=== PATIENT | male | born 1940 | race Caucasian/White ===

== ENCOUNTER → 2016-10-25 | Outpatient (CLI) | payer MEDICARE ==
--- OUTSIDE RECORDS SUMMARY | 2016-10-25 12:53 | XMS REPORT ---
Author Author MADDY NAM [facility], [place] eClinicalWorks Address Unknown Phone Unavailable Care Team Providers Care Property Field Inspector Name Role Phone MADDY NAM CP Unavailable Allergies, Adverse Reactions, Alerts Substance Reaction Event Type N.K.D.A. Info Not Available Non Drug Allergy Problems Problem Type Condition Code Onset Dates Condition Status Problem Impotence of organic origin 607.84 Active Problem Pain in joint, lower leg 719.46 Active Problem Acute sinusitis, unspecified 461.9 Active Problem Benign essential hypertension 401.1 Active Problem Unspecified infective otitis externa 380.10 Active Problem Hypertension I10 Active Problem Allergic rhinitis, cause unspecified 477.9 Active Problem Gout, unspecified 274.9 Active Problem Personal history of allergy to other foods V15.05 Active Problem Enlargement of lymph nodes 785.6 Active Assessment Mass in neck R22.1 Active Assessment Hypertension I10 Active Problem Other symptoms involving skin and integumentary tissues 782.9 Active Medications Medication Code System Code Instructions Start Date End Date Status Dosage Hydrochlorothiazide [facility] [address]-11 25 MG Orally Once a day May 12, 2014 1 tablet by Oral route 1 time per day Aspirin [facility] [address]-43 81 mg Jun 29, 2014 1 Tablet by Oral route 1 time per day Viagra [facility] [address]-50 50 MG Orally Once a day May 31, 2015 1 tablet as needed Procedures Procedure Coding System Code Date Office Visit, Est Pt., Level 2 CPT-4 92981 Oct 26, 2015 Vital Signs Date/Time: Oct 26, 2015 Temperature 98.5 F Weight 236.0 lbs Height 69 in BMI 34.85 Index Blood Pressure Diastolic 76 mmHg Blood Pressure Systolic 146 mmHg Cardiac Monitoring Heart Rate 68 bpm Results No Known Results Summary Purpose eClinicalWorks Submission
--- NOTE | 2016-10-25 15:37 | Diagnostic Imaging Report ---
Two views of the left hip. INDICATION: Left hip pain. FINDINGS: There is markedly severe osteoarthritis with [id number] appearance on the lateral aspect of the hip joint with subchondral sclerosis and cyst formation seen. There are no fractures or dislocation. No radiopaque foreign body. IMPRESSION: Severe left hip osteoarthritis. Dictated by: Dictated on workstation # [id number]
== END ==
LOC: RAD 12:49
PROVIDERS: ATTEND Family Medicine
DX: M25.552 Pain in left hip (principal)
CPT/HCPCS: 73502

== ENCOUNTER 2018-09-06 11:35 | Emergency (ER) | payer MEDICARE ==
[~2018-09-06] VITALS: Ht 180.3 cm; Wt 108.9 kg
[2018-09-06 12:02] VITALS: BP 113/93
--- NOTE | 2018-09-06 12:18 | ED Upper Extremity ---
General Chief Complaint: Upper Extremity Stated Complaint: INJURED RT. SHOULDER/FALL Nursing Triage Note: THE PT IS AMBULATORY TO THE ROOM WITHOUT DIFFICULTY. NO DISTRESS IS SEEN ON ARRIVAL. LOC IS NORMAL FOR THE PT. Nursing Sepsis Screen: No Definite Risk History of Present Illness Date Seen by Provider: Sep 06, 2018 Time Seen by Provider: 12:14 Initial Comments The patient is a 78-year-old white male who was just released from shelter this week. He had been to the grab driver's license office at the [facility] and was walking south of the building in order to get to [facility]. He tripped and fell heavily on his right shoulder. He reports considerable pain and inability to use it. On triage the nurses found him to have a relatively rapid irregular heartbeat. There is no past history of this. There is no chest pain. He was seen recently at the shelter by a nurse practitioner from [facility]. No statement was made then about his heartbeat. He normally sees Dr. Nam at [facility]. Onset: just prior to arrival Pain/Injury Location: right shoulder Method of Injury: fell Modifying Factors: Improves With Cold Therapy Allergies and Home Medications Home Medications Hydrocodone Bit/Acetaminophen 1 Ea Tablet, 1 EA PO 4 times a day PRN for PAIN- MODERATE Prescribed by: CHRISTIANE HONEYCUTT on 09/06/18 1310 Metoprolol Tartrate 25 Mg Tablet, 25 MG PO BID Prescribed by: CHRISTIANE HONEYCUTT on 09/06/18 1310 Patient Home Medication List Home Medication List Reviewed: Yes Review of Systems Constitutional: see HPI EENTM: no symptoms reported Respiratory: dyspnea on exertion, other (stop smoking at age 41) Gastrointestinal: no symptoms reported Genitourinary: no symptoms reported Musculoskeletal: see HPI Skin: no symptoms reported Psychiatric/Neurological: No Symptoms Reported Past Rgwwghw-Vdcvrn-Nljixc Hx Patient Social History Recent Foreign Travel: No Contact w/Someone Who Travel: No Recent Infectious Disease Expo: No Recent Hopitalizations: No Physical Abuse: No Sexual Abuse: No Mistreated: No Fear: No Seasonal Allergies Seasonal Allergies: No Past Medical History Surgeries: No Cardiac: No Neurological: No Physical Exam Vital Signs Vital Signs - First Documented 09/06/18 12:02 Temp 98.0 Pulse 118 Resp 18 B/P (MAP) 113/93 (100) Capillary Refill : Less Than 3 Seconds Height, Weight, BMI Height: 5'11.00" Weight: 240lbs. oz. 108.159127py; BMI Method:Estimated General Appearance: mild distress HEENT: normal ENT inspection Neck: full range of motion Cardiovascular: irregularly irregular, other (rate between 110 and 130) Respiratory: chest non-tender, lungs clear, normal breath sounds Gastrointestinal: other (obese no tenderness or palpated masses) Back: normal inspection, no CVA tenderness, no vertebral tenderness, CVA tenderness (R), CVA tenderness (L) Shoulder: limited ROM (elbow held tightly to chest.) Wrist: Yes normal inspection Progress/Results/Core Measures Results/Orders Lab Results Laboratory Tests Test 09/06/18 12:55 Range/Units White Blood Count 16.7 H 4.3-11.0 10^3/uL Red Blood Count 4.99 4.35-5.85 10^6/uL Hemoglobin 15.3 13.3-17.7 G/DL Hematocrit 45 40-54 % Mean Corpuscular Volume 90 80-99 FL Mean Corpuscular Hemoglobin 31 25-34 PG Mean Corpuscular Hemoglobin Concent 34 32-36 G/DL Red Cell Distribution Width 13.8 10.0-14.5 % Platelet Count 208 130-400 10^3/uL Mean Platelet Volume 10.5 H 7.4-10.4 FL Neutrophils (%) (Auto) 87 H 42-75 % Lymphocytes (%) (Auto) 6 L 12-44 % Monocytes (%) (Auto) 6 0-12 % Eosinophils (%) (Auto) 1 0-10 % Basophils (%) (Auto) 0 0-10 % Neutrophils # (Auto) 14.5 H 1.8-7.8 X 10^3 Lymphocytes # (Auto) 1.0 1.0-4.0 X 10^3 Monocytes # (Auto) 1.0 0.0-1.0 X 10^3 Eosinophils # (Auto) 0.2 0.0-0.3 10^3/uL Basophils # (Auto) 0.0 0.0-0.1 10^3/uL My Orders Orders - CHRISTIANE HONEYCUTT MD Shoulder, Right, 3 Views (09/06/18 12:01) Cbc With Automated Diff (09/06/18 12:10) Comprehensive Metabolic Panel (09/06/18 12:10) Chest 1 View, Ap/Pa Only (09/06/18 12:10) Ekg Tracing (09/06/18 12:10) Shoulder Immoblizer (09/06/18 12:56) Manual Differential (09/06/18 12:55) Vital Signs/I&O 09/06/18 12:02 Temp 98.0 Pulse 118 Resp 18 B/P (MAP) 113/93 (100) Blood Pressure Mean: 100 Departure Communication (Admissions) Shoulder x-ray shows a high subcapital fracture of the right humeral head with some distraction. Cardiogram shows atrial fibrillation as anticipated. [address] Simmons of the cardiology service. He will come to the emergency room. Basically the thought is that the patient because of the acute injury is not an immediate candidate for anticoagulation. And the recommendation therefore would be to proceed with the sling and to add a beta bello to slow the rate slightly. The remainder of the treatment could be done as an outpatient. Impression Primary Impression: acute subcapital fracture right humeral head Additional Impression: untreated atrial fibrillation onset unclear Disposition: 01 HOME, SELF-CARE Condition: Stable/Unchanged Departure-Patient Inst. Decision time for Depature: 13:06 Referrals: MADDY NAM MD (PCP/Family) Primary Care Physician Patient Instructions: How to Use a Shoulder Sling Add. Discharge Instructions: All discharge instructions reviewed with patient and/or family. Voiced understanding. Use sling save when bathing. Lortab as necessary for pain Follow-up with Dr. Simmons with regard to atrial fibrillation. His phone number is [phone]. Call this for an appointment on Sunday or Sunday. Scripts Metoprolol Tartrate (Metoprolol Tartrate) 25 Mg Tablet 25 MG PO BID, #20 TAB Prov: CHRISTIANE HONEYCUTT MD 09/06/18 Hydrocodone Bit/Acetaminophen (LORTAB 7.5 MG TABLET) 1 Ea Tablet 1 EA PO 4 times a day PRN for PAIN-MODERATE, #20 TAB Prov: CHRISTIANE HONEYCUTT MD 09/06/18 CHRISTIANE HONEYCUTT MD Sep 06, 2018 12:18
--- NOTE | 2018-09-06 12:45 | Diagnostic Imaging Report ---
INDICATION: Fall and right shoulder pain. TIME OF EXAMINATION: 12:54 p.m. FINDINGS: Three views of the right shoulder demonstrate an acute fracture of the proximal right humerus near the junction of the humeral head and neck. Glenohumeral alignment is maintained without evidence of dislocation. There is glenohumeral joint degenerative change. Acromioclavicular alignment appears normal. IMPRESSION: Proximal right humerus fracture. Dictated by: Dictated on workstation # [id number]
--- NOTE | 2018-09-06 12:46 | Diagnostic Imaging Report ---
INDICATION: Fall and right shoulder fracture. TIME OF EXAM: 12:52 p.m. COMPARISON: Comparison is made with prior chest from 03/06/2007. FINDINGS: Small calcified nodules are noted bilaterally consistent with granulomas. No infiltrates are seen. No effusion or pneumothorax is identified. IMPRESSION: No acute cardiopulmonary process is detected. Dictated by: Dictated on workstation # [id number]
[2018-09-06 13:03] LABS: BASOPHILS % (AUTO) 0 % (0-10); EOSINOPHILS # (AUTO) 0.2 10^3/uL (0.0-0.3); EOSINOPHILS % (AUTO) 1 % (0-10); HEMATOCRIT 45 % (40-54); HEMOGLOBIN 15.3 G/DL (13.3-17.7); LYMPHOCYTES % (AUTO) 6 % (12-44); MEAN CORPUSCULAR HEMOGLOBIN 31 PG (25-34); MEAN CORPUSCULAR HGB CONC 34 G/DL (32-36); MEAN CORPUSCULAR VOLUME 90 FL (80-99); MEAN PLATELET VOLUME 10.5 FL (7.4-10.4); MONOCYTES % (AUTO) 6 % (0-12); NEUTROPHILS # (AUTO) 14.5 X 10^3 (1.8-7.8); NEUTROPHILS % (AUTO) 87 % (42-75); PLATELET COUNT 208 10^3/uL (130-400); RED BLOOD COUNT 4.99 10^6/uL (4.35-5.85); RED CELL DISTRIBUTION WIDTH 13.8 % (10.0-14.5); WHITE BLOOD COUNT 16.7 10^3/uL (4.3-11.0)
[2018-09-06] MEDS ORDERED: METO-333 PO (13:10)
[2018-09-06] MEDS ORDERED: HYDR-34 PO (13:10)
--- NOTE | 2018-09-06 13:13 | Consultation-Cardiology ---
HPI-Cardiology Cardiology Consultation: Date of Consultation 09/06/18 Date of Admission Attending Physician Admitting Physician Tj Delatorre MD Consulting Physician Yaron SIMMONS MD HPI: Time Seen by a Provider: 13:13 Chief Complaint: Atrial fibrillation This is a 78-year-old gentleman who presents with a mechanical fall and possible right shoulder injury. He was found to have new onset atrial fibrillation with rapid ventricular rate. He denies any chest pain, shortness of breath, palpitations. He has history of hypertension. Denies any past history of cardiac disease. He was incarcerated for 18 months and was recently released. He follows [facility]. Review of Systems-Cardiology Review of Systems Constitutional: As described under HPI; No As described under HPI, No no symptoms reported, No chills, No fever, No lightheadedness Eyes: No As described under HPI, No no symptoms reported, No blindness, No blurred vision, No contact lenses, No drainage, No decreased acuity, No foreign body sensation, No pain, No vision change Ears/Nose/Throat: No As described under HPI, No no symptoms reported, No chronic hearing loss, No ear discharge, No ear pain, No nasal drainage, No ulcerations Respiratory: No no symptoms reported; As described under HPI; No As described under HPI, No cough, No orthopnea, No shortness of breath, No SOB with excertion Cardiovascular: No no symptoms reported; As described under HPI; No As described under HPI, No chest pain, No edema, No irregular heart rate, No lightheadedness, No palpitations Gastrointestinal: No no symptoms reported, No As described under HPI, No abdomen distended, No abdominal pain, No blood streaked bowels, No constipation , No diarrhea, No nausea, No vomiting, No stool coloration changes Genitourinary: No As described under HPI, No burning, No dysuria, No discharge , No frequency, No flank pain, No hematuria, No urgency Skin: No rash, No skin related problems, No ulcerations Psychiatric/Neurological: No anxiety, No depression, No seizure, No focal weakness, No syncope Hematologic: No bleeding abnormalities KGT-Eyxnlh-[place] Hx Patient Social History Recent Foreign Travel: No Recent Infectious Disease Expo: No Hospitalization with Isolation: Denies Past Medical History PMH As described under Assessment. Allergies and Home Medications Home Medications Hydrocodone Bit/Acetaminophen 1 Ea Tablet, 1 EA PO 4 times a day PRN for PAIN- MODERATE Prescribed by: CHRISTIANE HONEYCUTT on 09/06/18 1310 Metoprolol Tartrate 25 Mg Tablet, 25 MG PO BID Prescribed by: CHRISTIANE HONEYCUTT on 09/06/18 1310 Patient Home Medication List Home Medication List Reviewed: Yes Physical Exam-Cardiology Physical Exam Vital Signs/I&O 09/06/18 12:02 Temp 98.0 Pulse 118 Resp 18 B/P (MAP) 113/93 (100) Capillary Refill : Less Than 3 Seconds Constitutional: appears stated age, AAO x 3; No apparent distress; well- developed, well-nourished HEENT: PERRL; No normal ENT inspection, No TMs normal, No pharynx normal, No scleral icterus (R), No scleral icterus (L), No pale conjunctivae (R), No pale conjunctivae (L), No photophobia, No TM abnormal (R), No TM abnormal (L), No pharyngeal erythema, No tonsillar exudate, No other, No discharge, No EOMI; hearing is well preserved; No hard of hearing; oral hygience is good; No ulceration, No xanthelasmas are seen Neck: No non-tender, No full range of motion, No supple, No normal inspection, No carotid bruit, No limited range of motion, No lymphadenopathy (R), No lymphadenopathy (L), No tender lateral, No tender midline, No thyromegaly, No other; carotid pulses are 2 + bilaterally; No with good upstrokes Respiratory: No accessory muscle use, No respiratory distress, No chest tender , No chest expansion is symmetric; chest is bilaterally symmetric; No lungs clear to percussion; lungs clear to auscultation; No crackles, No rhonchi, No rales, No stridor, No wheezing, No pleural rub, No other Cardiovascular: irregularly irregular, tachycardia, S1 and S2 Gastrointestinal: No tender, No soft, No round, No distended, No pulsatile mass , No organomegaly, No guarding, No rebound, No tenderness, No hernia, No mass, No audible bowel sounds, No abnormal bowel sounds, No abdominal bruits, No spleenomegaly, No other Rectal: deferred Extremities: No normal range of motion, No non-tender, No normal inspection, No pedal edema, No calf tenderness, No normal capillary refill, No pelvis stable , No calf tenderness, No inflammation, No pedal edema, No slow capillary refill , No swelling, No other, No abrasion, No clubbing, No cyanosis, No ecchymosis, No laceration, No no lower extremity edema bilateral, No significant edema, No tenderness, No wound Neurologic/Psychiatric: no motor/sensory deficits, alert, normal mood/affect, oriented x 3, power is 5/5 both on sides Skin: No normal color, No warm/dry, No cyanosis, No cool, No diaphoresis, No damp, No ecchymosis, No jaundice, No mottled, No pallor, No rash, No tattoos/ piercings, No ulcerations, No rash on exposed areas, No ulcerations on exposed areas, No other Data Review Labs Laboratory Tests 09/06/18 12:55: White Blood Count 16.7H, Red Blood Count 4.99, Hemoglobin 15.3, Hematocrit 45, Mean Corpuscular Volume 90, Mean Corpuscular Hemoglobin 31, Mean Corpuscular Hemoglobin Concent 34, Red Cell Distribution Width 13.8, Platelet Count 208, Mean Platelet Volume 10.5H, Neutrophils (%) (Auto) 87H, Lymphocytes (%) (Auto) 6L, Monocytes (%) (Auto) 6, Eosinophils (%) (Auto) 1, Basophils (%) (Auto) 0, Neutrophils # (Auto) 14.5H, Lymphocytes # (Auto) 1.0, Monocytes # (Auto) 1.0, Eosinophils # (Auto) 0.2, Basophils # (Auto) 0.0, Neutrophils % (Manual) 82, Lymphocytes % (Manual) 4, Monocytes % (Manual) 3, Eosinophils % (Manual) 0, Basophils % (Manual) 1, Band Neutrophils 7, Reactive Lymphocytes 3, Toxic Granulation 1+, Poikilocytosis SLIGHT, Elliptocytes SLIGHT, Sodium Level 140, Potassium Level 3.7, Chloride Level 107, Carbon Dioxide Level 22, Anion Gap 11, Blood Urea Nitrogen 24H, Creatinine 0.93, Estimat Glomerular Filtration Rate > 60, BUN/Creatinine Ratio 26, Glucose Level 125H, Calcium Level 9.8, Corrected Calcium 9.6, Total Bilirubin 1.0, Aspartate Amino Transf (AST/SGOT) 22, Alanine Aminotransferase (ALT/SGPT) 17, Alkaline Phosphatase 60, Total Protein 7.2, Albumin 4.2 ECG Impression ECG Initial ECG Impression: Atrial Fibrillation w/RVR A/P-Cardiology Assessment/Admission Diagnosis Mechanical fall, Hypertension, Persistent atrial fibrillation with rapid ventricular rate Plan Mechanical fall: Defer to Dr. Honeycutt. Hypertension: Continue metoprolol. Persistent atrial fibrillation with rapid ventricular rate: CHADSVASC 3 for age over 75, hypertension. oral anticoagulation is superior to aspirin. However, due to acute fall I'm going to hold off on oral anticoagulation. I will see him in the next few days and hopefully if there is any hematoma or bleeding it will be observed. If there is no evidence of bleeding. We will start him on oral anticoagulation. Metoprolol is recommended for rapid ventricular rate. Further monitoring will include Holter/event monitor/echocardiogram/nuclear stress testing. We'll arrange as an outpatient. Follow-up in my office in the next 3-4 days. Thank you for your consultation. Please call me if you have any questions. Chapo Simmons MD, FACP, FACC, FSCAI, FHRS, CCDS Interventional Cardiology Cardiac Electrophysiology Vascular Medicine and Endovascular Interventions Yaron SIMMONS MD Sep 06, 2018 13:13
--- OUTSIDE RECORDS SUMMARY | 2018-09-06 13:21 | XMS REPORT ---
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 Active 546653969 ALLERGIES No Known Allergies ENCOUNTERS Encounter Location Date Diagnosis [address] [id number] Aug, Folliculitis L73.[address] [id number] Jul, Ear pain, left H92.02 and Hip pain, left M25.[address] [id number] Jul, Pain in right knee M25.561 ; Other chronic pain G89.29 and Foot callus L84 [address] [id number] Jun, Acute pain of right knee M25.[address] [id number] May, Onychomycosis B35.1 and Acute non-recurrent maxillary sinusitis J01.00 [facility] [address] [facility] [id number] [address] May, Slow transit constipation K59.01 [facility] [address] [facility] [id number] [address] 164[address] Apr, Arthritis M19.90 and Upper respiratory tract infection, unspecified type J06.9 [facility] [address] [facility] [id number] [address] Apr, Sinusitis J32.[address] [id number] Mar, Bronchitis J40 [address] [id number] Mar, Edema of left lower extremity R60.[address] [id number] February, Localized edema R60.[address] [id number] February, Costochondral chest pain R07.1 [place] [address] [place] [address] 63788- 1606 Jan, Pain in left hip M25.[address] [id number] Jan, Other chronic pain G89.29 and Pain in left hip M25.552 [place] [address] [place] [id number] [place] [address] 94471- 4206 Nov, Arthritis M19.[address] [id number] Nov, Viral URI J06.9 and Nail hypertrophy L60.2 [place] [address] [place] [address] 77490- 2366 Oct, [address] [id number] Sep, Stiff neck M43.6 [facility] [address] [place] [address] 07037- 4136 Jul, [address] [id number] May, Pain in thoracic spine M54.[address] [id number] Apr, Slow transit constipation K59.01 and Pain in thoracic spine M54.[address] [id number] Mar, Injury of elbow, left, initial encounter S59.902A [facility] [address] [place] [address] 03301- 4114 Dec, Hypertension I10 and 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 [place] [address] [place] [id number] [place] [address] 96085- 0406 Aug, Hypertension I10 ; 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 ; Arthritis M19.90 and Encounter for immunization Z23 [place] [address] [address]- 6556 Jul, Acute non-recurrent sinusitis, unspecified location J01.90 [place] [address] [address]- 7743 2016 [place] [address] 9[address]18- 9521 Jun, Pain in thoracic spine M54.6 ; Other chronic pain G89.29 and Hypertension I10 [facility] [address] [address]28 Jun, Chest wall pain R07.89 [facility] [address] [address] -2107 May, Muscle pain M79.1 [facility] [address] [address] -9251 Mar, Upper respiratory tract infection, unspecified type J06.9 [place] [address] [place] [address] [id number] [place] [address] 72808- 6785 Dec, Sinusitis J32.9 [place] [address] 07056- 5518 Oct, Arthritis M19.90 [place] [address] 60624- 7487 Oct, Hypertension I10 and Mass in neck R22.1 [place] [address] 84729- 9567 Jul, [place] [address] 72783- 4256 May, [facility] [address] [facility] [id number], [place] [address] 1437 May, Benign essential hypertension 401.1 and Impotence of organic origin 607.84 [facility] [address] [facility] [id number], [place] [address] 2[address] February, [facility] [address] [facility] [id number] [place] [address] 57929- 9206 Jan, [facility] [address] [facility] [id number], [place] [address]- 4143 Jan, [facility] [address] [place] [id number] [place] [address] 82945- 5262 Nov, [facility] [address] [address] 0509 Nov, [facility] [address] [place] [id number] [address] 6977 Nov, [facility] [address] [address] 5756 Nov, [facility] [address], [place] [address] 3944 Aug, [facility] [address], [place] [address] 7495 Aug, [facility] [address] [place] [id number] [address] 3195 Aug, [facility] [address] [facility] [id number], [place] [address]- 4399 Aug, [facility] [address], [place] [address]- 5777 Aug, [facility] [place] [facility] [address] [place] [id number] [address] Aug, [facility] [address]65[address], [place] [address]- 0541 Jun, [facility] [place] [facility] [address] [id number] [place] [address]- 5104 Jun, [facility] [place] [facility] [address] [id number] [place] [address]- 5820 Apr, [facility] [place] [facility] [address] [facility] [id number] [place] [address]- 5296 Apr, [facility] [place] [facility] [address] [id number] [place] [address]- 7798 Mar, [facility] [place] [facility] [address] [id number] [place] [address]- 7654 Mar, [facility] [place] [facility] [address] [facility] [id number] [place] [address]- 3717 Oct, [facility] [place] [facility] [address] [facility] [id number], [place] [address]- 7200 Oct, [facility] [place] [facility] [address] [facility] [id number] [place] [address]- 1327 Oct, [facility] [place] [facility] [address] [facility] [id number] [place] [address]- 8711 Oct, [facility] [place] [facility] [address] [facility] [id number] [place] [address]- 8223 Oct, [facility] [place] [facility] [address] [facility] [id number], [place] [address]- 8669 Oct, [facility] [place] [facility] [address] [id number], [place] [address]- 4402 Sep, [facility] [place] [facility] [address] [id number], [place] [address]- 3344 Sep, [facility] [place] [facility] [address] [facility] [id number], [place] [address]- 0270 Jul, [facility] [place] [facility] [address] [facility] [id number] [place] [address]- 0282 Jul, [facility] [place] [facility] [address] [id number] [place] [address]- 2553 18 Mar, 2013 [facility] [place] [facility] [address] [id number] [place] [address]- 2478 07 Mar, 2013 [facility] [place] [facility] [address] [id number] [place] [address]- 1740 06 Mar, 2013 [facility] [place] [facility] [address] [id number] [place] [address]- 1027 26 Dec, 2012 [facility] [place] [facility] [address] [id number] [place] [address]- 8889 14 Dec, 2012 [facility] [place] [facility] [address] [id number] [place] [address]- 2770 13 Dec, 2012 [facility] [place] [facility] [address] [id number] [place] [address]- 9782 04 Dec, 2012 [facility] [place] [facility] [address] [id number] [place] [address]- 2163 27 Nov, 2012 [facility] [place] [facility] [address] [id number] [place] [address]- 5708 Nov, [facility] [place] [facility] [address] [id number] [place] [address]- 1228 Jun, [facility] [place] [facility] [address] [id number] [place] [address]- 0658 May, [facility] [place] [facility] [address] [id number] [place] [address]- 2613 Jan, [facility] [place] [facility] [address] [id number] [place] [address]- 0298 02 Jan, 2012 [facility] [place] [facility] [address] [id number] [place] [address]- 7684 10 Nov, 2011 [facility] [place] [facility] [address] [id number] [place] [address]- 3175 11 Jan, 2011 [facility] [place] [facility] [address] [id number] [place] [address]- 8046 Sep, [facility] [address] [facility] [id number] [place] [address]- 5717 Sep, IMMUNIZATIONS No Known Immunizations SOCIAL HISTORY Never Assessed REASON FOR VISIT [facility] PL[facility] CARE VITAL SIGNS Height 66 in 2018-08-27 Weight 238 lbs 2018-08-27 Heart Rate 64 bpm 2018-08-27 Respiratory Rate 18 2018-08-27 BMI 38.41 kg/m2 2018-08-27 Blood pressure systolic 126 mmHg 2018-08-27 Blood pressure diastolic 74 mmHg 2018-08-27 MEDICATIONS Unknown Medications RESULTS No Results PROCEDURES No Known procedures INSTRUCTIONS MEDICATIONS ADMINISTERED No Known Medications MEDICAL (GENERAL) HISTORY Type Description Date Medical History hypertension Medical History hx of left broken heel Medical History left hip replacement Surgical History appendectomy Surgical History left hip replacement 12/05/2016 Hospitalization History hip replacement 12/05/2016
[2018-09-06 13:22] LABS: ALANINE AMINOTRANSFERASE 17 U/L (0-55); ALBUMIN 4.2 GM/DL (3.2-4.5); ALKALINE PHOSPHATASE 60 U/L (40-136); BUN/CREATININE RATIO 26; CALCIUM 9.8 MG/DL (8.5-10.1); CARBON DIOXIDE 22 MMOL/L (21-32); CHLORIDE 107 MMOL/L (98-107); CREATININE SERUM 0.93 MG/DL (0.60-1.30); GFR ESTIMATED > 60; GLUCOSE 125 MG/DL (70-105); POTASSIUM 3.7 MMOL/L (3.6-5.0); SODIUM 140 MMOL/L (135-145); TOTAL PROTEIN 7.2 GM/DL (6.4-8.2)
--- OUTSIDE RECORDS SUMMARY | 2018-09-06 13:22 | XMS REPORT ---
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 Active 952126339 ALLERGIES No Known Allergies ENCOUNTERS Encounter Location Date Diagnosis [place] [address] [place] [id number] May, Onychomycosis B35.1 and Acute non-recurrent maxillary sinusitis J01.00 [place] [id number] [place] [address] 42480- 8120 May, Slow transit constipation K59.01 [place] [id number] [place] [address] 93861- 8854 Apr, Arthritis M19.90 and Upper respiratory tract infection, unspecified type J06.9 [place] [address] [place] [address] 52380- 0673 Apr, Sinusitis J32.9 [place] [address] [place] [id number] Mar, Bronchitis J40 [place] [address] [place] [id number] Mar, Edema of left lower extremity R60.0 [place] [address] [place] [id number] February, Localized edema R60.0 [place] [address] [place] [id number] February, Costochondral chest pain R07.1 [place] [address] [place] [id number] [place] [address] 86025359- 2257 Jan, Pain in left hip M25.[address] [id number] Jan, Other chronic pain G89.29 and Pain in left hip M25.552 [place] [address] [place] [id number] [place] [address] 35128- 2129 Nov, Arthritis M19.[address] [id number] Nov, Viral URI J06.9 and Nail hypertrophy L60.2 [place] [address] [address]- 7875 Oct, [address] [id number] Sep, Stiff neck M43.6 [place] [address] 40244- 2392 Jul, [address] [id number] May, Pain in thoracic spine M54.[address] [id number] Apr, Slow transit constipation K59.01 and Pain in thoracic spine M54.[address] [id number] Mar, Injury of elbow, left, initial encounter S59.902A [place] [address] [place] [id number] [place] [address] 67177- 0137 Dec, Hypertension I10 and 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 [place] [address] [place] [id number] [place] [address] 63359- 4447 Aug, Hypertension I10 ; 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 ; Arthritis M19.90 and Encounter for immunization Z23 [place] [address] [place] [id number] [place] [address] 09336- 9249 04 Jul, 2016 Acute non-recurrent sinusitis, unspecified location J01.90 [place] [address] [place] [address]- 5655 2016 [facility] [address] [place] [id number] [place] [address] 44324- 4304 13 Jun, 2016 Pain in thoracic spine M54.6 ; Other chronic pain G89.29 and Hypertension I10 [facility] [address] [place] [address] [id number] [place] [address] 05370 -2383 02 Jun, 2016 Chest wall pain R07.89 [facility] [address] 9[address]58 -4800 04 May, 2016 Muscle pain M79.1 [facility] [address] 13517 -1707 Mar, Upper respiratory tract infection, unspecified type J06.9 [place] [address] [place] [id number] [place] [address] 53080- 9702 Dec, Sinusitis J32.9 [facility] [address] 70818- 9184 Oct, Arthritis M19.90 [place] [address] 56724- 6264 Oct, Hypertension I10 and Mass in neck R22.1 [facility] [address] [place] [id number] [place] [address] 64617- 4274 Jul, [facility] [address] [place] [id number] [place] [address] 79134- 5820 May, [facility] [address] [place] [id number] [place] [address] 69942- 9810 May, Benign essential hypertension 401.1 and Impotence of organic origin 607.84 [facility] [address] [place] [id number] [place] [address] 03254- 4033 February, [facility] [address] [place] [id number] [place] [address] 49011- 3768 Jan, [facility] [address] [place] [id number] [place] [address]- 7568 13 Jan, 2014 [facility] [place] [facility] [address] [id number] [place] [address]- 2277 10 Nov, 2014 [facility] [place] [facility] [address] [id number] [place] [address]- 5916 10 Nov, 2014 [facility] [place] [facility] [address] [id number] [place] [address]- 8526 09 Nov, 2014 [facility] [place] [facility] [address] [id number] [place] [address]- 4618 09 Nov, 2014 [facility] [place] [facility] [address] [id number] [place] [address]- 9473 Aug, [facility] [place] [facility] [address] [id number] [place] [address]- 6449 Aug, [facility] [place] [facility] [address] [id number] [place] [address]- 9753 Aug, [facility] [place] [facility] [address] [id number] [place] [address]- 0798 Aug, [facility] [place] [facility] [address] [id number] [place] [address]- 8525 Aug, [facility] [place] [facility] [address] [facility] [id number] [place] [address]- 9772 Aug, [facility] [place] [facility] [address] [id number] [place] [address]- 7969 Jun, [facility] [place] [facility] [address] [id number] [place] [address]- 2547 Jun, [facility] [place] [facility] [address] [id number] [place] [address]- 5252 Apr, [facility] [place] [facility] [address] [id number] [place] [address]- 1367 Apr, [facility] [place] [facility] [address] [id number] [place] 0016 Mar, [facility] [place] [facility] [address] [id number] [place] [address]- 5589 Mar, [facility] [place] [facility] [address] [id number] [place] [address]- 9566 Oct, [facility] [place] [facility] [address] [id number] [place] [address]- 0224 Oct, [facility] [place] [facility] [address] [id number] [place] [address]- 5054 Oct, [facility] [place] [facility] [address] [id number] [place] [address]- 1860 Oct, [facility] [place] [facility] [address] [id number] [place] [address]- 1455 Oct, [facility] [place] [facility] [address] [id number] [place] [address]- 5881 Oct, [facility] [place] [facility] [address] [id number] [place] [address]- 5165 Sep, [facility] [place] [facility] [address] [id number] [place] [address]- 7138 Sep, [facility] [place] [facility] [address] [id number] [place] [address]- 6735 Jul, [facility] [place] [facility] [address] [id number] [place] [address]- 0597 Jul, [facility] [place] [facility] [address] [id number] [place] [address]- 8864 Mar, [facility] [place] [facility] [address] [id number] [place] [address]- 7061 Mar, [facility] [place] [facility] [address] [id number] [place] [address]- 4092 Mar, [facility] [place] [facility] [address] [id number] [place] [address]- 1957 Dec, [facility] [place] [facility] [address] [id number] [place] [address]- 8900 14 Dec, 2012 [facility] [address] [address]- 4676 13 Dec, 2012 [facility] [address] [address]- 3604 04 Dec, 2012 [facility] [address] [address]- 3540 27 Nov, 2012 [facility] [id number] [place] [address] 50806- 3648 Nov, [facility] [id number] [place] [address] 68342- 3961 Jun, [facility] [id number] [place] [address] 17879- 1044 May, [facility] [id number] [place] [address] 43044- 5506 Jan, [facility] [id number] [place] [address] 19673- 8381 Jan, [facility] [id number] [place] [address] 08135- 0963 Nov, [facility] [address] [address]- 7316 Jan, [facility] [address] [address]- 0431 Sep, [facility] [address] [address]- 0651 Sep, IMMUNIZATIONS No Known Immunizations SOCIAL HISTORY Never Assessed REASON FOR VISIT [facility] PLAN OF CARE Activity Details Future/Pending Procedure TRIM NAIL(S) VITAL SIGNS Height 69 in 2018-06-11 Weight 236 lbs 2018-06-11 Heart Rate 78 bpm 2018-06-11 Respiratory Rate 16 2018-06-11 BMI 34.85 kg/m2 2018-06-11 Blood pressure systolic 126 mmHg 2018-06-11 Blood pressure diastolic 88 mmHg 2018-06-11 MEDICATIONS Medication Instructions Dosage Frequency Start Date End Date Duration Status Augmentin 875-125 MG Orally every 12 hrs 1 tablet 12h May,May 10 day(s) Active RESULTS No Results PROCEDURES Procedure Date Ordered Result Body Site TRIM NAIL(S) Jun 11, 2018 INSTRUCTIONS MEDICATIONS ADMINISTERED No Known Medications MEDICAL (GENERAL) HISTORY Type Description Date Medical History hypertension Medical History hx of left broken heel Medical History left hip replacement Surgical History appendectomy Surgical History left hip replacement 12/05/2016 Hospitalization History hip replacement 12/05/2016
--- OUTSIDE RECORDS SUMMARY | 2018-09-06 13:22 | XMS REPORT ---
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 Active 337487507 ALLERGIES No Known Allergies ENCOUNTERS Encounter Location Date Diagnosis [address] [id number] Jul, Ear pain, left H92.02 and Hip pain, left M25.[address] [id number] Jul, Pain in right knee M25.561 ; Other chronic pain G89.29 and Foot callus L84 [address] [id number] Jun, Acute pain of right knee M25.[address] [id number] May, Onychomycosis B35.1 and Acute non-recurrent maxillary sinusitis J01.00 [place] [address] [id number] [address] May, Slow transit constipation K59.01 [facility] [address] [facility] [id number] [place] [address]37- 9622 Apr, Arthritis M19.90 and Upper respiratory tract infection, unspecified type J06.9 [facility] [address] [facility] [id number] [address] Apr, Sinusitis J32.[address] [id number] Mar, Bronchitis J40 [address] [id number] Mar, Edema of left lower extremity R60.[address] [id number] February, Localized edema R60.[address] [id number] February, Costochondral chest pain R07.1 [facility] [id number] [place] [address] 03434- 3736 Jan, Pain in left hip M25.[address] [id number] Jan, Other chronic pain G89.29 and Pain in left hip M25.552 [facility] [id number] [place] [address] 28921803- 1464 Nov, Arthritis M19.[address] [id number] Nov, Viral URI J06.9 and Nail hypertrophy L60.2 [facility] [id number] [place] [address] 96231- 7730 Oct, [address] [id number] Sep, Stiff neck M43.6 [facility] [id number] [place] [address] 39300- 4861 Jul, [address] [id number] May, Pain in thoracic spine M54.[address] [id number] Apr, Slow transit constipation K59.01 and Pain in thoracic spine M54.[address] [id number] Mar, Injury of elbow, left, initial encounter S59.902A [facility] [id number] [place] [address] 16028- 4723 Dec, Hypertension I10 and 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 [facility] [address] [address]- [address] 14 Aug, 2016 Hypertension I10 ; 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 ; Arthritis M19.90 and Encounter for immunization Z23 [facility] [address] [address]- 2402 Jul, Acute non-recurrent sinusitis, unspecified location J01.90 [place] [address] [address]- 2162 2016 [place] [address] 00835- 0387 13 Jun, 2016 Pain in thoracic spine M54.6 ; Other chronic pain G89.29 and Hypertension I10 [facility] [address] [address]7638 Jun, Chest wall pain R07.89 [facility] [address] 9[address]68 -2184 May, Muscle pain M79.1 [facility] [place] [address] [address]98 Mar, Upper respiratory tract infection, unspecified type J06.9 [place] [address] [address]- 8134 Dec, Sinusitis J32.9 [place] [address] 15237- 5418 Oct, Arthritis M19.90 [place] [address] 38720- 8741 Oct, Hypertension I10 and Mass in neck R22.1 [place] [address] 85903- 7427 Jul, [place] [address] 20581- 8691 May, [place] [address] [place] [address]- 5962 May, Benign essential hypertension 401.1 and Impotence of organic origin 607.84 [facility] [address] [id number] [address] [address] February, [facility] [address] [address] 7123 14 Jan, 2015 [facility] [id number] [place] [address] 20528- 9302 Jan, [facility] [address] [address]- 4988 Nov, [facility] [id number] [place] [address] 18922- 1778 Nov, [facility] [address] [id number] [address]- 3777 Nov, [facility] [address]65[address] [address]- 4943 Nov, [facility] [address] [address]- 5637 Aug, [facility] [address]65[address] [address]- 9158 Aug, [facility] [address] [address]- 0488 Aug, [facility] [place] [facility] [address]00565[address] [address]- 9063 Aug, [facility] [place] [facility] [address]65[address] [address]- 2170 Aug, [facility] [address] [address]- 9195 Aug, [facility] [place] [facility] [address] [address] 08 Jun, 2014 [facility] [address] [id number] [place] [address]- 9947 Jun, [facility] [place] [facility] [address] [id number] [place] [address]- 0466 Apr, [facility] [place] [facility] [address] [id number] [place] [address]- 5662 Apr, [facility] [place] [facility] [address] [id number] [place] [address]- 9455 Mar, [facility] [place] [facility] [address] [id number] [place] [address]- 1253 Mar, [facility] [place] [facility] [address] [id number] [place] [address]- 7638 Oct, [facility] [place] [facility] [address] [id number] [place] [address]- 5174 Oct, [facility] [place] [facility] [address] [id number] [place] [address]- 2449 Oct, [facility] [place] [facility] [address] [id number] [place] [address]- 7951 Oct, [facility] [place] [facility] [address] [id number] [place] [address]- 9288 Oct, [facility] [place] [facility] [address] [facility] [id number] [place] [address]- 8455 Oct, [facility] [place] [facility] [address] [id number] [place] [address]- 8756 Sep, [facility] [place] [facility] [address] [id number] [place] [address]- 2543 Sep, [facility] [place] [facility] [address] [id number] [place] [address]- 6527 Jul, [facility] [place] [facility] [address] [id number] [place] [address]- 9056 Jul, [facility] [place] [facility] [address] [id number] [place] [address]- 2620 Mar, [facility] [place] [facility] [address] [id number] [place] [address]- 2830 07 Mar, 2013 [facility] [address] [id number] [place] [address]- 3163 Mar, [facility] [place] [facility] [address] [id number] [place] [address]- 2367 Dec, [facility] [place] [facility] [address] [id number] [place] [address]- 2374 14 Dec, 2012 [facility] [address] [id number] [place] [address]- 9221 13 Dec, 2012 [facility] [place] [facility] [address] [id number] [place] [address]- 0412 Dec, [facility] [address] [id number] [place] [address]- 1625 Nov, [facility] [address] [id number] [place] [address]- 6484 Nov, [facility] [address] [id number] [place] [address]- 2805 Jun, [facility] [address] [id number] [place] [address]- 7538 May, [facility] [place] [facility] [address] [id number] [place] [address]- 1879 Jan, [facility] [place] [facility] [address] [id number] [address]- 2788 Jan, [facility] [place] [facility] [address] [id number] [place] [address]- 1397 Nov, [facility] [place] [facility] [address] [id number] [place] [address]- 8854 Jan, [facility] [place] [facility] [address] [id number] [place] [address]- 4711 Sep, [facility] [place] [facility] [address] [id number] [place] [address]- 2546 Sep, IMMUNIZATIONS No Known Immunizations SOCIAL HISTORY Never Assessed REASON FOR VISIT [facility] PLAN OF CARE VITAL SIGNS Height 65 in 2018-08-20 Weight 237 lbs 2018-08-20 Heart Rate 72 bpm 2018-08-20 Respiratory Rate 18 2018-08-20 BMI 39.43 kg/m2 2018-08-20 Blood pressure systolic 128 mmHg 2018-08-20 Blood pressure diastolic 78 mmHg 2018-08-20 MEDICATIONS Medication Instructions Dosage Frequency Start Date End Date Duration Status PredniSONE 20 mg Orally Once a day 2 tablets 24h Jul, Aug, 5 days Active Diclofenac Sodium 75 MG Orally Twice a day 1 tablet with food or milk 12h Jul, 30 day(s) Active RESULTS No Results PROCEDURES No Known procedures INSTRUCTIONS MEDICATIONS ADMINISTERED No Known Medications MEDICAL (GENERAL) HISTORY Type Description Date Medical History hypertension Medical History hx of left broken heel Medical History left hip replacement Surgical History appendectomy Surgical History left hip replacement 12/05/2016 Hospitalization History hip replacement 12/05/2016
--- OUTSIDE RECORDS SUMMARY | 2018-09-06 13:22 | XMS REPORT ---
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 019013825 ALLERGIES No Information ENCOUNTERS Encounter Location Date Diagnosis [address] [id number] Jun, Acute pain of right knee M25.[address] [id number] May, Onychomycosis B35.1 and Acute non-recurrent maxillary sinusitis J01.00 [place] [address] [place] [id number] [place] [address] 97389- 9227 May, Slow transit constipation K59.01 [place] [address] [id number] [address]- 5607 Apr, Arthritis M19.90 and Upper respiratory tract infection, unspecified type J06.9 [place] [address] [facility] [id number] [place] [address] 14571- 7618 Apr, Sinusitis J32.9 [place] [address] [place] [id number] Mar, Bronchitis J40 [address] [id number] Mar, Edema of left lower extremity R60.[address] [id number] February, Localized edema R60.[address] [id number] February, Costochondral chest pain R07.1 [place] [address] [place] [address] [id number] [place] [address] 81658 2546 Jan, Pain in left hip M25.[address] [id number] Jan, Other chronic pain G89.29 and Pain in left hip M25.552 [place] [address] [place] [id number] [place] [address] 94455- 4186 Nov, Arthritis M19.[address] [id number] Nov, Viral URI J06.9 and Nail hypertrophy L60.2 [place] [address] [place] [id number] [place] [address] 11583- 9776 Oct, [address] [id number] Sep, Stiff neck M43.6 [place] [address] [place] [id number] [place] [address] 46686- 3566 Jul, [address] [id number] May, Pain in thoracic spine M54.[address] [id number] Apr, Slow transit constipation K59.01 and Pain in thoracic spine M54.[address] [id number] Mar, Injury of elbow, left, initial encounter S59.902A [place] [address] [place] [id number] [place] [address] 44223- 8052 Dec, Hypertension I10 and 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 [place] [address] [place] [id number] [place] [address] 61848- 9273 Aug, Hypertension I10 ; 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 ; Arthritis M19.90 and Encounter for immunization Z23 [place] [address] [place] [id number] [place] [address] 54831- 8656 Jul, Acute non-recurrent sinusitis, unspecified location J01.90 [facility] [id number] [place] [address] 99288- 3477 2016 [place] [address] [place] [id number] [place] [address] 70576- 4173 Jun, Pain in thoracic spine M54.6 ; Other chronic pain G89.29 and Hypertension I10 [facility] [id number] [place] [address] 19207 -7544 Jun, Chest wall pain R07.89 [facility] [id number] [place] [address] 69156 -3715 May, Muscle pain M79.1 [facility] [address] [place] [id number] [place] [address] 16417 -3997 Mar, Upper respiratory tract infection, unspecified type J06.9 [place] [address] 22467- 5954 Dec, Sinusitis J32.9 [place] [address] [place] [id number] [place] [address] 01006- 5058 Oct, Arthritis M19.90 [place] [address] [place] [id number] [place] [address] 78093- 9972 Oct, Hypertension I10 and Mass in neck R22.1 [place] [address] [place] [id number] [place] [address] 57656- 0513 Jul, [place] [address] [place] [id number] [place] [address] 49843- 7141 May, [place] [address] [place] [id number] [place] [address] 95715- 6163 May, Benign essential hypertension 401.1 and Impotence of organic origin 607.84 [place] [address] [place] [id number] [place] [address] 68106- 5935 February, [place] [address] [place] [address]- 5501 14 Jan, 2014 [facility] [place] [facility] [address] [id number] [place] [address]- 5022 13 Jan, 2014 [facility] [place] [facility] [address] [id number] [place] [address]- 6696 10 Nov, 2014 [facility] [place] [facility] [address] [id number] [place] [address]- 7967 10 Nov, 2014 [facility] [place] [facility] [address] [id number] [place] [address]- 0447 09 Nov, 2014 [facility] [place] [facility] [address] [id number] [place] [address]- 8731 Nov, 2014 [facility] [place] [facility] [address] [id number] [place] [address]- 9897 Aug, [facility] [place] [facility] [address] [id number] [place] [address]- 1440 Aug, [facility] [place] [facility] [address] [id number] [place] [address]- 6461 Aug, [facility] [place] [facility] [address] [id number] [place] [address]- 1331 Aug, [facility] [place] [facility] [address] [id number] [place] [address]- 9461 Aug, [facility] [place] [facility] [address] [id number] [place] [address]- 3548 Aug, [facility] [place] [facility] [address] [id number] [place] [address]- 2579 Jun, [facility] [place] [facility] [address] [id number] [place] [address]- 9482 Jun, [facility] [place] [facility] [address] [id number] [place] [address]- 2165 Apr, [facility] [place] [facility] [address] [id number] [place] [address]- 0045 Apr, [facility] [place] [facility] [address] [id number] [place] [address]- 0715 Mar, [facility] [place] [facility] [address] [id number] [place] [address]- 9367 Mar, [facility] [place] [facility] [address] [id number] [place] [address]- 3385 Oct, [facility] [place] [facility] [address] [id number] [place] [address]- 2910 Oct, [facility] [place] [facility] [address] [id number] [place] [address]- 3567 Oct, [facility] [place] [facility] [address] [id number] [place] [address]- 1463 Oct, [facility] [place] [facility] [address] [id number] [place] [address]- 3711 Oct, [facility] [place] [facility] [address] [id number] [place] [address]- 5477 Oct, [facility] [place] [facility] [address] [id number] [place] [address]- 3112 Sep, [facility] [place] [facility] [address] [id number] [place] [address]- 6816 Sep, [facility] [place] [facility] [address] [id number] [place] [address]- 3587 Jul, [facility] [place] [facility] [address] [id number] [address]- 4364 Jul, [facility] [place] [facility] [address] [id number] [place] [address]- 3428 Mar, [facility] [place] [facility] [address] [id number] [place] [address]- 6267 Mar, [facility] [place] [facility] [address] [id number] [address]- 3134 Mar, [facility] [place] [facility] [address] [id number] [address]- 0869 26 Dec, 2012 [facility] [address] [address]- 6335 14 Dec, 2012 [facility] [address]- 2481 13 Dec, 2012 [facility] [address] [address]- 8079 04 Dec, 2012 [facility] [address] [address]- 1475 27 Nov, 2012 [facility] [address]- 9756 Nov, [facility] [address] [address]- 6726 Jun, [facility] [address] [address]- 6764 May, [facility] [address] [address]- 4153 Jan, [facility] [address] [address]- 6236 Jan, [facility] [address] [address]- 9710 Nov, [facility] [address] [address]- 7163 Jan, [facility] [address] [address]- 5129 Sep, [facility] [address] [id number] 6576 Sep, IMMUNIZATIONS No Known Immunizations SOCIAL HISTORY Never Assessed REASON FOR VISIT [facility] PLAN OF CARE VITAL SIGNS Height 66 in 2018-07-16 Weight 235 lbs 2018-07-16 Heart Rate 88 bpm 2018-07-16 Respiratory Rate 16 2018-07-16 BMI 37.93 kg/m2 2018-07-16 Blood pressure systolic 110 mmHg 2018-07-16 Blood pressure diastolic 64 mmHg 2018-07-16 MEDICATIONS Medication Instructions Dosage Frequency Start Date End Date Duration Status PredniSONE 20 mg Orally Once a day 2 tablet 24h Jun, Jun, 5 days Active RESULTS No Results PROCEDURES No Known procedures INSTRUCTIONS MEDICATIONS ADMINISTERED No Known Medications MEDICAL (GENERAL) HISTORY Type Description Date Medical History hypertension Medical History hx of left broken heel Medical History left hip replacement Surgical History appendectomy Surgical History left hip replacement 12/05/2016 Hospitalization History hip replacement 12/05/2016
--- OUTSIDE RECORDS SUMMARY | 2018-09-06 13:23 | XMS REPORT ---
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 669688116 ALLERGIES No Known Allergies ENCOUNTERS Encounter Location Date Diagnosis [place] [address] [place] [id number] May, Onychomycosis B35.1 and Acute non-recurrent maxillary sinusitis J01.00 [address] [place] [address] 06837- 0550 May, Slow transit constipation K59.01 [address] [address] [place] [address] 69485- 9531 Apr, Arthritis M19.90 and Upper respiratory tract infection, unspecified type J06.9 [address] [address] [address] [place] [address] 07823- 5072 Apr, Sinusitis J32.9 [address] [place] [id number] Mar, Bronchitis J40 [address] [place] [id number] Mar, Edema of left lower extremity R60.0 [address] [place] [id number] February, Localized edema R60.0 [address] [place] [id number] February, Costochondral chest pain R07.1 [place] [address] [place] [id number] [place] [address]- 9224 Jan, Pain in left hip M25.[address] [id number] Jan, Other chronic pain G89.29 and Pain in left hip M25.552 [address] [address] [place] [id number] [place] [address] 64502- 9878 Nov, Arthritis M19.[address] [id number] Nov, Viral URI J06.9 and Nail hypertrophy L60.2 [place] [address] [address] [address]- 7[address] Oct, [address] [id number] Sep, Stiff neck M43.6 [place] [address] 71943- 7181 Jul, [address] [id number] May, Pain in thoracic spine M54.[address] [id number] Apr, Slow transit constipation K59.01 and Pain in thoracic spine M54.[address] [id number] Mar, Injury of elbow, left, initial encounter S59.902A [place] [address] [place] [address] [id number] [place] [address] 09198- 8846 Dec, Hypertension I10 and 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 [place] [address] [address] [place] [id number] [place] [address] 16087- 3052 Aug, Hypertension I10 ; 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 ; Arthritis M19.90 and Encounter for immunization Z23 [place] [address] [place] [id number] [place] [address] 81038- 4099 04 Jul, 2016 Acute non-recurrent sinusitis, unspecified location J01.90 [place] [address] [place] [address]- 4[address] 2016 [facility] [id number] [place] [address] 23122- 4472 13 Jun, 2016 Pain in thoracic spine M54.6 ; Other chronic pain G89.29 and Hypertension I10 [facility] [id number] [place] [address] 50652 -6349 02 Jun, 2016 Chest wall pain R07.89 [facility] [address] [address] -[address]138 04 May, 2016 Muscle pain M79.1 [facility] [address] [address] Mar, Upper respiratory tract infection, unspecified type J06.9 [place] [address] [address] [place] [id number] [place] [address] 36540- 1983 Dec, Sinusitis J32.9 [facility] [address] 84245- 5009 Oct, Arthritis M19.90 [place] [address] 17370- 9141 Oct, Hypertension I10 and Mass in neck R22.1 [facility] [address] [id number] [place] [address] 02417- 8384 Jul, [facility] [id number] [place] [address] 70413- 1297 May, [facility] [id number] [place] [address] 04624- 4559 May, Benign essential hypertension 401.1 and Impotence of organic origin 607.84 [facility] [id number] [place] [address] 03441- 6304 February, [facility] [id number] [place] [address] 77793- 2369 Jan, [facility] [address] [address] [place] [address] 2646 13 Jan, 2014 [facility] [place] [facility] [address] [id number] [place] [address]- 7854 10 Nov, 2014 [facility] [place] [facility] [address] [id number] [place] [address]- 5856 10 Nov, 2014 [facility] [place] [facility] [address] [id number] [place] [address]- 8436 09 Nov, 2014 [facility] [place] [facility] [address] [id number] [place] [address]- 6922 09 Nov, 2014 [facility] [place] [facility] [address] [id number] [place] [address]- 4675 Aug, [facility] [place] [facility] [address] [id number] [place] [address]- 5371 Aug, [facility] [place] [facility] [address] [id number] [place] [address]- 7177 Aug, [facility] [place] [facility] [address] [id number] [place] [address]- 3677 Aug, [facility] [place] [facility] [address] [id number] [place] [address]- 2469 Aug, [facility] [place] [facility] [address] [facility] [id number] [place] [address]- 7174 Aug, [facility] [place] [facility] [address] [id number] [place] [address]- 7836 Jun, [facility] [place] [facility] [address] [id number] [place] [address]- 2542 Jun, [facility] [place] [facility] [address] [id number] [place] [address]- 2027 Apr, [facility] [place] [facility] [address] [id number] [place] [address]- 2759 Apr, [facility] [place] [facility] [address] [id number] [place] 5[address] Mar, [facility] [place] [facility] [address] [id number] [place] [address]- 6699 Mar, [facility] [place] [facility] [address] [id number] [place] [address]- 4391 Oct, [facility] [place] [facility] [address] [id number] [place] [address]- 3489 Oct, [facility] [place] [facility] [address] [id number] [place] [address]- 7167 Oct, [facility] [place] [facility] [address] [id number] [place] [address]- 4740 Oct, [facility] [place] [facility] [address] [id number] [place] [address]- 4450 Oct, [facility] [place] [facility] [address] [id number] [place] [address]- 3363 Oct, [facility] [place] [facility] [address] [id number] [place] [address]- 2535 Sep, [facility] [place] [facility] [address] [id number] [place] [address]- 7217 Sep, [facility] [place] [facility] [address] [id number][place] [address]- 5503 Jul, [facility] [place] [facility] [address] [id number] [place] [address]- 9228 Jul, [facility] [place] [facility] [address] [id number], [place] [address]- 7148 Mar, [facility] [place] [facility] [address] [id number] [place] [address]- 1653 Mar, [facility] [place] [facility] [address] [id number] [place] [address]- 9805 Mar, [facility] [place] [facility] [address] [id number] [place] [address]- 0144 Dec, [facility] [place] [facility] [id number] [address]- 4559 14 Dec, 2012 [facility] [address] [address]- 7228 Dec, [facility] [address] [address]- 1320 Dec, [facility] [address] [address]- 4329 Nov, [facility] [id number] [address] 1654 Nov, [facility] [address] [place] [address] 02925- 4395 Jun, [facility] [id number] [place] [address] 35682- 2346 May, [facility] [id number] [place] [address] 45619- 6085 Jan, [facility] [address], [place] [address]- 6511 Jan, [facility] [address] [place] [address] 862098- 3668 Nov, [facility] [address] [address]- 1332 Jan, [facility] [address] 5726 Sep, [facility] [address], [place] [address]- 2530 Sep, IMMUNIZATIONS No Known Immunizations SOCIAL HISTORY Never Assessed REASON FOR VISIT group home rx PLAN OF CARE VITAL SIGNS MEDICATIONS Medication Instructions Dosage Frequency Start Date End Date Duration Status Colace 100 MG Orally Once a day 1 capsule as needed 24h May, Jun, 30 day(s) Active RESULTS No Results PROCEDURES No Known procedures INSTRUCTIONS MEDICATIONS ADMINISTERED No Known Medications MEDICAL (GENERAL) HISTORY Type Description Date Medical History hypertension Medical History hx of left broken heel Medical History left hip replacement Surgical History appendectomy Surgical History left hip replacement 12/05/2016 Hospitalization History hip replacement 12/05/2016
--- OUTSIDE RECORDS SUMMARY | 2018-09-06 13:23 | XMS REPORT ---
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 889374647 ALLERGIES No Known Allergies ENCOUNTERS Encounter Location Date Diagnosis [address] [place] [place] [id number] May, Onychomycosis B35.1 and Acute non-recurrent maxillary sinusitis J01.00 [address] [place] [address] 74331- 4278 May, Slow transit constipation K59.01 [address] [place] [address] 66999- 2301 Apr, Arthritis M19.90 and Upper respiratory tract infection, unspecified type J06.9 [address] [place] [address] 35293- 7546 Apr, Sinusitis J32.9 [place] [address] [place] [id number] Mar, Bronchitis J40 [address] [place] [id number] Mar, Edema of left lower extremity R60.0 [place] [address] [place] [id number] February, Localized edema R60.0 [address] [place] [id number] February, Costochondral chest pain R07.1 [place] [address] [id number] [place] [address] 18892958- 4658 Jan, Pain in left hip M25.[address] [id number] Jan, Other chronic pain G89.29 and Pain in left hip M25.552 [place] [id number] [place] [address] 50510- 9651 Nov, Arthritis M19.[address] [id number] Nov, Viral URI J06.9 and Nail hypertrophy L60.2 [place] [address] 02983- 7014 Oct, [address] [id number] Sep, Stiff neck M43.6 [place] [address] 10972- 5513 Jul, [address] [id number] May, Pain in thoracic spine M54.[address] [id number] Apr, Slow transit constipation K59.01 and Pain in thoracic spine M54.[address] [id number] Mar, Injury of elbow, left, initial encounter S59.902A [place] [id number] [place] [address] 81878- 8827 Dec, Hypertension I10 and 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 [place] [address] [id number] [place] [address] 37434- 2805 Aug, Hypertension I10 ; 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 ; Arthritis M19.90 and Encounter for immunization Z23 [place] [address] [place] [id number] [place] [address] 51234- 0243 04 Jul, 2016 Acute non-recurrent sinusitis, unspecified location J01.90 [place] [address] [place] [address]- 3304 2016 [facility] [id number] [place] [address] 25343- 2776 13 Jun, 2016 Pain in thoracic spine M54.6 ; Other chronic pain G89.29 and Hypertension I10 [facility] [id number] [place] [address] 39595 -0194 02 Jun, 2016 Chest wall pain R07.89 [facility] [address] [address]67 -7507 04 May, 2016 Muscle pain M79.1 [facility] [address] [address] -1454 Mar, Upper respiratory tract infection, unspecified type J06.9 [place] [address] [id number] [place] [address] 69675- 9796 Dec, Sinusitis J32.9 [facility] [address] 51080- 3564 Oct, Arthritis M19.90 [place] [address] 15089- 4011 Oct, Hypertension I10 and Mass in neck R22.1 [facility] [address] [id number] [place] [address] 73891- 5291 Jul, [facility] [id number] [place] [address] 12268- 2830 May, [facility] [id number] [place] [address] 60331- 3207 May, Benign essential hypertension 401.1 and Impotence of organic origin 607.84 [facility] [address] [id number] [place] [address] 08895- 0827 February, [facility] [id number] [place] [address] 21160- 8715 Jan, [facility] [address] [place] [address] [facility] [place] [address]- 3463 13 Jan, 2014 [facility] [place] [facility] [address] [id number] [place] [address]- 6189 10 Nov, 2014 [facility] [place] [facility] [address] [id number] [place] [address]- 0776 10 Nov, 2014 [facility] [place] [facility] [address] [id number] [place] [address]- 4706 09 Nov, 2014 [facility] [place] [facility] [address] [id number] [place] [address]- 6691 09 Nov, 2014 [facility] [place] [facility] [address] [id number] [place] [address]- 0987 Aug, [facility] [place] [facility] [address] [id number] [place] [address]- 9563 Aug, [facility] [place] [facility] [address] [id number] [place] [address]- 8453 Aug, [facility] [place] [facility] [address] [id number] [place] [address]- 2174 Aug, [facility] [place] [facility] [address] [id number] [place] [address]- 1843 Aug, [facility] [place] [facility] [address] [facility] [id number] [place] [address]- 7459 Aug, [facility] [place] [facility] [address] [id number] [place] [address]- 3628 Jun, [facility] [place] [facility] [address] [id number] [place] [address]- 2540 Jun, [facility] [place] [facility] [address] [id number] [place] [address]- 1294 Apr, [facility] [place] [facility] [address] [id number] [place] [address]- 0137 Apr, [facility] [place] [facility] [address] [id number] [place] 6526 Mar, [facility] [place] [facility] [address] [id number] [place] [address]- 1622 Mar, [facility] [place] [facility] [address] [id number] [place] [address]- 9090 Oct, [facility] [place] [facility] [address] [id number] [place] [address]- 6245 Oct, [facility] [place] [facility] [address] [id number] [place] [address]- 8553 Oct, [facility] [place] [facility] [address] [id number] [place] [address]- 7628 Oct, [facility] [place] [facility] [address] [id number] [place] [address]- 8192 Oct, [facility] [place] [facility] [address] [id number] [place] [address]- 4345 Oct, [facility] [place] [facility] [address] [id number] [place] [address]- 7796 Sep, [facility] [place] [facility] [address] [id number] [place] [address]- 5183 Sep, [facility] [place] [facility] [address] [id number], [place] [address]- 6382 Jul, [facility] [place] [facility] [address] [id number] [place] [address]- 1719 Jul, [facility] [place] [facility] [address] [id number], [place] [address]- 6627 Mar, [facility] [place] [facility] [address] [id number] [place] [address]- 4480 Mar, [facility] [place] [facility] [address] [id number] [place] [address]- 8187 Mar, [facility] [place] [facility] [address] [id number] [place] [address]- 9482 Dec, [facility] [place] [facility] [address] [id number], [place] [address]- 4082 14 Dec, 2012 [facility] [address] [address]- 3521 13 Dec, 2012 [facility] [address], [place] [address]- 0596 04 Dec, 2012 [facility] [address], [place] [address]- 4147 27 Nov, 2012 [facility] [address], [place] [address]- 9912 Nov, [facility] [address] [place] [address] 36764- 2455 Jun, [facility] [id number] [place] [address] 74821- 6409 May, [facility] [id number] [place] [address] 68697- 2813 Jan, [facility] [address] [place] [address] 36016- 2988 Jan, [facility] [address] [place] [address] 83909- 9034 Nov, [facility] [address], [place] [address]- 9770 Jan, [facility] [address], [place] [address]- 7889 Sep, [facility] [address], [place] [address]- 9427 Sep, IMMUNIZATIONS No Known Immunizations SOCIAL HISTORY Never Assessed REASON FOR VISIT CARE HOME PLAN OF CARE VITAL SIGNS Height 69 in 2018-04-16 Weight 236 lbs 2018-04-16 Heart Rate 60 bpm 2018-04-16 Respiratory Rate 18 2018-04-16 BMI 34.85 kg/m2 2018-04-16 Blood pressure systolic 112 mmHg 2018-04-16 Blood pressure diastolic 64 mmHg 2018-04-16 MEDICATIONS Medication Instructions Dosage Frequency Start Date End Date Duration Status Doxycycline Hyclate 100 MG Orally twice a day 1 capsule 12h Mar, Apr, 10 day(s) Active RESULTS No Results PROCEDURES No Known procedures INSTRUCTIONS MEDICATIONS ADMINISTERED No Known Medications MEDICAL (GENERAL) HISTORY Type Description Date Medical History hypertension Medical History hx of left broken heel Medical History left hip replacement Surgical History appendectomy Surgical History left hip replacement 12/05/2016 Hospitalization History hip replacement 12/05/2016
--- OUTSIDE RECORDS SUMMARY | 2018-09-06 13:23 | XMS REPORT ---
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 Active [id number] ALLERGIES No Information ENCOUNTERS Encounter Location Date Diagnosis [address] [place] [id number] May, Onychomycosis B35.1 and Acute non-recurrent maxillary sinusitis J01.00 [address] [id number] [place] [address] 36397- 2427 May, Slow transit constipation K59.01 [place] [address] [address] [place] [address] 33291- 6253 Apr, Arthritis M19.90 and Upper respiratory tract infection, unspecified type J06.9 [place] [address] [place] [address] 35652- 7306 Apr, Sinusitis J32.9 [address] [place] [id number] Mar, Bronchitis J40 [address] [place] [id number] Mar, Edema of left lower extremity R60.0 [address] [place] [id number] February, Localized edema R60.0 [address] [place] [id number] February, Costochondral chest pain R07.1 [place] [address] [address] [id number] [place] [address] [id number]- 0163 Jan, Pain in left hip M25.[address] [id number] Jan, Other chronic pain G89.29 and Pain in left hip M25.552 [place] [address] [place] [id number] [place] [address] 87917- 0103 Nov, Arthritis M19.[address] [id number] Nov, Viral URI J06.9 and Nail hypertrophy L60.2 [place] [address] [address] [address]- [address]196 Oct, [address] [id number] Sep, Stiff neck M43.6 [place] [address] [address]80- 0315 Jul, [address] [id number] May, Pain in thoracic spine M54.[address] [id number] Apr, Slow transit constipation K59.01 and Pain in thoracic spine M54.[address] [id number] Mar, Injury of elbow, left, initial encounter S59.902A [place] [address] [place] [id number] [place] [address] 37109- 7709 Dec, Hypertension I10 and 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 [place] [address] [place] [id number] [place] [address] 14552- 6730 Aug, Hypertension I10 ; 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 ; Arthritis M19.90 and Encounter for immunization Z23 [place] [address] [place] [id number] [place] [address] 66469- 2934 04 Jul, 2016 Acute non-recurrent sinusitis, unspecified location J01.90 [place] [address] 27100- 1691 2016 [facility] [id number] [place] [address] 37788- 5364 13 Jun, 2016 Pain in thoracic spine M54.6 ; Other chronic pain G89.29 and Hypertension I10 [facility] [id number] [place] [address] 57475 -8178 02 Jun, 2016 Chest wall pain R07.89 [facility] [address] 57[address] -1311 04 May, 2016 Muscle pain M79.[address] [facility] [address] 21660 [address]9183 Mar, Upper respiratory tract infection, unspecified type J06.9 [place] [address] [place] [id number] [place] [address] 30236- 1744 Dec, Sinusitis J32.9 [facility] [address] 19811- 7737 Oct, Arthritis M19.90 [place] [place] [id number] [place] [address] 89090- 5734 Oct, Hypertension I10 and Mass in neck R22.1 [place] [address] [place] [id number] [place] [address] 52310- 2399 Jul, [facility] [id number] [place] [address] 67855- 1916 May, [facility] [id number] [place] [address] 74299- 3315 May, Benign essential hypertension 401.1 and Impotence of organic origin 607.84 [place] [address] [id number] [place] [address] 52567- 3353 February, [facility] [id number] [place] [address] 55745- 4854 Jan, [facility] [address] [place] [address]- 7502 13 Jan, 2014 [facility] [address] [id number] [place] [address]- 9484 10 Nov, 2014 [facility] [place] [facility] [address] [id number] [place] [address]- 2926 10 Nov, 2014 [facility] [place] [facility] [address] [id number] [place] [address]- 5538 09 Nov, 2014 [facility] [place] [facility] [address] [id number] [place] [address]- 7043 09 Nov, 2014 [facility] [place] [facility] [address] [id number] [place] [address]- 4533 Aug, [facility] [place] [facility] [address] [id number] [place] [address]- 7997 Aug, [facility] [place] [facility] [address] [id number] [place] [address]- 5834 Aug, [facility] [place] [facility] [address] [id number] [place] [address]- 6684 Aug, [facility] [place] [facility] [address] [facility] [id number] [place] [address] 0364 Aug, [facility] [place] [facility] [address] [facility] [id number] [place] [address]- 7341 Aug, [facility] [place] [facility] [address] [id number] [place] [address]- 2119 Jun, [facility] [place] [facility] [address] [id number] [place] [address]- 4298 Jun, [facility] [place] [facility] [address] [id number] [place] 9263 Apr, [facility] [place] [facility] [address] [id number] [place] 3637 Apr, [facility] [place] [facility] [address] [id number] [place] [address]- 8458 Mar, [facility] [place] [facility] [address] [id number] [place] [address]- 7229 Mar, [facility] [place] [facility] [address] [id number] [place] [address]- 6309 Oct, [facility] [place] [facility] [address] [id number] [place] [address]- 1359 Oct, [facility] [place] [facility] [address] [id number] [place] [address]- 7581 Oct, [facility] [place] [facility] [address] [id number] [place] [address]- 5465 Oct, [facility] [place] [facility] [address] [id number] [place] [address]- 4348 Oct, [facility] [place] [facility] [address] [id number] [place] [address]- 0369 Oct, [facility] [place] [facility] [address] [id number], [place] [address]- 4377 Sep, [facility] [place] [facility] [address] [id number] [place] [address]- 6647 Sep, [facility] [place] [facility] [address] [id number], [place] [address]- 8094 Jul, [facility] [place] [facility] [address] [id number], [place] [address]- 8542 Jul, [facility] [place] [facility] [address] [id number], [place] [address]- 8293 Mar, [facility] [place] [facility] [address] [id number], [place] [address]- 3639 Mar, [facility] [place] [facility] [address] [id number], [place] [address]- 6487 Mar, [facility] [place] [facility] [address] [id number], [place] [address]- 1697 Dec, [facility] [place] [facility] [address] [id number][place] [address]- 0406 14 Dec, 2012 [facility] [address] [address] 4026 13 Dec, 2012 [facility] [address] [address]- 4446 04 Dec, 2012 [facility] [address] [address]- 7996 Nov, [facility] [address] [address] 4666 Nov, [facility] [address] [address]- 1036 Jun, [facility] [address] [address]- 2386 May, [facility] [address] [address]- 2586 Jan, [facility] [address] [address]- 7656 Jan, [facility] [address], [place] [address]- 6976 Nov, [facility] [address], [place] [address]- 0286 Jan, [facility] [address], [place] [address]- 3886 Sep, [facility] [id number] [address]- 2546 Sep, IMMUNIZATIONS No Known Immunizations SOCIAL HISTORY Never Assessed REASON FOR VISIT group home rx PLAN OF CARE VITAL SIGNS MEDICATIONS Medication Instructions Dosage Frequency Start Date End Date Duration Status Zithromax 250 MG Orally Once a day 2 tablets on the first day, then 1 tablet daily for 4 days 24h Apr, Apr, 5 day(s) Active PredniSONE 20 mg Orally Once a day 2 tablets 24h Apr, Apr, 05 days Active RESULTS No Results PROCEDURES No Known procedures INSTRUCTIONS MEDICATIONS ADMINISTERED No Known Medications MEDICAL (GENERAL) HISTORY Type Description Date Medical History hypertension Medical History hx of left broken heel Medical History left hip replacement Surgical History appendectomy Surgical History left hip replacement 12/05/2016 Hospitalization History hip replacement 12/05/2016
--- OUTSIDE RECORDS SUMMARY | 2018-09-06 13:23 | XMS REPORT ---
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 Active 538560733 ALLERGIES No Known Allergies ENCOUNTERS Encounter Location Date Diagnosis [address] [place] [id number] May, Onychomycosis B35.1 and Acute non-recurrent maxillary sinusitis J01.00 [place] [address] [place] [address] 98339- 1826 May, Slow transit constipation K59.01 [place] [address] [address] [place] [address] 71943- 3896 Apr, Arthritis M19.90 and Upper respiratory tract infection, unspecified type J06.9 [place] [address] [place] [address] 72790- 3805 Apr, Sinusitis J32.9 [address] [place] [id number] Mar, Bronchitis J40 [address] [place] [id number] Mar, Edema of left lower extremity R60.0 [address] [place] [id number] February, Localized edema R60.0 [address] [place] [id number] February, Costochondral chest pain R07.1 [place] [address] [id number] [place] [address]47[address]- 5345 Jan, Pain in left hip M25.[address] [id number] Jan, Other chronic pain G89.29 and Pain in left hip M25.552 [place] [address] [id number] [place] [address] 05238- 5108 Nov, Arthritis M19.[address] [id number] Nov, Viral URI J06.9 and Nail hypertrophy L60.2 [place] [address] 70867- 0018 Oct, [address] [id number] Sep, Stiff neck M43.6 [place] [address] 56705- 4901 Jul, [address] [id number] May, Pain in thoracic spine M54.[address] [id number] Apr, Slow transit constipation K59.01 and Pain in thoracic spine M54.[address] [id number] Mar, Injury of elbow, left, initial encounter S59.902A [place] [address] [id number] [place] [address] 29623- 2486 Dec, Hypertension I10 and 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 [place] [address] [id number] [place] [address] 03902- 5875 Aug, Hypertension I10 ; 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 ; Arthritis M19.90 and Encounter for immunization Z23 [place] [address] [id number] [place] [address] 88414- 2873 04 Jul, 2016 Acute non-recurrent sinusitis, unspecified location J01.90 [place] [address] [place] [address]- 3846 2016 [facility] [id number] [place] [address] 21271- 3540 13 Jun, 2016 Pain in thoracic spine M54.6 ; Other chronic pain G89.29 and Hypertension I10 [facility] [id number] [place] [address] 94544 -9633 02 Jun, 2016 Chest wall pain R07.89 [facility] [address] 08986 -8427 04 May, 2016 Muscle pain M79.1 [facility] [address] 60937 -9161 Mar, Upper respiratory tract infection, unspecified type J06.9 [place] [address] [id number] [place] [address] 21988- 4373 Dec, Sinusitis J32.9 [facility] [address] 36236- 8296 Oct, Arthritis M19.90 [place] [address] 96263- 2283 Oct, Hypertension I10 and Mass in neck R22.1 [facility] [id number] [place] [address] 26829- 4070 Jul, [facility] [id number] [place] [address] 91805- 7862 May, [facility] [id number] [place] [address] 19272- 2289 May, Benign essential hypertension 401.1 and Impotence of organic origin 607.84 [facility] [id number] [place] [address] 15506- 5958 February, [facility] [id number] [place] [address] 53051- 7409 Jan, [facility] [address] [address] [place] [address]- 0622 13 Jan, 2014 [facility] [place] [facility] [address] [id number] [place] [address]- 8364 10 Nov, 2014 [facility] [place] [facility] [address] [id number] [place] [address]- 4316 10 Nov, 2014 [facility] [place] [facility] [address] [id number] [place] [address]- 9846 09 Nov, 2014 [facility] [place] [facility] [address] [id number] [place] [address]- 3277 09 Nov, 2014 [facility] [place] [facility] [address] [id number] [place] [address]- 6897 Aug, [facility] [place] [facility] [address] [id number] [place] [address]- 1511 Aug, [facility] [place] [facility] [address] [id number] [place] [address]- 7312 Aug, [facility] [place] [facility] [address] [id number] [place] [address]- 0181 Aug, [facility] [place] [facility] [address] [id number] [place] [address]- 7057 Aug, [facility] [place] [facility] [address] [facility] [id number] [place] [address]- 3610 Aug, [facility] [place] [facility] [address] [id number] [place] [address]- 3019 Jun, [facility] [place] [facility] [address] [id number] [place] [address]- 254 Jun, [facility] [place] [facility] [address] [id number] [place] [address]- 1219 Apr, [facility] [place] [facility] [address] [id number] [place] [address]- 1101 Apr, [facility] [place] [facility] [address] [id number] [place] 4727 Mar, [facility] [place] [facility] [address] [id number] [place] [address]- 0839 Mar, [facility] [place] [facility] [address] [id number] [place] [address]- 1602 Oct, [facility] [place] [facility] [address] [id number] [place] [address]- 2811 Oct, [facility] [place] [facility] [address] [id number] [place] [address]- 8430 Oct, [facility] [place] [facility] [address] [id number] [place] [address]- 4267 Oct, [facility] [place] [facility] [address] [id number] [place] [address]- 0609 Oct, [facility] [place] [facility] [address] [id number] [place] [address]- 1384 Oct, [facility] [place] [facility] [address] [id number] [place] [address]- 1399 Sep, [facility] [place] [facility] [address] [id number] [place] [address]- 1901 Sep, [facility] [place] [facility] [address] [id number] [address]- 7766 Jul, [facility] [place] [facility] [address] [id number] [place] [address]- 9682 Jul, [facility] [place] [facility] [address] [id number] [address]- 8492 Mar, [facility] [place] [facility] [address] [id number] [place] [address]- 6642 Mar, [facility] [place] [facility] [address] [id number] [place] [address]- 8891 Mar, [facility] [place] [facility] [address] [id number] [place] [address]- 9636 Dec, [facility] [place] [facility] [id number] [address]- 9368 14 Dec, 2012 [facility] [address] [address]- [address] 13 Dec, 2012 [facility] [address]- 5188 04 Dec, 2012 [facility] [address] [address]- 1099 Nov, [facility] [address] [address]- 3698 Nov, [facility] [address] [place] [address] 73072- 8912 Jun, [facility] [id number] [place] [address] 85805- 6720 May, [facility] [id number] [place] [address] 23007- 2651 Jan, [facility] [address] 1638 Jan, [facility] [address] [place] [address] 44536- 0661 Nov, [facility] [address] [address]- 4175 Jan, [facility] [address], [place] [address]- 6712 Sep, [facility] [address], [place] [address]- 9644 Sep, IMMUNIZATIONS No Known Immunizations SOCIAL HISTORY Never Assessed REASON FOR VISIT [facility] PLAN OF CARE VITAL SIGNS MEDICATIONS Medication Instructions Dosage Frequency Start Date End Date Duration Status Zyrtec Allergy 10 MG Orally Once a day 1 tablet 24h Apr, 30 day (s) Active RESULTS No Results PROCEDURES No Known procedures INSTRUCTIONS MEDICATIONS ADMINISTERED No Known Medications MEDICAL (GENERAL) HISTORY Type Description Date Medical History hypertension Medical History hx of left broken heel Medical History left hip replacement Surgical History appendectomy Surgical History left hip replacement 12/05/2016 Hospitalization History hip replacement 12/05/2016
--- OUTSIDE RECORDS SUMMARY | 2018-09-06 13:24 | XMS REPORT ---
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 032795102 ALLERGIES No Known Allergies ENCOUNTERS Encounter Location Date Diagnosis [place] [id number] [place] [address] 19721- 5771 May, Slow transit constipation K59.01 [facility] [id number] [place] [address] 10153- 9319 Apr, Arthritis M19.90 and Upper respiratory tract infection, unspecified type J06.9 [place] [address] [address] Apr, Sinusitis J32.9 [place] [address] [place] [id number] Mar, Bronchitis J40 [place] [address] [place] [id number] Mar, Edema of left lower extremity R60.0 [place] [address] [place] [id number] February, Localized edema R60.0 [place] [address] [place] [id number] February, Costochondral chest pain R07.1 [place] [address], [place] [address] 7[address] Jan, Pain in left hip M25.552 [place] [address] [place] [id number] Jan, Other chronic pain G89.29 and Pain in left hip M25.552 [place] [id number] [place] [address] 98847- 5970 Nov, Arthritis M19.[address] [id number] Nov, Viral URI J06.9 and Nail hypertrophy L60.2 [place] [id number] [place] [address] 57804- 3583 Oct, [address] [id number] Sep, Stiff neck M43.6 [place] [id number] [place] [address] 22994- 3453 Jul, [address] [id number] May, Pain in thoracic spine M54.[address] [id number] Apr, Slow transit constipation K59.01 and Pain in thoracic spine M54.[address] [id number] Mar, Injury of elbow, left, initial encounter S59.902A [place] [id number] [place] [address] 06444- 5818 Dec, Hypertension I10 and 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 [place] [id number] [place] [address] 52920- 5034 Aug, Hypertension I10 ; 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 ; Arthritis M19.90 and Encounter for immunization Z23 [place] [id number] [place] [address] 15950- 2230 04 Jul, 2016 Acute non-recurrent sinusitis, unspecified location J01.90 [place] [id number] [place] [address] 19329- 2782 2016 [place] [id number] [place] [address] 19559- 8380 Jun, Pain in thoracic spine M54.6 ; Other chronic pain G89.29 and Hypertension I10 [facility] [address] [address] 02 Jun, 2016 Chest wall pain R07.89 [facility] [address] 9[address] May, Muscle pain M79.1 [facility] [address] 26[address] Mar, Upper respiratory tract infection, unspecified type J06.9 [place] [address] 86044- 6911 Dec, Sinusitis J32.9 [place] [address] 88376- 1118 Oct, Arthritis M19.90 [facility] [address] [address]- 3862 Oct, Hypertension I10 and Mass in neck R22.1 [place] [address] 42974- 2598 Jul, [facility] [address] [address]- 1922 May, [place] [address] 22377- 7701 May, Benign essential hypertension 401.1 and Impotence of organic origin 607.84 [facility] [address] 91423- 7899 February, [facility] [address] 57811- 1128 14 Jan, 2015 [facility] [address] 45027- 0998 Jan, [facility] [address] 92288- 6458 Nov, 2014 [facility] [place] [facility] [address] [id number] [place] [address] 6643 Nov, 2014 [facility] [place] [facility] [address] [id number] [place] [address]- 6333 Nov, [facility] [place] [facility] [address] [facility] [id number] [place] [address]- 9719 Nov, [facility] [place] [facility] [address] [id number] [place] [address]- 0865 Aug, [facility] [place] [facility] [address] [id number] [place] [address]- 7774 Aug, [facility] [place] [facility] [address] [id number] [place] [address]- 9034 Aug, [facility] [place] [facility] [address] [facility] [id number] [place] [address]- 8144 Aug, [facility] [place] [facility] [address] [id number] [place] [address]- 5079 Aug, [facility] [place] [facility] [address] [facility] [id number] [place] [address]- 1226 Aug, [facility] [place] [facility] [address] [facility] [id number] [place] [address]- 5043 Jun, [facility] [place] [facility] [address] [facility] [id number] [place] [address]- 8487 Jun, [facility] [place] [facility] [address] [id number] [address] 9116 Apr, [facility] [place] [facility] [address] [id number] [place] [address]- 1010 Apr, [facility] [place] [facility] [address] [facility] [id number] [place] [address]- 2447 Mar, [facility] [place] [facility] [address] [facility] [id number] [place] [address]- 4203 Mar, [facility] [place] [facility] [address] [id number] [place] [address]- 3032 Oct, [facility] [place] [facility] [address] [id number] [place] [address]- 2008 Oct, [facility] [place] [facility] [address] [id number] [place] [address]- 3096 Oct, [facility] [place] [facility] [address] [id number] [place] [address]- 5125 Oct, [facility] [place] [facility] [address] [id number] [place] [address]- 9499 Oct, [facility] [place] [facility] [address] [id number] [place] [address]- 3776 Oct, [facility] [place] [facility] [address] [id number] [place] [address]- 6160 Sep, [facility] [place] [facility] [address] [id number] [place] [address]- 0246 Sep, [facility] [place] [facility] [address] [id number] [place] [address]- 4470 Jul, [facility] [place] [facility] [address] [id number] [place] [address]- 7142 Jul, [facility] [place] [facility] [address] [id number] [place] [address]- 6401 Mar, [facility] [place] [facility] [address] [id number] [place] [address]- 7309 07 Mar, 2013 [facility] [place] [facility] [address] [id number] [place] [address]- 4169 06 Mar, 2013 [facility] [place] [facility] [address] [id number] [place] [address]- 8576 26 Dec, 2012 [facility] [place] [facility] [address] [id number] [place] [address]- 2546 14 Dec, 2012 [facility] [place] [facility] [address] [id number] [place] [address]- 7737 Dec, [facility] [id number] [address]- 1266 Dec, [facility] [address], [place] [address]- 4724 Nov, [facility] [address], [place] [address]- 4666 Nov, [facility] [address], [place] [address]- 7668 Jun, [facility] [address], [place] [address]- 2861 May, [facility] [id number] [place] [address] 11456- 2152 Jan, [facility] [address], [place] [address]- 4350 Jan, [facility] [address], [place] [address] 1917 Nov, [facility] [address], [place] [address]- 0861 Jan, [facility] [address] [address] Sep, [facility] [id number], [place] [address]- 1121 Sep, IMMUNIZATIONS No Known Immunizations SOCIAL HISTORY Never Assessed REASON FOR VISIT [facility] PLAN OF CARE VITAL SIGNS Height 69 in 2018-03-19 Weight 234 lbs 2018-03-19 Heart Rate 80 bpm 2018-03-19 Respiratory Rate 16 2018-03-19 BMI 34.55 kg/m2 2018-03-19 Blood pressure systolic 138 mmHg 2018-03-19 Blood pressure diastolic 66 mmHg 2018-03-19 MEDICATIONS Medication Instructions Dosage Frequency Start Date End Date Duration Status Diclofenac Sodium 75 MG Orally 2 times a day 1 tablet with food or milk 12February, Mar, 14 days Active RESULTS No Results PROCEDURES No Known procedures INSTRUCTIONS MEDICATIONS ADMINISTERED No Known Medications MEDICAL (GENERAL) HISTORY Type Description Date Medical History hypertension Medical History hx of left broken heel Medical History left hip replacement Surgical History appendectomy Surgical History left hip replacement 12/05/2016 Hospitalization History hip replacement 12/05/2016
--- OUTSIDE RECORDS SUMMARY | 2018-09-06 13:24 | XMS REPORT ---
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 Active 408210795 ALLERGIES No Known Allergies ENCOUNTERS Encounter Location Date Diagnosis [place] [id number] [place] [address] 98886- 8488 Apr, Arthritis M19.90 and Upper respiratory tract infection, unspecified type J06.9 [place] [address], [place] [address]- 7444 Apr, Sinusitis J32.9 [place] [address] [place] [id number] Mar, Bronchitis J40 [place] [address] [place] [id number] Mar, Edema of left lower extremity R60.0 [place] [address] [place] [id number] February, Localized edema R60.0 [place] [address] [place] [id number] February, Costochondral chest pain R07.1 [place] [id number] [place] [address] 53881- 5529 Jan, Pain in left hip M25.552 [place] [address] [place] [id number] Jan, Other chronic pain G89.29 and Pain in left hip M25.552 [place] [address], [place] [address]- 9059 Nov, Arthritis M19.90 [facility] [address] [place] [id number] Nov, Viral URI J06.9 and Nail hypertrophy L60.2 [facility] [address], [place] [address]- 9861 Oct, [facility] [address] [place] [id number] Sep, Stiff neck M43.6 [facility] [id number] [place] [address] 81165- 9305 Jul, [place] [address] [place] [address] May, Pain in thoracic spine M54.[address] [id number] Apr, Slow transit constipation K59.01 and Pain in thoracic spine M54.[address] [id number] Mar, Injury of elbow, left, initial encounter S59.902A [facility] [id number] [place] [address] 44381- 3804 Dec, Hypertension I10 and 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 [facility] [id number] [place] [address] 38632- 6717 Aug, Hypertension I10 ; 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 ; Arthritis M19.90 and Encounter for immunization Z23 [facility] [address], [place] [address]- 6355 04 Jul, 2016 Acute non-recurrent sinusitis, unspecified location J01.90 [facility] [id number] [place] [address] 77238- 9675 2016 [facility] [id number] [place] [address] 73228- 5621 13 Jun, 2016 Pain in thoracic spine M54.6 ; Other chronic pain G89.29 and Hypertension I10 [facility] [id number] [place] [address] 93799 -5889 Jun, Chest wall pain R07.89 [facility] [address] [address] -[address]00 May, Muscle pain M79.1 [facility] [address] 97699 -7696 Mar, Upper respiratory tract infection, unspecified type J06.9 [facility] [address] 98945- 4767 Dec, Sinusitis J32.9 [place] [address] 96702- 5221 Oct, Arthritis M19.90 [place] [address] 29318- 0315 Oct, Hypertension I10 and Mass in neck R22.1 [facility] [address] 33964- 7872 Jul, [facility] [address] 28586- 4140 May, [facility] [address] 57239- 2115 May, Benign essential hypertension 401.1 and Impotence of organic origin 607.84 [facility] [id number] [place] [address] 80951- 8749 February, [facility] [id number] [place] [address] 64241- 4621 Jan, [facility] [address] 10517- 4655 Jan, [facility] [address] 95323- 2135 Nov, [facility] [address] 19457- 4397 Nov, [facility] [place] [facility] [address] [id number] [place] [address]- 5852 Nov, [facility] [place] [facility] [address] [id number] [place] [address]- 4655 Nov, [facility] [place] [facility] [address] [id number] [place] 3071 Aug, [facility] [place] [facility] [address] [id number] [place] [address]- 3146 Aug, [facility] [place] [facility] [address] [id number] [place] [address]- 7946 Aug, [facility] [place] [facility] [address] [id number] [place] [address]- 7325 Aug, [facility] [place] [facility] [address] [id number] [place] [address]- 4990 Aug, [facility] [place] [facility] [address] [id number] [place] [address]- 7119 Aug, [facility] [place] [facility] [address] [id number] [place] [address]- 1903 Jun, [facility] [place] [facility] [address] [id number] [place] [address]- 4940 Jun, [facility] [place] [facility] [address] [id number] [place] [address]- 8950 Apr, [facility] [place] [facility] [address] [id number], [place] [address]- 6720 Apr, [facility] [place] [facility] [address] [id number] [place] [address]- 1101 Mar, [facility] [place] [facility] [address] [id number] [place] [address]- 2353 Mar, [facility] [place] [facility] [address] [id number] [place] [address]- 4723 Oct, [facility] [place] [facility] [address] [id number] [place] [address]- 0665 29 Oct, 2013 [facility] [address] [id number] [place] [address]- 0728 Oct, [facility] [place] [facility] [address] [id number] [place] [address]- 5719 Oct, [facility] [address] [id number] [place] [address]- 2466 Oct, [facility] [place] [facility] [address] [id number] [place] [address]- 2420 Oct, [facility] [place] [facility] [address] [id number] [place] [address]- 2035 Sep, [facility] [place] [facility] [address] [id number] [place] [address]- 2464 Sep, [facility] [place] [facility] [address] [id number] [place] [address]- 1626 Jul, [facility] [place] [facility] [address] [id number] [place] [address]- 5178 Jul, [facility] [place] [facility] [address] [id number] [place] [address]- 6396 Mar, [facility] [place] [facility] [address] [facility] [id number] [place] [address]- 8387 07 Mar, 2013 [facility] [place] [facility] [address] [id number] [place] [address]- 6322 06 Mar, 2013 [facility] [place] [facility] [address] [id number] [place] [address]- 3448 26 Dec, 2012 [facility] [place] [facility] [address] [id number] [place] [address]- 5276 14 Dec, 2012 [facility] [place] [facility] [address] [id number] [place] [address]- 2869 13 Dec, 2012 [facility] [place] [facility] [address] [id number] [place] [address]- 1647 Dec, [facility] [id number], [place] [address]- 8338 Nov, [facility] [address], [place] [address]- 7586 Nov, [facility] [id number], [place] [address]- 3002 Jun, [facility] [address], [place] [address]- 3763 May, [facility] [address], [place] [address]- 8631 Jan, [facility] [address], [place] [address]- 1305 Jan, [facility] [address], [place] [address]- 2103 Nov, [facility] [address], [place] [address]- 6573 Jan, [facility] [address], [place] [address]- 2496 Sep, [facility] [id number], [place] [address]- 7256 Sep, IMMUNIZATIONS No Known Immunizations SOCIAL HISTORY Never Assessed REASON FOR VISIT [facility] PLAN OF CARE VITAL SIGNS Height 69 in 2018-02-05 Weight 226 lbs 2018-02-05 Heart Rate 72 bpm 2018-02-05 Respiratory Rate 16 2018-02-05 BMI 33.37 kg/m2 2018-02-05 Blood pressure systolic 124 mmHg 2018-02-05 Blood pressure diastolic 74 mmHg 2018-02-05 MEDICATIONS Medication Instructions Dosage Frequency Start Date End Date Duration Status Diclofenac Sodium 75 MG Orally Twice a day 1 tablet with food or milk 12h 17 Jan, 2018 February, 30 day(s) Active RESULTS No Results PROCEDURES No Known procedures INSTRUCTIONS MEDICATIONS ADMINISTERED No Known Medications MEDICAL (GENERAL) HISTORY Type Description Date Medical History hypertension Medical History hx of left broken heel Medical History left hip replacement Surgical History appendectomy Surgical History left hip replacement 12/05/2016 Hospitalization History hip replacement 12/05/2016
--- OUTSIDE RECORDS SUMMARY | 2018-09-06 13:24 | XMS REPORT ---
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 Active 502312416 ALLERGIES No Known Allergies ENCOUNTERS Encounter Location Date Diagnosis [place] [address] [place] [address]25- 6576 Apr, Arthritis M19.90 and Upper respiratory tract infection, unspecified type J06.9 [place] [address] [address] Apr, Sinusitis J32.9 [place] [address] [place] [id number] Mar, Bronchitis J40 [place] [address] [place] [id number] Mar, Edema of left lower extremity R60.0 [place] [address] [place] [id number] February, Localized edema R60.0 [place] [address] [place] [id number] February, Costochondral chest pain R07.1 [place] [address] [place] [address] 64654- 5637 Jan, Pain in left hip M25.552 [place] [address] [place] [id number] Jan, Other chronic pain G89.29 and Pain in left hip M25.552 [place] [address] [address] Nov, Arthritis M19.90 [facility] [address] [place] [id number] Nov, Viral URI J06.9 and Nail hypertrophy L60.2 [facility] [address] [address] Oct, [facility] [address] [place] [id number] Sep, Stiff neck M43.6 [facility] [address] [id number] [place] [address] 06281- 0688 Jul, [place] [address] [place] [id number] May, Pain in thoracic spine M54.[address] [id number] Apr, Slow transit constipation K59.01 and Pain in thoracic spine M54.[address] [id number] Mar, Injury of elbow, left, initial encounter S59.902A [facility] [id number] [place] [address] 25948- 6650 Dec, Hypertension I10 and 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 [facility] [address] [place] [address] 48045- 9985 Aug, Hypertension I10 ; 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 ; Arthritis M19.90 and Encounter for immunization Z23 [facility] [address] [address] 04 Jul, 2016 Acute non-recurrent sinusitis, unspecified location J01.90 [facility] [id number] [place] [address] 78588- 8702 2016 [facility] [address] [address] [id number] [place] [address]39- 7503 13 Jun, 2016 Pain in thoracic spine M54.6 ; Other chronic pain G89.29 and Hypertension I10 [facility] [id number] [place] [address] 29709 -6814 Jun, Chest wall pain R07.89 [facility] [address] [address] May, Muscle pain M79.1 [facility] [address] [address] Mar, Upper respiratory tract infection, unspecified type J06.9 [facility] [address] 7[address]82- 8185 Dec, Sinusitis J32.9 [place] [address] 8[address]30- 9732 Oct, Arthritis M19.90 [place] [address] 91544- 7057 Oct, Hypertension I10 and Mass in neck R22.1 [facility] [address] [address]- [address]90 Jul, [facility] [address] [address]44- 7324 May, [facility] [address] 17999- 2275 May, Benign essential hypertension 401.1 and Impotence of organic origin 607.84 [facility] [address] [id number] [place] [address] 90255- 1538 February, [facility] [address] [address] [id number] [place] [address] 12281- 4201 Jan, [facility] [address] 9[address]81- 2053 Jan, [facility] [address] 69965- 8375 Nov, [facility] [address] 53461- 2270 Nov, [facility] [place] [facility] [address] [id number] [place] [address]- 9132 Nov, [facility] [place] [facility] [address] [id number] [place] [address]- 3287 Nov, [facility] [place] [facility] [address] [id number] [place] [address] Aug, [facility] [place] [facility] [address] [id number] [place] [address]- 3726 Aug, [facility] [place] [facility] [address] [id number] [place] [address]- 7859 Aug, [facility] [place] [facility] [address] [id number] [place] [address]- 1529 Aug, [facility] [place] [facility] [address] [id number] [place] [address]- 9319 Aug, [facility] [place] [facility] [address] [id number] [place] [address]- 9691 Aug, [facility] [place] [facility] [address] [id number] [place] [address]- 8632 Jun, [facility] [place] [facility] [address] [id number] [place] [address]- 6059 Jun, [facility] [place] [facility] [address] [id number] [place] [address]- 7369 Apr, [facility] [place] [facility] [address] [id number] [address]- 4585 Apr, [facility] [place] [facility] [address] [id number] [place] [address]- 4959 Mar, [facility] [place] [facility] [address] [id number] [place] [address]- 9621 Mar, [facility] [place] [facility] [address] [id number] [place] [address]- 6883 Oct, [facility] [place] [facility] [address] [id number] [place] [address]- 3260 29 Oct, 2013 [facility] [address] [id number] [place] [address]- 5295 Oct, [facility] [place] [facility] [address] [id number] [place] [address]- 6241 Oct, [facility] [address] [id number] [place] [address]- 1269 Oct, [facility] [place] [facility] [address] [id number] [place] [address]- 4968 Oct, [facility] [place] [facility] [address] [id number] [place] [address]- 6394 Sep, [facility] [place] [facility] [address] [id number] [place] [address]- 3821 Sep, [facility] [place] [facility] [address] [id number] [place] [address]- 6929 Jul, [facility] [place] [facility] [address] [id number] [place] [address]- 3492 Jul, [facility] [place] [facility] [address] [id number] [place] [address]- 4258 Mar, [facility] [place] [facility] [address] [facility] [id number] [place] [address]- 4152 07 Mar, 2013 [facility] [place] [facility] [address] [id number] [place] [address]- 9779 06 Mar, 2013 [facility] [place] [facility] [address] [id number] [place] [address]- 0582 26 Dec, 2012 [facility] [place] [facility] [address] [id number] [place] [address]- 4585 14 Dec, 2012 [facility] [place] [facility] [address] [id number] [place] [address]- 8520 13 Dec, 2012 [facility] [place] [facility] [address] [id number] [place] [address]- 1501 Dec, [facility] [address] [id number] [address]- 7442 Nov, [facility] [address] [place] [id number] 7810 Nov, [facility] [address] [place] [id number] [address]- 8428 Jun, [facility] [address] May, [facility] [address] [address] 3710 Jan, [facility] [address] [address] Jan, [facility] [address] [address]- 8780 Nov, [facility] [address] Jan, [facility] [address] [address]- 6341 Sep, [facility] [address] [place] [id number] 16[address] Sep, IMMUNIZATIONS No Known Immunizations SOCIAL HISTORY Never Assessed REASON FOR VISIT PENITENTIARY PLAN OF CARE VITAL SIGNS Height 69 in 2018-02-26 Weight 228 lbs 2018-02-26 Heart Rate 78 bpm 2018-02-26 Respiratory Rate 16 2018-02-26 BMI 33.67 kg/m2 2018-02-26 Blood pressure systolic 128 mmHg 2018-02-26 Blood pressure diastolic 72 mmHg 2018-02-26 MEDICATIONS Medication Instructions Dosage Frequency Start Date End Date Duration Status Naproxen 500 mg Orally Twice a day 1 tablet as needed 12h 08 Feb, 2018 Mar, 30 day(s) Active RESULTS No Results PROCEDURES No Known procedures INSTRUCTIONS MEDICATIONS ADMINISTERED No Known Medications MEDICAL (GENERAL) HISTORY Type Description Date Medical History hypertension Medical History hx of left broken heel Medical History left hip replacement Surgical History appendectomy Surgical History left hip replacement 12/05/2016 Hospitalization History hip replacement 12/05/2016
--- OUTSIDE RECORDS SUMMARY | 2018-09-06 13:24 | XMS REPORT ---
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 Active 460164840 ALLERGIES No Known Allergies ENCOUNTERS Encounter Location Date Diagnosis [place] [address] [place] [id number] May, Onychomycosis B35.1 and Acute non-recurrent maxillary sinusitis J01.00 [place] [address] [place] [address] 88255- 1791 May, Slow transit constipation K59.01 [place] [address] [place] [address] 87859- 6991 Apr, Arthritis M19.90 and Upper respiratory tract infection, unspecified type J06.9 [place] [address] [place] [address] 14879- 0652 Apr, Sinusitis J32.9 [place] [address] [place] [id number] Mar, Bronchitis J40 [place] [address] [place] [id number] Mar, Edema of left lower extremity R60.0 [place] [address] [place] [id number] February, Localized edema R60.0 [place] [address] [place] [id number] February, Costochondral chest pain R07.1 [place] [address] [place] [id number] [place] [address] 48641248- 3119 Jan, Pain in left hip M25.[address] [id number] Jan, Other chronic pain G89.29 and Pain in left hip M25.552 [place] [address] [place] [id number] [place] [address] 75016- 0419 Nov, Arthritis M19.[address] [id number] Nov, Viral URI J06.9 and Nail hypertrophy L60.2 [place] [address] [address]- [address] Oct, [address] [id number] Sep, Stiff neck M43.6 [place] [address] 35234- 8782 Jul, [address] [id number] May, Pain in thoracic spine M54.[address] [id number] Apr, Slow transit constipation K59.01 and Pain in thoracic spine M54.[address] [id number] Mar, Injury of elbow, left, initial encounter S59.902A [place] [address] [place] [id number] [place] [address] 87113- 5569 Dec, Hypertension I10 and 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 [place] [address] [place] [id number] [place] [address] 66452- 6708 Aug, Hypertension I10 ; 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 ; Arthritis M19.90 and Encounter for immunization Z23 [place] [address] [place] [id number] [place] [address] 06420- 9655 04 Jul, 2016 Acute non-recurrent sinusitis, unspecified location J01.90 [place] [address] [place] [address]- 4421 2016 [facility] [address] [place] [id number] [place] [address] 26777- 0726 13 Jun, 2016 Pain in thoracic spine M54.6 ; Other chronic pain G89.29 and Hypertension I10 [facility] [address] [id number] [place] [address] 58188 -1913 02 Jun, 2016 Chest wall pain R07.89 [facility] [address] 72494 -7175 04 May, 2016 Muscle pain M79.1 [facility] [address] 78256 -3651 Mar, Upper respiratory tract infection, unspecified type J06.9 [place] [address] [place] [id number] [place] [address] 50931- 2396 Dec, Sinusitis J32.9 [facility] [address] [address]2- 3332 Oct, Arthritis M19.90 [place] [address] 09899- 2153 Oct, Hypertension I10 and Mass in neck R22.1 [facility] [address] [place] [id number] [place] [address] 01832- 8520 Jul, [facility] [address] [place] [id number] [place] [address] 03417- 0382 May, [facility] [address] [place] [address] [id number] [place] [address] 55524- 5093 May, Benign essential hypertension 401.1 and Impotence of organic origin 607.84 [facility] [address] [place] [id number] [place] [address] 06713- 3268 February, [facility] [address] [place] [address] [id number] [place] [address] 54786- 7589 Jan, [facility] [address] [place] [id number] [place] [address]- 4283 13 Jan, 2014 [facility] [place] [facility] [address] [id number] [place] [address]- 2231 10 Nov, 2014 [facility] [place] [facility] [address] [id number] [place] [address]- 9126 10 Nov, 2014 [facility] [place] [facility] [address] [id number] [place] [address]- 6236 09 Nov, 2014 [facility] [place] [facility] [address] [id number] [place] [address]- 6914 09 Nov, 2014 [facility] [place] [facility] [address] [id number] [place] [address]- 9092 Aug, [facility] [place] [facility] [address] [id number] [place] [address]- 9441 Aug, [facility] [place] [facility] [address] [id number] [place] [address]- 6336 Aug, [facility] [place] [facility] [address] [id number] [place] [address]- 8551 Aug, [facility] [place] [facility] [address] [id number] [place] [address]- 8540 Aug, [facility] [place] [facility] [address] [facility] [id number] [place] [address]- 6133 Aug, [facility] [place] [facility] [address] [id number] [place] [address]- 1264 Jun, [facility] [place] [facility] [address] [id number] [place] [address]- 2543 Jun, [facility] [place] [facility] [address] [id number] [place] [address]- 7727 Apr, [facility] [place] [facility] [address] [id number] [place] [address]- 0420 Apr, [facility] [place] [facility] [address] [id number] [place] [address] Mar, [facility] [place] [facility] [address] [id number] [place] [address]- 3635 Mar, [facility] [place] [facility] [address] [id number] [place] [address]- 7364 Oct, [facility] [place] [facility] [address] [id number] [place] [address]- 7963 Oct, [facility] [place] [facility] [address] [id number] [place] [address]- 1774 Oct, [facility] [place] [facility] [address] [id number] [place] [address]- 9162 Oct, [facility] [place] [facility] [address] [id number] [place] [address]- 4305 Oct, [facility] [place] [facility] [address] [id number] [place] [address]- 9012 Oct, [facility] [place] [facility] [address] [id number] [place] [address]- 9661 Sep, [facility] [place] [facility] [address] [id number] [place] [address]- 1334 Sep, [facility] [place] [facility] [address] [id number] [address]- 9050 Jul, [facility] [place] [facility] [address] [id number] [place] [address]- 3287 Jul, [facility] [place] [facility] [address] [id number], [place] [address]- 2435 Mar, [facility] [place] [facility] [address] [id number] [place] [address]- 4314 Mar, [facility] [place] [facility] [address] [id number] [place] [address]- 6268 Mar, [facility] [place] [facility] [address] [id number] [place] [address]- 7811 Dec, [facility] [place] [facility] [address] [id number], [place] [address]- 2621 14 Dec, 2012 [facility] [address], [place] [address]- 3919 13 Dec, 2012 [facility] [address], [place] [address]- 9105 04 Dec, 2012 [facility] [address], [place] [address]- 8446 27 Nov, 2012 [facility] [address], [place] [address]- 6618 Nov, [facility] [address] [place] [address] 69284- 6645 Jun, [facility] [address] [place] [address] 95071- 5727 May, [facility] [address] [place] [address] 14756- 2322 Jan, [facility] [address], [place] [address]- 2680 Jan, [facility] [address], [place] [address]- 3934 Nov, [facility] [address], [place] [address]- 5974 Jan, [facility] [address], [place] [address]- 2195 Sep, [facility] [address], [place] [address]- 9684 Sep, IMMUNIZATIONS No Known Immunizations SOCIAL HISTORY Never Assessed REASON FOR VISIT care home PLAN OF CARE VITAL SIGNS Height 69 in 2018-04-09 Weight 235 lbs 2018-04-09 Heart Rate 60 bpm 2018-04-09 Respiratory Rate 18 2018-04-09 BMI 34.70 kg/m2 2018-04-09 Blood pressure systolic 134 mmHg 2018-04-09 Blood pressure diastolic 74 mmHg 2018-04-09 MEDICATIONS Medication Instructions Dosage Frequency Start Date End Date Duration Status Triamterene-HCTZ 37.5-25 MG Orally Once a day 1 tablet in the morning 24h Mar, 30 day(s) Active RESULTS No Results PROCEDURES No Known procedures INSTRUCTIONS MEDICATIONS ADMINISTERED No Known Medications MEDICAL (GENERAL) HISTORY Type Description Date Medical History hypertension Medical History hx of left broken heel Medical History left hip replacement Surgical History appendectomy Surgical History left hip replacement 12/05/2016 Hospitalization History hip replacement 12/05/2016
--- OUTSIDE RECORDS SUMMARY | 2018-09-06 13:25 | XMS REPORT ---
Author Author MADDY NAM [facility] Address 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 482234145 Problem Arthritis M19.90 Active 6048341 Problem Hypertension I10 Active 32697937 ALLERGIES No Known Allergies SOCIAL HISTORY Never Assessed PLAN OF CARE Activity Details Follow Up 6 Months Reason: VITAL SIGNS Height 69 in 2017-01-05 Weight 213.1 lbs 2017-01-05 Temperature 97.9 degrees Fahrenheit 2017-01-05 Heart Rate 90 bpm 2017-01-05 Respiratory Rate 18 2017-01-05 BMI 31.47 kg/m2 2017-01-05 Blood pressure systolic 132 mmHg 2017-01-05 Blood pressure diastolic 78 mmHg 2017-01-05 MEDICATIONS Medication Instructions Dosage Frequency Start Date End Date Duration Status Klor-Con 10 10 MEQ Orally Once a day 1 tablet with food 24h Jun, Active Viagra 50 mg Orally Once a day 1 tablet as needed 24h May, Active Naprosyn 500 MG Orally bid pc 1 tablet as needed Jun, Active Aspirin 81 mg 1 Tablet by Oral route 1 time per day Jun, Active Hydrochlorothiazide 25 MG Orally Once a day 1 tablet by Oral route 1 time per day 24h Apr, Active RESULTS Name Result Date Reference Range [facility] 2017-01-05 Glucose, Serum 127 65-99 BUN 11 8-27 Creatinine, Serum 1.03 0.76-1.27 eGFR If NonAfricn Am 70 >59 eGFR If Africn Am 81 >59 BUN/Creatinine Ratio 11 10-22 Sodium, Serum 144 134-144 Potassium, Serum 3.8 3.5-5.2 Chloride, Serum 105 96-106 Carbon Dioxide, Total 24 18-29 Calcium, Serum 9.4 8.6-10.2 PROCEDURES Procedure Date Ordered Result Body Site [facility] VISIT ESTABLISHED PATIENT January 05, 2017 VENIPUNCT, ROUTINE* January 05, 2017 LAB NOT BILLED BY [facility] January 05, 2017 IMMUNIZATIONS No Known Immunizations MEDICAL (GENERAL) HISTORY Type Description Date Medical History hypertension Medical History hx of left broken heel Medical History left hip replacement Surgical History appendectomy Surgical History left hip replacement 12/05/2016 Hospitalization History hip replacement 12/05/2016
--- OUTSIDE RECORDS SUMMARY | 2018-09-06 13:25 | XMS REPORT ---
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 [id number] ALLERGIES No Information ENCOUNTERS Encounter Location Date Diagnosis [place] [address] [place] [address] Apr, Arthritis M19.90 and Upper respiratory tract infection, unspecified type J06.9 [facility] [address] [address] Apr, Sinusitis J32.9 [place] [address] [place] [id number] Mar, Bronchitis J40 [place] [address] [place] [id number] Mar, Edema of left lower extremity R60.0 [place] [address] [place] [id number] February, Localized edema R60.0 [place] [address] [place] [id number] February, Costochondral chest pain R07.1 [place] [address] [place] [address]- 7208 Jan, Pain in left hip M25.552 [place] [address] [place] [address] Jan, Other chronic pain G89.29 and Pain in left hip M25.552 [place] [address] [place] [id number] [address] Nov, Arthritis M19.90 [facility] [address] [place] [id number] Nov, Viral URI J06.9 and Nail hypertrophy L60.2 [facility] [address] [address] Oct, [facility] [address] [place] [id number] Sep, Stiff neck M43.6 [facility] [address] [place] [address] [id number] [place] [address]32- 7677 Jul, [place] [address] [place] [id number] May, Pain in thoracic spine M54.[address] [id number] Apr, Slow transit constipation K59.01 and Pain in thoracic spine M54.[address] [id number] Mar, Injury of elbow, left, initial encounter S59.902A [facility] [address] [place] [id number] [place] [address] 48390- 2603 Dec, Hypertension I10 and 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 [facility] [address] [place] [address] 24[address]- 4491 Aug, Hypertension I10 ; 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 ; Arthritis M19.90 and Encounter for immunization Z23 [facility] [address] [address] 04 Jul, 2016 Acute non-recurrent sinusitis, unspecified location J01.90 [facility] [address] [id number] [place] [address]56- 7475 2016 [facility] [address] [place] [id number] [place] [address] 59288- 1049 13 Jun, 2016 Pain in thoracic spine M54.6 ; Other chronic pain G89.29 and Hypertension I10 [facility] [id number] [place] [address]59 [address]0624 Jun, Chest wall pain R07.89 [facility] [address] [address] May, Muscle pain M79.1 [facility] [address] [address] Mar, Upper respiratory tract infection, unspecified type J06.9 [facility] [address] [address] 6784 Dec, Sinusitis J32.9 [facility] [address] [address]- 85[address] Oct, Arthritis M19.90 [facility] [address] [address] 7[address] Oct, Hypertension I10 and Mass in neck R22.1 [facility] [address] 9[address]53- 4112 Jul, [facility] [address] [address]- 3[address] May, [facility] [address] [address] 5611 May, Benign essential hypertension 401.1 and Impotence of organic origin 607.84 [facility] [address] [place] [id number] [place] [address] 92832- 9467 February, [facility] [id number] [place] [address] 48757- 6523 Jan, [facility] [address] [address]- 6714 Jan, [facility] [address] [place] [id number] [place] [address] 80494- 6508 10 Nov, 2014 [facility] [address] 82746- 6308 Nov, [facility] [place] [facility] [address] [id number] [place] [address] Nov, [facility] [place] [facility] [address] [id number] [place] [address] 3771 Nov, [facility] [place] [facility] [address] [id number] [place] [address] 8311 Aug, [facility] [place] [facility] [address] [id number] [place] [address] 5263 Aug, [facility] [place] [facility] [address] [id number] [place] [address]- 3309 Aug, [facility] [place] [facility] [address] [id number] [place] [address]- 4724 Aug, [facility] [place] [facility] [address] [id number] [place] [address]- 7417 Aug, [facility] [place] [facility] [address] [id number] [place] [address]- 6282 Aug, [facility] [place] [facility] [address] [id number] [place] [address]- 5763 Jun, [facility] [place] [facility] [address] [id number] [place] [address]- 6028 Jun, [facility] [place] [facility] [address] [id number] [place] [address]- 7875 Apr, [facility] [place] [facility] [address] [id number] [address] 7[address] Apr, [facility] [place] [facility] [address] [id number] [place] [address] 1856 Mar, [facility] [place] [facility] [address] [id number] [place] [address]- 3859 Mar, [facility] [place] [facility] [address] [id number] [place] [address]- 8366 Oct, [facility] [place] [facility] [address] [id number] [place] [address]- 1829 Oct, [facility] [address] [id number] [place] [address]- 5731 Oct, [facility] [place] [facility] [address] [id number] [place] [address]- 2876 Oct, [facility] [address] [id number] [place] [address]- 9393 Oct, [facility] [place] [facility] [address] [id number] [place] [address]- 6475 Oct, [facility] [place] [facility] [address] [id number] [place] [address] Sep, [facility] [place] [facility] [address] [id number] [place] [address]- 6978 Sep, [facility] [place] [facility] [address] [facility] [id number] [place] [address]- 9808 Jul, [facility] [place] [facility] [address] [id number] [place] [address]- 7165 Jul, [facility] [place] [facility] [address] [id number] [place] [address]- 7910 Mar, [facility] [place] [facility] [address] [facility] [id number] [place] [address]- 2679 Mar, [facility] [place] [facility] [address] [id number] [place] [address]- 9768 06 Mar, 2013 [facility] [place] [facility] [address] [id number] [place] [address]- 3532 26 Dec, 2012 [facility] [place] [facility] [address] [id number] [place] [address]- 5801 14 Dec, 2012 [facility] [place] [facility] [address] [facility] [id number] [place] [address]- 1062 13 Dec, 2012 [facility] [place] [facility] [address] [id number] [place] [address]- 8520 Dec, [facility] [address] [id number] [address] Nov, [facility] [address] [place] [id number] [address] 1191 Nov, [facility] [address] [place] [id number] [address] 0277 Jun, [facility] [address] May, [facility] [address] [place] [id number] [address]- 7986 Jan, [facility] [address] Jan, [facility] [address], [place] [address]- 3241 Nov, [facility] [address] [place] [id number] [address] 2840 Jan, [facility] [address] [place] [id number] [address]- 5786 Sep, [facility] [address] [id number] [address] 8432 Sep, IMMUNIZATIONS No Known Immunizations SOCIAL HISTORY Never Assessed REASON FOR VISIT Xray (walk-in)--[facility]ly [facility] PLAN OF CARE VITAL SIGNS MEDICATIONS Unknown Medications RESULTS Name Result Date Reference Range Xray : Hip, Left 2 views (IN HOUSE) 2018-02-06 PROCEDURES Procedure Date Ordered Result Body Site X-RAY EXAM HIP UNI 2-3 VIEWS February 06, 2018 INSTRUCTIONS MEDICATIONS ADMINISTERED No Known Medications MEDICAL (GENERAL) HISTORY Type Description Date Medical History hypertension Medical History hx of left broken heel Medical History left hip replacement Surgical History appendectomy Surgical History left hip replacement 12/05/2016 Hospitalization History hip replacement 12/05/2016
--- OUTSIDE RECORDS SUMMARY | 2018-09-06 13:25 | XMS REPORT ---
Author Author MADDY NAM [facility] eClinical[employer] Address Unknown Phone Unavailable Care Team Providers Care Barrel Assembler Helper Name Role Phone MADDY NAM CP Unavailable Allergies No Known Allergies Problems Problem Type Condition Code Onset Dates Condition Status Problem Other symptoms involving skin and integumentary tissues 782.9 Active Problem Acute sinusitis, unspecified 461.9 Active Problem Impotence of organic origin 607.84 Active Problem Unspecified infective otitis externa 380.10 Active Problem Personal history of allergy to other foods V15.05 Active Problem Benign essential hypertension 401.1 Active Problem Gout, unspecified 274.9 Active Problem Pain in joint, lower leg 719.46 Active Problem Enlargement of lymph nodes 785.6 Active Problem Allergic rhinitis, cause unspecified 477.9 Active Medications Medication Code System Code Instructions Start Date End Date Status Dosage Hydrochlorothiazide [facility] [address]-82 25 MG Orally Once a day May 12, 2014 1 tablet by Oral route 1 time per day Results No Known Results Summary Purpose eClinicalWorks Submission
--- OUTSIDE RECORDS SUMMARY | 2018-09-06 13:25 | XMS REPORT ---
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 016688125 Problem Arthritis M19.90 Active 4037213 Problem Hypertension I10 Active 91085027 ALLERGIES No Known Allergies ENCOUNTERS Encounter Location Date Diagnosis [place] [address], [place] [address] Nov, Arthritis M19.90 [place] [address] [place] [address] Nov, Viral URI J06.9 and Nail hypertrophy L60.2 [facility] [address] [place] [address] 24408- 4830 Oct, [place] [address] [place] [id number] Sep, Stiff neck M43.6 [facility] [address], [place] [address]- 5669 Jul, [place] [address] [place] [address] May, Pain in thoracic spine M54.[address] [id number] Apr, Slow transit constipation K59.01 and Pain in thoracic spine M54.[address] [id number] Mar, Injury of elbow, left, initial encounter S59.902A [facility] [address] [address] Dec, Hypertension I10 and 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 [place] [address] [address]- 6395 14 Aug, 2016 Hypertension I10 ; 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 ; Arthritis M19.90 and Encounter for immunization Z23 [facility] [address] [address]- 9767 Jul, Acute non-recurrent sinusitis, unspecified location J01.90 [place] [address] [address]- 1244 2016 [place] [address] [address]- 7852 13 Jun, 2016 Pain in thoracic spine M54.6 ; Other chronic pain G89.29 and Hypertension I10 [facility] [address] [address]85 Jun, Chest wall pain R07.89 [facility] [address] 6[address]7547 May, Muscle pain M79.1 [facility] [address] [address] Mar, Upper respiratory tract infection, unspecified type J06.9 [place] [address] [address]656- 2223 Dec, Sinusitis J32.9 [place] [address] 09580- 5775 Oct, Arthritis M19.90 [place] [address] 17516- 4538 Oct, Hypertension I10 and Mass in neck R22.1 [place] [address] 07691- 5257 Jul, [place] [address] 60[address]- 9716 May, [place] [address], [place] [address]- 3565 10 May, 2015 Benign essential hypertension 401.1 and Impotence of organic origin 607.84 [facility] [address] February, [facility] [address] [place] [address]- 5399 14 Jan, 2015 [facility] [address] [place] [address] 11836- 8552 Jan, [facility] [address] [place] [address], [place] [address]- 2116 Nov, [facility] [address] [id number] [place] [address] 33859- 4551 Nov, [facility] [address] [place] [address] 41181- 9256 Nov, [facility] [address], [place] [address]- 9167 Nov, [facility] [address], [place] [address]- 2742 Aug, [facility] [address], [place] [address]- 3427 Aug, [facility] [address], [place] [address]- 2912 Aug, [facility] [address], [place] [address]- 1211 Aug, [facility] [address], [place] [address]- 5600 Aug, [facility] [address], [place] [address]- 5283 Aug, [facility] [address], [place] [address]- 4403 08 Jun, 2014 [facility] [place] [facility] [address] [id number] [place] [address]- 8615 Jun, [facility] [place] [facility] [address] [id number] [place] [address]- 6948 Apr, [facility] [place] [facility] [address] [id number] [place] [address]- 0506 Apr, [facility] [place] [facility] [address] [id number] [place] [address]- 8782 Mar, [facility] [place] [facility] [address] [id number] [place] [address]- 8054 Mar, [facility] [place] [facility] [address] [id number] [place] [address]- 1061 Oct, [facility] [place] [facility] [address] [id number] [place] [address]- 9366 Oct, [facility] [place] [facility] [address] [id number] [place] [address]- 5618 Oct, [facility] [place] [facility] [address] [id number] [place] [address]- 9788 Oct, [facility] [place] [facility] [address] [id number] [place] [address]- 0314 Oct, [facility] [place] [facility] [address] [id number] [place] [address]- 6721 Oct, [facility] [place] [facility] [address] [id number] [place] [address]- 1666 Sep, [facility] [place] [facility] [address] [id number] [place] [address]- 2546 Sep, [facility] [place] [facility] [address] [id number] [place] [address]- 4056 Jul, [facility] [place] [facility] [address] [id number] [place] [address]- 2546 Jul, [facility] [place] [facility] [address] [id number] [place] [address]- 9338 18 Mar, 2013 [facility] [place] [facility] [address] [id number] [place] [address]- 7270 07 Mar, 2013 [facility] [place] [facility] [address] [id number] [place] [address]- 6444 06 Mar, 2013 [facility] [place] [facility] [address] [id number] [place] [address] 26 Dec, 2012 [facility] [place] [facility] [address] [id number] [place] [address]- 6776 14 Dec, 2012 [facility] [place] [facility] [address] [id number] [place] [address]- 1154 13 Dec, 2012 [facility] [place] [facility] [address] [id number] [place] [address]- 4806 04 Dec, 2012 [facility] [place] [facility] [address] [id number] [place] [address]- 1548 Nov, [facility] [place] [facility] [address] [id number] [place] [address]- 4486 Nov, [facility] [place] [facility] [address] [id number] [place] [address]- 2392 Jun, [facility] [place] [facility] [address] [id number] [place] [address]- 8415 May, [facility] [place] [facility] [address] [id number] [place] [address]- 1160 Jan, [facility] [place] [facility] [address] [id number] [place] [address]- 4782 Jan, [facility] [place] [facility] [address] [id number] [place] [address]- 5990 Nov, [facility] [place] [facility] [address] [id number] [place] [address]- 4987 Jan, [facility] [place] [facility] [address] [id number] [place] [address]- 3968 15 Sep, 2010 [facility] [place] [facility] [address] [facility] [id number] [place] [address]- 5866 Sep, IMMUNIZATIONS No Known Immunizations SOCIAL HISTORY Never Assessed REASON FOR VISIT [facility] PLAN OF CARE VITAL SIGNS Height 69 in 2017-04-17 Weight 207 lbs 2017-04-17 Heart Rate 68 bpm 2017-04-17 Respiratory Rate 16 2017-04-17 BMI 30.57 kg/m2 2017-04-17 Blood pressure systolic 128 mmHg 2017-04-17 Blood pressure diastolic 70 mmHg 2017-04-17 MEDICATIONS Medication Instructions Dosage Frequency Start Date End Date Duration Status Naproxen 500 MG Orally every 12 hrs 1 tablet as needed 12h Mar, Active Bactrim DS 800-160 MG Orally Twice a day 1 tablet 12h Mar, Apr, 10 day(s) Active RESULTS No Results PROCEDURES Procedure Date Ordered Result Body Site [facility] VISIT NEW PATIENT April 17, 2017 INSTRUCTIONS MEDICATIONS ADMINISTERED No Known Medications MEDICAL (GENERAL) HISTORY Type Description Date Medical History hypertension Medical History hx of left broken heel Medical History left hip replacement Surgical History appendectomy Surgical History left hip replacement 12/05/2016 Hospitalization History hip replacement 12/05/2016
--- OUTSIDE RECORDS SUMMARY | 2018-09-06 13:25 | XMS REPORT ---
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 449829964 Problem Arthritis M19.90 Active 7550487 ALLERGIES No Known Allergies ENCOUNTERS Encounter Location Date Diagnosis [address] [id number] Mar, Bronchitis J40 [address] [id number] Mar, Edema of left lower extremity R60.[address] [id number] February, Localized edema R60.[address] [id number] February, Costochondral chest pain R07.1 [facility] [address] [address] Jan, Pain in left hip M25.[address] [id number] Jan, Other chronic pain G89.29 and Pain in left hip M25.552 [facility] [address] [place] [address] 22815- 9795 Nov, Arthritis M19.[address] [id number] Nov, Viral URI J06.9 and Nail hypertrophy L60.2 [facility] [address] [address] Oct, [address] [place] [id number] Sep, Stiff neck M43.6 [place] [id number] [place] [address] 94759- 9870 Jul, [facility] [address] [place] [id number] May, Pain in thoracic spine M54.[address] [id number] Apr, Slow transit constipation K59.01 and Pain in thoracic spine M54.[address] [id number] Mar, Injury of elbow, left, initial encounter S59.902A [place] [address] [address] Dec, Hypertension I10 and 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 [place] [address] 81324- 2593 Aug, Hypertension I10 ; 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 ; Arthritis M19.90 and Encounter for immunization Z23 [facility] [id number] [place] [address] 71415- 2768 Jul, Acute non-recurrent sinusitis, unspecified location J01.90 [facility] [id number] [place] [address] 58964- 5379 2016 [place] [address] [address]- [address] 13 Jun, 2016 Pain in thoracic spine M54.6 ; Other chronic pain G89.29 and Hypertension I10 [facility] [id number] [place] [address] 37634 -3813 02 Jun, 2016 Chest wall pain R07.89 [facility] [address] 8[address] May, Muscle pain M79.1 [facility] [address] [address] Mar, Upper respiratory tract infection, unspecified type J06.9 [facility] [id number] [place] [address] 85021- 2510 Dec, Sinusitis J32.9 [facility] [id number] [place] [address] 62531- 6224 Oct, Arthritis M19.90 [facility] [id number] [place] [address] 12316- 0193 Oct, Hypertension I10 and Mass in neck R22.1 [facility] [id number] [place] [address] 79892- 3998 Jul, [facility] [id number] [place] [address] 72079- 1169 May, [facility] [id number] [place] [address] 76621- 9875 May, Benign essential hypertension 401.1 and Impotence of organic origin 607.84 [facility] [id number] [place] [address] 52115- 5249 February, [facility] [id number] [place] [address] 15960- 4417 Jan, [facility] [address] [place] [address] 89834- 1483 Jan, [facility] [address] [place] [address] 64776- 6296 Nov, [facility] [address] [address] 2544 Nov, [facility] [id number] [place] [address] 949187- 5906 Nov, [facility] [id number] [address]- 2546 Nov, [facility] [id number] [place] [address] 25328- 4342 Aug, [facility] [place] [facility] [address] [id number] [place] [address]- 6108 Aug, [facility] [place] [facility] [address] [id number] [place] [address]- 3215 Aug, [facility] [place] [facility] [address] [id number] [place] [address]- 0520 Aug, [facility] [place] [facility] [address] [id number] [place] [address]- 3979 Aug, [facility] [place] [facility] [address] [id number] [place] [address]- 4359 Aug, [facility] [place] [facility] [address] [id number] [place] [address]- 9392 Jun, [facility] [place] [facility] [address] [id number] [place] [address]- 4022 Jun, [facility] [place] [facility] [address] [id number] [place] [address]- 1977 Apr, [facility] [place] [facility] [address] [id number] [place] [address]- 3908 Apr, [facility] [place] [facility] [address] [id number] [place] [address]- 4650 Mar, [facility] [place] [facility] [address] [id number] [place] [address]- 0389 Mar, [facility] [place] [facility] [address] [id number] [address] 9444 Oct, [facility] [place] [facility] [address] [id number] [place] [address]- 8529 Oct, [facility] [place] [facility] [address] [id number] [place] [address]- 9760 Oct, [facility] [place] [facility] [address] [id number] [place] [address]- 4093 Oct, [facility] [place] [facility] [address] [id number] [place] [address]- 5649 10 Oct, 2013 [facility] [address] [id number] [place] [address]- 7967 10 Oct, 2013 [facility] [place] [facility] [address] [id number] [place] [address]- 2189 Sep, [facility] [place] [facility] [address] [facility] [id number] [place] [address]- 9020 Sep, [facility] [place] [facility] [address] [id number] [place] [address]- 8286 Jul, [facility] [place] [facility] [address] [id number] [place] [address]- 0094 Jul, [facility] [place] [facility] [address] [id number] [place] [address]- 0475 Mar, [facility] [place] [facility] [address] [facility] [id number] [place] [address]- 6970 Mar, [facility] [place] [facility] [address] [facility] [id number] [place] [address]- 9432 Mar, [facility] [place] [facility] [address] [facility] [id number] [place] [address]- 9519 Dec, [facility] [place] [facility] [address] [facility] [id number] [place] [address]- 1410 14 Dec, 2012 [facility] [place] [facility] [address] [facility] [id number] [place] [address]- 5751 13 Dec, 2012 [facility] [place] [facility] [address] [facility] [id number] [address]- 3368 Dec, [facility] [place] [facility] [address] [id number] [place] [address]- 5343 Nov, [facility] [place] [facility] [address] [facility] [id number] [place] [address]- 4856 Nov, [facility] [place] [facility] [address] [facility] [id number] [address]- 3972 Jun, [facility] [address] [facility] [id number] [address]- 0248 May, [facility] [id number] [address]- 7472 Jan, [facility] [address], [place] [address]- 2496 Jan, [facility] [address] [address]- 1438 Nov, [facility] [address], [place] [address]- 8238 Jan, [facility] [address] [address]- 3108 Sep, [facility] [address] [address]- 2265 Sep, IMMUNIZATIONS No Known Immunizations SOCIAL HISTORY Never Assessed REASON FOR VISIT skilled nursing rx PLAN OF CARE VITAL SIGNS Height 69 in 2017-12-11 Weight 221.5 lbs 2017-12-11 Heart Rate 84 bpm 2017-12-11 BMI 32.71 kg/m2 2017-12-11 Blood pressure systolic 154 mmHg 2017-12-11 Blood pressure diastolic 64 mmHg 2017-12-11 MEDICATIONS Medication Instructions Dosage Frequency Start Date End Date Duration Status PredniSONE 20 mg Orally Once a day 2 tablets 24h Nov, Nov, 05 days Active RESULTS No Results PROCEDURES No Known procedures INSTRUCTIONS MEDICATIONS ADMINISTERED No Known Medications MEDICAL (GENERAL) HISTORY Type Description Date Medical History hypertension Medical History hx of left broken heel Medical History left hip replacement Surgical History appendectomy Surgical History left hip replacement 12/05/2016 Hospitalization History hip replacement 12/05/2016
--- OUTSIDE RECORDS SUMMARY | 2018-09-06 13:25 | XMS REPORT ---
Author Author MADDY NAM [facility] Address [address] [place] [address] Care Team Providers Care Wet Process Technician Name Role Phone MADDY NAM Unavailable PROBLEMS Type Condition ICD9-CM Code NVM52-EU Code Onset Dates Condition Status SNOMED Code Problem Hypertension I10 Active 21501896 Assessment Pain in thoracic spine M54.6 Jun, Active 192087942263273 Assessment Other chronic pain G89.29 Jun, Active 81128200 ALLERGIES Substance Reaction Event Type Date Status N.K.D.A. Unknown Non Drug Allergy Jun, Unknown SOCIAL HISTORY No smoking Hx information available PLAN OF CARE VITAL SIGNS Height 69 in 2016-07-04 Weight 225.7 lbs 2016-07-04 Heart Rate 60 bpm 2016-07-04 Respiratory Rate 18 2016-07-04 BMI 33.33 kg/m2 2016-07-04 Blood pressure systolic 132 mmHg 2016-07-04 Blood pressure diastolic 67 mmHg 2016-07-04 MEDICATIONS Medication Instructions Dosage Frequency Start Date End Date Duration Status Naprosyn 500 MG Orally bid pc 1 tablet as needed Jun, Active Viagra 50 MG Orally Once a day 1 tablet as needed 24h May, Active Aspirin 81 mg 1 Tablet by Oral route 1 time per day Jun, Active Hydrochlorothiazide 25 MG Orally Once a day 1 tablet by Oral route 1 time per day 24h Apr, Active RESULTS Name Result Date Reference Range CMP 2016-07-04 Glucose, Serum 92 65-99 BUN 12 8-27 Creatinine, Serum 0.58 0.76-1.27 eGFR If NonAfricn Am 98 >59 eGFR If Africn Am 114 >59 BUN/Creatinine Ratio 21 10-22 Sodium, Serum 142 134-144 Potassium, Serum 3.3 3.5-5.2 Chloride, Serum 100 97-108 Carbon Dioxide, Total 25 18-29 Calcium, Serum 8.7 8.6-10.2 Protein, Total, Serum 6.1 6.0-8.5 Albumin, Serum 3.9 3.5-4.8 Globulin, Total 2.2 1.5-4.5 A/G Ratio 1.8 1.1-2.5 Bilirubin, Total 0.3 0.0-1.2 Alkaline Phosphatase, S 52 39-117 AST (SGOT) 20 0-40 ALT (SGPT) 10 0-44 PROCEDURES Procedure Date Ordered Related Diagnosis Body Site [facility] Jul 04, 2016 [facility] VISIT ESTABLISHED PATIENT Jul 04, 2016 DWIGHT, ROUTINE* Jul 04, 2016 Office Visit, Est Pt., Level 3 Jul 04, 2016 IMMUNIZATIONS No Known Immunizations
--- OUTSIDE RECORDS SUMMARY | 2018-09-06 13:25 | XMS REPORT ---
Author Author MADDY NAM [facility] eClinicalWorks Address Unknown Phone Unavailable Care Team Providers Care Word Processor Technician Name Role Phone MADDY NAM CP Unavailable Allergies, Adverse Reactions, Alerts Substance Reaction Event Type N.K.D.A. Info Not Available Non Drug Allergy Problems Problem Type Condition Code Onset Dates Condition Status Problem Gout, unspecified 274.9 Active Problem Impotence of organic origin 607.84 Active Problem Hypertension I10 Active Assessment Acute non-recurrent sinusitis, unspecified location J01.90 Active Medications Medication Code System Code Instructions Start Date End Date Status Dosage Aspirin [facility] [address]-82 81 mg Jun 29, 2014 1 Tablet by Oral route 1 time per day Klor-Con 10 [facility] [address]-81 10 MEQ Orally Once a day Jul 07, 2016 1 tablet with food Viagra [facility] [address]-32 50 MG Orally Once a day May 31, 2015 1 tablet as needed Hydrochlorothiazide [facility] [address]-83 25 MG Orally Once a day May 12, 2014 1 tablet by Oral route 1 time per day Doxycycline Hyclate [facility] [address]-24 100 MG Orally Twice a day Jul 25, 2016 Jul 30, 2016 1 capsule Naprosyn [facility] [address]-62 500 MG Orally bid pc Jul 04, 2016 1 tablet as needed Procedures Procedure Coding System Code Date Office Visit, Est Pt., Level 2 CPT-4 78691 Jul 25, 2016 [facility] VISIT ESTABLISHED PATIENT CPT-4 G0467 Jul 25, 2016 Vital Signs Date/Time: Jul 25, 2016 Cardiac Monitoring Heart Rate 68 bpm Weight 217.1 lbs Height 69 in BMI 32.06 Index Blood Pressure Diastolic 74 mmHg Blood Pressure Systolic 136 mmHg Results No Known Results Summary Purpose eClinicalWorks Submission
--- OUTSIDE RECORDS SUMMARY | 2018-09-06 13:26 | XMS REPORT ---
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 687016590 Problem Arthritis M19.90 Active 5393997 ALLERGIES No Information ENCOUNTERS Encounter Location Date Diagnosis [address] [id number] Mar, Bronchitis J40 [address] [id number] Mar, Edema of left lower extremity R60.[address] [id number] February, Localized edema R60.[address] [id number] February, Costochondral chest pain R07.1 [facility] [address] [place] [address] 07774- 3923 Jan, Pain in left hip M25.[address] [id number] Jan, Other chronic pain G89.29 and Pain in left hip M25.552 [facility] [id number] [place] [address] 17647- 0675 Nov, Arthritis M19.[address] [id number] Nov, Viral URI J06.9 and Nail hypertrophy L60.2 [facility] [id number] [address]- 2090 Oct, [address] [place] [id number] Sep, Stiff neck M43.6 [place] [id number] [place] [address] 90176- 7371 Jul, [place] [place] [address] May, Pain in thoracic spine M54.[address] [id number] Apr, Slow transit constipation K59.01 and Pain in thoracic spine M54.[address] [id number] Mar, Injury of elbow, left, initial encounter S59.902A [place] [address] [address]40- 2512 Dec, Hypertension I10 and 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 [place] [address] 06790- 3003 Aug, Hypertension I10 ; 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 ; Arthritis M19.90 and Encounter for immunization Z23 [place] [id number] [place] [address] 29367- 7069 Jul, Acute non-recurrent sinusitis, unspecified location J01.90 [place] [id number] [place] [address] 51831- 5518 2016 [place] [address] 05565- 5482 13 Jun, 2016 Pain in thoracic spine M54.6 ; Other chronic pain G89.29 and Hypertension I10 [facility] [id number] [place] [address] 92604 -4795 Jun, Chest wall pain R07.89 [facility] [address] [address] -0154 May, Muscle pain M79.1 [facility] [address] 17188 -9236 Mar, Upper respiratory tract infection, unspecified type J06.9 [facility] [id number] [place] [address] 98766- 6170 Dec, Sinusitis J32.9 [facility] [id number] [place] [address] 69263- 0034 Oct, Arthritis M19.90 [facility] [id number] [place] [address] 95677- 9520 Oct, Hypertension I10 and Mass in neck R22.1 [facility] [id number] [place] [address] 42992- 4472 Jul, [facility] [id number] [place] [address] 63303- 2269 May, [facility] [id number] [place] [address] 79089- 3130 May, Benign essential hypertension 401.1 and Impotence of organic origin 607.84 [facility] [id number] [place] [address] 18324- 0307 February, [facility] [id number] [place] [address] 73276- 0247 Jan, [facility] [address] [place] [address] 35110- 8087 Jan, [facility] [id number] [place] [address] 84183- 7026 Nov, [facility] [address] [place] [address] 49082- 6531 Nov, [facility] [id number] [place] [address] 858333- 6446 Nov, [facility] [id number] [place] [address] 50604- 2546 Nov, [facility] [id number] [place] [address] 394691- 2119 Aug, [facility] [place] [facility] [address] [id number] [place] [address]- 8146 Aug, [facility] [place] [facility] [address] [id number] [place] [address]- 6924 Aug, [facility] [place] [facility] [address] [id number] [place] [address]- 9795 Aug, [facility] [place] [facility] [address] [id number] [place] [address]- 5202 Aug, [facility] [place] [facility] [address] [id number] [place] [address]- 6114 Aug, [facility] [place] [facility] [address] [id number] [place] [address]- 8546 Jun, [facility] [place] [facility] [address] [id number] [place] [address]- 2048 Jun, [facility] [place] [facility] [address] [id number] [place] [address]- 3217 Apr, [facility] [place] [facility] [address] [id number] [place] [address]- 3683 Apr, [facility] [place] [facility] [address] [id number] [place] [address]- 9838 Mar, [facility] [place] [facility] [address] [id number] [place] [address]- 9717 Mar, [facility] [place] [facility] [address] [id number] [place] [address]- 4922 Oct, [facility] [place] [facility] [address] [id number] [place] [address]- 8666 Oct, [facility] [place] [facility] [address] [id number] [place] [address]- 7364 Oct, [facility] [place] [facility] [address] [id number] [place] 3660 Oct, [facility] [place] [facility] [address] [id number] [place] [address]- 3568 10 Oct, 2013 [facility] [address] [id number] [place] [address]- 1976 Oct, [facility] [address] [id number] [place] [address]- 0245 Sep, [facility] [address] [id number] [place] [address]- 9460 Sep, [facility] [place] [facility] [address] [id number] [place] [address]- 6732 Jul, [facility] [address] [id number] [place] [address]- 5858 Jul, [facility] [place] [facility] [address] [id number] [place] [address]- 9916 Mar, [facility] [address] [address]- 1142 Mar, [facility] [place] [facility] [address] [id number] [place] [address]- 5351 Mar, [facility] [address] [id number] [place] [address]- 9768 Dec, [facility] [place] [facility] [address] [facility] [id number] [place] [address]- 4608 Dec, [facility] [address] [id number] [place] [address]- 0633 Dec, [facility] [place] [facility] [address] [id number], [place] [address]- 3429 Dec, [facility] [place] [facility] [address] [id number], [place] [address]- 2889 Nov, [facility] [place] [facility] [address] [id number], [place] [address]- 7589 Nov, [facility] [place] [facility] [address] [id number], [place] [address]- 0491 Jun, [facility] [id number] [address]- 7203 May, [facility] [address] [address] Jan, [facility] [address], [place] [address]- 8906 Jan, [facility] [address], [place] [address]- 6740 Nov, [facility] [address] [address]- 1816 Jan, [facility] [address], [place] [address]- 7114 Sep, [facility] [id number], [place] [address] Sep, IMMUNIZATIONS No Known Immunizations SOCIAL HISTORY Never Assessed REASON FOR VISIT penitentiary rx PLAN OF CARE VITAL SIGNS MEDICATIONS Medication Instructions Dosage Frequency Start Date End Date Duration Status Terbinafine HCl 1 % Externally Twice a day 1 application to affected area 12h 30 Oct, 2017 Active RESULTS No Results PROCEDURES No Known procedures INSTRUCTIONS MEDICATIONS ADMINISTERED No Known Medications MEDICAL (GENERAL) HISTORY Type Description Date Medical History hypertension Medical History hx of left broken heel Medical History left hip replacement Surgical History appendectomy Surgical History left hip replacement 12/05/2016 Hospitalization History hip replacement 12/05/2016
--- OUTSIDE RECORDS SUMMARY | 2018-09-06 13:26 | XMS REPORT ---
Author Author MADDY NAM [facility] Address [address] [place] [address] Care Team Providers Care Ropeman Name Role Phone MADDY NAM Unavailable PROBLEMS Type Condition ICD9-CM Code [id number] Code Onset Dates Condition Status SNOMED Code Problem Hypertension I10 Active [id number] ALLERGIES No Known Allergies SOCIAL HISTORY No smoking Hx information available PLAN OF CARE VITAL SIGNS MEDICATIONS Medication Instructions Dosage Frequency Start Date End Date Duration Status Klor-Con 10 10 MEQ Orally Once a day 1 tablet with food 24h Jun, Active RESULTS No Results PROCEDURES No Known procedures IMMUNIZATIONS No Known Immunizations
--- OUTSIDE RECORDS SUMMARY | 2018-09-06 13:26 | XMS REPORT ---
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 883158099 Problem Arthritis M19.90 Active 5028753 ALLERGIES No Known Allergies ENCOUNTERS Encounter Location Date Diagnosis [address] [id number] February, Localized edema R60.[address] [id number] February, Costochondral chest pain R07.1 [place] [address] [place] [address] [id number]- 4859 Jan, Pain in left hip M25.[address] [id number] Jan, Other chronic pain G89.29 and Pain in left hip M25.552 [place] [address] [place] [address] [id number]- 0658 Nov, Arthritis M19.[address] [id number] Nov, Viral URI J06.9 and Nail hypertrophy L60.2 [place] [address] [place] [id number] [place] [address] [id number]- 0761 Oct, [address] [id number] Sep, Stiff neck M43.6 [place] [address] [place] [id number] [place] [address] 19099- 7417 Jul, [facility] [address] [place] [id number] May, Pain in thoracic spine M54.6 [facility] [address] [facility] [place] [id number] Apr, Slow transit constipation K59.01 and Pain in thoracic spine M54.6 [place] [address] [place] [id number] Mar, Injury of elbow, left, initial encounter S59.902A [place] [address] [address]- [address]473 Dec, Hypertension I10 and 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 [place] [address] [address]- [address]3 Aug, Hypertension I10 ; 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 ; Arthritis M19.90 and Encounter for immunization Z23 [place] [address] [address]- 7083 Jul, Acute non-recurrent sinusitis, unspecified location J01.90 [place] [address] 6[address]- 7529 2016 [place] [address] [address]- 7414 13 Jun, 2016 Pain in thoracic spine M54.6 ; Other chronic pain G89.29 and Hypertension I10 [facility] [address] [place] [id number] [place] [address]4126 Jun, Chest wall pain R07.89 [facility] [address] [address] May, Muscle pain M79.1 [facility] [address] [address] Mar, Upper respiratory tract infection, unspecified type J06.9 [facility] [address] [address]- 7904 Dec, Sinusitis J32.9 [place] [address] [address] Oct, Arthritis M19.90 [facility] [address] [address] [id number] [place] [address] 23350- 6599 Oct, Hypertension I10 and Mass in neck R22.1 [facility] [address] [place] [id number] [place] [address] 79777- 6790 Jul, [facility] [address] [address] [id number] [place] [address] 39771- 8813 May, [facility] [address] [place] [address] [id number] [place] [address] 75361- 0620 May, Benign essential hypertension 401.1 and Impotence of organic origin 607.84 [facility] [address] [address] [id number] [place] [address] 88928- 4890 February, [facility] [address] [id number] [place] [address] 84448- 8370 Jan, [facility] [address] [place] [address] 19427- 8263 Jan, [facility] [address] [place] [address] [id number] [place] [address] 54515- 2209 Nov, [facility] [address] [address] 4767 Nov, [facility] [address] [place] [address] 13962- 4855 Nov, [facility] [address] [address] 1419 Nov, [facility] [address] [place] [id number] [place] [address] 68646- 9116 Aug, [facility] [address] [address] Aug, [facility] [address] [place] [id number] [place] [address] 50405- 0708 Aug, [facility] [place] [facility] [address] [id number] [place] [address]- 6679 Aug, [facility] [place] [facility] [address] [id number] [place] [address]- 3159 Aug, [facility] [place] [facility] [address] [id number] [place] [address]- 5472 Aug, [facility] [place] [facility] [address] [id number] [place] [address]- 7299 Jun, [facility] [place] [facility] [address] [id number] [place] [address]- 0506 Jun, [facility] [place] [facility] [address] [id number] [place] [address]- 2685 Apr, [facility] [place] [facility] [address] [id number] [place] [address]- 5424 Apr, [facility] [place] [facility] [address] [id number] [place] [address]- 8460 Mar, [facility] [place] [facility] [address] [id number] [place] [address]- 5142 Mar, [facility] [place] [facility] [address] [id number] [place] [address]- 9031 Oct, [facility] [place] [facility] [address] [id number] [place] [address]- 1111 Oct, [facility] [place] [facility] [address] [id number], [place] [address] 7071 Oct, [facility] [place] [facility] [address] [id number] [place] [address]- 4055 Oct, [facility] [place] [facility] [address] [id number] [place] [address]- 5248 Oct, [facility] [place] [facility] [address] [id number] [place] [address]- 2744 Oct, [facility] [place] [facility] [address] [id number] [place] [address]- 9266 Sep, [facility] [place] [facility] [address] [id number] [place] [address]- 4997 Sep, [facility] [place] [facility] [address] [id number] [place] [address]- 8552 Jul, [facility] [place] [facility] [address] [id number] [place] [address]- 6788 Jul, [facility] [place] [facility] [address] [id number] [place] [address]- 1371 Mar, [facility] [place] [facility] [address] [id number] [place] [address]- 7415 Mar, [facility] [place] [facility] [address] [id number] [place] [address]- 4314 Mar, [facility] [place] [facility] [address] [id number] [place] [address]- 9673 Dec, [facility] [place] [facility] [address] [id number] [place] [address]- 8756 14 Dec, 2012 [facility] [place] [facility] [address] [id number] [place] [address]- 5824 Dec, [facility] [place] [facility] [address] [id number] [place] [address]- 4517 Dec, [facility] [place] [facility] [address] [id number] [place] [address]- 1972 Nov, [facility] [place] [facility] [address] [id number] [place] [address]- 2145 Nov, [facility] [place] [facility] [address] [id number] [place] [address]- 5951 Jun, [facility] [place] [facility] [address] [id number] [place] [address]- 8810 May, [facility] [place] [facility] [address] [id number] [place] [address]- 1519 Jan, [facility] [address] [facility] [id number] [place] [address]- 2546 Jan, [facility] [address] [facility] [id number] [address]- 2546 Nov, [facility] [address] [facility] [id number], [place] [address]- 2546 Jan, [facility] [address] [facility] [id number] [address]- 2206 Sep, [facility] [address] [facility] [id number] [address]- 6286 Sep, IMMUNIZATIONS No Known Immunizations SOCIAL HISTORY Never Assessed REASON FOR VISIT [facility] PLAN OF CARE VITAL SIGNS Height 69 in 2017-09-25 Weight 210 lbs 2017-09-25 Heart Rate 74 bpm 2017-09-25 Respiratory Rate 16 2017-09-25 BMI 31.01 kg/m2 2017-09-25 Blood pressure systolic 120 mmHg 2017-09-25 Blood pressure diastolic 70 mmHg 2017-09-25 MEDICATIONS Unknown Medications RESULTS No Results PROCEDURES No Known procedures INSTRUCTIONS MEDICATIONS ADMINISTERED No Known Medications MEDICAL (GENERAL) HISTORY Type Description Date Medical History hypertension Medical History hx of left broken heel Medical History left hip replacement Surgical History appendectomy Surgical History left hip replacement 12/05/2016 Hospitalization History hip replacement 12/05/2016
--- OUTSIDE RECORDS SUMMARY | 2018-09-06 13:26 | XMS REPORT ---
Author Author MADDY NAM [facility] eClinicalWorks Address Unknown Phone Unavailable Care Team Providers Care Director Career Name Role Phone MADDY NAM CP Unavailable Allergies, Adverse Reactions, Alerts Substance Reaction Event Type N.K.D.A. Info Not Available Non Drug Allergy Problems Problem Type Condition Code Onset Dates Condition Status Problem Impotence of organic origin 607.84 Active Problem Pain in joint, lower leg 719.46 Active Problem Acute sinusitis, unspecified 461.9 Active Assessment Arthritis M19.90 Active Problem Other symptoms involving skin and integumentary tissues 782.9 Active Problem Benign essential hypertension 401.1 Active Problem Unspecified infective otitis externa 380.10 Active Problem Hypertension I10 Active Problem Allergic rhinitis, cause unspecified 477.9 Active Problem Gout, unspecified 274.9 Active Problem Personal history of allergy to other foods V15.05 Active Problem Enlargement of lymph nodes 785.6 Active Medications Medication Code System Code Instructions Start Date End Date Status Dosage Viagra [facility] [address]-86 50 MG Orally Once a day May 31, 2015 1 tablet as needed Aspirin [facility] [address]-22 81 mg Jun 29, 2014 1 Tablet by Oral route 1 time per day Hydrochlorothiazide [facility] [address]-38 25 MG Orally Once a day May 12, 2014 1 tablet by Oral route 1 time per day PredniSONE [facility] [address]-82 50 MG Orally Once a day, pc Nov 18, 2015 1 Procedures Procedure Coding System Code Date Office Visit, Est Pt., Level 2 CPT-4 29913 Nov 18, 2015 Vital Signs Date/Time: Nov 18, 2015 Temperature 98.5 F Weight 243.0 lbs Height 69 in BMI 35.88 Index Blood Pressure Diastolic 78 mmHg Blood Pressure Systolic 160 mmHg Cardiac Monitoring Heart Rate 76 bpm Results No Known Results Summary Purpose eClinicalWorks Submission
--- OUTSIDE RECORDS SUMMARY | 2018-09-06 13:26 | XMS REPORT ---
Author Author MADDY NAM [facility] eClinicalWorks Address Unknown Phone Unavailable Care Team Providers Care Bin Tripper Operator Name Role Phone MADDY NAM CP Unavailable [...] Status Dosage Hydrochlorothiazide [facility] [address]-24 25 MG Orally Once a day May 12, 2014 1 tablet by Oral route 1 time per day Aspirin [facility] [address]-91 81 mg Jun 29, 2014 1 Tablet by Oral route 1 time per day Viagra [facility] [address]-31 50 MG Orally Once a day May 31, 2015 1 tablet as needed Procedures Procedure Coding System Code Date Office Visit, Est Pt., Level 2 CPT-4 30055 Oct 26, 2015 Vital Signs Date/Time: Oct 26, 2015 Temperature 98.5 F Weight 236.0 lbs Height 69 in BMI 34.85 Index Blood Pressure Diastolic 76 mmHg Blood Pressure Systolic 146 mmHg Cardiac Monitoring Heart Rate 68 bpm Results No Known Results Summary Purpose eClinicalWorks Submission
--- OUTSIDE RECORDS SUMMARY | 2018-09-06 13:26 | XMS REPORT ---
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 788873994 Problem Arthritis M19.90 Active 8460242 Problem Hypertension I10 Active 42983915 ALLERGIES No Known Allergies ENCOUNTERS Encounter Location Date Diagnosis [place] [id number] [address] Nov, Arthritis M19.90 [place] [address] [place] [id number] Nov, Viral URI J06.9 and Nail hypertrophy L60.2 [facility] [address] [place] [address] 36007- 1896 Oct, [place] [address] [place] [address] Sep, Stiff neck M43.6 [facility] [address], [place] [address]- 2042 Jul, [place] [address] [place] [id number] May, Pain in thoracic spine M54.[address] [id number] Apr, Slow transit constipation K59.01 and Pain in thoracic spine M54.[address] [id number] Mar, Injury of elbow, left, initial encounter S59.902A [facility] [address] [address] Dec, Hypertension I10 and 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 [place] [address] [address]- 9928 14 Aug, 2016 Hypertension I10 ; 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 ; Arthritis M19.90 and Encounter for immunization Z23 [facility] [address] [address]- 3202 Jul, Acute non-recurrent sinusitis, unspecified location J01.90 [place] [address] [address]10- 2255 2016 [place] [address] 14034- 6895 13 Jun, 2016 Pain in thoracic spine M54.6 ; Other chronic pain G89.29 and Hypertension I10 [facility] [address] [address] Jun, Chest wall pain R07.89 [facility] [address] [address]879 May, Muscle pain M79.1 [facility] [address] [address] Mar, Upper respiratory tract infection, unspecified type J06.9 [place] [address] 78348- 7901 Dec, Sinusitis J32.9 [place] [address] 57853- 2944 Oct, Arthritis M19.90 [place] [address] 89409- 3340 Oct, Hypertension I10 and Mass in neck R22.1 [place] [address] 22233- 2069 Jul, [place] [address] 39115- 2145 May, [place] [address] [address]- 8285 10 May, 2015 Benign essential hypertension 401.1 and Impotence of organic origin 607.84 [facility] [address] [address] February, [facility] [address] [place] [address]- 0770 14 Jan, 2015 [facility] [address] [place] [address] 23857- 7848 Jan, [facility] [address] [place] [address], [place] [address]- [address]75 Nov, [facility] [address] [place] [id number] [place] [address] 92041- 5364 Nov, [facility] [address] [place] [address] 42350- 9604 Nov, [facility] [address], [place] [address]- 6986 Nov, [facility] [address], [place] [address]- 58[address] Aug, [facility] [address], [place] [address]- [address]82 Aug, [facility] [address], [place] [address]- 3884 Aug, [facility] [address], [place] [address]- 9579 Aug, [facility] [address], [place] [address]- 8103 Aug, [facility] [address], [place] [address]- 5273 Aug, [facility] [address], [place] [address]- 2824 08 Jun, 2014 [facility] [place] [facility] [address] [id number] [place] [address]- 8938 Jun, [facility] [place] [facility] [address] [id number] [place] [address]- 3981 Apr, [facility] [place] [facility] [address] [id number] [place] [address]- 4916 Apr, [facility] [place] [facility] [address] [id number] [place] [address]- 3678 Mar, [facility] [place] [facility] [address] [id number] [place] [address]- 8523 Mar, [facility] [place] [facility] [address] [id number] [place] [address]- 2527 Oct, [facility] [place] [facility] [address] [id number] [place] [address]- 2217 Oct, [facility] [place] [facility] [address] [id number] [place] [address]- 6672 Oct, [facility] [place] [facility] [address] [id number] [place] [address]- 9249 Oct, [facility] [place] [facility] [address] [id number] [place] [address]- 2307 Oct, [facility] [place] [facility] [address] [id number] [place] [address]- 2328 Oct, [facility] [place] [facility] [address] [id number] [place] [address]- 0626 Sep, [facility] [place] [facility] [address] [id number] [place] [address]- 2546 Sep, [facility] [place] [facility] [address] [id number] [place] [address]- 5146 Jul, [facility] [place] [facility] [address] [id number] [place] [address]- 2546 Jul, [facility] [place] [facility] [address] [id number] [place] [address]- 7536 18 Mar, 2013 [facility] [place] [facility] [address] [id number] [place] [address]- 6118 07 Mar, 2013 [facility] [place] [facility] [address] [id number] [place] [address]- 2414 06 Mar, 2013 [facility] [place] [facility] [address] [id number] [place] [address] 26 Dec, 2012 [facility] [place] [facility] [address] [id number] [place] [address]- 0825 14 Dec, 2012 [facility] [place] [facility] [address] [id number] [place] [address]- 5058 13 Dec, 2012 [facility] [place] [facility] [address] [id number] [place] [address]- 4454 04 Dec, 2012 [facility] [place] [facility] [address] [id number] [place] [address]- 0490 Nov, [facility] [place] [facility] [address] [id number] [place] [address]- 9666 Nov, [facility] [place] [facility] [address] [id number] [place] [address]- 5900 Jun, [facility] [place] [facility] [address] [id number] [place] [address]- 6298 May, [facility] [place] [facility] [address] [id number] [place] [address]- 2557 Jan, [facility] [place] [facility] [address] [id number] [place] [address]- 0994 Jan, [facility] [place] [facility] [address] [id number] [place] [address]- 3813 Nov, [facility] [place] [facility] [address] [id number] [place] [address]- 6384 Jan, [facility] [place] [facility] [address] [id number] [place] [address]- 8444 15 Sep, 2010 [facility] [place] [facility] [address] [facility] [id number] [place] [address]- 5340 Sep, IMMUNIZATIONS No Known Immunizations SOCIAL HISTORY Never Assessed REASON FOR VISIT [facility] PLAN OF CARE VITAL SIGNS Height 69 in 2017-05-15 Weight 207 lbs 2017-05-15 Heart Rate 64 bpm 2017-05-15 Respiratory Rate 16 2017-05-15 BMI 30.57 kg/m2 2017-05-15 Blood pressure systolic 108 mmHg 2017-05-15 Blood pressure diastolic 76 mmHg 2017-05-15 MEDICATIONS Medication Instructions Dosage Frequency Start Date End Date Duration Status Milk of Magnesia - Orally at bedtime 30 ml Apr, Active PredniSONE 20 mg Orally Once a [...]
[2018-09-06 13:27] LABS: BAND NEUTROPHILS 7 %; BASOPHILS % (MANUAL) 1 %; ELLIPT/OVALOCYTES SLIGHT; EOSINOPHILS % (MANUAL) 0 %; LYMPHOCYTES % (MANUAL) 4 %; MONOCYTES % (MANUAL) 3 %; NEUTROPHILS % (MANUAL) 82 %; POIKILOCYTOSIS SLIGHT; REACTIVE LYMPHOCYTES 3 %; TOXIC GRANULATION/VACUOLAZATIO 1+
--- OUTSIDE RECORDS SUMMARY | 2018-09-06 13:27 | XMS REPORT | Continuity of Care Document ---
Author Author Formerly [facility], Later [facility] Address Unknown Phone Unavailable Allergies There is no data. Medications There is no data. Problems Date Dx Coded Attending Type Code Diagnosis Diagnosed By 11/02/2008 MADDY NAM MD 461.9 Sinusitis Acute 11/02/2008 461.9 Sinusitis Acute 11/02/2008 461.9 Sinusitis Acute 11/02/2008 461.9 Sinusitis Acute 11/02/2008 461.9 Sinusitis Acute 11/02/2008 461.9 Sinusitis Acute 11/02/2008 MADDY NAM MD 461.9 Sinusitis Acute 11/02/2008 MADDY NAM MD 461.9 Sinusitis Acute 11/02/2008 ISHA SWARTZ DO 461.9 Sinusitis Acute 11/02/2008 ISHA SWARTZ DO 461.9 Sinusitis Acute 11/02/2008 MADDY NAM MD 461.9 Sinusitis Acute 11/02/2008 MADDY NAM MD 461.9 Sinusitis Acute 11/02/2008 MADDY NAM MD 461.9 Sinusitis Acute 11/02/2008 MADDY NAM MD 461.9 Sinusitis Acute 11/05/2008 MADDY NAM MD 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 11/05/2008 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 11/05/2008 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 11/05/2008 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 11/05/2008 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 11/05/2008 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 11/05/2008 MADDY NAM MD 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 11/05/2008 MADDY NAM MD 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 11/05/2008 ISHA SWARTZ DO 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 11/05/2008 ISHA SWARTZ DO 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 11/05/2008 MADDY NAM MD 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 11/05/2008 MADDY NAM MD 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 11/05/2008 MADDY NAM MD 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 11/05/2008 MADDY NAM MD 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 11/24/2008 MADDY NAM MD 780.93 MEMORY LOSS 11/24/2008 780.93 MEMORY LOSS 11/24/2008 780.93 MEMORY LOSS 11/24/2008 780.93 MEMORY LOSS 11/24/2008 780.93 MEMORY LOSS 11/24/2008 780.93 MEMORY LOSS 11/24/2008 MADDY NAM MD 780.93 MEMORY LOSS 11/24/2008 MADDY NAM MD 780.93 MEMORY LOSS 11/24/2008 ISHA SWARTZ DO 780.93 MEMORY LOSS 11/24/2008 ISHA SWARTZ DO 780.93 MEMORY LOSS 11/24/2008 MADDY NAM MD 780.93 MEMORY LOSS 11/24/2008 MADDY NAM MD 780.93 MEMORY LOSS 11/24/2008 MADDY NAM MD 780.93 MEMORY LOSS 11/24/2008 MADDY NAM MD 780.93 MEMORY LOSS 05/24/2009 MADDY NAM MD 216.6 Benign Neoplasm Of Skin Of Upper Limb Including Shoulder 05/24/2009 MADDY NAM MD 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.0 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 05/24/2009 216.6 Benign Neoplasm Of Skin Of Upper Limb Including Shoulder 05/24/2009 477.0 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 05/24/2009 216.6 Benign Neoplasm Of Skin Of Upper Limb Including Shoulder 05/24/2009 477.0 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 05/24/2009 216.6 Benign Neoplasm Of Skin Of Upper Limb Including Shoulder 05/24/2009 477.0 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 05/24/2009 216.6 Benign Neoplasm Of Skin Of Upper Limb Including Shoulder 05/24/2009 477.0 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 05/24/2009 216.6 Benign Neoplasm Of Skin Of Upper Limb Including Shoulder 05/24/2009 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.0 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 05/24/2009 MADDY NAM MD 216.6 Benign Neoplasm Of Skin Of Upper Limb Including Shoulder 05/24/2009 MADDY NAM MD 477.0 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 05/24/2009 MADDY NAM MD 216.6 Benign Neoplasm Of Skin Of Upper Limb Including Shoulder 05/24/2009 MADDY NAM MD 477.0 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 05/24/2009 SWARTZ DO ISHA K 216.6 Benign Neoplasm Of Skin Of Upper Limb Including Shoulder 05/24/2009 SWARTZ DO ISHA K 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.0 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 05/24/2009 SWARTZ DO ISHA K 216.6 Benign Neoplasm Of Skin Of Upper Limb Including Shoulder 05/24/2009 SWARTZ DO ISHA K 477.0 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 05/24/2009 MADDY NAM MD 216.6 Benign Neoplasm Of Skin Of Upper Limb Including Shoulder 05/24/2009 MADDY NAM MD 477.0 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 05/24/2009 MADDY NAM MD 216.6 Benign Neoplasm Of Skin Of Upper Limb Including Shoulder 05/24/2009 MADDY NAM MD 477.0 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 05/24/2009 MADDY NAM MD 216.6 Benign Neoplasm Of Skin Of Upper Limb Including Shoulder 05/24/2009 MADDY NAM MD 477.0 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 05/24/2009 MADDY NAM MD 216.6 Benign Neoplasm Of Skin Of Upper Limb Including Shoulder 05/24/2009 MADDY NAM MD 477.0 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 01/17/2010 MADDY NAM MD 465.9 Acute Upper Respiratory Infections Of Unspecified Site 01/17/2010 465.9 Acute Upper Respiratory Infections Of Unspecified Site 01/17/2010 465.9 Acute Upper Respiratory Infections Of Unspecified Site 01/17/2010 465.9 Acute Upper Respiratory Infections Of Unspecified Site 01/17/2010 465.9 Acute Upper Respiratory Infections Of Unspecified Site 01/17/2010 465.9 Acute Upper Respiratory Infections Of Unspecified Site 01/17/2010 MADDY NAM MD 465.9 Acute Upper Respiratory Infections Of Unspecified Site 01/17/2010 MADDY NAM MD 465.9 Acute Upper Respiratory Infections Of Unspecified Site 01/17/2010 SWARTZ DO, ISHA K 465.9 Acute Upper Respiratory Infections Of Unspecified Site 01/17/2010 SWARTZ DO, ISHA K 465.9 Acute Upper Respiratory Infections Of Unspecified Site 01/17/2010 MADDY NAM MD 465.9 Acute Upper Respiratory Infections Of Unspecified Site 01/17/2010 MADDY NAM MD 465.9 Acute Upper Respiratory Infections Of Unspecified Site 01/17/2010 MADDY NAM MD 465.9 Acute Upper Respiratory Infections Of Unspecified Site 01/17/2010 MADDY NAM MD 465.9 Acute Upper Respiratory Infections Of Unspecified Site 11/14/2010 MADDY NAM MD 272.4 HYPERLIPIDEMIA 11/14/2010 MADDY NAM MD 401.9 ESSENTIAL HYPERTENSION 11/14/2010 272.4 HYPERLIPIDEMIA 11/14/2010 401.9 ESSENTIAL HYPERTENSION 11/14/2010 272.4 HYPERLIPIDEMIA 11/14/2010 401.9 ESSENTIAL HYPERTENSION 11/14/2010 272.4 HYPERLIPIDEMIA 11/14/2010 401.9 ESSENTIAL HYPERTENSION 11/14/2010 272.4 HYPERLIPIDEMIA 11/14/2010 401.9 ESSENTIAL HYPERTENSION 11/14/2010 272.4 HYPERLIPIDEMIA 11/14/2010 401.9 ESSENTIAL HYPERTENSION 11/14/2010 MADDY NAM MD 272.4 HYPERLIPIDEMIA 11/14/2010 MADDY NAM MD 401.9 ESSENTIAL HYPERTENSION 11/14/2010 MADDY NAM MD 272.4 HYPERLIPIDEMIA 11/14/2010 MADDY NAM MD 401.9 ESSENTIAL HYPERTENSION 11/14/2010 SWARTZ DO, ISHA K 272.4 HYPERLIPIDEMIA 11/14/2010 SWARTZ DO, ISHA K 401.9 ESSENTIAL HYPERTENSION 11/14/2010 SWARTZ DO, ISHA K 272.4 HYPERLIPIDEMIA 11/14/2010 SWARTZ DO, ISHA K 401.9 ESSENTIAL HYPERTENSION 11/14/2010 MADDY NAM MD 272.4 HYPERLIPIDEMIA 11/14/2010 MADDY NAM MD 401.9 ESSENTIAL HYPERTENSION 11/14/2010 MADDY NAM MD 272.4 HYPERLIPIDEMIA 11/14/2010 MADDY NAM MD 401.9 ESSENTIAL HYPERTENSION 11/14/2010 MADDY NAM MD 272.4 HYPERLIPIDEMIA 11/14/2010 MADDY NAM MD 401.9 ESSENTIAL HYPERTENSION 11/14/2010 MADDY NAM MD 272.4 HYPERLIPIDEMIA 11/14/2010 CYRIL PEREZ, MADDY 401.9 ESSENTIAL HYPERTENSION 01/23/2011 CYRIL PEREZ, MADDY 466.0 Bronchitis, Acute 01/23/2011 466.0 Bronchitis, Acute 01/23/2011 466.0 Bronchitis, Acute 01/23/2011 466.0 Bronchitis, Acute 01/23/2011 466.0 Bronchitis, Acute 01/23/2011 466.0 Bronchitis, Acute 01/23/2011 CYRIL PEREZ, MADDY 466.0 Bronchitis, Acute 01/23/2011 CYRIL PEREZ, MADDY 466.0 Bronchitis, Acute 01/23/2011 SWARTZ DO, ISHA Bryant 466.0 Bronchitis, Acute 01/23/2011 SWARTZ DO, ISHA K 466.0 Bronchitis, Acute 01/23/2011 CYRIL PEREZ, MADDY 466.0 Bronchitis, Acute 01/23/2011 CYRIL PEREZ, MADDY 466.0 Bronchitis, Acute 01/23/2011 CYRIL PEREZ, MADDY 466.0 Bronchitis, Acute 01/23/2011 CYRIL PEREZ, MADDY 466.0 Bronchitis, Acute 01/30/2011 MADDY NAM MD 491.21 Bronchitis Aecb 01/30/2011 491.21 Bronchitis Aecb 01/30/2011 491.21 Bronchitis Aecb 01/30/2011 491.21 Bronchitis Aecb 01/30/2011 491.21 Bronchitis Aecb 01/30/2011 491.21 Bronchitis Aecb 01/30/2011 MADDY NAM MD 491.21 Bronchitis Aecb 01/30/2011 MADDY NAM MD 491.21 Bronchitis Aecb 01/30/2011 SWARTZ DOISHA 491.21 Bronchitis Aecb 01/30/2011 SWARTZ DOISHA 491.21 Bronchitis Aecb 01/30/2011 MADDY NAM MD 491.21 Bronchitis Aecb 01/30/2011 MADDY NAM MD 491.21 Bronchitis Aecb 01/30/2011 MADDY NAM MD 491.21 Bronchitis Aecb 01/30/2011 CYRIL PEREZ, MADDY 491.21 Bronchitis Aecb 03/31/2011 MADDY NAM MD V03.82 Pcv7 Pcv13 Pcv23, Streptococcus Pneumoniae [pneumococcus] 03/31/2011 V03.82 Pcv7 Pcv13 Pcv23, Streptococcus Pneumoniae [pneumococcus] 03/31/2011 V03.82 Pcv7 Pcv13 Pcv23, Streptococcus Pneumoniae [pneumococcus] 03/31/2011 V03.82 Pcv7 Pcv13 Pcv23, Streptococcus Pneumoniae [pneumococcus] 03/31/2011 V03.82 Pcv7 Pcv13 Pcv23, Streptococcus Pneumoniae [pneumococcus] 03/31/2011 V03.82 Pcv7 Pcv13 Pcv23, Streptococcus Pneumoniae [pneumococcus] 03/31/2011 MADDY NAM MD V03.82 Pcv7 Pcv13 Pcv23, Streptococcus Pneumoniae [pneumococcus] 03/31/2011 MADDY NAM MD V03.82 Pcv7 Pcv13 Pcv23, Streptococcus Pneumoniae [pneumococcus] 03/31/2011 ISHA SWARTZ DO V03.82 Pcv7 Pcv13 Pcv23, Streptococcus Pneumoniae [pneumococcus] 03/31/2011 ISHA SWARTZ DO V03.82 Pcv7 Pcv13 Pcv23, Streptococcus Pneumoniae [pneumococcus] 03/31/2011 MADDY NAM MD V03.82 Pcv7 Pcv13 Pcv23, Streptococcus Pneumoniae [pneumococcus] 03/31/2011 MADDY NAM MD V03.82 Pcv7 Pcv13 Pcv23, Streptococcus Pneumoniae [pneumococcus] 03/31/2011 MADDY NAM MD V03.82 Pcv7 Pcv13 Pcv23, Streptococcus Pneumoniae [pneumococcus] 03/31/2011 MADDY NAM MD V03.82 Pcv7 Pcv13 Pcv23, Streptococcus Pneumoniae [pneumococcus] 01/22/2012 MADDY NAM MD 380.10 INFECTIVE OTITIS EXTERNA UNSPECIFIED 01/22/2012 380.10 INFECTIVE OTITIS EXTERNA UNSPECIFIED 01/22/2012 380.10 INFECTIVE OTITIS EXTERNA UNSPECIFIED 01/22/2012 380.10 INFECTIVE OTITIS EXTERNA UNSPECIFIED 01/22/2012 380.10 INFECTIVE OTITIS EXTERNA UNSPECIFIED 01/22/2012 380.10 INFECTIVE OTITIS EXTERNA UNSPECIFIED 01/22/2012 MADDY NAM MD 380.10 INFECTIVE OTITIS EXTERNA UNSPECIFIED 01/22/2012 MADDY NAM MD 380.10 INFECTIVE OTITIS EXTERNA UNSPECIFIED 01/22/2012 ISHA SWARTZ DO 380.10 INFECTIVE OTITIS EXTERNA UNSPECIFIED 01/22/2012 ISHA SWARTZ DO 380.10 INFECTIVE OTITIS EXTERNA UNSPECIFIED 01/22/2012 MADDY NAM MD 380.10 INFECTIVE OTITIS EXTERNA UNSPECIFIED 01/22/2012 MADDY NAM MD 380.10 INFECTIVE OTITIS EXTERNA UNSPECIFIED 01/22/2012 MADDY NAM MD 380.10 INFECTIVE OTITIS EXTERNA UNSPECIFIED 01/22/2012 MADDY NAM MD 380.10 INFECTIVE OTITIS EXTERNA UNSPECIFIED 12/17/2012 MADDY NAM MD 607.84 IMPOTENCE OF ORGANIC ORIGIN 12/17/2012 607.84 IMPOTENCE OF ORGANIC ORIGIN 12/17/2012 607.84 IMPOTENCE OF ORGANIC ORIGIN 12/17/2012 607.84 IMPOTENCE OF ORGANIC ORIGIN 12/17/2012 607.84 IMPOTENCE OF ORGANIC ORIGIN 12/17/2012 607.84 IMPOTENCE OF ORGANIC ORIGIN 12/17/2012 MADDY NAM MD 607.84 IMPOTENCE OF ORGANIC ORIGIN 12/17/2012 MADDY NAM MD 607.84 IMPOTENCE OF ORGANIC ORIGIN 12/17/2012 SWARTZ DO, ISHA K 607.84 IMPOTENCE OF ORGANIC ORIGIN 12/17/2012 SWARTZ DO, ISHA K 607.84 IMPOTENCE OF ORGANIC ORIGIN 12/17/2012 MADDY NAM MD 607.84 IMPOTENCE OF ORGANIC ORIGIN 12/17/2012 MADDY NAM MD 607.84 IMPOTENCE OF ORGANIC ORIGIN 12/17/2012 MADDY NAM MD 607.84 IMPOTENCE OF ORGANIC ORIGIN 12/17/2012 MADDY NAM MD 607.84 IMPOTENCE OF ORGANIC ORIGIN 01/01/2013 274.9 GOUT 01/01/2013 719.46 PAIN- KNEE 01/01/2013 274.9 GOUT 01/01/2013 719.46 PAIN- KNEE 01/01/2013 274.9 GOUT 01/01/2013 719.46 PAIN- KNEE 01/01/2013 274.9 GOUT 01/01/2013 719.46 PAIN- KNEE 01/01/2013 274.9 GOUT 01/01/2013 719.46 PAIN- KNEE 01/01/2013 MADDY NAM MD 274.9 GOUT 01/01/2013 MADDY NAM MD 719.46 PAIN- KNEE 01/01/2013 MADDY NAM MD 274.9 GOUT 01/01/2013 MADDY NAM MD 719.46 PAIN- KNEE 01/01/2013 SWARTZ DO, ISHA K 274.9 GOUT 01/01/2013 SWARTZ DO, ISHA K 719.46 PAIN- KNEE 01/01/2013 SWARTZ DO, ISHA K 274.9 GOUT 01/01/2013 SWARTZ DO, ISHA K 719.46 PAIN- KNEE 01/01/2013 CYRIL PEREZ, MADDY 274.9 GOUT 01/01/2013 MADDY NAM MD 719.46 PAIN- KNEE 01/01/2013 CYRIL PEREZ, MADDY 274.9 GOUT 01/01/2013 MDADY NAM MD 719.46 PAIN- KNEE 01/01/2013 CYRIL PEREZ, MADDY 274.9 GOUT 01/01/2013 CYRIL PEREZ, MADDY 719.46 PAIN- KNEE 01/01/2013 CYRIL PEREZ, MADDY 274.9 GOUT 01/01/2013 MADDY NAM MD 719.46 PAIN- KNEE 03/28/2013 V15.05 PERSONAL HISTORY OF ALLERGY TO OTHER FOODS 03/28/2013 V15.05 PERSONAL HISTORY OF ALLERGY TO OTHER FOODS 03/28/2013 MADDY NAM MD V15.05 PERSONAL HISTORY OF ALLERGY TO OTHER FOODS 03/28/2013 MADDY NAM MD V15.05 PERSONAL HISTORY OF ALLERGY TO OTHER FOODS 03/28/2013 SWARTZ ISHA HESS K V15.05 PERSONAL HISTORY OF ALLERGY TO OTHER FOODS 03/28/2013 SWARTZ , ISHA K V15.05 PERSONAL HISTORY OF ALLERGY TO OTHER FOODS 03/28/2013 MADDY NAM MD V15.05 PERSONAL HISTORY OF ALLERGY TO OTHER FOODS 03/28/2013 MADDY NAM MD V15.05 PERSONAL HISTORY OF ALLERGY TO OTHER FOODS 03/28/2013 MADDY NAM MD V15.05 PERSONAL HISTORY OF ALLERGY TO OTHER FOODS 03/28/2013 MADDY NAM MD V15.05 PERSONAL HISTORY OF ALLERGY TO OTHER FOODS 10/31/2013 ISHA SWARTZ DO K 477.9 RHINITIS 10/31/2013 SHERIDAN HESS, ISHA K 477.9 RHINITIS 10/31/2013 MADDY NAM MD 477.9 RHINITIS 10/31/2013 MADDY NAM MD 477.9 RHINITIS 10/31/2013 MADDY NAM MD 477.9 RHINITIS 10/31/2013 MADDY NAM MD 477.9 RHINITIS 11/06/2013 ISHA SWARTZ DO 461.9 SINUSITIS ACUTE 11/06/2013 MADDY NAM MD 461.9 SINUSITIS ACUTE 11/06/2013 MADDY NAM MD 461.9 SINUSITIS ACUTE 11/06/2013 MADDY NAM MD 461.9 SINUSITIS ACUTE 11/06/2013 MADDY NAM MD 461.9 SINUSITIS ACUTE 11/19/2013 MADDY NAM MD 782.9 OTHER SYMPTOMS INVOLVING SKIN AND INTEGUMENTARY TISSUES 11/19/2013 MADDY NAM MD 782.9 OTHER SYMPTOMS INVOLVING SKIN AND INTEGUMENTARY TISSUES 11/19/2013 MADDY NAM MD 782.9 OTHER SYMPTOMS INVOLVING SKIN AND INTEGUMENTARY TISSUES 11/19/2013 MADDY NAM MD 782.9 OTHER SYMPTOMS INVOLVING SKIN AND INTEGUMENTARY TISSUES 12/01/2014 MADDY NAM MD 785.6 ENLARGEMENT OF LYMPH NODES 10/25/2016 Ot 388.60 OTORRHEA NOS 10/26/2016 MARYSOL CAPELLAN DO Ot M25.552 PAIN IN LEFT HIP 11/17/2016 MARYSOL CAPELLAN DO Ot M25.552 PAIN IN LEFT HIP Procedures Code [place] [address] ROUTINE VENIPUNCTURE 12/17/2012 46756 CMP 12/18/2012 7273170 GFR CALC (RESULT ONLY) 12/18/2012 66676 ROUTINE VENIPUNCTURE 01/01/2013 24569 URIC ACID 01/01/2013 06405 XRAY KNEE LEFT, 1 OR 2 VIEWS 01/03/2013 71872 ROUTINE VENIPUNCTURE 09/08/2014 [id number] GFR CALC (RESULT ONLY) 09/08/2014 30134 CMP 09/08/2014 60250 LIPID PANEL 09/08/2014 Results Test Result Range Comp. Metabolic Panel (14) - 07/05/17 10:00 Glucose, Serum 98 mg/dL 65-99 BUN 7 mg/dL 6-24 Creatinine, Serum 0.98 mg/dL 0.57-1.00 eGFR If NonAfricn Am 71 mL/min/1.73 >59 eGFR If Africn Am 82 mL/min/1.73 >59 BUN/Creatinine Ratio 7 9-23 Sodium, Serum 141 mmol/L 134-144 Potassium, Serum 4.4 mmol/L 3.5-5.2 Chloride, Serum 101 mmol/L 96-106 Carbon Dioxide, Total 23 mmol/L 18-29 Calcium, Serum 9.6 mg/dL 8.7-10.2 Protein, Total, Serum 7.7 g/dL 6.0-8.5 Albumin, Serum 4.7 g/dL 3.5-5.5 Globulin, Total 3.0 g/dL 1.5-4.5 A/G Ratio 1.6 1.2-2.2 Bilirubin, Total 0.4 mg/dL 0.0-1.2 Alkaline Phosphatase, S 63 IU/L 39-117 AST (SGOT) 14 IU/L 0-40 ALT (SGPT) 7 IU/L 0-32 Lipid Panel - 07/05/17 10:00 Cholesterol, Total 210 mg/dL 100-199 Triglycerides 143 mg/dL 0-149 HDL Cholesterol 35 mg/dL >39 VLDL Cholesterol Larry 29 mg/dL 5-40 LDL Cholesterol Calc 146 mg/dL 0-99 Basic Metabolic Panel (8) - 01/05/17 17:20 Glucose, Serum 127 mg/dL 65-99 BUN 11 mg/dL 8-27 Creatinine, Serum 1.03 mg/dL 0.76-1.27 eGFR If NonAfricn Am 70 mL/min/1.73 >59 eGFR If Africn Am 81 mL/min/1.73 >59 BUN/Creatinine Ratio 11 10-22 Sodium, Serum 144 mmol/L 134-144 Potassium, Serum 3.8 mmol/L 3.5-5.2 Chloride, Serum 105 mmol/L 96-106 Carbon Dioxide, Total 24 mmol/L 18-29 Calcium, Serum 9.4 mg/dL 8.6-10.2 Encounters ACCT No. Visit Date/Time Discharge Status Pt. Type Provider Facility Loc./Unit Complaint [id number] 12/01/2014 11:43:00 12/01/2014 23:59:59 NATALI Outpatient MADDY NAM MD [id number] 09/08/2014 08:09:00 09/08/2014 23:59:59 NATALI Outpatient MADDY NAM MD [id number] 06/29/2014 09:20:00 06/29/2014 23:59:59 CLS Outpatient MADDY NAM MD [id number] 11/19/2013 14:15:00 11/19/2013 23:59:59 CLS Outpatient MADDY NAM MD [id number] 11/06/2013 10:49:00 11/06/2013 23:59:59 CLS Outpatient ISHA SWARTZ DO Manny [id number] 10/31/2013 11:25:00 10/31/2013 23:59:59 CLS Outpatient ISHA SWARTZ DO Manny [id number] 09/29/2013 09:25:00 09/29/2013 23:59:59 CLS Outpatient MADDY NAM MD [id number] 08/08/2013 08:19:00 08/08/2013 23:59:59 CLS Outpatient MADDY NAM MD [id number] 01/02/2013 15:32:00 01/02/2013 23:59:59 CLS Outpatient [id number] 12/17/2012 16:31:00 12/17/2012 23:59:59 CLS Outpatient [id number] 12/17/2012 16:31:00 12/17/2012 23:59:59 CLS Outpatient MADDY NAM MD [id number] 04/08/2013 10:17:00 Document Registration [id number] 03/28/2013 08:13:00 Document Registration [id number] 01/01/2013 15:48:00 Document Registration [id number] 07/06/2017 07:06:00 Document Registration [id number] 07/05/2016 07:06:00 Document Registration [id number] 01/06/2017 07:06:00 Document Registration [id number] 04/16/2018 08:20:00 04/16/2018 23:59:59 CLS Outpatient MADDY NAM MD [facility] [id number] 10/25/2016 12:49:00 10/25/2016 23:59:59 CLS Outpatient MARYSOL CAPELLAN DO [facility] RAD PAIN IN LT HIP [id number] 09/06/2018 11:37:00 ACT Emergency CHRISTIANE HONEYCUTT MD [facility] ER INJURED RT. SHOULDER/FALL [id number] 02/09/2012 17:20:00 Document Registration
--- OUTSIDE RECORDS SUMMARY | 2018-09-06 13:27 | XMS REPORT ---
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 Medications Medication Code System Code Instructions Start Date End Date Status Dosage Viagra [facility] [address]-66 50 mg Orally Once a day May 31, 2015 1 tablet as needed Aspirin [facility] [address]-19 81 mg Jun 29, 2014 1 Tablet by Oral route 1 time per day Klor-Con [address] [facility] [address]-21 10 MEQ Orally Once a day Jul 07, 2016 1 tablet with food Hydrochlorothiazide [facility] [address]-78 25 MG Orally Once a day May 12, 2014 1 tablet by Oral route 1 time per day Naprosyn [facility] [address]-01 500 MG Orally bid pc Jul 04, 2016 1 tablet as needed Procedures Procedure Coding System Code Date Office Visit, Est Pt., Level 2 CPT-4 53414 Sep 04, 2016 PCV 13 CPT-4 64792 Sep 04, 2016 [facility] VISIT ESTABLISHED PATIENT CPT-4 G0467 Sep 04, 2016 SINGLE IMMUNIZATION ADMIN CPT-4 50615 Sep 04, 2016 Vital Signs Date/Time: Sep 04, 2016 Cardiac Monitoring Heart Rate 72 bpm Weight 218 lbs Height 69 in BMI 32.19 Index Blood Pressure Diastolic 68 mmHg Blood Pressure Systolic 132 mmHg Results No Known Results Immunizations Vaccine Administration Date PCV Sep 04, 2016 Summary Purpose eClinicalWorks Submission
--- OUTSIDE RECORDS SUMMARY | 2018-09-06 13:27 | XMS REPORT ---
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
--- OUTSIDE RECORDS SUMMARY | 2018-09-06 13:27 | XMS REPORT ---
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 Assessment Benign essential hypertension 401.1 Active Problem Unspecified [...] Start Date End Date Status Dosage Aspirin [facility] [address]-90 81 mg Jun 29, 2014 1 Tablet by Oral route 1 time per day Viagra [facility] [address]-61 50 MG Orally Once a day May 31, 2015 1 tablet as needed Hydrochlorothiazide [facility] [address]-93 25 MG 1 TAB orally once a day May 12, 2014 1 tablet by Oral route 1 time per day Procedures Procedure Coding System Code Date Office Visit, Est Pt., Level 2 CPT-4 36696 May 31, 2015 Vital Signs Date/Time: May 31, 2015 Temperature 97.5 F Weight 232.4 lbs Height 69 in BMI 34.32 Index Blood Pressure Diastolic 78 mmHg Blood Pressure Systolic 130 mmHg Cardiac Monitoring Heart Rate 72 bpm Results No Known Results Summary Purpose eClinicalWorks Submission
== END 2018-09-06 13:32 | disposition home or self-care (01) ==
LOC: EDUNIT# 11:35 → ER 11:37
DX: S42.291A Other displaced fracture of upper end of right humerus, initial encounter for closed fracture (principal); I48.91 Unspecified atrial fibrillation; Z87.891 Personal history of nicotine dependence; W01.0XXA Fall on same level from slipping, tripping and stumbling without subsequent striking against object, initial encounter; Y92.513 Shop (commercial) as the place of occurrence of the external cause
CPT/HCPCS: 36415; 71045; 73030; 80053; 85007; 85027; 93005; 99281

== ENCOUNTER 2018-09-17 11:45 | Observation (INO) | payer MEDICARE ==
[~2018-09-17] VITALS: Ht 167.6 cm; Wt 108.0 kg
[~2018-09-17 11:45] MED LIST: HYDR-34 PO; METO-333 PO
--- OUTSIDE RECORDS SUMMARY | 2018-09-17 11:56 | XMS REPORT | Continuity of Care Document ---
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 [...] DO Ot M25.552 PAIN IN LEFT HIP 09/09/2018 ARELY MONTANEZ APRN Ot I48.91 UNSPECIFIED ATRIAL FIBRILLATION 09/09/2018 ARELY MONTANEZ APRN Ot M25.511 PAIN IN RIGHT SHOULDER 09/09/2018 ARELY MONTANEZ APRN Ot S42.291A OTH DISP FX OF UPPER END OF RIGHT HUMERU 09/09/2018 ARELY MONTANEZ APRN Ot W01.0XXA FALL SAME LEV FROM SLIP/TRIP W/O STRIKE 09/09/2018 ARELY MONTANEZ APRN Ot Y92.513 SHOP (COMMERCIAL) PLACE 09/09/2018 ARELY MONTANEZ APRN Ot Z87.891 PERSONAL HISTORY OF NICOTINE DEPENDENCE 09/12/2018 ARELY MONTANEZ APRN Ot I48.91 UNSPECIFIED ATRIAL FIBRILLATION 09/12/2018 ARELY MONTANEZ APRN Ot M25.511 PAIN IN RIGHT SHOULDER 09/12/2018 ARELY MONTANEZ APRN Ot S42.291A OTH DISP FX OF UPPER END OF RIGHT HUMERU 09/12/2018 ARELY MONTANEZ APRN Ot W01.0XXA FALL SAME LEV FROM SLIP/TRIP W/O STRIKE 09/12/2018 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 Ot Y92.513 SHOP (COMMERCIAL) PLACE 09/12/2018 ARELY MONTANEZ APRN Ot Z87.891 PERSONAL HISTORY OF NICOTINE DEPENDENCE Procedures Code [place] [address] ROUTINE VENIPUNCTURE 12/17/2012 87337 CMP 12/18/20123569036 GFR CALC (RESULT ONLY) 12/18/2012 67607 ROUTINE VENIPUNCTURE 01/01/2013 76879 URIC ACID 01/01/2013 67357 XRAY KNEE LEFT, 1 OR 2 VIEWS 01/03/2013 86726 ROUTINE VENIPUNCTURE 09/08/20148648717 GFR CALC (RESULT ONLY) 09/08/2014 16216 CMP 09/08/2014 10120 LIPID PANEL 09/08/2014 Results Test Result Range [...] mmol/L 18-29 Calcium, Serum 9.4 mg/dL 8.6-10.2 Complete blood count (CBC) with automated white blood cell (WBC) differential - 09/06/18 12:55 Blood leukocytes automated count (number/volume) 16.7 10*3/uL 4.3-11.0 Blood erythrocytes automated count (number/volume) 4.99 10*6/uL 4.35-5.85 Venous blood hemoglobin measurement (mass/volume) 15.3 g/dL 13.3-17.7 Blood hematocrit (volume fraction) 45 % 40-54 Automated erythrocyte mean corpuscular volume 90 [foz_us] 80-99 Automated erythrocyte mean corpuscular hemoglobin (mass per erythrocyte) 31 pg 25-34 Automated erythrocyte mean corpuscular hemoglobin concentration measurement ( mass/volume) 34 g/dL 32-36 Automated erythrocyte distribution width ratio 13.8 % 10.0-14.5 Automated blood platelet count (count/volume) 208 10*3/uL 130-400 Automated blood platelet mean volume measurement 10.5 [foz_us] 7.4-10.4 Automated blood neutrophils/100 leukocytes 87 % 42-75 Automated blood lymphocytes/100 leukocytes 6 % 12-44 Blood monocytes/100 leukocytes 6 % 0-12 Automated blood eosinophils/100 leukocytes 1 % 0-10 Automated blood basophils/100 leukocytes 0 % 0-10 Blood neutrophils automated count (number/volume) 14.5 10*3 1.8-7.8 Blood lymphocytes automated count (number/volume) 1.0 10*3 1.0-4.0 Blood monocytes automated count (number/volume) 1.0 10*3 0.0-1.0 Automated eosinophil count 0.2 10*3/uL 0.0-0.3 Automated blood basophil count (count/volume) 0.0 10*3/uL 0.0-0.1 Comprehensive metabolic panel - 09/06/18 12:55 Serum or plasma sodium measurement (moles/volume) 140 mmol/L 135-145 Serum or plasma potassium measurement (moles/volume) 3.7 mmol/L 3.6-5.0 Serum or plasma chloride measurement (moles/volume) 107 mmol/L 98-107 Carbon dioxide 22 mmol/L 21-32 Serum or plasma anion gap determination (moles/volume) 11 mmol/L 5-14 Serum or plasma urea nitrogen measurement (mass/volume) 24 mg/dL 7-18 Serum or plasma creatinine measurement (mass/volume) 0.93 mg/dL 0.60-1.30 Serum or plasma urea nitrogen/creatinine mass ratio 26 NRG Serum or plasma creatinine measurement with calculation of estimated glomerular filtration rate > NRG Serum or plasma glucose measurement (mass/volume) 125 mg/dL 70-105 Serum or plasma calcium measurement (mass/volume) 9.8 mg/dL 8.5-10.1 Serum or plasma total bilirubin measurement (mass/volume) 1.0 mg/dL 0.1-1.0 Serum or plasma alkaline phosphatase measurement (enzymatic activity/volume) 60 U/L 40-136 Serum or plasma aspartate aminotransferase measurement (enzymatic activity/ volume) 22 U/L 5-34 Serum or plasma alanine aminotransferase measurement (enzymatic activity/volume ) 17 U/L 0-55 Serum or plasma protein measurement (mass/volume) 7.2 g/dL 6.4-8.2 Serum or plasma albumin measurement (mass/volume) 4.2 g/dL 3.2-4.5 CALCIUM CORRECTED 9.6 mg/dL 8.5-10.1 Blood manual differential performed detection - 09/06/18 12:55 Blood monocytes/100 leukocytes 3 % NRG Manual blood segmented neutrophils/100 leukocytes 82 % NRG Blood band neutrophils/100 leukocytes 7 % NRG Manual blood lymphocytes/100 leukocytes 4 % NRG Manual eosinophils/100 leukocytes in nose 0 % NRG Manual blood basophils/100 leukocytes 1 % NRG Blood lymphocytes variant/100 leukocytes 3 % NRG Blood ovalocytes detection by light microscopy SLIGHT NRG Blood toxic granules detection by light microscopy 1+ NRG Blood poikilocytosis detection by light microscopy SLIGHT NRG Encounters ACCT No. Visit Date/Time Discharge Status Pt. Type Provider Facility Loc./Unit Complaint [id number] 12/01/2014 11:43:00 12/01/2014 23:59:59 NATALI Outpatient MADDY NAM MD [id number] 09/08/2014 08:09:00 09/08/2014 23:59:59 CLS Outpatient MADDY NAM MD [id number] 06/29/2014 09:20:00 06/29/2014 23:59:59 NATALI Outpatient MADDY NAM MD [id number] 11/19/2013 14:15:00 11/19/2013 23:59:59 CLS Outpatient MADDY NAM MD [id number] 11/06/2013 10:49:00 11/06/2013 23:59:59 CLS Outpatient ISHA SWARTZ DO [id number] 10/31/2013 11:25:00 10/31/2013 23:59:59 CLS Outpatient ISHA SWARTZ DO [id number] 09/29/2013 09:25:00 09/29/2013 23:59:59 CLS Outpatient MADDY NAM MD [id number] 08/08/2013 08:19:00 08/08/2013 23:59:59 CLS Outpatient MADDY NAM MD [id number] 01/02/2013 15:32:00 01/02/2013 23:59:59 CLS Outpatient [id number] 12/17/2012 16:31:00 12/17/2012 23:59:59 CLS Outpatient [id number] 12/17/2012 16:31:00 12/17/2012 23:59:59 CLS Outpatient MADDY NAM MD [id number] 04/08/2013 10:17:00 Document Registration [id number] 03/28/2013 08:13:00 Document Registration [id number] 01/01/2013 15:48:00 Document Registration [id number] 07/06/2017 07:06:00 Document Registration [id number] 07/05/2016 07:06:00 Document Registration [id number] 01/06/2017 07:06:00 Document Registration [id number] 04/16/2018 08:20:00 04/16/2018 23:59:59 CLS Outpatient MADDY NAM MD [facility] [id number] 09/11/2018 16:07:00 09/11/2018 23:59:59 CLS Preadmit Yaron MENARD MD [facility] CARD HTN [id number] 09/11/2018 16:06:00 09/11/2018 23:59:59 CLS Preadmit Yaron MENARD MD [facility] CARD HTN [id number] 09/11/2018 16:05:00 09/11/2018 23:59:59 CLS Preadmit Yaron MENARD MD [facility] CARD HTN [id number] 09/06/2018 11:37:00 09/06/2018 13:32:00 DIS Outpatient ARELY MONTANEZ APRN [facility] ER INJURED RT. SHOULDER/FALL [id number] 10/25/2016 12:49:00 10/25/2016 23:59:59 CLS Outpatient MARYSOL CAPELLAN DO [facility] RAD PAIN IN LT HIP [id number] 02/09/2012 17:20:00 Document Registration
[2018-09-17] MEDS ORDERED: HYDR12.56 PO (12:02)
[2018-09-17] MEDS ORDERED: ASPI-983 PO (12:03)
[2018-09-17] MEDS ORDERED: BLOOD THINNER (12:05)
[2018-09-17] MEDS ORDERED: FUROSEMIDE 40 MG/4 ML INJ (LASIX) IV STA (13:26)
--- NOTE | 2018-09-17 13:37 | ED General ---
General Chief Complaint: General Problems/Pain Stated Complaint: EXTREMITY PAIN Nursing Triage Note: TO ED PER EMS FROM HOME FOR LAST SEVERAL DAY HIS LEGS HAVE BEEN SWOLLEN. REPORTS HAS NO WAY TO PUT LEGS UP. R HAND SWOLLEN FROM INJURY IN 09/03 Nursing Sepsis Screen: No Definite Risk Source of Information: Patient Exam Limitations: No Limitations History of Present Illness Date Seen by Provider: Sep 17, 2018 Time Seen by Provider: 13:10 Initial Comments Here with report of leg swelling for the last several days and markedly worse. He was put on Lasix yesterday and that has not helped. States that he can't even stand now because his legs are so swollen and his feet are so swollen. Note swelling going up his legs and also has swelling to the right arm. Does have recent fracture of the right upper arm. Complains of pain to the back near the right shoulder blade and is wondering if he maybe broke a rib when he fell and broke his arm. Denies nausea or vomiting. Urinating okay but is a little constipated. Use a sling to the right arm. Does note bruising to the right anterior chest wall but nothing posterior. Timing/Duration: 1 Week Severity: Moderate, Severe Associated Systoms: No Chest Pain, No Cough, No Fever/Chills, No Nausea/ Vomiting, No Shortness of Air; Weakness Allergies and Home Medications Allergies Coded Allergies: No Known Drug Allergies (Unverified , 09/17/18) Home Medications Apixaban 5 Mg Tablet, 5 MG PO BID, (Reported) Metoprolol Tartrate 25 Mg Tablet, 25 MG PO BID Prescribed by: CHRISTIANE HONEYCUTT on 09/06/18 1310 Patient Home Medication List Home Medication List Reviewed: Yes Review of Systems Review of Systems Constitutional: see HPI; No chills, No fever EENTM: no symptoms reported Respiratory: No cough; dyspnea on exertion, short of breath Cardiovascular: No chest pain; edema; No palpitations Gastrointestinal: No abdominal pain, No nausea, No vomiting Genitourinary: no symptoms reported Musculoskeletal: back pain; No muscle pain Skin: change in color; No lesions Psychiatric/Neurological: No Symptoms Reported All Other Systems Reviewed Negative Unless Noted: Yes Past Cwanzew-Airdla-Rdnshg Hx Past Med/Social Hx: Reviewed Nursing Past Med/Soc Hx Patient Social History Alcohol Use: Denies Use Recreational Drug Use: No Smoking Status: Never a Smoker Recent Foreign Travel: No Contact w/Someone Who Travel: No Recent Infectious Disease Expo: No Recent Hopitalizations: No Seasonal Allergies Seasonal Allergies: No Past Medical History Surgeries: Yes Appendectomy, Orthopedic Respiratory: No Cardiac: No Atrial Fibrillation, Hypertension Neurological: No Integumentary: No Family Medical History Reviewed Nursing Family Hx No Pertinent Family Hx Physical Exam Vital Signs Vital Signs - First Documented 09/17/18 09/17/18 11:47 14:18 Temp 98.0 Pulse 90 Resp 18 B/P (MAP) 131/66 (87) Pulse Ox 95 O2 Delivery Room Air Capillary Refill : Less Than 3 Seconds Height, Weight, BMI Height: 5'9.00" Weight: 246lbs. oz. 111.743977bt; BMI Method:Stated General Appearance: No Apparent Distress, WD/WN, Obese HEENT: PERRL/EOMI, Pharynx Normal Neck: Non Tender, Supple Respiratory: Lungs Clear, Normal Breath Sounds, No Accessory Muscle Use, No Respiratory Distress Cardiovascular: Regular Rate, Rhythm, No Murmur Gastrointestinal: Non Tender, Soft Back: No CVA Tenderness, No Vertebral Tenderness, Other (tender between the scapula and spine on the right in the region of the mid scapula) Extremity: Pedal Edema (3-4+ edema bilateral lower extremity up to knees and lesser extent above the knees. Bruising, tenderness and swelling to the right upper arm. Bruising also noted on right anterior chest wall), Other Neurologic/Psychiatric: Alert, Oriented x3 Progress/Results/Core Measures Suspected Sepsis Recent Fever Within 48 Hours: No Infection Criteria Present: None New/Unexplained Altered Menta: No Sepsis Screen: No Definite Risk SIRS Temperature:98.0 Pulse: 90 Respiratory Rate: 18 Laboratory Tests 09/17/18 13:32: White Blood Count 15.2H Blood Pressure 131 /66 Mean: 87 Laboratory Tests 09/17/18 13:32: Creatinine 0.78, Platelet Count 428H, Total Bilirubin 0.9 Results/Orders Lab Results Laboratory Tests Test 09/17/18 13:32 Range/Units White Blood Count 15.2 H 4.3-11.0 10^3/uL Red Blood Count 3.94 L 4.35-5.85 10^6/uL Hemoglobin 11.8 L 13.3-17.7 G/DL Hematocrit 35 L 40-54 % Mean Corpuscular Volume 89 80-99 FL Mean Corpuscular Hemoglobin 30 25-34 PG Mean Corpuscular Hemoglobin Concent 34 32-36 G/DL Red Cell Distribution Width 13.4 10.0-14.5 % Platelet Count 428 H 130-400 10^3/uL Mean Platelet Volume 9.7 7.4-10.4 FL Neutrophils (%) (Auto) 83 H 42-75 % Lymphocytes (%) (Auto) 6 L 12-44 % Monocytes (%) (Auto) 11 0-12 % Eosinophils (%) (Auto) 0 0-10 % Basophils (%) (Auto) 0 0-10 % Neutrophils # (Auto) 12.6 H 1.8-7.8 X 10^3 Lymphocytes # (Auto) 1.0 1.0-4.0 X 10^3 Monocytes # (Auto) 1.6 H 0.0-1.0 X 10^3 Eosinophils # (Auto) 0.0 0.0-0.3 10^3/uL Basophils # (Auto) 0.0 0.0-0.1 10^3/uL Neutrophils % (Manual) 83 % Lymphocytes % (Manual) 7 % Monocytes % (Manual) 4 % Eosinophils % (Manual) 0 % Basophils % (Manual) 0 % Band Neutrophils 6 % Blood Morphology Comment NORMAL Sodium Level 136 135-145 MMOL/L Potassium Level 3.1 L 3.6-5.0 MMOL/L Chloride Level 98 98-107 MMOL/L Carbon Dioxide Level 26 21-32 MMOL/L Anion Gap 12 5-14 MMOL/L Blood Urea Nitrogen 11 7-18 MG/DL Creatinine 0.78 0.60-1.30 MG/DL Estimat Glomerular Filtration Rate > 60 BUN/Creatinine Ratio 14 Glucose Level 116 H 70-105 MG/DL Calcium Level 8.8 8.5-10.1 MG/DL Corrected Calcium 9.8 8.5-10.1 MG/DL Total Bilirubin 0.9 0.1-1.0 MG/DL Aspartate Amino Transf (AST/SGOT) 70 H 5-34 U/L Alanine Aminotransferase (ALT/SGPT) 66 H 0-55 U/L Alkaline Phosphatase 53 40-136 U/L Troponin I < 0.30 <0.30 NG/ML B-Type Natriuretic Peptide 178.1 H <100.0 PG/ML Total Protein 6.5 6.4-8.2 GM/DL Albumin 2.8 L 3.2-4.5 GM/DL My Orders Orders - REYNALDO YADAV MD Chest 1 View, Ap/Pa Only (09/17/18 13:26) BNP (09/17/18 13:26) Cbc With Automated Diff (09/17/18:26) Comprehensive Metabolic Panel (09/17/18 13:) Troponin I (09/17/18 13:) Saline Lock/Iv-Start (09/17/18 13:) Ekg Tracing (09/17/18 13:26) Monitor-Rhythm Ecg Trace Only (09/17/18 13:26) Furosemide Injection (Lasix Injection) (09/17/18 13:26) Manual Differential (09/17/18 13:32) Potassium Chloride (Tablet) (Klor Con Ta (09/17/18 15:15) Vital Signs/I&O 09/17/18 09/17/18 11:47 14:18 Temp 98.0 Pulse 90 78 Resp 18 18 B/P (MAP) 131/66 (87) 127/113 (118) Pulse Ox 95 O2 Delivery Room Air Room Air Capillary Refill : Less Than 3 Seconds Blood Pressure Mean: 87 Progress Note : Progress Note Seen and evaluated. IV, labs, EKG and chest x-ray ordered. Lasix 40 mg IV ordered. Monitor patient. 1458: Lasix is improving his symptoms. I discussed the case with Dr. Dinero in an attempt to get outpatient information and services. We are going to attempt outpatient therapy and change him to oral Lasix as he has an appointment with Dr. Nam on 09/20 but nursing is reporting that the patient is unable to bend his legs or walk due to the profound swelling. We talked about different options including hospitalization and as she is taking over tomorrow for the inpatient setting. We will consider inpatient admission. I talked with the patient and he verifies the difficulty with walking and I have also reevaluated the legs. He definitely has swelling up to the mid thigh with tightness in the posterior region behind the knee causing difficulty with bending the legs. Lasix is working but will require further evaluation including labs as patient's potassium is low. We will replace that with 40 mEq of potassium now and continue 20 twice a day. 1518: I discussed the case with Dr. Dunlap and she accepts patient for admission and observation status. We will continue IV Lasix and his home meds. She requests consult with Dr. Simmons. This was placed at 1530 after I discussed with him. Admit, observation status. Patient agrees with plan. ECG Initial ECG Impression Date: Sep 17, 2018 Initial ECG Impression Time: 13:35 Initial ECG Rate: 73 Initial ECG Rhythm: Normal Sinus Comment Sinus rhythm with normal axis. No evidence of ST elevation DC. Occasional PVC noted. Change from previous which was atrial fibrillation with rapid ventricular response. Interpreted by me. Diagnostic Imaging Diagonstic Imaging: Xray Plain Films/CT/US/NM/MRI: chest Comments VIA [facility]. [place], [place] NAME: DINESH HIGGINS MED REC#: [id number] PT STATUS: REG ER : 1940 PHYSICIAN: REYNALDO YADAV MD ADMIT DATE: 09/17/18/ER Draft Date of Exam:09/17/18 CHEST 1 VIEW, AP/PA ONLY INDICATION: Leg swelling. TIME OF EXAMINATION: 02:05 p.m. COMPARISON: Correlation is made with prior study from 09/06/2018. FINDINGS: Calcified nodules left lung are stable consistent with granulomas. No infiltrates are seen. No failure is detected. There is no effusion or pneumothorax. IMPRESSION: No acute cardiopulmonary process is detected. Dictated on workstation # [id number] Dict: 09/17/18 1422 Trans: 09/17/18 1427 [facility] [id number] Interpreted by: JEANNIE MAC MD Electronically signed by: Departure Communication (Admissions) Time/Spoke to Admitting Phy: 15:22 Time/Spoke to Consulting Phy: 15:30 Impression Primary Impression: Bilateral lower extremity edema Additional Impression: Hypokalemia Disposition: ADMITTED INPATIENT Condition: Stable Admissions Decision to Admit Reason: Admit from ER (General) Decision to Admit/Date: Sep 17, 2018 Time/Decision to Admit Time: 15:22 Departure-Patient Inst. Referrals: MADDY NAM MD (PCP/Family) Primary Care Physician REYNALDO YADAV MD Sep 17, 2018 13:37
[2018-09-17 13:41] LABS: BASOPHILS % (AUTO) 0 % (0-10); EOSINOPHILS % (AUTO) 0 % (0-10); HEMATOCRIT 35 % (40-54); HEMOGLOBIN 11.8 G/DL (13.3-17.7); LYMPHOCYTES % (AUTO) 6 % (12-44); MEAN CORPUSCULAR HEMOGLOBIN 30 PG (25-34); MEAN CORPUSCULAR HGB CONC 34 G/DL (32-36); MEAN CORPUSCULAR VOLUME 89 FL (80-99); MEAN PLATELET VOLUME 9.7 FL (7.4-10.4); MONOCYTES # (AUTO) 1.6 X 10^3 (0.0-1.0); MONOCYTES % (AUTO) 11 % (0-12); NEUTROPHILS # (AUTO) 12.6 X 10^3 (1.8-7.8); NEUTROPHILS % (AUTO) 83 % (42-75); PLATELET COUNT 428 10^3/uL (130-400); RED BLOOD COUNT 3.94 10^6/uL (4.35-5.85); RED CELL DISTRIBUTION WIDTH 13.4 % (10.0-14.5); WHITE BLOOD COUNT 15.2 10^3/uL (4.3-11.0)
[2018-09-17 14:01] LABS: ALANINE AMINOTRANSFERASE 66 U/L (0-55); ALBUMIN 2.8 GM/DL (3.2-4.5); ALKALINE PHOSPHATASE 53 U/L (40-136); BILIRUBIN,TOTAL 0.9 MG/DL (0.1-1.0); BUN/CREATININE RATIO 14; CALCIUM 8.8 MG/DL (8.5-10.1); CARBON DIOXIDE 26 MMOL/L (21-32); CHLORIDE 98 MMOL/L (98-107); CREATININE SERUM 0.78 MG/DL (0.60-1.30); GFR ESTIMATED > 60; GLUCOSE 116 MG/DL (70-105); POTASSIUM 3.1 MMOL/L (3.6-5.0); SODIUM 136 MMOL/L (135-145); TOTAL PROTEIN 6.5 GM/DL (6.4-8.2)
[2018-09-17 14:14] LABS: BAND NEUTROPHILS 6 %; BASOPHILS % (MANUAL) 0 %; EOSINOPHILS % (MANUAL) 0 %; LYMPHOCYTES % (MANUAL) 7 %; MONOCYTES % (MANUAL) 4 %; NEUTROPHILS % (MANUAL) 83 %; RBC MORPH NORMAL
[2018-09-17 14:18] VITALS: BP 127/113
--- NOTE | 2018-09-17 14:28 | Diagnostic Imaging Report ---
INDICATION: Leg swelling. TIME OF EXAMINATION: 02:05 p.m. COMPARISON: Correlation is made with prior study from 09/06/2018. FINDINGS: Calcified nodules left lung are stable consistent with granulomas. No infiltrates are seen. No failure is detected. There is no effusion or pneumothorax. IMPRESSION: No acute cardiopulmonary process is detected. Dictated by: Dictated on workstation # [id number]
[2018-09-17] MEDS ORDERED: APIX5TAB PO (15:07)
[2018-09-17] MEDS ORDERED: KCL 10 MEQ TAB (MICRO K) PO ONE (15:15)
--- OUTSIDE RECORDS SUMMARY | 2018-09-17 16:00 | XMS REPORT | Continuity of Care Document ---
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 Type Provider Facility Loc./Unit Complaint [id number] 12/01/2014 11:43:00 12/01/2014 23:59:59 NATALI Outpatient MADDY NAM MD [id number] 09/08/2014 08:09:00 09/08/2014 23:59:59 CLS Outpatient MADDY NAM MD [id number] 06/29/2014 09:20:00 06/29/2014 23:59:59 NATALI Outpatient MADDY NAM MD [id number] 11/19/2013 14:15:00 11/19/2013 23:59:59 CLS Outpatient MADDY NAM MD [id number] 11/06/2013 10:49:00 11/06/2013 23:59:59 CLS Outpatient ISHA SWARTZ DO [id number] 10/31/2013 11:25:00 10/31/2013 23:59:59 CLS Outpatient ISHA SWARTZ DO [id number] 09/29/2013 09:25:00 09/29/2013 23:59:59 CLS Outpatient MADDY NAM MD [id number] 08/08/2013 08:19:00 08/08/2013 23:59:59 CLS Outpatient MADDY NAM MD [id number] 01/02/2013 15:32:00 01/02/2013 23:59:59 CLS Outpatient [id number] 12/17/2012 16:31:00 12/17/2012 23:59:59 CLS Outpatient [id number] 12/17/2012 16:31:00 12/17/2012 23:59:59 CLS Outpatient MADDY NAM MD [id number] 04/08/2013 10:17:00 Document Registration [id number] 03/28/2013 08:13:00 Document Registration [id number] 01/01/2013 15:48:00 Document Registration [id number] 07/06/2017 07:06:00 Document Registration [id number] 07/05/2016 07:06:00 Document Registration [id number] 01/06/2017 07:06:00 Document Registration [id number] 04/16/2018 08:20:00 04/16/2018 23:59:59 CLS Outpatient MADDY NAM MD [facility] [id number] 09/11/2018 16:07:00 09/11/2018 23:59:59 CLS Preadmit Yaron MENARD MD [facility] CARD HTN [id number] 09/11/2018 16:06:00 09/11/2018 23:59:59 CLS Preadmit Yaron MENARD MD [facility] CARD HTN [id number] 09/11/2018 16:05:00 09/11/2018 23:59:59 CLS Preadmit Yaron MENARD MD [facility] CARD HTN [id number] 09/06/2018 11:37:00 09/06/2018 13:32:00 DIS Outpatient ARELY MONTANEZ APRN [facility] ER INJURED RT. SHOULDER/FALL [id number] 10/25/2016 12:49:00 10/25/2016 23:59:59 CLS Outpatient MARYSOL CAPELLAN DO [facility] RAD PAIN IN LT HIP [id number] 02/09/2012 17:20:00 Document Registration
[2018-09-17 16:25] VITALS: BP 122/60
[2018-09-17] MEDS ORDERED: FLU QUADRIvalent (5+ YOA) 2018-2019 (AFLURIA) 0.5 ML IM ONE (17:30)
[2018-09-17] MEDS ORDERED: ONDANSETRON 4 MG/2 ML (SDV) Z0FRAN IV PRN (18:15)
[2018-09-17] MEDS ORDERED: CATHETER FLUSH 10 ML SYR IV PRN (18:15)
--- NOTE | 2018-09-17 18:53 | Consultation-Cardiology ---
HPI-Cardiology Cardiology Consultation: Date of Consultation 09/17/18 Date of Admission Attending Physician Ml Dinero DO Admitting Physician Tj Delatorre MD Consulting Physician Yaron SIMMONS MD HPI: Time Seen by a Provider: 18:50 Chief Complaint: Lower extremity swelling This is a 78-year-old gentleman who I first saw as an inpatient consultation on 09/06/2018. He presented to the ER with a mechanical fall and possible right shoulder injury. He was found to be new onset atrial fibrillation with rapid ventricular rate. He denied any chest pain, shortness of breath, palpitation. He does have history of hypertension. He denies any past medical history or cardiac history. He was incarcerated for 18 months and was recently released. He follows the [facility]. He was continued on metoprolol for atrial fibrillation. The patient has elevated CHADSVASC score of 3 but we could not start oral anticoagulation due to his acute fall and concern about hematoma/bleeding. He presents in the office today with no significant complaints. He presents again to the ER with c/o lower extremity swelling. He denies any shortness of breath, chest pain, palpitations, syncope or near-syncope. Review of Systems-Cardiology Review of Systems Constitutional: As described under HPI; No As described under HPI, No no symptoms reported, No chills, No fever, No lightheadedness Eyes: No As described under HPI, No no symptoms reported, No blindness, No blurred vision, No contact lenses, No drainage, No decreased acuity, No foreign body sensation, No pain, No vision change Ears/Nose/Throat: No As described under HPI, No no symptoms reported, No chronic hearing loss, No ear discharge, No ear pain, No nasal drainage, No ulcerations Respiratory: No no symptoms reported; As described under HPI; No As described under HPI, No cough, No orthopnea, No shortness of breath, No SOB with excertion Cardiovascular: No no symptoms reported; As described under HPI; No As described under HPI, No chest pain; edema; No irregular heart rate, No lightheadedness, No palpitations Gastrointestinal: No no symptoms reported, No As described under HPI, No abdomen distended, No abdominal pain, No blood streaked bowels, No constipation , No diarrhea, No nausea, No vomiting, No stool coloration changes Genitourinary: No As described under HPI, No burning, No dysuria, No discharge , No frequency, No flank pain, No hematuria, No urgency Musculoskeletal: No no symptoms reported, No As describe under HPI, No back pain, No gout, No joint pain, No joint swelling, No muscle pain, No muscle stiffness, No neck pain, No other Skin: No no symptoms reported, No As described under HPI, No change in color, No change in hair/nails, No dryness, No lesions, No lumps, No rash, No other, No skin related problems, No ulcerations, No rash on exposed areas, No ulcerations on exposed areas Psychiatric/Neurological: No anxiety, No depression, No seizure, No focal weakness, No syncope Hematologic: No bleeding abnormalities All Other Systems Reviewed Negative Unless Noted: Yes [id number] Hx Patient Social History Alcohol Use: Denies Use Recreational Drug Use: No Smoking Status: Former Smoker Recent Foreign Travel: No Recent Infectious Disease Expo: No Hospitalization with Isolation: Denies Physical Abuse Screen: No Sexual Abuse: No Past Medical History PMH As described under Assessment. Allergies and Home Medications Allergies Coded Allergies: No Known Drug Allergies (Unverified , 09/17/18) Home Medications Apixaban 5 Mg Tablet, 5 MG PO BID, (Reported) Metoprolol Tartrate 25 Mg Tablet, 25 MG PO BID Prescribed by: CHRISTIANE HONEYCUTT on 09/06/18 1310 Patient Home Medication List Home Medication List Reviewed: Yes Physical Exam-Cardiology Physical Exam Vital Signs/I&O 09/17/18 09/17/18 09/17/18 09/17/18 11:47 14:18 16:01 16:25 Temp 98.0 99.7 Pulse 90 78 75 71 Resp 18 18 18 18 B/P (MAP) 131/66 (87) 127/113 (118) 144/91 (108) 122/60 (80) Pulse Ox 95 96 95 O2 Delivery Room Air Room Air Room Air 09/17/18 09/17/18 09/17/18 16:30 20:01 20:12 Temp 100.3 100.3 Pulse 74 Resp 16 B/P (MAP) 149/65 (93) Pulse Ox 95 96 O2 Delivery Room Air Room Air Capillary Refill : Less Than 3 SecondsLess Than 3 Seconds Constitutional: appears stated age, AAO x 3; No apparent distress; well- developed, well-nourished HEENT: PERRL; No normal ENT inspection, No TMs normal, No pharynx normal, No scleral icterus (R), No scleral icterus (L), No pale conjunctivae (R), No pale conjunctivae (L), No photophobia, No TM abnormal (R), No TM abnormal (L), No pharyngeal erythema, No tonsillar exudate, No other, No discharge, No EOMI; hearing is well preserved; No hard of hearing; oral hygience is good; No ulceration, No xanthelasmas are seen Neck: No non-tender, No full range of motion, No supple, No normal inspection, No carotid bruit, No limited range of motion, No lymphadenopathy (R), No lymphadenopathy (L), No tender lateral, No tender midline, No thyromegaly, No other; carotid pulses are 2 + bilaterally; No with good upstrokes Respiratory: No accessory muscle use, No respiratory distress, No chest tender , No chest expansion is symmetric; chest is bilaterally symmetric; No lungs clear to percussion; lungs clear to auscultation; No crackles, No rhonchi, No rales, No stridor, No wheezing, No pleural rub, No other Cardiovascular: regular rate-rhythm; No irregularly irregular, No extra beats, No parasternal heave is noted, No JVD, No edema, No bradycardia, No tachycardia , No point of maximal impulse, No cardiac thrills are palpable; S1 and S2; No gallop/S3, No gallop/S4, No diastolic murmur, No systolic murmur, No friction rub, No click, No other Gastrointestinal: No tender; soft, round; No distended, No pulsatile mass, No organomegaly, No guarding, No rebound, No tenderness, No hernia, No mass; audible bowel sounds; No abnormal bowel sounds, No abdominal bruits, No spleenomegaly, No other Rectal: deferred Extremities: No normal range of motion, No non-tender, No normal inspection, No pedal edema, No calf tenderness, No normal capillary refill, No pelvis stable , No calf tenderness, No inflammation, No pedal edema, No slow capillary refill , No swelling, No other, No abrasion, No clubbing, No cyanosis, No ecchymosis, No laceration, No no lower extremity edema bilateral; significant edema; No tenderness, No wound Neurologic/Psychiatric: no motor/sensory deficits, alert, normal mood/affect, oriented x 3, power is 5/5 both on sides Skin: No normal color, No warm/dry, No cyanosis, No cool, No diaphoresis, No damp, No ecchymosis, No jaundice, No mottled, No pallor, No rash, No tattoos/ piercings, No ulcerations, No rash on exposed areas, No ulcerations on exposed areas, No other Data Review Labs Laboratory Tests 09/17/18 13:32: White Blood Count 15.2H, Red Blood Count 3.94L, Hemoglobin 11.8L, Hematocrit 35L , Mean Corpuscular Volume 89, Mean Corpuscular Hemoglobin 30, Mean Corpuscular Hemoglobin Concent 34, Red Cell Distribution Width 13.4, Platelet Count 428H, Mean Platelet Volume 9.7, Neutrophils (%) (Auto) 83H, Lymphocytes (%) (Auto) 6L , Monocytes (%) (Auto) 11, Eosinophils (%) (Auto) 0, Basophils (%) (Auto) 0, Neutrophils # (Auto) 12.6H, Lymphocytes # (Auto) 1.0, Monocytes # (Auto) 1.6H, Eosinophils # (Auto) 0.0, Basophils # (Auto) 0.0, Neutrophils % (Manual) 83, Lymphocytes % (Manual) 7, Monocytes % (Manual) 4, Eosinophils % (Manual) 0, Basophils % (Manual) 0, Band Neutrophils 6, Blood Morphology Comment NORMAL, Sodium Level 136, Potassium Level 3.1L, Chloride Level 98, Carbon Dioxide Level 26, Anion Gap 12, Blood Urea Nitrogen 11, Creatinine 0.78, Estimat Glomerular Filtration Rate > 60, BUN/Creatinine Ratio 14, Glucose Level 116H, Calcium Level 8.8, Corrected Calcium 9.8, Total Bilirubin 0.9, Aspartate Amino Transf ( AST/SGOT) 70H, Alanine Aminotransferase (ALT/SGPT) 66H, Alkaline Phosphatase 53 , Troponin I < 0.30, B-Type Natriuretic Peptide 178.1H, Total Protein 6.5, Albumin 2.8L 09/17/18 19:30: D-Dimer 2.70H ECG Impression ECG Initial ECG Rhythm: Normal Sinus A/P-Cardiology Assessment/Admission Diagnosis Bilateral lower extremity swelling, Mild CHF, PAF, Plan - r/o dvt with venous dopplers. check Ddimer. already on AFib dose of Eliquis. - Controlled AF. continue Eliquis and BB. - Acute mild CHF - lasix iv. Echocardiogram. Thank you for your consultation. Please call me if you have any questions. Chapo Simmons MD, FACP, FACC, FSCAI, FHRS, CCDS Interventional Cardiology Cardiac Electrophysiology Vascular Medicine and Endovascular Interventions Clinical Quality Measures DVT/VTE Risk/Contraindication: Risk Factor Score Per Nursin RFS Level Per Nursing on Admit: 4+=Very High Yaron SIMMONS MD Sep 17, 2018 6:53 pm
[2018-09-17] MEDS: FUROSEMIDE 40 MG/4 ML INJ (LASIX) IV SCH (19:08)
[2018-09-17] MEDS: KCL 20 MEQ TAB (K-DUR) PO SCH (19:24)
[2018-09-17 20:01] VITALS: BP 149/65
[2018-09-17] MEDS: meTOprolol TARTRATE 25 MG (LOPRESSOR) TABLET PO SCH (20:11)
[2018-09-17] MEDS: APIXABAN 5 MG (ELIQUIS) TABLET PO SCH (20:11)
[2018-09-17] MEDS: ACETAMINOPHEN 500 MG TAB (TYLENOL) PO PRN (20:12)
[2018-09-17] MEDS: CATHETER FLUSH 10 ML SYR IV SCH (20:13)
[2018-09-17] MEDS ORDERED: ALPRAZolam 0.25 MG (XANAX) TAB PO PRN (21:00)
[2018-09-17] MEDS ORDERED: CALCIUM CARBONATE 500 MG (TUMS) TAB.CHEW PO PRN (21:00)
[2018-09-17] MEDS ORDERED: DOCUSATE SODIUM 100 MG (COLACE) CAP PO PRN (21:00)
[2018-09-17] MEDS ORDERED: HYDROcodone/APAP 5 MG/325 MG (LORTAB) TAB PO PRN (21:00)
[2018-09-18 00:09] VITALS: BP 136/70
[2018-09-18 04:00] VITALS: BP 113/67
[2018-09-18] MEDS: CATHETER FLUSH 10 ML SYR IV SCH ×3 (06:12→20:24)
[2018-09-18] MEDS: FUROSEMIDE 40 MG/4 ML INJ (LASIX) IV SCH (06:12)
[2018-09-18] MEDS: KCL 20 MEQ TAB (K-DUR) PO SCH ×2 (06:12→16:25)
[2018-09-18 06:17] LABS: BASOPHILS % (AUTO) 0 % (0-10); EOSINOPHILS # (AUTO) 0.1 10^3/uL (0.0-0.3); EOSINOPHILS % (AUTO) 1 % (0-10); HEMATOCRIT 32 % (40-54); HEMOGLOBIN 10.8 G/DL (13.3-17.7); LYMPHOCYTES # (AUTO) 1.6 X 10^3 (1.0-4.0); LYMPHOCYTES % (AUTO) 14 % (12-44); MEAN CORPUSCULAR HEMOGLOBIN 30 PG (25-34); MEAN CORPUSCULAR HGB CONC 34 G/DL (32-36); MEAN CORPUSCULAR VOLUME 89 FL (80-99); MEAN PLATELET VOLUME 9.6 FL (7.4-10.4); MONOCYTES % (AUTO) 9 % (0-12); NEUTROPHILS # (AUTO) 8.5 X 10^3 (1.8-7.8); NEUTROPHILS % (AUTO) 76 % (42-75); PLATELET COUNT 374 10^3/uL (130-400); RED BLOOD COUNT 3.57 10^6/uL (4.35-5.85); RED CELL DISTRIBUTION WIDTH 13.5 % (10.0-14.5); WHITE BLOOD COUNT 11.2 10^3/uL (4.3-11.0)
[2018-09-18 06:37] LABS: ALANINE AMINOTRANSFERASE 63 U/L (0-55); ALBUMIN 2.5 GM/DL (3.2-4.5); ALKALINE PHOSPHATASE 51 U/L (40-136); BILIRUBIN,TOTAL 0.8 MG/DL (0.1-1.0); BUN/CREATININE RATIO 19; CALCIUM 8.8 MG/DL (8.5-10.1); CARBON DIOXIDE 28 MMOL/L (21-32); CHLORIDE 101 MMOL/L (98-107); CREATININE SERUM 0.73 MG/DL (0.60-1.30); GFR ESTIMATED > 60; GLUCOSE 98 MG/DL (70-105); POTASSIUM 3.2 MMOL/L (3.6-5.0); SODIUM 137 MMOL/L (135-145); TOTAL PROTEIN 6.1 GM/DL (6.4-8.2)
[2018-09-18 08:00] VITALS: BP 117/59
[2018-09-18] MEDS: APIXABAN 5 MG (ELIQUIS) TABLET PO SCH ×2 (08:09→20:24)
[2018-09-18] MEDS: meTOprolol TARTRATE 25 MG (LOPRESSOR) TABLET PO SCH ×2 (08:09→20:24)
[2018-09-18] MEDS ORDERED: METO-333 PO (10:06)
[2018-09-18] MEDS ORDERED: AZITHROMYCIN 250 MG TAB (ZITHROMAX) PO NR (10:14)
[2018-09-18] MEDS ORDERED: KCL 20 MEQ TAB (K-DUR) PO ONE (10:15)
--- NOTE | 2018-09-18 10:50 | Diagnostic Imaging Report ---
PROCEDURE: US Venous Lower Ext David. TECHNIQUE: Multiple real-time grayscale images were obtained over the lower extremities in various projections, bilaterally. Additional duplex Doppler and color Doppler images were also obtained. INDICATION: Lower extremity swelling. The veins of lower extremities have good compressibility and color flow. There is normal spontaneous and augmented flow. IMPRESSION: Negative venous Doppler of the lower extremities. Dictated by: Dictated on workstation # [id number]
--- NOTE | 2018-09-18 10:54 | Occupational Therapy Eval ---
OT Evaluation-General/PLF Medical Diagnosis Admission Date Sep 17, 2018 at 15:50 Medical Diagnosis: bilat LE edema, hypokalemia Onset Date: Sep 17, 2018 Therapy Diagnosis Therapy Diagnosis: decr self care, decr funct use R UE Height/Weight Height (Feet): 5 Height (Inches): 6.00 Weight (Pounds): 238 Weight (Ounces): 3.0 Precautions Precautions/Isolations: Fall Prevention, Standard Precautions Referral Physician: Germán Referral Reason: Evaluation/Treatment Medical History Pertinent Medical History: Atrial Fib, HTN Additional Medical History Pt fell on 09-03-18 and sustained subcapital fx R humeral head and was told to wear a sling for 15 days except when bathing. Talked with Dr. Dinero this morning and she will have him follow up with ortho at [facility]. Current History Admitted from home via EMS. Legs swollen for several days and no way to elevate them. Reviewed History: Yes Social History Pt has been staying with his [id number] since his fall ADL-Prior Level of Function Functional [place] Measure 0=Not Assessed/NA 4=Minimal Assistance 1=Total Assistance 5=Supervision or Setup 2=Maximal Assistance 6=Modified [place] 3=Moderate Assistance 7=Complete [place] IRFPAI Quality Coding Scale 6 Independent with activity with or without an assistive device 5 Patient requires set up or clean up by helper. Patient completes activity by themselves 4 Supervision or touching assist (CGA). [place] provide cues , steadying assist 3 The helper provides less than half the effort to complete the activity 2 The helper provides more than half the effort to complete the activity 1 Dependent. The helper does all the effort to complete an activity 7 Patient refused to complete or attempt activity 9 The patient did not perform the activity before the current illness or injury 88 Not attempted due to Medical conditions or safety concerns Functional Abilities and Goals 3. Independent: Patient completed the activities by him/herself, with or without an assistive device, with no assistance from a helper. 2. Needed Some Help: Patient needed partial assistance from another person to complete activities. 1. Dependent: A helper completed the activities for the patient. 8. Unknown: 9. Not Applicable: ADL PLOF Comments Pt reported that he was previously able to manage all of his basic ADLs, care for his home. He is able to drive but his license has . 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 Self Care: Independent Functional Cognition: Independent OT Current Status Subjective Pt seen in room, up in bed, agreeable to OT. Pain rated 0/10 and pt demonstrated improved movement in knees. Appearance Alert, cooperative Current Glasses/Contacts: Yes Hearing Aids: No Dentures/Partials: Yes Hand Dominance: Right Upper Extremity ROM L UE grossly WFL. R shoulder not tested but pt demonstrated functional use elbow and distal Upper Extremity Strength L UE 5/5 grossly. R UE not tested ADL-Treatment ADL-Current Pt indicated that he hasn't had a shower or changed his shirt since he fell. Plans are to get him up out of bed and enjoy a shower with nursing. He reported that he has been able to feed himself with L arm, with setup. Pt would benefit from education on modified techniques for ADLs with R UE. Functional [place] Measure 0=Not Assessed/NA 4=Minimal Assistance 1=Total Assistance 5=Supervision or Setup 2=Maximal Assistance 6=Modified [place] 3=Moderate Assistance 7=Complete [place] IRFPAI Quality Coding Scale 6 Independent with activity with or without an assistive device 5 Patient requires set up or clean up by helper. Patient completes activity by themselves 4 Supervision or touching assist (CGA). [place] provide cues , steadying assist 3 The helper provides less than half the effort to complete the activity 2 The helper provides more than half the effort to complete the activity 1 Dependent. The helper does all the effort to complete an activity 7 Patient refused to complete or attempt activity 9 The patient did not perform the activity before the current illness or injury 88 Not attempted due to Medical conditions or safety concerns Education OT Patient Education: Purpose of tx/functional activities, Rehab process Teaching Recipient: Patient Teaching Methods: Discussion Response to Teaching: Verbalize Understanding OT Care Home Goals Drill Bit Sharpener Goals Time Frame: Sep 21, 2018 Bathing(FIM): 4 Upper Body Dressing(FIM): 5 Lower Body Dressing(FIM): 5 Additional Goals: 1-Demonstrate ADL Tasks, 2-Verbalize Understanding, 3- ImproveStrength/Alexa 1=Demonstrate adherence to instructed precautions during ADL tasks. 2=Patient will verbalize/demonstrate understanding of assistive devices/ modifications for ADL. 3=Patient will improve strength/tolerance for activity to enable patient to perform ADL's. OT Education/Plan Problem List/Assessment Assessment: Impaired Self-Care Skills, Restricted Funct UE ROM Pt would benefit from skilled OT to increase his independence in basic self care Discharge Recommendations Plan/Recommendations: Continue POC Treatment Plan/Plan of Care Treatment,Training & Education: Yes Patient would benefit from OT for education, treatment and training to promote independence in ADL's, mobility, safety and/or upper extremity function for ADL' s. Plan of Care: ADL Retraining, Functional Mobility Treatment Duration: Sep 21, 2018 Frequency: 4 times per week Estimated Hrs Per Day: .5 hour per day Agreement: Yes Rehab Potential: Fair Time/GCodes Start Time: 09:55 Stop Time: 10:16 Total Time Billed (hr/min): 21 Billed Treatment Time visit, 21 minutes evaluation low intensity BETTY MEADOWS OT Sep 18, 2018 10:54
--- NOTE | 2018-09-18 11:23 | Cardiology Progress Note ---
Cardiology SOAP Progress Note Subjective: Slight improvement in lower extremity swelling. Objective: I&O/Vital Signs 09/18/18 09/18/18 09/18/18 09/18/18 04:00 07:00 08:00 08:00 Temp 97.8 97.7 Pulse 60 59 61 Resp 18 18 B/P (MAP) 113/67 (82) 117/59 (78) Pulse Ox 94 96 O2 Delivery Room Air Room Air Room Air 09/18/18 00:00 Intake Total 860 ml Output Total 750 ml Balance 110 ml Weight (Pounds): 238 Weight (Ounces): 3.0 Weight (Calculated Kilograms): 108.552370 Constitutional: appears stated age, AAO x 3; No apparent distress; well- developed, well-nourished Respiratory: No accessory muscle use, No respiratory distress, No chest tender , No chest expansion is symmetric; chest is bilaterally symmetric; No lungs clear to percussion; lungs clear to auscultation; No crackles, No rhonchi, No rales, No stridor, No wheezing, No pleural rub, No other Cardiovascular: regular rate-rhythm; No irregularly irregular, No extra beats, No parasternal heave is noted, No JVD, No edema, No bradycardia, No tachycardia , No point of maximal impulse, No cardiac thrills are palpable; S1 and S2; No gallop/S3, No gallop/S4, No diastolic murmur, No systolic murmur, No friction rub, No click, No other Gastrointestional: No tender; soft, round; No distended, No pulsatile mass, No organomegaly, No guarding, No rebound, No tenderness, No hernia, No mass; audible bowel sounds; No abnormal bowel sounds, No abdominal bruits, No spleenomegaly, No other Extremities: No normal range of motion, No non-tender, No normal inspection, No pedal edema, No calf tenderness, No normal capillary refill, No pelvis stable , No calf tenderness, No inflammation, No pedal edema, No slow capillary refill , No swelling, No other, No abrasion, No clubbing, No cyanosis, No ecchymosis, No laceration, No no lower extremity edema bilateral; significant edema; No tenderness, No wound Neurologic/Psychiatric: no motor/sensory deficits, alert, normal mood/affect, oriented x 3, power is 5/5 both on sides Skin: No normal color, No warm/dry, No cyanosis, No cool, No diaphoresis, No damp, No ecchymosis, No jaundice, No mottled, No pallor, No rash, No tattoos/ piercings, No ulcerations, No rash on exposed areas, No ulcerations on exposed areas, No other Results/Procedures: Labs Laboratory Tests 09/17/18 19:30: D-Dimer 2.70H 09/18/18 05:59: White Blood Count 11.2H, Red Blood Count 3.57L, Hemoglobin 10.8L, Hematocrit 32L , Mean Corpuscular Volume 89, Mean Corpuscular Hemoglobin 30, Mean Corpuscular Hemoglobin Concent 34, Red Cell Distribution Width 13.5, Platelet Count 374, Mean Platelet Volume 9.6, Neutrophils (%) (Auto) 76H, Lymphocytes (%) (Auto) 14 , Monocytes (%) (Auto) 9, Eosinophils (%) (Auto) 1, Basophils (%) (Auto) 0, Neutrophils # (Auto) 8.5H, Lymphocytes # (Auto) 1.6, Monocytes # (Auto) 1.0, Eosinophils # (Auto) 0.1, Basophils # (Auto) 0.0, Sodium Level 137, Potassium Level 3.2L, Chloride Level 101, Carbon Dioxide Level 28, Anion Gap 8, Blood Urea Nitrogen 14, Creatinine 0.73, Estimat Glomerular Filtration Rate > 60, BUN/ Creatinine Ratio 19, Glucose Level 98, Calcium Level 8.8, Corrected Calcium 10.0 , Total Bilirubin 0.8, Aspartate Amino Transf (AST/SGOT) 63H, Alanine Aminotransferase (ALT/SGPT) 63H, Alkaline Phosphatase 51, Total Protein 6.1L, Albumin 2.5L A/P: Assessment/Dx: Bilateral lower extremity swelling, Mild CHF, PAF, Plan: -DVT ruled out with negative venous Dopplers. - Controlled AF. continue Eliquis and BB. - Acute mild CHF - lasix iv. Will recommend PT/OT. - Echocardiogram. Thank you for your consultation. Please call me if you have any questions. Chapo Simmons MD, FACP, FACC, FSCAI, FHRS, CCDS Interventional Cardiology Cardiac Electrophysiology Vascular Medicine and Endovascular Interventions Yaron SIMMONS MD Sep 18, 2018 11:23 am
--- NOTE | 2018-09-18 12:03 | Physical Therapy Evaluation ---
PT Evaluation-General Medical Diagnosis Admission Date Sep 17, 2018 at 15:50 Medical Diagnosis: bilat LE edema, hypokalemia Onset Date: Sep 17, 2018 Therapy Diagnosis Therapy Diagnosis: weakness; abn gait Height/Weight Height (Feet): 5 Height (Inches): 6.00 Weight (Pounds): 238 Weight (Ounces): 3.0 Precautions Precautions/Isolations: Fall Prevention, Standard Precautions Weight Bear Status Right Lower Extremity: Right Full Weight Bearing Left Lower Extremity: Left Full Weight Bearing Referral Physician: Germán Reason for Referral: Evaluation/Treatment Referral Comments Possible DC this date if safe Medical History Pertinent Medical History: Atrial Fib, HTN Additional Medical History A fib, CHF Current History Admitted with persistent B LE edema. Reviewed History: Yes Social History Home: Single Level Current Living Status: Alone Entry Into Home: Stairs With Railing Prior/Core FIM Prior Level of Function Functional [place] Measure 0=Not Assessed/NA 4=Minimal Assistance 1=Total Assistance 5=Supervision or Setup 2=Maximal Assistance 6=Modified [place] 3=Moderate Assistance 7=Complete [place] IRFPAI Quality Coding Scale 6 Independent with activity with or without an assistive device 5 Patient requires set up or clean up by helper. Patient completes activity by themselves 4 Supervision or touching assist (CGA). [place] provide cues , steadying assist 3 The helper provides less than half the effort to complete the activity 2 The helper provides more than half the effort to complete the activity 1 Dependent. The helper does all the effort to complete an activity 7 Patient refused to complete or attempt activity 9 The patient did not perform the activity before the current illness or injury 88 Not attempted due to Medical conditions or safety concerns Functional Abilities and Goals 3. Independent: Patient completed the activities by him/herself, with or without an assistive device, with no assistance from a helper. 2. Needed Some Help: Patient needed partial assistance from another person to complete activities. 1. Dependent: A helper completed the activities for the patient. 8. Unknown: 9. Not Applicable: Bed Mobility: 7 Transfers (B,C,W/C) (FIM): 7 Gait: 7 PT Evaluation-Current Subjective Agreeable to PT. Reports he is weak and feels unsteady when he walks. Pt reports his right arm is broken; it is in a sling. Objective Patient Orientation: Person, Place, Time, Situation Problem Solving: Good ROM/Strength ROM Lower Extremities wFL Strength Lower Extremities grossly 4/5 Integumentary/Posture Integumentary intact; bruising right upper arm Bowel Incontinence: No Bladder Incontinence: No Neuromuscular (Tone, Coordination, Reflexes) WFL Sensory Vision: Functional Hearing: Functional Hand Dominance: Right Sensation Right Lower Extremit: Intact Sensation Left Lower Extremity: Intact Transfers Functional [place] Measure 0=Not Assessed/NA 4=Minimal Assistance 1=Total Assistance 5=Supervision or Setup 2=Maximal Assistance 6=Modified [place] 3=Moderate Assistance 7=Complete [place] Transfers (B, C, W/C) (FIM): 5 Supine to/from Sit: 5 (HOB elevated and uses bedrail) Sit to/from Stand: 5 (SBA for safety) Gait Mode of Locomotion: Walk Anticipated Mode of Locomotion: Walk Gait (FIM): 2 Distance: 60 ft Gait Assistive Device: Cane Single Point Comments/Gait Description wide JOSESITO, unsteady, requires close CGA to min assist for safety. Unsteady Balance Sitting Static: Good Sitting Dynamic: Good Standing Static: Fair Standing Dynamic: Fair Assessment/Needs Pt presents with gross LE weakness and decreased safety with gait. He is unsteady with ambulation and requires CG-min assist for safety. Uses a cane due to right UE fracture and in a sling. Feel pt is a fall risk with gait at this time and recommend assist for safety. Rehab Potential: Good PT Bilingual Interpreter Goals Bilingual Interpreter Goals PT Senior Care Goals Time Frame: Sep 23, 2018 Transfers (B,C,W/C) (FIM): 7 Gait (FIM): 6 Gait distance (FIM): 3=150 ft Gait Assistive Device: Cane Single Point PT Plan Problem List Problem List: Activity Tolerance, Functional Strength, Safety, Balance, Gait, Transfer Treatment/Plan Treatment Plan: Continue Plan of Care Treatment Plan: Bed Mobility, Education, Functional Activity Alexa, Functional Strength, Gait, Safety, Therapeutic Exercise, Transfers Treatment Duration: Sep 23, 2018 Frequency: 6 times per week Estimated Hrs Per Day: .25 hour per day Patient and/or Family Agrees t: Yes Safety Risks/Education Patient Education: Transfer Techniques, Safety Issues Teaching Recipient: Patient Teaching Methods: Discussion Response to Teaching: Reinforcement Needed Time/GCodes Time In: 1135 Time Out: 1200 Total Billed Treatment Time: 25 Total Billed Treatment visit EVL 25 G Codes Necessary: Yes PT/OT Therapy GCodes Therapy Functional Limitation: Physical Therapy Test(s)/Tool used to determine: Level of Assistance Scale Functional Limitation-Current Charge Code: MOBCUR Modifier: CK Functional Limitation-Goal Charge Code: MOBBRANDO Modifier: TRISTIAN RUSSO PT Sep 18, 2018 12:03
[2018-09-18 16:15] VITALS: BP 134/74
--- NOTE | 2018-09-18 16:21 | History & Physicial (CHS) ---
HPI History of Present Illness: This is a 78 yo male patient of Dr. Delatorre who presented to the ER with significant LE edema. Pt was seen in the Walk In clinic and started on HCTZ 12.5mg daily and scheduled f/u with Dr. Delatorre. He has continued to have significant swelling to the point he has not been able to ambulate. Pt was previously seen in the ER on 09/06/18 following a fall resulting in a R humeral head fracture. He is currently in a sling but has not seen ortho and does not have a follow-up scheduled. He was found to have a-fib while in the ER on 09/06 and was seen by Dr. Simmons who has been following this and who now has the patient on Eliquis. Pt denies SOA or chest pain. Date seen by provider: Sep 18, 2018 Time Seen by Provider: 10:00 Attending Physician Ml Swartz DO PCP Tj Delatorre MD Consult Date of Admission Sep 17, 2018 at 15:50 Home Medications Home Medications Reviewed patient Home Medication Reconciliation performed by pharmacy medication reconciliations counter intelligence technician and/or nursing. Patients Allergies have been reviewed. Allergies Coded Allergies: No Known Drug Allergies (Unverified , 09/17/18) [id number] Hx Patient Social History Alcohol Use: Denies Use Recreational Drug Use: No Smoking Status: Former Smoker Recent Foreign Travel: No Contact w/other who traveled: No Recent Hopitalizations: No Recent Infectious Disease Expo: No Physical Abuse Screen: No Sexual Abuse: No Past Medical History Paroxysmal A-fib on Eliquis Hypertension R humeral head fracture Family Medical History Significant Family History: No Pertinent Family Hx Review of Systems (CHC) Constitutional: see HPI Reviewed Test Results Reviewed Test Results Lab Laboratory Tests 09/17/18 13:32: White Blood Count 15.2H, Red Blood Count 3.94L, Hemoglobin 11.8L, Hematocrit 35L , Mean Corpuscular Volume 89, Mean Corpuscular Hemoglobin 30, Mean Corpuscular Hemoglobin Concent 34, Red Cell Distribution Width 13.4, Platelet Count 428H, Mean Platelet Volume 9.7, Neutrophils (%) (Auto) 83H, Lymphocytes (%) (Auto) 6L , Monocytes (%) (Auto) 11, Eosinophils (%) (Auto) 0, Basophils (%) (Auto) 0, Neutrophils # (Auto) 12.6H, Lymphocytes # (Auto) 1.0, Monocytes # (Auto) 1.6H, Eosinophils # (Auto) 0.0, Basophils # (Auto) 0.0, Neutrophils % (Manual) 83, Lymphocytes % (Manual) 7, Monocytes % (Manual) 4, Eosinophils % (Manual) 0, Basophils % (Manual) 0, Band Neutrophils 6, Blood Morphology Comment NORMAL, Sodium Level 136, Potassium Level 3.1L, Chloride Level 98, Carbon Dioxide Level 26, Anion Gap 12, Blood Urea Nitrogen 11, Creatinine 0.78, Estimat Glomerular Filtration Rate > 60, BUN/Creatinine Ratio 14, Glucose Level 116H, Calcium Level 8.8, Corrected Calcium 9.8, Total Bilirubin 0.9, Aspartate Amino Transf ( AST/SGOT) 70H, Alanine Aminotransferase (ALT/SGPT) 66H, Alkaline Phosphatase 53 , Troponin I < 0.30, B-Type Natriuretic Peptide 178.1H, Total Protein 6.5, Albumin 2.8L 09/17/18 19:30: D-Dimer 2.70H 09/18/18 05:59: White Blood Count 11.2H, Red Blood Count 3.57L, Hemoglobin 10.8L, Hematocrit 32L , Mean Corpuscular Volume 89, Mean Corpuscular Hemoglobin 30, Mean Corpuscular Hemoglobin Concent 34, Red Cell Distribution Width 13.5, Platelet Count 374, Mean Platelet Volume 9.6, Neutrophils (%) (Auto) 76H, Lymphocytes (%) (Auto) 14 , Monocytes (%) (Auto) 9, Eosinophils (%) (Auto) 1, Basophils (%) (Auto) 0, Neutrophils # (Auto) 8.5H, Lymphocytes # (Auto) 1.6, Monocytes # (Auto) 1.0, Eosinophils # (Auto) 0.1, Basophils # (Auto) 0.0, Sodium Level 137, Potassium Level 3.2L, Chloride Level 101, Carbon Dioxide Level 28, Anion Gap 8, Blood Urea Nitrogen 14, Creatinine 0.73, Estimat Glomerular Filtration Rate > 60, BUN/ Creatinine Ratio 19, Glucose Level 98, Calcium Level 8.8, Corrected Calcium 10.0 , Total Bilirubin 0.8, Aspartate Amino Transf (AST/SGOT) 63H, Alanine Aminotransferase (ALT/SGPT) 63H, Alkaline Phosphatase 51, Total Protein 6.1L, Albumin 2.5L Physical Exam-(CHC) Physical Exam Vital Signs VS - Last 72 Hours, by Label 09/17/18 09/17/18 09/17/18 09/17/18 11:47 14:18 16:01 16:25 Temp 98.0 99.7 Pulse 90 78 75 71 Resp 18 18 18 18 B/P (MAP) 131/66 (87) 127/113 (118) 144/91 (108) 122/60 (80) Pulse Ox 95 96 95 O2 Delivery Room Air Room Air Room Air 09/17/18 09/17/18 09/17/18 09/17/18 16:30 19:00 20:01 20:05 Temp 100.3 Pulse 70 74 Resp 16 B/P (MAP) 149/65 (93) Pulse Ox 95 96 96 O2 Delivery Room Air Room Air Room Air 09/17/18 09/17/18 09/18/18 09/18/18 20:12 21:30 00:09 01:00 Temp 100.3 99.1 98.2 Pulse 58 52 Resp 18 B/P (MAP) 136/70 (92) Pulse Ox 95 O2 Delivery Room Air 09/18/18 09/18/18 09/18/18 09/18/18 04:00 07:00 08:00 08:00 Temp 97.8 97.7 Pulse 60 59 61 Resp 18 18 B/P (MAP) 113/67 (82) 117/59 (78) Pulse Ox 94 96 O2 Delivery Room Air Room Air Room Air 09/18/18 12:46 Pulse 65 Capillary Refill : Less Than 3 SecondsLess Than 3 Seconds General Appearance: WD/WN, no apparent distress HEENT: PERRL/EOMI Respiratory: lungs clear, normal breath sounds, no respiratory distress, no accessory muscle use Cardiovascular: regular rate, rhythm, other (LE edema 2+, improved since admission) Gastrointestinal: soft Neurologic/Psychiatric: alert, normal mood/affect, oriented x 3 Skin: normal color, warm/dry Assessment/Plan Assessment/Plan Admission Status: Inpatient Order (span 2 midnights) Reason for Inpatient Admission: need for diuresis and physical therapy Assessment & Plan 1. Lower extremity edema - admitted for IV Lasix as patient was unable to ambulate in the ER secondary to edema. - lower exr dopplers neg - edema improving today, continues to complain of tight R knee and difficulty walking - PT consulted to evaluate gait/strength - Dr. Simmons consulted, evaluate with Echo 2. PAF - continue po Eliquis and metoprolol 3. Hypokalemia - replace 4. Proximal R humerus fracture from 09/06/18 - consult ortho for recommendations and plan for OT if ok with Ortho. Clinical Quality Measures DVT/VTE Risk/Contraindication: Risk Factor Score Per Nursin RFS Level Per Nursing on Admit: 4+=Very High ML SWARTZ DO Sep 18, 2018 16:21
[2018-09-18] MEDS: FUROSEMIDE 40 MG (LASIX) TAB PO SCH (16:25)
[2018-09-18 18:53] LABS: CARBON DIOXIDE 27 MMOL/L (21-32); CHLORIDE 97 MMOL/L (98-107); CREATININE SERUM 0.76 MG/DL (0.60-1.30); GFR ESTIMATED > 60; GLUCOSE 87 MG/DL (70-105); POTASSIUM 3.5 MMOL/L (3.6-5.0); SODIUM 137 MMOL/L (135-145)
[2018-09-18 19:35] VITALS: BP 128/89
[2018-09-18 19:39] LABS: BUN/CREATININE RATIO 24
[2018-09-19 00:25] VITALS: BP 131/71
[2018-09-19 04:02] VITALS: BP 136/77
[2018-09-19 05:54] LABS: BUN/CREATININE RATIO 22; CALCIUM 8.7 MG/DL (8.5-10.1); CARBON DIOXIDE 27 MMOL/L (21-32); CHLORIDE 100 MMOL/L (98-107); CREATININE SERUM 0.74 MG/DL (0.60-1.30); GFR ESTIMATED > 60; GLUCOSE 108 MG/DL (70-105); POTASSIUM 3.6 MMOL/L (3.6-5.0); SODIUM 137 MMOL/L (135-145)
[2018-09-19] MEDS: CATHETER FLUSH 10 ML SYR IV SCH ×3 (06:31→20:27)
[2018-09-19] MEDS: KCL 20 MEQ TAB (K-DUR) PO SCH ×2 (06:31→16:34)
[2018-09-19] MEDS: FUROSEMIDE 40 MG (LASIX) TAB PO SCH ×2 (06:31→16:34)
[2018-09-19 08:00] VITALS: BP 155/81
[2018-09-19] MEDS: AZITHROMYCIN 250 MG TAB (ZITHROMAX) PO SCH (08:37)
[2018-09-19] MEDS: meTOprolol TARTRATE 25 MG (LOPRESSOR) TABLET PO SCH ×2 (08:37→20:27)
[2018-09-19] MEDS: APIXABAN 5 MG (ELIQUIS) TABLET PO SCH ×2 (08:38→20:27)
[2018-09-19] MEDS: ACETAMINOPHEN 500 MG TAB (TYLENOL) PO PRN (08:38)
--- NOTE | 2018-09-19 10:51 | Physical Therapy Daily Note ---
PT Daily Note-Current Subjective Pt awake in bed watching tv. PT agreed to get up and exercise for PT. Pain Numeric Pain Scale: 0-No Pain Location: No Pain Reported Mental Status Patient Orientation: Normal For Age Transfers Functional [place] Measure 0=Not Assessed/NA 4=Minimal Assistance 1=Total Assistance 5=Supervision or Setup 2=Maximal Assistance 6=Modified [place] 3=Moderate Assistance 7=Complete [place] IRFPAI Quality Coding Scale 6 Independent with activity with or without an assistive device 5 Patient requires set up or clean up by helper. Patient completes activity by themselves 4 Supervision or touching assist (CGA). Winnett provide cues , steadying assist 3 The helper provides less than half the effort to complete the activity 2 The helper provides more than half the effort to complete the activity 1 Dependent. The helper does all the effort to complete an activity 7 Patient refused to complete or attempt activity 9 The patient did not perform the activity before the current illness or injury 88 Not attempted due to Medical conditions or safety concerns Transfers (B, C, W/C) (FIM): 4 Scootin Rollin Supine to/from Sit: 4 Sit to/from Stand: 5 Weight Bearing Right Lower Extremity: Right Full Weight Bearing Left Lower Extremity: Left Full Weight Bearing Gait Training Gait (FIM): 2 Distance (FIM): 6=693-50 ft Distance: 100' Gait Level of Assist: 4 Gait Persons Needed: 1 Gait Assistive Device: Cane Single Point Exercises Seated Therapy Exercises: Kicking activity Assessment Pt is able to ambulate for 100' with single point cane requiring CGA. Patient reported fatigue and says he has to be careful with how far he walks at one time. Pt returned to room and completed LE exercises at the EOB. PT Usp Goals President And Ceo Goals PT President And Ceo Goals Time Frame: Sep 23, 2018 Transfers (B,C,W/C) (FIM): 7 Gait (FIM): 6 Gait distance (FIM): 3=150 ft Gait Assistive Device: Cane Single Point PT Plan Problem List Problem List: Activity Tolerance, Functional Strength, Safety, Balance, Gait, Transfer, Bed Mobility Treatment/Plan Treatment Plan: Continue Plan of Care Treatment Plan: Bed Mobility, Education, Functional Activity Alexa, Functional Strength, Gait, Safety, Therapeutic Exercise, Transfers Treatment Duration: Sep 23, 2018 Frequency: 6 times per week Estimated Hrs Per Day: .25 hour per day Patient and/or Family Agrees t: Yes Time/GCodes Time In: 1015 Time Out: 1025 Total Billed Treatment Time: 10 Total Billed Treatment 1 Visit FA - 10' PT/OT Therapy GCodes Therapy Functional Limitation: Physical Therapy Test(s)/Tool used to determine: Level of Assistance Scale Functional Limitation-Current Charge Code: MOBCUR Modifier: CK Functional Limitation-Goal Charge Code: MOBGOAL Modifier: ADRIANO DAS PT Sep 19, 2018 10:50
--- NOTE | 2018-09-19 11:48 | Occupational Ther Daily Note ---
OT Current Status-Daily Note Subjective Pt dozing in bed, woke to name. Pt agrees to therapy. No c/o pain at this time. Mental Status/Objective Patient Orientation: Person, Place, Time, Situation Functional [place] Measure 0=Not Assessed/NA 4=Minimal Assistance 1=Total Assistance 5=Supervision or Setup 2=Maximal Assistance 6=Modified [place] 3=Moderate Assistance 7=Complete [place] Attachments: IV ADL-Treatment Grooming (FIM): 6 (Pt washed hands and face in shower. Declined completing oral care for dentures until home.) Bathing (FIM): 4 (Using grabbar, hand held shower and shower bench pt able to complete bathing all areas. Assist with drying feet.) Bathing Location: L Arm, R Arm, L Upper Leg, R Upper Leg, L Lower Leg ( including foot), R Lower Leg (including foot), Chest, Abdomen, Buttocks, Perineal Area Shower Transfer(FIM): 4 (CGA for safety using grabbar, cane and shower bench.) Assisted with hospital gown to thread R UE into sleeve. Pt declined footwear. After therapy, pt lying in bed with call light/phone in reach. All needs met in room. OT Short Term Goals Short Term Goals 1=Demonstrate adherence to instructed precautions during ADL tasks. 2=Patient will verbalize/demonstrate understanding of assistive devices/ modifications for ADL. 3=Patient will improve strength/tolerance for activity to enable patient to perform ADL's. OT Ladle Pourer Goals Ladle Pourer Goals Time Frame: Sep 21, 2018 Bathing(FIM): 4 Upper Body Dressing(FIM): 5 Lower Body Dressing(FIM): 5 Additional Goals: 1-Demonstrate ADL Tasks, 2-Verbalize Understanding, 3- ImproveStrength/Alexa 1=Demonstrate adherence to instructed precautions during ADL tasks. 2=Patient will verbalize/demonstrate understanding of assistive devices/ modifications for ADL. 3=Patient will improve strength/tolerance for activity to enable patient to perform ADL's. OT Education/Plan Problem List/Assessment Pt would benefit from skilled OT to increase his independence in basic self care Discharge Recommendations Plan/Recommendations: Continue POC Treatment Plan/Plan of Care Patient would benefit from OT for education, treatment and training to promote independence in ADL's, mobility, safety and/or upper extremity function for ADL' s. Plan of Care: ADL Retraining, Functional Mobility Treatment Duration: Sep 21, 2018 Frequency: 4 times per week Estimated Hrs Per Day: .5 hour per day Agreement: Yes Rehab Potential: Good Time/GCodes Start Time: 11:10 Stop Time: 11:42 Total Time Billed (hr/min): 32 Billed Treatment Time 1 visit-ADL 2 (32 min) PT/OT Therapy GCodes Therapy Functional Limitation: Physical Therapy Test(s)/Tool used to determine: Level of Assistance Scale Functional Limitation-Current Charge Code: MOBCUR Modifier: CK Functional Limitation-Goal Charge Code: MOBGOAL Modifier: TRISTIAN FRANCISCO Sep 19, 2018 11:48
[2018-09-19 12:00] VITALS: BP 119/62
--- NOTE | 2018-09-19 12:26 | Cardiology Progress Note ---
Cardiology SOAP Progress Note Subjective: Discomfort in right knee. Objective: I&O/Vital Signs 09/19/18 09/19/18 09/19/18 09/19/18 04:02 07:00 08:00 12:00 Temp 97.8 98.8 97.5 Pulse 62 58 65 66 Resp 18 18 20 B/P (MAP) 136/77 (96) 155/81 (105) 119/62 (81) Pulse Ox 94 94 95 O2 Delivery Room Air Room Air Room Air 09/19/18 00:00 Intake Total 1520 ml Output Total 900 ml Balance 620 ml Weight (Pounds): 238 Weight (Ounces): 3.0 Weight (Calculated Kilograms): 108.990274 Constitutional: appears stated age, AAO x 3; No apparent distress; well- developed, well-nourished Respiratory: No accessory muscle use, No respiratory distress, No chest tender , No chest expansion is symmetric; chest is bilaterally symmetric; No lungs clear to percussion; lungs clear to auscultation; No crackles, No rhonchi, No rales, No stridor, No wheezing, No pleural rub, No other Cardiovascular: regular rate-rhythm; No irregularly irregular, No extra beats, No parasternal heave is noted, No JVD, No edema, No bradycardia, No tachycardia , No point of maximal impulse, No cardiac thrills are palpable; S1 and S2; No gallop/S3, No gallop/S4, No diastolic murmur, No systolic murmur, No friction rub, No click, No other Gastrointestional: No tender; soft, round; No distended, No pulsatile mass, No organomegaly, No guarding, No rebound, No tenderness, No hernia, No mass; audible bowel sounds; No abnormal bowel sounds, No abdominal bruits, No spleenomegaly, No other Extremities: No normal range of motion, No non-tender, No normal inspection, No pedal edema, No calf tenderness, No normal capillary refill, No pelvis stable , No calf tenderness, No inflammation, No pedal edema, No slow capillary refill , No swelling; other (Discomfort in the right knee which is erythematous.); No abrasion, No clubbing, No cyanosis, No ecchymosis, No laceration, No no lower extremity edema bilateral; significant edema; No tenderness, No wound Neurologic/Psychiatric: no motor/sensory deficits, alert, normal mood/affect, oriented x 3, power is 5/5 both on sides Skin: No normal color, No warm/dry, No cyanosis, No cool, No diaphoresis, No damp, No ecchymosis, No jaundice, No mottled, No pallor, No rash, No tattoos/ piercings, No ulcerations, No rash on exposed areas, No ulcerations on exposed areas, No other Results/Procedures: Labs Laboratory Tests 09/18/18 18:04: Sodium Level 137, Potassium Level 3.5L, Chloride Level 97L, Carbon Dioxide Level 27, Anion Gap 13, Blood Urea Nitrogen 18, Creatinine 0.76, Estimat Glomerular Filtration Rate > 60, BUN/Creatinine Ratio 24, Glucose Level 87, Calcium Level 9.0 09/19/18 05:20: Sodium Level 137, Potassium Level 3.6, Chloride Level 100, Carbon Dioxide Level 27, Anion Gap 10, Blood Urea Nitrogen 16, Creatinine 0.74, Estimat Glomerular Filtration Rate > 60, BUN/Creatinine Ratio 22, Glucose Level 108H, Calcium Level 8.7 A/P: Assessment/Dx: Bilateral lower extremity swelling, Mild CHF, PAF, Plan: -DVT ruled out with negative venous Dopplers. - Controlled AF. continue Eliquis and BB. - Acute mild CHF - lasix iv. Will recommend PT/OT. - Echocardiogram. Thank you for your consultation. Please call me if you have any questions. Chapo Simmons MD, FACP, FACC, FSCAI, FHRS, CCDS Interventional Cardiology Cardiac Electrophysiology Vascular Medicine and Endovascular Interventions Yaron SIMMONS MD Sep 19, 2018 12:26 pm
--- NOTE | 2018-09-19 13:39 | Physician Query Clarification ---
PQ-CHF Specificity The medical record reflects the following clinical scenario: History/Risk Factors: Hypertension Paroxysmal Atrial Fib Clinical Findings: Bilateral leg swelling. BNP- 178.1 Treatment: IV Lasix Question: 1. Can you further specify the acuity &/or type of CHF per the clinical indicators above? Please document a response below 2. Is the patient's bilateral leg swelling due to CHF? Please clarify. Thank you. PHYSICIAN RESPONSE Acuity: Acute Type: Diastolic Other, clinical findings Mild intensity. In responding to this query, please exercise your independent professional judgment. The purpose of this communication is to more accurately reflect the complexity of your patients condition. The fact that a question is asked does not imply that any particular answer is desired or expected. Thank you for your timely response to this clarification. Requestors name: Madyson Allen [facility] Phone # ext [phone] or [phone] THIS PHYSICIAN QUERY FORM IS A PERMANENT PART OF THE MEDICAL RECORD MADYSON ALLEN Sep 19, 2018 13:39 Yaron MENARD MD Sep 19, 2018 14:05
[2018-09-19 15:47] VITALS: BP 134/67
--- NOTE | 2018-09-19 17:08 | Consultation ---
History of Present Illness History of Present Illness Patient Consulted On(ingrid/time) 09/19/18 17:05 Date Seen by Provider: Sep 19, 2018 Time Seen by Provider: 17:05 Reason for Visit: Humerus Fracture History of Present Illness 78 y/o white male admitted for lower extremity edema, with remote history of proximal humerus fracture 2 weeks ago. Feeling better, but still sore. No other complaints. Allergies and Home Medications Allergies Coded Allergies: No Known Drug Allergies (Unverified , 09/17/18) Home Medications Apixaban 5 Mg Tablet, 5 MG PO BID, (Reported) Aspirin 81 Mg Tablet.dr, 81 MG PO DAILY, (Reported) Metoprolol Tartrate 25 Mg Tablet, 25 MG PO BID, (Reported) Patient Home Medication List Home Medication List Reviewed: Yes Past Vbuggty-Xrhdjj-Ztrcop Hx Past Med/Social Hx: Reviewed Nursing Past Med/Soc Hx Patient Social History Alcohol Use: Denies Use Recreational Drug Use: No Smoking Status: Former Smoker Former Smoker, Quit: Dec 20, 1981 Recent Foreign Travel: No Contact w/Someone Who Travel: No Recent Infectious Disease Expo: No Recent Hopitalizations: No Immunizations Up To Date PED Vaccines UTD: No Seasonal Allergies Seasonal Allergies: No Past Medical History Surgeries: Yes Appendectomy, Orthopedic Respiratory: No Currently Using CPAP: No Currently Using BIPAP: No Cardiac: No Atrial Fibrillation, Hypertension Neurological: No Sexually Transmitted Disease: No HIV/AIDS: No Genitourinary: No Gastrointestinal: No Musculoskeletal: Yes (RIGHT BROKEN ARM) Endocrine: No Are Your Blood Sugars Over 250: No HEENT: Yes Loss of Vision: Left Hearing Impairment: Hard of Hearing Cancer: No Psychosocial: No Integumentary: No Blood Disorders: No Adverse Reaction/Blood Tranf: No Family Medical History Reviewed Nursing Family Hx No Pertinent Family Hx Review of Systems-General Musculoskeletal: joint pain, joint swelling, muscle pain Skin: no symptoms reported Psychiatric/Neurological: No Symptoms Reported Physical Exam-General Problems Physical Exam Vital Signs Vital Signs - First Documented 09/17/18 09/17/18 11:47 14:18 Temp 98.0 Pulse 90 Resp 18 B/P (MAP) 131/66 (87) Pulse Ox 95 O2 Delivery Room Air Capillary Refill : Less Than 3 SecondsLess Than 3 Seconds General Appearance: mild distress Cardiovascular: normal peripheral pulses Back: normal inspection, no CVA tenderness Extremities: swelling, other (painful ROM right shoulder, sling in place) Neurologic/Psychiatric: no motor/sensory deficits Skin: other (Intact) Comments Xrays from 2 week ago show impacted right proximal humerus fracture. Assessment/Plan Assessment/Plan Admission Diagnosis/Plan Right closed Proximal humerus fracture Continue with Sling, follow up with me in 2 weeks Begin PT. Clinical Quality Measures DVT/VTE Risk/Contraindication: Risk Factor Score Per Nursin RFS Level Per Nursing on Admit: 4+=Very High BRENDA GREGG MD Sep 19, 2018 5:08 pm
--- NOTE | 2018-09-19 17:50 | Progress Note (SOAP) ---
Subjective Subjective/Events-last exam Pt feeling better. Swelling significantly improved. Has some redness over the R knee cap. Review of Systems Date Seen by Provider: Sep 19, 2018 Time Seen by Provider: 07:40 Objective Exam Last Set of Vital Signs Vital Signs Date Time Temp Pulse Resp B/P (MAP) Pulse Ox O2 Delivery O2 Flow Rate FiO2 09/19/18 15:47 97.3 61 16 134/67 (89) 97 Room Air Capillary Refill : Less Than 3 SecondsLess Than 3 Seconds I&O Intake and Output 09/19/18 00:00 Intake Total 1970 ml Output Total 1575 ml Balance 395 ml Intake Oral 1970 ml Output Urine Total 1575 ml # Bowel Movements 1 General: Alert, Oriented X3, Cooperative Skin: Other (mild erythema and warmth over the R knee) Psych/Mental Status: Mood NL Results/Procedures Lab Laboratory Tests 09/18/18 18:04: Sodium Level 137, Potassium Level 3.5L, Chloride Level 97L, Carbon Dioxide Level 27, Anion Gap 13, Blood Urea Nitrogen 18, Creatinine 0.76, Estimat Glomerular Filtration Rate > 60, BUN/Creatinine Ratio 24, Glucose Level 87, Calcium Level 9.0 09/19/18 05:20: Sodium Level 137, Potassium Level 3.6, Chloride Level 100, Carbon Dioxide Level 27, Anion Gap 10, Blood Urea Nitrogen 16, Creatinine 0.74, Estimat Glomerular Filtration Rate > 60, BUN/Creatinine Ratio 22, Glucose Level 108H, Calcium Level 8.7 Assessment/Plan Assessment/Plan Assessment & Plan 1. Lower extremity edema - admitted for IV Lasix as patient was unable to ambulate in the ER secondary to edema. - lower exr dopplers neg - edema improving today, continues to complain of tight R knee and difficulty walking - PT consulted to evaluate gait/strength - Dr. Simmons consulted, evaluate with Echo 09/19 - swelling improved; Echo report still pending 2. PAF - continue po Eliquis and metoprolol 3. Hypokalemia - replace 09/19 - resolved 4. Proximal R humerus fracture from 09/06/18 - consult ortho for recommendations and plan for OT if ok with Ortho. 09/19 - per Dr. Comer: continue sling, ok to start OT/PT; f/u with him in 2 weeks. Disp: anticipate DC home tomorrow. Clinical Quality Measures DVT/VTE Risk/Contraindication: Risk Factor Score Per Nursin RFS Level Per Nursing on Admit: 4+=Very High ISHA SWARTZ DO Sep 19, 2018 17:50
[2018-09-19 19:53] VITALS: BP 143/67
[2018-09-20 00:06] VITALS: BP 113/60
[2018-09-20 03:48] VITALS: BP 126/61
[2018-09-20] MEDS: KCL 20 MEQ TAB (K-DUR) PO SCH (06:30)
[2018-09-20] MEDS: FUROSEMIDE 40 MG (LASIX) TAB PO SCH (06:30)
[2018-09-20] MEDS: CATHETER FLUSH 10 ML SYR IV SCH (06:31)
[2018-09-20 08:00] VITALS: BP 142/79
[2018-09-20] MEDS: APIXABAN 5 MG (ELIQUIS) TABLET PO SCH (08:22)
[2018-09-20] MEDS: meTOprolol TARTRATE 25 MG (LOPRESSOR) TABLET PO SCH (08:22)
[2018-09-20] MEDS: AZITHROMYCIN 250 MG TAB (ZITHROMAX) PO SCH (08:22)
[2018-09-20] MEDS ORDERED: FURO40TA4 PO (09:18)
[2018-09-20] MEDS ORDERED: POTA10TA36 PO (09:19)
--- NOTE | 2018-09-20 09:23 | Cardiology Progress Note ---
Cardiology SOAP Progress Note Subjective: Significant improvement in symptoms. Objective: I&O/Vital Signs 09/20/18 09/20/18 09/20/18 09/20/18 00:06 01:00 03:48 07:00 Temp 98.9 97.8 Pulse 68 54 60 58 Resp 18 18 B/P (MAP) 113/60 (77) 126/61 (82) Pulse Ox 94 93 O2 Delivery Room Air Room Air 09/20/18 08:00 Temp 97.4 Pulse 64 Resp 20 B/P (MAP) 142/79 (100) Pulse Ox 96 O2 Delivery Room Air 09/20/18 00:00 Intake Total 1860 ml Output Total 1300 ml Balance 560 ml Weight (Pounds): 238 Weight (Ounces): 3.0 Weight (Calculated Kilograms): 108.596594 Constitutional: appears stated age, AAO x 3; No apparent distress; well- developed, well-nourished Respiratory: No accessory muscle use, No respiratory distress, No chest tender , No chest expansion is symmetric; chest is bilaterally symmetric; No lungs clear to percussion; lungs clear to auscultation; No crackles, No rhonchi, No rales, No stridor, No wheezing, No pleural rub, No other Cardiovascular: regular rate-rhythm; No irregularly irregular, No extra beats, No parasternal heave is noted, No JVD, No edema, No bradycardia, No tachycardia , No point of maximal impulse, No cardiac thrills are palpable; S1 and S2; No gallop/S3, No gallop/S4, No diastolic murmur, No systolic murmur, No friction rub, No click, No other Gastrointestional: No tender; soft, round; No distended, No pulsatile mass, No organomegaly, No guarding, No rebound, No tenderness, No hernia, No mass; audible bowel sounds; No abnormal bowel sounds, No abdominal bruits, No spleenomegaly, No other Extremities: No normal range of motion, No non-tender, No normal inspection, No pedal edema, No calf tenderness, No normal capillary refill, No pelvis stable , No calf tenderness, No inflammation, No pedal edema, No slow capillary refill , No swelling; other (Discomfort in the right knee which is erythematous.); No abrasion, No clubbing, No cyanosis, No ecchymosis, No laceration, No no lower extremity edema bilateral; significant edema; No tenderness, No wound Neurologic/Psychiatric: no motor/sensory deficits, alert, normal mood/affect, oriented x 3, power is 5/5 both on sides Skin: No normal color, No warm/dry, No cyanosis, No cool, No diaphoresis, No damp, No ecchymosis, No jaundice, No mottled, No pallor, No rash, No tattoos/ piercings, No ulcerations, No rash on exposed areas, No ulcerations on exposed areas, No other A/P: Assessment/Dx: Bilateral lower extremity swelling, Mild CHF, PAF, Plan: -DVT ruled out with negative venous Dopplers. - Controlled AF. continue Eliquis and BB. - Acute mild CHF - lasix iv. Will recommend PT/OT. - Echocardiogram shows normal LV function. Thank you for your consultation. Please call me if you have any questions. Chapo Simmons MD, FACP, FACC, FSCAI, FHRS, CCDS Interventional Cardiology Cardiac Electrophysiology Vascular Medicine and Endovascular Interventions Yaron SIMMONS MD Sep 20, 2018 9:22 am
--- NOTE | 2018-09-20 09:25 | D/C HH Face to Face Order ---
D/C Face to Face Orders Instructions for Patient Via [facility] [employer] [facility], Patient Instructions/FollowUp: Follow up with Dr. Delatorre 09/27/18 at 1:20pm Follow up with Dr. Comer in 2 weeks regarding R humerus fracture Physician to follow Patient: Dr. Delatorre Discharge Diet for Home: Cardiac Diet Patient Data-Allergies,Ht & Wt Patient Allergies: Coded Allergies: No Known Drug Allergies (Unverified , 09/17/18) Height (Feet): 5 Height (Inches): 6.00 Weight (Pounds): 238 Weight (Ounces): 3.0 Home Health Need/Face to Face Date of Face to Face: Sep 20, 2018 Clinical Findings: Unsteady gait, Other-list in note Right proximal humerus fracture I have seen Pt [id number]: Yes Discharged To: Home Diagnosis/Conditions: Unsteady gait R proximal humerus fracture Patient is Homebound due to: Marty fall risk due to instabilty Homebound Status Due to the above stated illness, injury or surgical procedure (medical condition or diagnosis) and associated clinical findings, the patient is homebound because of his/her inability to leave home except with aid of a supportive device and/or person AND leaving the home requires a considerable and taxing effort or is medically contraindicated. Pt req the following assistanc: Cane Home Health Nursing Orders Home Health Services Order: Physical Therapy-Evaluate & Treat Home Health Lab Orders Labs (specify type/freq): BMP 09/25/18 Therapy Orders Therapy Orders: Physical Therapy, PT to assess for OT Therapy Specific Orders: Gait training ROM to R wrist and elbow Certify Stmt I certify that this patient is under my care and that I, a nurse practitioner or a physician; a psychologist research assistant working with me, had a face to face encounter that - meets the physician face to face encounter requirements with this patient as dated. ISHA SWARTZ DO Sep 20, 2018 09:25
--- NOTE | 2018-09-20 10:02 | Physical Therapy Daily Note ---
PT Daily Note-Current Subjective Pt awake in room watching tv when PT arrived. Pt agreed to get up and walk for PT. Pain Numeric Pain Scale: 0-No Pain Location: No Pain Reported Mental Status Patient Orientation: Normal For Age Transfers Therapy Code Descriptions/Definitions Functional [place] Measure: 0=Not Assessed/NA 4=Minimal Assistance 1=Total Assistance 5=Supervision or Setup 2=Maximal Assistance 6=Modified [place] 3=Moderate Assistance 7=Complete [place] Therapy Quality Codes: 6 Independent with activity with or without an assistive device 5 Patient requires set up or clean up by helper. Patient completes activity by themselves 4 Supervision or touching assist (CGA). [place] provide cues , steadying assist 3 The helper provides less than half the effort to complete the activity 2 The helper provides more than half the effort to complete the activity 1 Dependent. The helper does all the effort to complete an activity 7 Patient refused to complete or attempt activity 9 The patient did not perform the activity before the current illness or injury 88 Not attempted due to Medical conditions or safety concerns Transfers (B, C, W/C) (FIM): 5 Scootin Rollin Supine to/from Sit: 5 Sit to/from Stand: 4 Weight Bearing Right Lower Extremity: Right Full Weight Bearing Left Lower Extremity: Left Full Weight Bearing Gait Training Gait (FIM): 2 Distance (FIM): 2=015-56 ft Distance: 100' Gait Level of Assist: 4 Gait Persons Needed: 1 Gait Assistive Device: Cane Single Point Exercises Seated Therapy Exercises: Ankle pumps, Kicking activity Seated Reps: 20 Assessment Pt able to ambulate for 100' with a FWW requiring CGA. Patient returned to bedside recliner and performed LE exercises. Patient to dismiss to home with PT home health on this date. PT Longterm Goals Bread Supervisor Goals PT Longterm Goals Time Frame: Sep 23, 2018 Transfers (B,C,W/C) (FIM): 7 Gait (FIM): 6 Gait distance (FIM): 3=150 ft Gait Assistive Device: Cane Single Point PT Plan Treatment/Plan Treatment Plan: Discontinue PT Treatment Plan: Bed Mobility, Education, Functional Activity Alexa, Functional Strength, Gait, Safety, Therapeutic Exercise, Transfers Treatment Duration: Sep 23, 2018 Frequency: 6 times per week Estimated Hrs Per Day: .25 hour per day Patient and/or Family Agrees t: Yes Time/GCodes Time In: 913 Time Out: 923 Total Billed Treatment Time: 10 Total Billed Treatment 1 Visit FA - 10' PT/OT Therapy GCodes Therapy Functional Limitation: Physical Therapy Test(s)/Tool used to determine: Level of Assistance Scale Functional Limitation-Current Charge Code: MOBCUR Modifier: CK Functional Limitation-Goal Charge Code: MOBGOAL Modifier: ADRIANO DAS PT Sep 20, 2018 10:02
[2018-09-20 12:00] VITALS: BP 121/68
--- NOTE | 2018-09-20 15:12 | Discharge Summary ---
Diagnosis/Chief Complaint Date of Admission Sep 18, 2018 at 16:25 Date of Discharge Sep 20, 2018 Admission Diagnosis Admission Diagnosis 1. Lower extremity edema 2. PAF 3. Hypokalemia 4. Proximal R humerus fracture from 09/06/18 Discharge Diagnosis 1. Lower extremity edema with Grade 2 Diastolic dysfunction on Echo - admitted for IV Lasix as patient was unable to ambulate in the ER secondary to edema. - lower exr dopplers neg - edema improving today, continues to complain of tight R knee and difficulty walking - PT consulted to evaluate gait/strength - Dr. Simmons consulted, evaluate with Echo 09/20 - significantly improved, ambulating better with a cane. Erythema to the R knee improving Echo 55-65% EF; Grade 2 Diastolic dysfunction; dilated L atrium 2. PAF - continue po Eliquis and metoprolol 3. Hypokalemia - replace RESOLVED 4. Proximal R humerus fracture from 09/06/18 - consult ortho for recommendations and plan for OT if ok with Ortho. 09/20 - Dr. Comer recommend wearing sling for 2 more weeks, can start PT for ROM to hand, wrist and elbow; f/u with Dr. Comer in 2 weeks. DC home today with Home Health for PT. Chief Complaint/HPI Chief Complaint/HPI This is a 78 yo male patient of Dr. Delatorre who presented to the ER with significant LE edema. Pt was seen in the Walk In clinic and started on HCTZ 12.5mg daily and scheduled f/u with Dr. Delatorre. He has continued to have significant swelling to the point he has not been able to ambulate. Pt was previously seen in the ER on 09/06/18 following a fall resulting in a R humeral head fracture. He is currently in a sling but has not seen ortho and does not have a follow-up scheduled. He was found to have a-fib while in the ER on 09/06 and was seen by Dr. Simmons who has been following this and who now has the patient on Eliquis. Pt denies SOA or chest pain. Discharge Summary-Simple/Stand Consultations Discharge Physical Examination Allergies: Coded Allergies: No Known Drug Allergies (Unverified , 09/17/18) Vitals & I&Os Vital Sign - Last 12Hours Date Time Temp Pulse Resp B/P (MAP) Pulse Ox O2 Delivery O2 Flow Rate FiO2 09/20/18 12:00 65 18 121/68 99 Room Air 09/20/18 12:00 97.9 Intake and Output 09/20/18 00:00 Intake Total 1860 ml Output Total 1300 ml Balance 560 ml General Appearance: Alert, Oriented X3, Cooperative Psych/Mental Status: Mood NL Hospital Course See final discharge diagnosis. Discharge Instructions to patient/family D/C Face to Face Orders Instructions for Patient Via [facility], Patient Instructions/FollowUp: Follow up with Dr. Delatorre 09/27/18 at 1:20pm Follow up with Dr. Comer in 2 weeks regarding R humerus fracture Physician to follow Patient: Dr. Delatorre Discharge Diet for Home: Cardiac Diet Patient Data-Allergies,Ht & Wt Patient Allergies: Coded Allergies: No Known Drug Allergies (Unverified , 09/17/18) Height (Feet): 5 Height (Inches): 6.00 Weight (Pounds): 238 Weight (Ounces): 3.0 Home Health Need/Face to Face Date of Face to Face: Sep 20, 2018 Clinical Findings: Unsteady gait, Other-list in note Right proximal humerus fracture I have seen Pt [id number]: Yes Discharged To: Home Diagnosis/Conditions: Unsteady gait R proximal humerus fracture Patient is Homebound due to: Marty fall risk due to instabilty Homebound Status Due to the above stated illness, injury or surgical procedure (medical condition or diagnosis) and associated clinical findings, the patient is homebound because of his/her inability to leave home except with aid of a supportive device and/or person AND leaving the home requires a considerable and taxing effort or is medically contraindicated. Pt req the following assistanc: Cane Home Health Nursing Orders Home Health Services Order: Physical Therapy-Evaluate & Treat Home Health Lab Orders Labs (specify type/freq): BMP 09/25/18 Therapy Orders Therapy Orders: Physical Therapy, PT to assess for OT Therapy Specific Orders: Gait training ROM to R wrist and elbow Certify Stmt I certify that this patient is under my care and that I, a nurse practitioner or a physician; a licensed loan officer assistant working with me, had a face to face encounter that - meets the physician face to face encounter requirements with this patient as dated. Discharge Medications Reviewed and agree with Discharge Medication list on patient's Discharge Instruction sheet Discharge Medications New, Converted or Re-Newed RX: Transmitted to Pharmacy ([facility]) New Medications: Potassium Chloride (Potassium Chloride) 10 Meq Tab.er.prt 10 MEQ PO DAILY, #30 TAB 0 Refills Furosemide (Furosemide) 40 Mg Tablet 40 MG PO DAILY, #30 TAB 0 Refills Continued Medications: Apixaban (Eliquis) 5 Mg Tablet 5 MG PO BID, TAB (This prescription has been renewed) Aspirin (Aspirin EC) 81 Mg Tablet.dr 81 MG PO DAILY, TAB Metoprolol Tartrate (Metoprolol Tartrate) 25 Mg Tablet 25 MG PO BID, TAB (This prescription has been renewed) Clinical Quality Measures DVT/VTE Risk/Contraindication: Risk Factor Score Per Nursin RFS Level Per Nursing on Admit: 4+=Very High ISHA SWARTZ DO Sep 20, 2018 15:12
--- NOTE | 2018-09-20 15:13 | Discharge Instructions ---
Discharge [facility] Discharge Medications New, Converted or Re-Newed RX: Transmitted to Pharmacy ([facility]) New Medications: Potassium Chloride (Potassium Chloride) 10 Meq Tab.er.prt 10 MEQ PO DAILY, #30 TAB 0 Refills Furosemide (Furosemide) 40 Mg Tablet 40 MG PO DAILY, #30 TAB 0 Refills Continued Medications: Apixaban (Eliquis) 5 Mg Tablet 5 MG PO BID, TAB (This prescription has been renewed) Aspirin (Aspirin EC) 81 Mg Tablet.dr 81 MG PO DAILY, TAB Metoprolol Tartrate (Metoprolol Tartrate) 25 Mg Tablet 25 MG PO BID, TAB (This prescription has been renewed) ISHA SWARTZ DO Sep 20, 2018 15:13
== END 2018-09-20 09:19 | disposition home health service (06) ==
LOC: ER 11:45 → EDUNIT# 11:45 → UNDOADMOB 15:50 → 4TH 15:50 → OBSVTOIN 09-18 16:25 → INTOOBSV 09-18 16:25 → 4TH 09-20 14:17
PROVIDERS: ADMIT Internal Medicine; ATTEND Family Medicine
DX: I11.0 Hypertensive heart disease with heart failure (principal); I50.31 Acute diastolic (congestive) heart failure; I48.0 Paroxysmal atrial fibrillation; S42.201D Unspecified fracture of upper end of right humerus, subsequent encounter for fracture with routine healing; M25.511 Pain in right shoulder; E87.6 Hypokalemia; E66.9 Obesity, unspecified; W19.XXXD Unspecified fall, subsequent encounter; Z68.38 Body mass index [BMI] 38.0-38.9, adult; Z87.891 Personal history of nicotine dependence
CPT/HCPCS: 36415; 71045; 80048; 80053; 83880; 84484; 85007; 85025; 85027; 85379; 93005; 93041; 93306; 93970; 96374; G0378

== ENCOUNTER → 2018-09-27 | Outpatient (CLI) | payer MEDICARE ==
[~2018-09-27] MED LIST changes: +APIX5TAB PO; +ASPI-983 PO; +BLOOD THINNER; +FURO40TA4 PO; +HYDR12.56 PO; +POTA10TA36 PO
--- NOTE | 2018-09-27 14:12 | Diagnostic Imaging Report ---
EXAMINATION: Right shoulder at 11:56 a.m. INDICATION: Fracture, follow-up exam. FINDINGS: Three views were obtained. The prior exam of 09/06/2018 noted a slightly displaced slightly impacted fracture of the surgical neck of the humerus and the base of the humeral head. On this exam, the main fracture fragments seem similar in alignment. The fracture line is still clearly evident, but there is healing callus formation present. There is no acute bony abnormality noted. 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 The soft tissues are unremarkable. IMPRESSION: 1. There is a healing impacted slightly displaced fracture of the surgical neck of the humerus and the humeral head. 2. There is no acute bony abnormality noted. Dictated by: Dictated on workstation # [id number]
== END ==
LOC: RAD 11:24
PROVIDERS: ATTEND Family Medicine
DX: S42.211D Unspecified displaced fracture of surgical neck of right humerus, subsequent encounter for fracture with routine healing (principal)
CPT/HCPCS: 73030

== ENCOUNTER → 2019-06-17 | Outpatient (CLI) | payer MEDICARE ==
--- NOTE | 2019-06-17 18:03 | Diagnostic Imaging Report ---
INDICATION: Rib pain and shortness of breath. Two views were obtained. FINDINGS: Heart size is normal. Lungs are clear. There is no pleural effusion or pneumothorax. Mediastinum is unremarkable. IMPRESSION: No acute cardiopulmonary abnormality. Dictated by: Dictated on workstation # [id number]
== END ==
LOC: RAD 09:57
PROVIDERS: ATTEND Family Medicine
DX: R07.81 Pleurodynia (principal); R06.02 Shortness of breath
CPT/HCPCS: 71046

== ENCOUNTER → 2019-06-18 | Outpatient (CLI) | payer MEDICARE ==
--- NOTE | 2019-06-18 11:09 | Diagnostic Imaging Report ---
INDICATION: Followup shoulder fracture. COMPARISON: 09/27/2018 FINDINGS: 3 radiographic views of the right shoulder were obtained and show progressive interval healing of proximal right humerus fracture. Fracture lines are much less conspicuous. There is persistent chronic deformity of the proximal right humerus. Glenohumeral and acromiohumeral joint spaces are maintained, although there is underlying joint space narrowing. No new acute fracture or dislocation is seen. No expected radiopaque foreign bodies are identified. Significant osteoarthritic changes of AC joint are noted as well. IMPRESSION: 1. Continued progressive healing of previously described proximal right humerus fracture. 2. No new acute abnormality of the right shoulder. 3. Other nonacute findings as described above. Dictated by: Dictated on workstation # [id number]
== END ==
LOC: RAD 10:22
PROVIDERS: ATTEND Family Medicine
DX: S42.201D Unspecified fracture of upper end of right humerus, subsequent encounter for fracture with routine healing (principal)
CPT/HCPCS: 73030

== ENCOUNTER 2019-09-29 22:21 | Emergency (ER) | payer MEDICARE ==
[~2019-09-29] VITALS: Ht 167 cm; Wt 90.0 kg
[2019-09-29] MEDS ORDERED: NS IV 1000 ML 1,000 ML IV ONE ×2 (22:34→23:27)
[2019-09-29 22:42] LABS: BASOPHILS % (AUTO) 0 % (0-10); EOSINOPHILS % (AUTO) 0 % (0-10); HEMATOCRIT 41 % (40-54); HEMOGLOBIN 13.9 G/DL (13.3-17.7); LYMPHOCYTES # (AUTO) 0.7 X 10^3 (1.0-4.0); LYMPHOCYTES % (AUTO) 3 % (12-44); MEAN CORPUSCULAR HEMOGLOBIN 31 PG (25-34); MEAN CORPUSCULAR HGB CONC 34 G/DL (32-36); MEAN CORPUSCULAR VOLUME 90 FL (80-99); MEAN PLATELET VOLUME 10.5 FL (7.4-10.4); MONOCYTES # (AUTO) 1.5 X 10^3 (0.0-1.0); MONOCYTES % (AUTO) 6 % (0-12); NEUTROPHILS # (AUTO) 23.7 X 10^3 (1.8-7.8); NEUTROPHILS % (AUTO) 92 % (42-75); PLATELET COUNT 185 10^3/uL (130-400); RED CELL DISTRIBUTION WIDTH 13.8 % (10.0-14.5); WHITE BLOOD COUNT 25.9 10^3/uL (4.3-11.0)
[2019-09-29 22:46] LABS: CLARITY,URINE CLEAR; COLOR,URINE DARK YELLOW; GLUCOSE, URINE (UA) TRACE (NEGATIVE); KETONES,URINE NEGATIVE (NEGATIVE); LEUKOCYTE ESTERASE ,URINE NEGATIVE (NEGATIVE); NITRITE,URINE NEGATIVE (NEGATIVE); PROTEIN,URINE 3+ (NEGATIVE)
[2019-09-29 22:47] LABS: INR 1.4 (0.8-1.4)
[2019-09-29 23:00] LABS: ALANINE AMINOTRANSFERASE 36 U/L (0-55); ALBUMIN 3.6 GM/DL (3.2-4.5); ALKALINE PHOSPHATASE 49 U/L (40-136); BILIRUBIN,TOTAL 1.3 MG/DL (0.1-1.0); BUN/CREATININE RATIO 21; CALCIUM 9.3 MG/DL (8.5-10.1); CARBON DIOXIDE 23 MMOL/L (21-32); CHLORIDE 97 MMOL/L (98-107); CREATINE KINASE 3689 U/L (30-200); CREATININE SERUM 0.84 MG/DL (0.60-1.30); GFR ESTIMATED > 60; GLUCOSE 234 MG/DL (70-105); POTASSIUM 3.5 MMOL/L (3.6-5.0); SODIUM 135 MMOL/L (135-145); TOTAL PROTEIN 6.7 GM/DL (6.4-8.2)
[2019-09-29 23:02] LABS: BILIRUBIN,URINE 1+ ICTO=NEG (NEGATIVE)
[2019-09-29 23:04] LABS: WBC,URINE 0-2 /HPF
[2019-09-29 23:05] LABS: BACTERIA,URINE LARGE /HPF
[2019-09-29 23:22] LABS: BAND NEUTROPHILS 3 %; LYMPHOCYTES % (MANUAL) 2 %; MONOCYTES % (MANUAL) 5 %; NEUTROPHILS % (MANUAL) 90 %
[2019-09-29] MEDS ORDERED: PIPERACILLIN SODIUM/TAZOBACTAM 4.5 GM in NS (IVPB) 100 ML IV ONE (23:30)
--- NOTE | 2019-09-29 23:49 | NUR ---
PT PULLED OUT IV SITE, ALTERNATE SITE INSERTED IN THE L AC. 18 GA INSERTED.
[2019-09-30] MEDS ORDERED: ACETAMINOPHEN 500 MG TAB (TYLENOL) PO ONE (00:45)
[2019-09-30] MEDS ORDERED: LACTATED RINGERS 1,000 ML IV ONE (00:46)
--- NOTE | 2019-09-30 01:31 | NUR ---
TEMP IS NOW 100.2 TYMPANICALLY
--- NOTE | 2019-09-30 01:33 | ED General ---
General Chief Complaint: Altered Mental Status Stated Complaint: CONFUSION Nursing Triage Note: PT PRESENTS TO ED ROOM 7 VIA EMS. EMS STAFF STATE THAT FAMILY CALLED EMS WHEN THE PT WAS FOUND ON THE GROUND IN HIS HOME. PT ASSISTED TO CHAIR, FAMILY REPORTED TO EMS THAT THE PT SEEMS CONFUSED AND NOT MAKING INTELLIGIBLE CONVERSATION. PT NOTED TO HAVE SOILED HIMSELF UPON ARRIVAL. PT THINKS HE WAS FOUND ON THE GROUND AT A CLINIC. Nursing Sepsis Screen: Possible Severe Sepsis Risk Source of Information: Patient, EMS Exam Limitations: No Limitations History of Present Illness Date Seen by Provider: Sep 30, 2019 Time Seen by Provider: 22:22 Initial Comments This patient presents to the ER via EMS after being found down on the floor and confused by his family around 16:30. Speech is sometimes confused but without aphasia. He is febrile on arrival. He reports recent cough with sputum production. EMS reports a negative [place] stroke screen. He appears to have no focal deficits on arrival. He is alert and oriented but did need to correct himself several times when asked questions of orientation. He reports taking his evening medications including Eliquis which he takes for atrial fibrillation. He is uncertain of how he ended up on the floor. He denies any pain. EMS collected a urine sample which is very dark. Allergies and Home Medications Allergies Coded Allergies: No Known Drug Allergies (Unverified , 09/17/18) Home Medications Apixaban 5 Mg Tablet, 5 MG PO BID, (Reported) Aspirin 81 Mg Tablet.dr, 81 MG PO DAILY, (Reported) Furosemide 40 Mg Tablet, 40 MG PO DAILY Prescribed by: ISHA SWARTZ on 09/20/18917 Metoprolol Tartrate 25 Mg Tablet, 25 MG PO BID, (Reported) Potassium Chloride 10 Meq Tab.er.prt, 10 MEQ PO DAILY Prescribed by: ISHA SWARTZ on 09/20/18 0919 Patient Home Medication List Home Medication List Reviewed: Yes Review of Systems Review of Systems Constitutional: see HPI EENTM: other (dry mucous membranes) Respiratory: see HPI Cardiovascular: see HPI Gastrointestinal: no symptoms reported Genitourinary: no symptoms reported Musculoskeletal: no symptoms reported Skin: no symptoms reported Psychiatric/Neurological: See HPI Hematologic/Lymphatic: No Symptoms Reported Immunological/Allergic: no symptoms reported Past Fzflzmw-Cnbnme-Npgtth Hx Past Med/Social Hx: Reviewed Nursing Past Med/Soc Hx Patient Social History Alcohol Use: Denies Use Recreational Drug Use: No Smoking Status: Former Smoker Former Smoker, Quit: Dec 20, 1981 Recent Foreign Travel: No Contact w/Someone Who Travel: No Recent Infectious Disease Expo: No Recent Hopitalizations: No Immunizations Up To Date Tetanus Booster (TDap): Unknown PED Vaccines UTD: No Seasonal Allergies Seasonal Allergies: No Past Medical History Surgeries: Yes Appendectomy, Orthopedic Respiratory: No Currently Using CPAP: No Currently Using BIPAP: No Cardiac: Yes Atrial Fibrillation, Hypertension Neurological: No Sexually Transmitted Disease: No HIV/AIDS: No Genitourinary: No Gastrointestinal: No Musculoskeletal: Yes (RIGHT BROKEN ARM) Endocrine: No HEENT: Yes Loss of Vision: Left Hearing Impairment: Hard of Hearing Cancer: No Psychosocial: No Integumentary: No Blood Disorders: No Adverse Reaction/Blood Tranf: No Family Medical History No Pertinent Family Hx Physical Exam-Suspected Sepsis Physical Exam Vital Signs Vital Signs - First Documented 09/29/19 22:23 Temp 38.6 Pulse 132 Resp 26 B/P (MAP) 125/74 (91) Pulse Ox 98 O2 Delivery Nasal Cannula O2 Flow Rate 2.00 Capillary Refill : Less Than 3 Seconds Blood Pressure Mean: 91 POS Height, Weight, BMI Height: 5'6.00" Weight: 238lbs. 3.0oz. [id number]; 32.00 BMI Method:Stated General Appearance: No Apparent Distress, WD/WN HEENT: PERRL/EOMI, Normal ENT Inspection, Other (mucous membranes dry) Neck: Normal Inspection, Non Tender Respiratory: Lungs Clear, Normal Breath Sounds, No Accessory Muscle Use, No Respiratory Distress Cardiovascular: No Edema, No Murmur, Irregularly Irregular Gastrointestinal: Normal Bowel Sounds, Non Tender, Soft, Other (appearance of bruise over the xiphoid process without tenderness) Extremity: Normal Capillary Refill, Normal Inspection, No Pedal Edema Neurologic/Psychiatric: Alert, Oriented x3, No Motor/Sensory Deficits, Normal Mood/Affect, 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 Finger to nose and heel to bautista normal) Skin: normal color, warm/dry Focused Exam Sepsis Stage: Severe Sepsis Possible Source: Pulmonary Lactate Level 09/29/19 22:24: Lactic Acid Level 2.81*H 09/30/19 00:14: Lactic Acid Level 2.68*H Time of Focused Exam: 01:15 Respiratory: No Accessory Muscle Use, No Respiratory Distress, Crackles (right base) Cardiovascular: No Murmur, Irregularly Irregular, Tachycardia Capillary Refill: Less Than 3 Seconds Peripheral Pulses: 3+ Radial Pulses (L) Skin: normal color, warm/dry Lactic Acid Level Laboratory Tests Test 09/30/19 00:14 Lactic Acid Level 2.68 MMOL/L (0.50-2.00) *H Within 3hrs of presentation: Admin fluids, Admin ABX, Blood cultures prior to ABX's, Focus exam, Lactate level Progress/Results/Core Measures Suspected Sepsis Recent Fever Within 48 Hours: Yes Infection Criteria Present: Suspected New Infection New/Unexplained Altered Menta: Yes Sepsis Screen: Possible Severe Sepsis Risk SIRS Temperature: Pulse: 113 Respiratory Rate: 26 Laboratory Tests 09/29/19 22:24: White Blood Count 25.9H Blood Pressure 125 /74 Mean: 91 09/29/19 22:24: Lactic Acid Level 2.81*H 09/30/19 00:14: Lactic Acid Level 2.68*H Laboratory Tests 09/29/19 22:24: Creatinine 0.84, INR Comment 1.4, Platelet Count 185, Total Bilirubin 1.3H Results/Orders Lab Results Laboratory Tests Test 09/29/19 22:24 09/30/19 00:14 Range/Units White Blood Count 25.9 H 4.3-11.0 10^3/uL Red Blood Count 4.53 4.35-5.85 10^6/uL Hemoglobin 13.9 13.3-17.7 G/DL Hematocrit 41 40-54 % Mean Corpuscular Volume 90 80-99 FL Mean Corpuscular Hemoglobin 31 25-34 PG Mean Corpuscular Hemoglobin Concent 34 32-36 G/DL Red Cell Distribution Width 13.8 10.0-14.5 % Platelet Count 185 130-400 10^3/uL Mean Platelet Volume 10.5 H 7.4-10.4 FL Neutrophils (%) (Auto) 92 H 42-75 % Lymphocytes (%) (Auto) 3 L 12-44 % Monocytes (%) (Auto) 6 0-12 % Eosinophils (%) (Auto) 0 0-10 % Basophils (%) (Auto) 0 0-10 % Neutrophils # (Auto) 23.7 H 1.8-7.8 X 10^3 Lymphocytes # (Auto) 0.7 L 1.0-4.0 X 10^3 Monocytes # (Auto) 1.5 H 0.0-1.0 X 10^3 Eosinophils # (Auto) 0.0 0.0-0.3 10^3/uL Basophils # (Auto) 0.0 0.0-0.1 10^3/uL Neutrophils % (Manual) 90 % Lymphocytes % (Manual) 2 % Monocytes % (Manual) 5 % Band Neutrophils 3 % Blood Morphology Comment N Prothrombin Time 18.0 H 12.2-14.7 SEC INR Comment 1.4 0.8-1.4 Activated Partial Thromboplast Time 33 24-35 SEC Urine Color DARK YELLOW Urine Clarity CLEAR Urine pH 6.0 5-9 Urine Specific [place] >=1.030 1.016-1.022 Urine Protein 3+ H NEGATIVE Urine Glucose (UA) TRACE H NEGATIVE Urine Ketones NEGATIVE NEGATIVE Urine Nitrite NEGATIVE NEGATIVE Urine Bilirubin 1+ ICTO=NEG NEGATIVE Urine Urobilinogen 1.0 < = 1.0 MG/DL Urine Leukocyte Esterase NEGATIVE NEGATIVE Urine RBC (Auto) 3+ H NEGATIVE Urine RBC 2-5 H /HPF Urine WBC 0-2 /HPF Urine Crystals NONE /LPF Urine Bacteria LARGE H /HPF Urine Casts PRESENT /LPF Urine Hyaline Casts 5-10 H /LPF Urine Mucus LARGE H /LPF Urine Culture Indicated CULTURE PENDING Sodium Level 135 135-145 MMOL/L Potassium Level 3.5 L 3.6-5.0 MMOL/L Chloride Level 97 L 98-107 MMOL/L Carbon Dioxide Level 23 21-32 MMOL/L Anion Gap 15 H 5-14 MMOL/L Blood Urea Nitrogen 18 7-18 MG/DL Creatinine 0.84 0.60-1.30 MG/DL Estimat Glomerular Filtration Rate > 60 BUN/Creatinine Ratio 21 Glucose Level 234 H 70-105 MG/DL Lactic Acid Level 2.81 *H 2.68 *H 0.50-2.00 MMOL/L Calcium Level 9.3 8.5-10.1 MG/DL Corrected Calcium 9.6 8.5-10.1 MG/DL Total Bilirubin 1.3 H 0.1-1.0 MG/DL Aspartate Amino Transf (AST/SGOT) 101 H 5-34 U/L Alanine Aminotransferase (ALT/SGPT) 36 0-55 U/L Alkaline Phosphatase 49 40-136 U/L Total Creatine Kinase 3689 H 30-200 U/L C-Reactive Protein High Sensitivity 34.46 H 0.00-0.50 MG/DL Total Protein 6.7 6.4-8.2 GM/DL Albumin 3.6 3.2-4.5 GM/DL Micro Results Microbiology 09/29/19 Influenza Types A,B Antigen (LESLIE) - Final, Complete My Orders Orders - NANDO BARAHONA MD Cbc With Automated Diff (09/29/19 22:34) Comprehensive Metabolic Panel (09/29/19 22:34) Blood Culture (09/29/19 22:34) Sputum Culture (09/29/19 22:34) Urinalysis (09/29/19 22:34) Urine Culture (09/29/19 22:34) Protime With Inr (09/29/19 22:34) Partial Thromboplastin Time (09/29/19 22:34) Chest 1 View, Ap/Pa Only (09/29/19 22:34) Ed Iv/Invasive Line Start (09/29/19 22:34) Ed Iv/Invasive Line Start (09/29/19 22:34) Vital Signs Adult Sepsis Patie Q15M (09/29/19 22:34) O2 (09/29/19 22:34) Remove Rings In Anticipation O (09/29/19 22:34) Lactic Acid Analyzer (09/29/19 22:34) Ed Iv/Invasive Line Start (09/29/19 22:34) Ns Iv 1000 Ml (Sodium Chloride 0.9%) (09/29/19 22:34) Ct Head/Cervical Spine Wo (09/29/19 22:34) Influenza A And B Antigens (09/29/19 22:34) Creatine Kinase (09/29/19 22:36) Hs C Reactive Protein (09/29/19 22:36) Manual Differential (09/29/19 22:24) Ns Iv 1000 Ml (Sodium Chloride 0.9%) (09/29/19 23:27) Piperacillin Sodium/Tazobactam (Zosyn Vi (09/29/19 23:30) Acetaminophen Tablet (Tylenol Tablet) (09/30/19 00:45) Lactated Ringers (Lr 1000 Ml Iv Solution (09/30/19 00:46) Medications Given in ED Current Medications Medications Dose Ordered Sig/Jenn Route Start Time Stop Time Status Last Admin Dose Admin Acetaminophen 1,000 mg ONCE ONCE PO 09/30/19 00:45 09/30/19 00:46 DC 09/30/19 00:42 1,000 MG Lactated Ringer's 1,000 ml @ 0 mls/hr Q0M ONCE IV 09/30/19 00:46 09/30/19 00:47 DC 09/30/19 01:07 1,000 MLS/HR Piperacillin Sod/ Tazobactam Sod 4.5 gm/Sodium Chloride 100 ml @ 200 mls/hr ONCE ONCE IV 09/29/19 23:30 09/29/19 23:59 DC 09/29/19 23:49 200 MLS/HR Sodium Chloride 1,000 ml @ 0 mls/hr Q0M ONCE IV 09/29/19 22:34 09/29/19 22:36 DC 09/29/19 23:50 1,000 MLS/HR Sodium Chloride 1,000 ml @ 0 mls/hr Q0M ONCE IV 09/29/19 23:27 09/29/19 23:29 DC 09/30/19 00:00 1,000 MLS/HR Vital Signs/I&O 09/29/19 09/29/19 09/30/19 09/30/19 22:23 22:30 00:35 00:42 Temp 38.6 38.6 38.6 Pulse 132 113 Resp 26 26 B/P (MAP) 125/74 (91) 125/74 Pulse Ox 98 98 98 O2 Delivery Nasal Cannula Nasal Cannula Nasal Cannula O2 Flow Rate 2.00 2.00 2.00 Capillary Refill : Less Than 3 Seconds Blood Pressure Mean: 91 POS Progress Note : Time: 02:06 Progress Note Patient was seen and assessed upon arrival. No focal neurologic deficits were identified. Patient was alert and oriented, although he did need to correct himself multiple times while answering questions of orientation. Influenza screen was negative. Chest x-ray was suspicious for pneumonia. He also had a large amount of bacteria in his urine. Because there is associated delirium and lactic acid greater than 2.0, this is considered severe sepsis. Blood cultures were drawn and anabolic therapy was initiated with Zosyn. Patient received normal saline boluses including normal saline 2 L and LR 1 L which more than complete a 30 ML per kilogram bolus recommended in severe sepsis. I discussed the situation at length with Dr. CAPELLAN and the warehouse receiving supervisor. Malina Deal currently is on ICU diversion due to no available eICU beds. This patient is at high risk for rapid decline and deserves to be admitted at a facility with available ICU care. All parties are in agreement he should be transferred. Case was discussed with Dr. Matias at [facility] who graciously accepts transfer. Patient has stable vital signs at this time. Tylenol was administered for treatment of fever. ECG Initial ECG Impression Date: Sep 30, 2019 Initial ECG Impression Time: 23:54 Initial ECG Rate: 111 Initial ECG Rhythm: A Fib/Flutter Comment EKG shows sinus rhythm converting to atrial fibrillation with a controlled rate. No ST elevation or depression. Diagnostic Imaging Diagonstic Imaging: Xray Plain Films/CT/US/NM/MRI: chest Comments Chest x-ray viewed by me. Report not yet available. There appears to be bilateral basilar infiltrates suggestive of pneumonia. Diagonstic Imaging: CT Plain Films/CT/US/NM/MRI: c-spine, head Comments CT head and C-spine viewed by me and stat rad report reviewed. No acute injuries or acute intracranial abnormalities identified. Departure Impression Primary Impression: Severe sepsis with acute organ dysfunction Additional Impressions: Pneumonia of both lower lobes Qualified Codes: J18.1 - Lobar pneumonia, unspecified organism Altered mental status Qualified Codes: R41.82 - Altered mental status, unspecified Rhabdomyolysis Qualified Codes: T79.6XXA - Traumatic ischemia of muscle, initial encounter Disposition: 02 XFER T-[facility] Condition: Improved Transfer Transfer Reason: Diversion Time Spoke to Accepting Phy: 01:43 Transfer Progress Notes Transfer accepted by Dr. Matias, [facility] hospitalist. Transfer Time: 03:52 Transfer Facility: [facility] Method of Transfer: EMS Departure-Patient Inst. Referrals: MARYSOL CAPELLAN DO (PCP/Family) Primary Care Physician Copy Copies To 1: MARYSOL CAPELLAN JOSHUA T MD Sep 30, 2019 01:33 POS
[2019-09-30 03:53] VITALS: BP 116/60
--- NOTE | 2019-09-30 06:25 | Diagnostic Imaging Report ---
INDICATION: Fall. Comparison with 06/17/2019. FINDINGS: Portable chest shows lungs to be well-aerated. There are no infiltrates. The heart is moderately enlarged though this may be secondary to lordotic positioning. No evidence of pulmonary edema. No pneumothorax or pleural effusion. No rib fractures demonstrated. IMPRESSION: 1. No acute abnormalities. 2. Heart does appear prominent though this may be due to rather marked lordotic positioning of the chest. Dictated by: Dictated on workstation # [id number]
--- NOTE | 2019-09-30 06:46 | Diagnostic Imaging Report ---
PROCEDURE: CT head and CT cervical spine without contrast. TECHNIQUE: Multiple contiguous axial images were obtained through the brain and cervical spine without the use of intravenous contrast. Sagittal and coronal reformations through the cervical spine were then performed. Auto Exposure Controls were utilized during the CT exam to meet ALARA standards for radiation dose reduction. INDICATION: Fall. Altered mental status with confusion. FINDINGS: CT HEAD: The ventricles are not dilated. There is generalized cortical atrophy. Scattered periventricular white matter changes are seen. Basal cisterns are clear. There is no evidence of intracranial hemorrhage. Pituitary is not enlarged. Orbital contents are normal. Mastoid air cells and paranasal sinuses are clear. IMPRESSION: 1. Cortical atrophy with diffuse white matter changes consistent with chronic small vessel disease. No acute abnormalities demonstrated. CERVICAL SPINE: Sagittal and coronal reformatted images show minimal anterolisthesis of C3 on C4. There is advanced disc disease from C3 through C7. There are large bridging osteophytes anteriorly at C5-C7. Uncovertebral hypertrophy noted posteriorly at C3-C4, C5-C6, C6-C7 and C7-T1. These are causing moderate encroachment upon the neural foramen. No significant central canal stenosis. Facets show good alignment. There are no fractures. The atlantoaxial joint is in good alignment with hypertrophic changes. The surrounding soft tissues appear normal. IMPRESSION: Advanced degenerative cervical disease as described. These findings are concordant with the preliminary report. Dictated by: Dictated on workstation # [id number]
[2019-09-30 09:21] LABS: RBC MORPH NORMAL
== END 2019-09-30 03:53 | disposition short-term general hospital (02) ==
LOC: EDUNIT# 22:21 → ER 22:22
DX: A41.9 Sepsis, unspecified organism (principal); R65.20 Severe sepsis without septic shock; J18.9 Pneumonia, unspecified organism; M62.82 Rhabdomyolysis; I10 Essential (primary) hypertension; I48.91 Unspecified atrial fibrillation; Z79.01 Long term (current) use of anticoagulants; Z79.82 Long term (current) use of aspirin; Z87.891 Personal history of nicotine dependence; Z90.49 Acquired absence of other specified parts of digestive tract
CPT/HCPCS: 36415; 70450; 71045; 72125; 80053; 81000; 82550; 83605; 85007; 85027; 85610; 85730; 86141; 87040; 87077; 87088; 87186; 87804

== ENCOUNTER 2019-11-10 10:34 | Emergency (ER) | payer MEDICARE ==
[~2019-11-10] VITALS: Ht 167.7 cm; Wt 98.0 kg
--- NOTE | 2019-11-10 13:43 | ED General ---
General Chief Complaint: General Problems/Pain Stated Complaint: PROBLEM WITH CENTRAL LINE Nursing Triage Note: PT. SITTING IN W/C FROM ALF. A&O, ANSWERS QUESTIONS CLEARLY. C/O L-PICC NOT WORKING; STATES IT WAS WORKING YESTERDAY BUT LEAKING THIS MORNING. PT. DENIES OTHER NEEDS AT THIS TIME Nursing Sepsis Screen: No Definite Risk Source of Information: Patient Exam Limitations: No Limitations History of Present Illness Date Seen by Provider: Nov 10, 2019 Allergies and Home Medications Allergies Coded Allergies: No Known Drug Allergies (Unverified , 09/17/18) Home Medications Apixaban 5 Mg Tablet, 5 MG PO BID, (Reported) Aspirin 81 Mg Tablet.dr, 81 MG PO DAILY, (Reported) Furosemide 40 Mg Tablet, 40 MG PO DAILY Prescribed by: ISHA SWARTZ on 09/20/18917 Metoprolol Tartrate 25 Mg Tablet, 25 MG PO BID, (Reported) Potassium Chloride 10 Meq Tab.er.prt, 10 MEQ PO DAILY Prescribed by: ISHA SWARTZ on 09/20/18918 Past Psqnvfe-Wodlnn-Juxivk Hx Patient Social History Former Smoker, Quit: Dec 20, 1981 Recent Foreign Travel: No Contact w/Someone Who Travel: No Recent Infectious Disease Expo: No Recent Hopitalizations: No Immunizations Up To Date Tetanus Booster (TDap): Unknown PED Vaccines UTD: No Seasonal Allergies Seasonal Allergies: No Past Medical History Surgeries: Yes Appendectomy, Orthopedic Respiratory: No Currently Using CPAP: No Currently Using BIPAP: No Cardiac: Yes Atrial Fibrillation, Hypertension Neurological: No Sexually Transmitted Disease: No HIV/AIDS: No Genitourinary: No Gastrointestinal: No Musculoskeletal: Yes (RIGHT BROKEN ARM) Endocrine: No HEENT: Yes Loss of Vision: Left Hearing Impairment: Hard of Hearing Cancer: No Psychosocial: No Integumentary: No Blood Disorders: No Adverse Reaction/Blood Tranf: No Family Medical History No Pertinent Family Hx Physical Exam Vital Signs Vital Signs - First Documented 11/10/19 11:44 Temp 36.8 Pulse 69 B/P (MAP) 139/61 (87) Pulse Ox 98 O2 Delivery Room Air Capillary Refill : Less Than 3 Seconds Height, Weight, BMI Height: 5'6.00" Weight: 238lbs. 3.0oz. [id number]; 34.00 BMI Method:Stated Progress/Results/Core Measures Suspected Sepsis Recent Fever Within 48 Hours: No Infection Criteria Present: None New/Unexplained Altered Menta: No Sepsis Screen: No Definite Risk SIRS Temperature: Pulse: 69 Respiratory Rate: Blood Pressure 139 /61 Mean: 87 Results/Orders Vital Signs/I&O 11/10/19 11:44 Temp 36.8 Pulse 69 B/P (MAP) 139/61 (87) Pulse Ox 98 O2 Delivery Room Air Capillary Refill : Less Than 3 Seconds Blood Pressure Mean: 87 Departure Impression Primary Impression: PICC line dressing change Additional Impression: normal functioning PICC line Disposition: 01 HOME, SELF-CARE Condition: Stable/Unchanged Departure-Patient Inst. Decision time for Depature: 13:42 Referrals: MARYSOL CAPELLAN DO (PCP/Family) Primary Care Physician Patient Instructions: NO INSTRUCTIONS GIVEN Add. Discharge Instructions: Continue to use the PICC line as instructed. Follow-up with primary care as needed. Return back to the emergency room for worsening symptoms or concerns as needed. All discharge instructions reviewed with patient and/or family. Voiced understanding. PETER SHELLEY Nov 10, 2019 13:43
--- NOTE | 2019-11-10 13:46 | NUR ---
SPOKE W NURSE AT [facility] CHANGED DRESSING ON PICC LINE IN L AC. FLUSHED W 30CC NS AND NO LEAKING NOTED
[2019-11-10 13:47] VITALS: BP 139/61
[2019-11-11] MEDS ORDERED: ONDA4TAB11 SL (18:22)
== END 2019-11-10 13:49 | disposition home or self-care (01) ==
LOC: EDUNIT# 10:34 → ER 10:37
DX: T82.898A Other specified complication of vascular prosthetic devices, implants and grafts, initial encounter (principal); I10 Essential (primary) hypertension; I48.91 Unspecified atrial fibrillation; Z79.01 Long term (current) use of anticoagulants; Z79.82 Long term (current) use of aspirin; Z87.891 Personal history of nicotine dependence; Z90.49 Acquired absence of other specified parts of digestive tract
CPT/HCPCS: 99281

== ENCOUNTER 2019-11-11 15:39 | Emergency (ER) | payer SELFPAY ==
[~2019-11-11] VITALS: Ht 170 cm; Wt 110.0 kg
[2019-11-11] MEDS ORDERED: ONDANSETRON 4 MG (ZOFRAN) ORAL DISSOLVE TAB SL ONE (16:30)
[2019-11-11 16:44] LABS: CLARITY,URINE CLOUDY; COLOR,URINE DARK YELLOW; GLUCOSE, URINE (UA) NEGATIVE (NEGATIVE); KETONES,URINE NEGATIVE (NEGATIVE); LEUKOCYTE ESTERASE ,URINE 2+ (NEGATIVE); NITRITE,URINE NEGATIVE (NEGATIVE); PH,URINE 8.5 (5-9); PROTEIN,URINE 3+ (NEGATIVE)
[2019-11-11 16:56] LABS: BACTERIA,URINE LARGE /HPF; BILIRUBIN,URINE 1+ (NEGATIVE); RBC,URINE >100 /HPF; TRIPLE PHOSPHATE CRYSTAL,UR LARGE /LPF; WBC,URINE >100 /HPF
--- NOTE | 2019-11-11 17:40 | ED General ---
General Chief Complaint: Abdominal/GI Problems Stated Complaint: BLOOD IN CATHETER;VOMITING;CENTRAL LINE ISSUES Nursing Triage Note: ARRIVED VIA FROM [facility]. STATES HE HAS BEEN VOMITING SINCE DIALYSIS. ALSO STATES HE IS HAVING ISSUES WITH HIS PICC BUT DOES NOT KNOW WHAT AND IS HAVING BLOOD IN HIS URINE Nursing Sepsis Screen: No Definite Risk Source of Information: Patient Exam Limitations: No Limitations History of Present Illness Date Seen by Provider: Nov 11, 2019 Time Seen by Provider: 15:58 Initial Comments This 79-year-old gentleman presents to the emergency room from dialysis due to vomiting. He recently had a prolonged and complicated hospital stay in [place] due to abscess of the spine. He had extensive surgical intervention. He was then admitted to [facility]. He is receiving frequent infusions of nafcillin. half-way staff reported they were having difficulty with the infusions because it leaks around PICC line dressing on his left arm. Staff brought him to the emergency room to evaluate the vomiting and PICC line. They also report his urine has the appearance of hematuria. He has an indwelling catheter since his surgery. He is afebrile. Allergies and Home Medications Allergies Coded Allergies: No Known Drug Allergies (Unverified , 09/17/18) Home Medications Apixaban 5 Mg Tablet, 5 MG PO BID, (Reported) Aspirin 81 Mg Tablet.dr, 81 MG PO DAILY, (Reported) Furosemide 40 Mg Tablet, 40 MG PO DAILY Prescribed by: ISHA SWARTZ on 09/20/18 0918 Metoprolol Tartrate 25 Mg Tablet, 25 MG PO BID, (Reported) Ondansetron 4 Mg Tab.rapdis, 4 MG SL Q4H PRN for NAUSEA/VOMITING Prescribed by: NANDO PEREZ on 11/11/19 182 Potassium Chloride 10 Meq Tab.er.prt, 10 MEQ PO DAILY Prescribed by: ISHA SWARTZ on 09/20/18 0919 Patient Home Medication List Home Medication List Reviewed: Yes Review of Systems Review of Systems Constitutional: no symptoms reported EENTM: no symptoms reported Respiratory: no symptoms reported Cardiovascular: no symptoms reported Gastrointestinal: see HPI Genitourinary: see HPI Musculoskeletal: see HPI Skin: see HPI Psychiatric/Neurological: No Symptoms Reported Hematologic/Lymphatic: No Symptoms Reported Immunological/Allergic: no symptoms reported Past Flskvie-Qyukyt-Ehnltz Hx Past Med/Social Hx: Reviewed and Corrections made Patient Social History Alcohol Use: Denies Use Recreational Drug Use: No Smoking Status: Former Smoker Former Smoker, Quit: Dec 20, 1981 Recent Foreign Travel: No Contact w/Someone Who Travel: No Recent Infectious Disease Expo: No Recent Hopitalizations: No Immunizations Up To Date Tetanus Booster (TDap): Unknown PED Vaccines UTD: No Seasonal Allergies Seasonal Allergies: No Past Medical History Surgeries: Yes Appendectomy, Orthopedic (Debridement of spinal abscess) Respiratory: No Currently Using CPAP: No Currently Using BIPAP: No Cardiac: Yes Atrial Fibrillation, Hypertension Neurological: No Sexually Transmitted Disease: No HIV/AIDS: No Genitourinary: Yes Renal Failure, Dialysis Gastrointestinal: No Musculoskeletal: Yes (RIGHT BROKEN ARM, abscess of the spine) Endocrine: No HEENT: Yes Loss of Vision: Left Hearing Impairment: Hard of Hearing Cancer: No Psychosocial: No Integumentary: No Blood Disorders: No Adverse Reaction/Blood Tranf: No Family Medical History No Pertinent Family Hx Physical Exam Vital Signs Vital Signs - First Documented 11/11/19 15:48 Temp 36.3 Pulse 100 Resp 16 B/P (MAP) 123/110 (114) Pulse Ox 93 O2 Delivery Room Air Capillary Refill : Less Than 3 Seconds Height, Weight, BMI Height: 5'6.00" Weight: 238lbs. 3.0oz. 108.183949wt; 38.00 BMI Method:Stated General Appearance: No Apparent Distress, WD/WN, Obese HEENT: PERRL/EOMI, Normal ENT Inspection Neck: Normal Inspection Respiratory: Lungs Clear, Normal Breath Sounds, No Accessory Muscle Use, No Respiratory Distress Cardiovascular: Regular Rate, Rhythm, No Murmur, Other (Marked lower extremity edema) Gastrointestinal: Normal Bowel Sounds, Non Tender, Soft Extremity: Normal Inspection, No Pedal Edema Neurologic/Psychiatric: Alert, Oriented x3, No Motor/Sensory Deficits, Normal Mood/Affect, mercerizer II-XII Norm as Tested Skin: Normal Color, Warm/Dry, Other (PICC line in the left upper arm. Chronic skin changes and bruising scattered throughout the extremities) Progress/Results/Core Measures Suspected Sepsis Recent Fever Within 48 Hours: No Infection Criteria Present: Suspected New Infection New/Unexplained Altered Menta: No Sepsis Screen: No Definite Risk SIRS Temperature: Pulse: 100 Respiratory Rate: 16 Blood Pressure 123 /110 Mean: 114 Results/Orders Lab Results Laboratory Tests Test 11/11/19 16:30 Range/Units Urine Color DARK YELLOW Urine Clarity CLOUDY Urine pH 8.5 5-9 Urine Specific Cascade 1.010 L 1.016-1.022 Urine Protein 3+ H NEGATIVE Urine Glucose (UA) NEGATIVE NEGATIVE Urine Ketones NEGATIVE NEGATIVE Urine Nitrite NEGATIVE NEGATIVE Urine Bilirubin 1+ H NEGATIVE Urine Urobilinogen 0.2 < = 1.0 MG/DL Urine Leukocyte Esterase 2+ H NEGATIVE Urine RBC (Auto) 3+ H NEGATIVE Urine RBC >100 H /HPF Urine WBC >100 H /HPF Urine Crystals PRESENT H /LPF Urine Triple Phosphate Crystals LARGE H /LPF Urine Bacteria LARGE H /HPF Urine Casts NONE /LPF Urine Mucus NEGATIVE /LPF Urine Culture Indicated YES My Orders Orders - NANDO BARAHONA MD Ua Culture If Indicated (11/11/19 16:15) Ondansetron Oral Dissolve Tab (Zofran (11/11/19 16:30) Urine Culture (11/11/19 16:30) Miconazole 2% Powder (Desenex Af 2% Powd (11/11/19 21:00) Medications Given in ED Current Medications Medications Dose Ordered Sig/Jenn Route Start Time Stop Time Status Last Admin Dose Admin Ondansetron HCl 8 mg ONCE ONCE SL 11/11/19 16:30 11/11/19 16:31 DC 11/11/19 16:38 8 MG Vital Signs/I&O 11/11/19 11/11/19 15:48 18:20 Temp 36.3 36.3 Pulse 100 100 Resp 16 16 B/P (MAP) 123/110 (114) 129/44 (114) Pulse Ox 93 93 O2 Delivery Room Air Room Air Capillary Refill : Less Than 3 Seconds 2 Blood Pressure Mean: 114 Progress Note : Progress Note Vomiting ceased. Patient was treated with Zofran to prevent recurrence. The PICC line was evaluated and found to be leaking at the insertion site of the skin. The mechanism itself appeared intact without damage. They leaking seemed to be highly dependent on position and flow Rate. See recommendations and discharge instructions. I discussed the purulent appearing urinalysis with Dr. Capellan. I suggested removing the Albrecht catheter. Dr. CAPELLAN is hesitant to do this without having bladder scan capabilities at the longterm. As an alternative, he requested that we replace the catheter. Urine cultures are pending. Patient had a erythematous and inflamed inferior scrotum and ischial areas. Instructions for wound care were given at discharge. Patient was started with miconazole. Departure Impression Primary Impression: Vomiting Qualified Codes: R11.10 - Vomiting, unspecified Additional Impressions: PICC line malfunction Candidiasis of scrotum Indwelling Albrecht catheter present Hematuria Qualified Codes: R31.9 - Hematuria, unspecified Disposition: 01 HOME, SELF-CARE Condition: Improved Departure-Patient Inst. Decision time for Depature: 18:10 Referrals: MARYSOL CAPELLAN DO (PCP/Family) Primary Care Physician Patient Instructions: How to Care for Your Albrecht Catheter, Male Add. Discharge Instructions: Continue with antibiotic infusions as previously directed about work with Dr. CAPELLAN and pharmacy to slow rate. Leaking of the PICC line is dependent on flow Rate and position. You may apply a small gauze wrap directly over the insertion site into the skin and apply light pressure with a wrap or with fingers to prevent leaking. Ultimately, patient may need new PICC line placed. This can be arranged on an outpatient basis with his outpatient care team. Please powder affected skin areas on the scrotum, buttocks and sacrum twice daily with the miconazole powder. Avoid prolonged periods of time sitting in a chair and rotate every 2 hours when in bed to prevent further skin breakdown. Please work with Dr. CAPELLAN regarding urology referral and possible removal of the urinary catheter. Review urine culture results with Dr. CAPELLAN on or Sunday. Call Dr. Capellan or return to care if there are worsening conditions. All discharge instructions reviewed with patient and/or family. Voiced understanding. Scripts Ondansetron (Ondansetron Odt) 4 Mg Tab.rapdis 4 MG SL Q4H PRN for NAUSEA/VOMITING, #10 TAB 1 Refill Prov: NANDO BARAHONA MD 11/11/19 Copy Copies To 1: MARYSOL CAPELLAN JOSHUA T MD Nov 11, 2019 17:40
--- NOTE | 2019-11-11 18:02 | NUR ---
replaced pt's catheter and sending home with leg bag in place
[2019-11-11 18:20] VITALS: BP 129/44
[2019-11-11] MEDS ORDERED: ONDA4TAB11 SL (18:22)
[2019-11-11] MEDS ORDERED: MICONAZOLE 2% POWDER (DESENEX AF) 90 GM TOP SCH (21:00)
== END 2019-11-11 18:20 | disposition home or self-care (01) ==
LOC: EDUNIT# 15:39 → ER 15:40
DX: T82.898A Other specified complication of vascular prosthetic devices, implants and grafts, initial encounter (principal); R11.10 Vomiting, unspecified; B37.49 Other urogenital candidiasis; R31.9 Hematuria, unspecified; I10 Essential (primary) hypertension; I48.91 Unspecified atrial fibrillation; Z96.0 Presence of urogenital implants; Z99.2 Dependence on renal dialysis; Z79.82 Long term (current) use of aspirin; Z79.01 Long term (current) use of anticoagulants; Z87.891 Personal history of nicotine dependence; Z90.49 Acquired absence of other specified parts of digestive tract
CPT/HCPCS: 51702; 81000; 87077; 87088; 87186

== ENCOUNTER 2019-11-18 19:50 | Emergency (ER) | payer MEDICARE, OTHER ==
[~2019-11-18 19:50] MED LIST changes: +ONDA4TAB11 SL
--- NOTE | 2019-11-18 21:38 | ED General ---
General Chief Complaint: General Problems/Pain Stated Complaint: PORT WONT FLUSH Nursing Triage Note: PATIENT ARRIVES TO FT1 REPORT FROM [facility] STATES IV LINE WILL NOT FLUSH AND "MID LINE VASCULAR ACCESS IN RIGHT BICEP" IS UNFLUSHABLE WELL. PATIENT IS TO RECIEVE ANTIBIOTIC AND NEEDS IV ACCESS PART OF HIS TREATMENT. Nursing Sepsis Screen: No Definite Risk Source of Information: Patient Exam Limitations: No Limitations History of Present Illness Date Seen by Provider: Nov 18, 2019 Time Seen by Provider: 20:15 Initial Comments This 79-year-old gentleman presents to the emergency room from the [place] [facility] because of a midline occlusion. Patient has been receiving IV antibiotics for treatment of a spinal abscess. He was recently seen in this ER because of a left arm PICC line leak. Apparently the PICC line was removed and replaced with a midline IV in the right arm. This line has become occluded tonight and will not flush. Allergies and Home Medications Allergies Coded Allergies: No Known Drug Allergies (Unverified , 09/17/18) Home Medications Apixaban 5 Mg Tablet, 5 MG PO BID, (Reported) Aspirin 81 Mg Tablet.dr, 81 MG PO DAILY, (Reported) Furosemide 40 Mg Tablet, 40 MG PO DAILY Prescribed by: ISHA SWARTZ on 09/20/18 09 Metoprolol Tartrate 25 Mg Tablet, 25 MG PO BID, (Reported) Ondansetron 4 Mg Tab.rapdis, 4 MG SL Q4H PRN for NAUSEA/VOMITING Prescribed by: NANDO PEREZ on 11/11/19 182 Potassium Chloride 10 Meq Tab.er.prt, 10 MEQ PO DAILY Prescribed by: ISHA SWARTZ on 09/20/18 0919 Patient Home Medication List Home Medication List Reviewed: Yes Review of Systems Review of Systems Constitutional: no symptoms reported Cardiovascular: see HPI Musculoskeletal: see HPI Past Pepiuxh-Trhirp-Fajwes Hx Past Med/Social Hx: Reviewed Nursing Past Med/Soc Hx Patient Social History Alcohol Use: Denies Use Recreational Drug Use: No Former Smoker, Quit: Dec 20, 1981 Recent Foreign Travel: No Contact w/Someone Who Travel: No Recent Infectious Disease Expo: No Recent Hopitalizations: No Physical Abuse: No Sexual Abuse: No Mistreated: No Fear: No Immunizations Up To Date Tetanus Booster (TDap): Unknown PED Vaccines UTD: No Seasonal Allergies Seasonal Allergies: No Past Medical History Surgeries: Yes Appendectomy, Orthopedic Respiratory: No Currently Using CPAP: No Currently Using BIPAP: No Cardiac: Yes Atrial Fibrillation, Hypertension Neurological: No Sexually Transmitted Disease: No HIV/AIDS: No Genitourinary: Yes Renal Failure, Dialysis Gastrointestinal: No Musculoskeletal: Yes (RIGHT BROKEN ARM, abscess of the spine) Endocrine: No HEENT: Yes Loss of Vision: Left Hearing Impairment: Hard of Hearing Cancer: No Psychosocial: No Integumentary: No Blood Disorders: No Adverse Reaction/Blood Tranf: No Family Medical History No Pertinent Family Hx Physical Exam Vital Signs Vital Signs - First Documented 11/18/19 20:00 Temp 36.9 Pulse 68 Resp 20 B/P (MAP) 113/65 (81) Pulse Ox 99 Capillary Refill : Less Than 3 Seconds Height, Weight, BMI Height: 5'6.00" Weight: 238lbs. 3.0oz. 108.750160pn; 38.00 BMI Method:Stated General Appearance: No Apparent Distress, WD/WN Extremity: Other (right midline IV in place with appropriate dressing. No inflammation, drainage, heat, or swelling to suggest infection. The line would not flush or aspirate even with position changes) Progress/Results/Core Measures Suspected Sepsis Recent Fever Within 48 Hours: No Infection Criteria Present: None New/Unexplained Altered Menta: No Sepsis Screen: No Definite Risk SIRS Temperature: Pulse: 68 Respiratory Rate: 20 Blood Pressure 113 /65 Mean: 81 Results/Orders Vital Signs/I&O Capillary Refill : Less Than 3 Seconds Blood Pressure Mean: 81 Progress Note : Progress Note A peripheral IV line was placed by Agustin Camara NP. This was established for a temporary access until a more definitive access could be established. This was discussed with Dr. Capellan. He will coordinate the outpatient placement of a more definitive line. Departure Impression Primary Impression: Need for intravenous access Disposition: 01 HOME, SELF-CARE Condition: Improved Departure-Patient Inst. Decision time for Depature: 21:15 Referrals: MARYSOL CAPELLAN DO (PCP/Family) Primary Care Physician Add. Discharge Instructions: You may use the new peripheral line for IV medications. Please call Dr. Capellan early tomorrow morning to arrange for more definitive vascular access. Call Dr. Capellan with any other problems or concerns. All discharge instructions reviewed with patient and/or family. Voiced understanding. Copy Copies To 1: MARYSOL CAPELLAN JOSHUA T MD Nov 18, 2019 21:38
[2019-11-18 21:44] VITALS: BP 113/65
== END 2019-11-18 21:49 | disposition home or self-care (01) ==
LOC: EDUNIT# 19:50 → ER 19:51
DX: Z45.2 Encounter for adjustment and management of vascular access device (principal); I10 Essential (primary) hypertension; I48.91 Unspecified atrial fibrillation; Z79.01 Long term (current) use of anticoagulants; Z79.82 Long term (current) use of aspirin; Z87.891 Personal history of nicotine dependence; Z99.2 Dependence on renal dialysis; Z90.49 Acquired absence of other specified parts of digestive tract

== ENCOUNTER 2019-11-21 18:16 | Emergency (ER) | payer MEDICARE ==
[~2019-11-21] VITALS: Ht 170 cm; Wt 91.0 kg
--- NOTE | 2019-11-21 18:39 | ED General ---
General Stated Complaint: PICC LINE ISSUES Source of Information: Patient (LIMITED HISTORIAN), [facility] Records History of Present Illness Date Seen by Provider: Nov 21, 2019 Time Seen by Provider: 18:25 Initial Comments PT ARRIVES VIA [facility] FROM [facility] PT IS RECEIVING IV ANTIBIOTICS FOR WOUND/ABSCESS TO HIS BACK/BUTTOCKS AREA--IS GETTING ANTIBIOTICS EVERY 4 HOURS, THROUGH SUNDAY PT HAS PICC LINE IN RIGHT UPPER ARM, HAS IV IN LEFT AC AND IV IN LEFT HAND [facility] HAS SENT PT HERE BECAUSE ALL OF HIS IV SITES AND PICC LINE ARE "CLOGGED" PT DENIES ANY PAIN AT THE SITES, AND NO REDNESS OR SWELLING AT THE SITES. RN HAS TALKED WITH [facility] STAFF AND THEY REPORT THAT PT ONLY NEEDS ONE WORKING IV AT THIS TIME. Allergies and Home Medications Allergies Coded Allergies: No Known Drug Allergies (Unverified , 09/17/18) Home Medications Apixaban 5 Mg Tablet, 5 MG PO BID, (Reported) Aspirin 81 Mg Tablet.dr, 81 MG PO DAILY, (Reported) Furosemide 40 Mg Tablet, 40 MG PO DAILY Prescribed by: ISHA SWARTZ on 09/20/18917 Metoprolol Tartrate 25 Mg Tablet, 25 MG PO BID, (Reported) Ondansetron 4 Mg Tab.rapdis, 4 MG SL Q4H PRN for NAUSEA/VOMITING Prescribed by: NANDO PEREZ on 11/11/191821 Potassium Chloride 10 Meq Tab.er.prt, 10 MEQ PO DAILY Prescribed by: ISHA SWARTZ on 09/20/18 09 Patient Home Medication List Home Medication List Reviewed: Yes Review of Systems Review of Systems Constitutional: no symptoms reported Musculoskeletal: see HPI Skin: see HPI Past Qgupkxl-Qkflia-Jkfycn Hx Patient Social History Former Smoker, Quit: Dec 20, 1981 Recent Foreign Travel: No Contact w/Someone Who Travel: No Recent Hopitalizations: No Immunizations Up To Date Tetanus Booster (TDap): Unknown PED Vaccines UTD: No Seasonal Allergies Seasonal Allergies: No Past Medical History Surgeries: Yes Appendectomy, Orthopedic Respiratory: No Currently Using CPAP: No Currently Using BIPAP: No Cardiac: Yes Atrial Fibrillation, Hypertension Neurological: No Sexually Transmitted Disease: No HIV/AIDS: No Genitourinary: Yes Renal Failure, Dialysis Gastrointestinal: No Musculoskeletal: Yes (RIGHT BROKEN ARM, abscess of the spine) Endocrine: No HEENT: Yes Loss of Vision: Left Hearing Impairment: Hard of Hearing Cancer: No Psychosocial: No Integumentary: No Blood Disorders: No Adverse Reaction/Blood Tranf: No Family Medical History No Pertinent Family Hx Physical Exam Vital Signs Vital Signs - First Documented 11/21/19 18:25 Temp 37.2 Pulse 82 Resp 20 B/P (MAP) 112/61 (78) Pulse Ox 99 Capillary Refill : Height, Weight, BMI Height: 5'6.00" Weight: 238lbs. 3.0oz. 108.396610bs; 38.00 BMI Method:Stated General Appearance: No Apparent Distress, WD/WN Extremity: Other (PICC LINE AND IV SITES NOTED. ) Progress/Results/Core Measures Suspected Sepsis SIRS Temperature: Pulse: Respiratory Rate: Blood Pressure / Mean: Results/Orders My Orders Orders - DANY BRUNSON DO Ed Iv/Invasive Line Start (11/21/19 18:36) Vital Signs/I&O Capillary Refill : Progress Note : Progress Note RN IS ABLE TO FLUSH PICC LINE IN RIGHT UPPER ARM WITH 20 CC SALINE, WITH NO PAIN, NO SWELLING, NO LEAKAGE OR EVIDENCE OF INFILTRATION IV IN LEFT AC HAS ESSENTIALLY FALLEN OUT AND IS LITERALLY HANGING BY THE TIP, AND THE IV IS SIGNIFICANTLY KINKED, SO THIS WAS REMOVED COMPLETELY BY RN. NO EVIDENCE OF INFILTRATION OR INFECTION TO THIS SITE, AND NO BLEEDING FROM THE S ITE. IV TO DORSAL ASPECT OF LEFT HAND FLUSHES BUT WITH SOME DIFFICULTY--FLUSHED WITH 10 ML OF SALINE, AND HAS SOME MILD LEAKAGE AROUND THE SITE, BUT NO SWELLING OR EVIDENCE OF INFILTRATION OR SIGNS OF INFECTION AND NO BLEEDING TO THE SITE. THIS IV WAS REMOVED BY RN, AND IT WAS ALSO FOUND TO BE SIGNIFICANTLY KINKED. RN STARTED NEW IV IN LEFT WRIST AREA, VERY EASILY, FLUSHES WELL. Departure Impression Primary Impression: Need for intravenous access Disposition: SNF Condition: Stable Departure-Patient Inst. Referrals: MARYSOL CAPELLAN DO (PCP/Family) Primary Care Physician Patient Instructions: NO INSTRUCTIONS GIVEN Add. Discharge Instructions: CONTINUE ALL PREVIOUS ORDERS FLUSH IV SITES PER PROTOCOL DR. CAPELLAN FOR FURTHER CARE DANY BRUNSON DO Nov 21, 2019 18:39
--- NOTE | 2019-11-21 18:43 | NUR ---
2 PERIPHERAL LINES IN L ARM, AC AND HAND DC'D. RESTARTED IN L FA
[2019-11-21 18:47] VITALS: BP 112/61
--- NOTE | 2019-11-21 18:56 | NUR ---
SEE LIST FOR CURRENT MED AND HX
== END 2019-11-21 18:47 ==
LOC: EDUNIT# 18:16 → ER 18:17
DX: Z45.2 Encounter for adjustment and management of vascular access device (principal); I10 Essential (primary) hypertension; I48.91 Unspecified atrial fibrillation; Z79.01 Long term (current) use of anticoagulants; Z79.82 Long term (current) use of aspirin; Z87.891 Personal history of nicotine dependence; Z99.2 Dependence on renal dialysis

== ENCOUNTER → 2020-06-01 | Outpatient (CLI) | payer MEDICARE, MEDICAID ==
[~2020-06-01] MED LIST changes: +ACET325T38 PO; +ASPI-999 PO; +ATOR80TA76 PO; +BACI1OIN6 TP; +BENZ-36 PO; +BISA10SU8 RC; +CALC-250 PO; +ESCI10TA PO; +HYDR-3923 PO; +MELA3TAB39 PO; +PANT40TA2 PO; +POTA-51 PO; +TMSL.4C PO; +[UNRECOGNIZED DRUG - CODE] TP
[2020-06-01 09:23] LABS: ABSOLUTE RETIC # 24 10e9/L (24-90); BASOPHILS % (AUTO) 0 % (0-10); EOSINOPHILS # (AUTO) 0.6 10^3/uL (0.0-0.3); EOSINOPHILS % (AUTO) 6 % (0-10); HEMATOCRIT 31 % (40-54); HEMOGLOBIN 10.2 G/DL (13.3-17.7); LYMPHOCYTES # (AUTO) 2.2 X 10^3 (1.0-4.0); LYMPHOCYTES % (AUTO) 22 % (12-44); MEAN CORPUSCULAR HEMOGLOBIN 31 PG (25-34); MEAN CORPUSCULAR HGB CONC 33 G/DL (32-36); MEAN CORPUSCULAR VOLUME 95 FL (80-99); MEAN PLATELET VOLUME 9.9 FL (7.4-10.4); MONOCYTES # (AUTO) 0.5 X 10^3 (0.0-1.0); MONOCYTES % (AUTO) 5 % (0-12); NEUTROPHILS # (AUTO) 6.7 X 10^3 (1.8-7.8); NEUTROPHILS % (AUTO) 67 % (42-75); PLATELET COUNT 231 10^3/uL (130-400); RED CELL DISTRIBUTION WIDTH 14.3 % (10.0-14.5); RETICULOCYTE % 0.73 % (0.50-2.40)
[2020-06-01 09:54] LABS: ELLIPT/OVALOCYTES SLIGHT; EOSINOPHILS % (MANUAL) 7 %; LYMPHOCYTES % (MANUAL) 12 %; MONOCYTES % (MANUAL) 7 %; NEUTROPHILS % (MANUAL) 74 %
== END ==
LOC: LAB 09:03
PROVIDERS: ATTEND Family Medicine
DX: D64.9 Anemia, unspecified (principal)
CPT/HCPCS: 36415; 85007; 85027; 85045

== ENCOUNTER 2020-07-15 12:58 | Emergency (ER) | payer MEDICARE, MEDICAID ==
[~2020-07-15] VITALS: Ht 147 cm; Wt 95.2 kg
[~2020-07-15 12:58] MED LIST changes: +ASPI-1238 PO; -ASPI-983 PO
--- NOTE | 2020-07-15 13:29 | ED Fall/Injury ---
General Chief Complaint: Trauma-Non Activation Stated Complaint: FALL Nursing Triage Note: PATIENT ARRIVED BY EMS DUE TO A FALL. UNWITNESSED. PATIENT DOES NOT REMEMBER FALLING, BUT WHEN ASKED HOW HE GOT ON THE FLOOR HE STATES THAT HE PROBABLY FELL Source: patient, EMS, skilled nursing records, caregiver Exam Limitations: no limitations History of Present Illness Date Seen by Provider: Jul 15, 2020 Time Seen by Provider: 13:00 Initial Comments This 80-year-old gentleman presents to the emergency room after being found on the floor in the bathroom at [facility]. There was no apparent injury aside from a questionable bump on the back of the head. There is no known loss of consciousness. Fall was unwitnessed. Patient does not remember falling but he is pleasantly confused at baseline. Staff report they believe he was trying to get up from the bathroom stool to his wheelchair. He does not walk independently. Patient denies any pain. He has an indwelling catheter which was placed after stroke in April due to problems with skin integrity. The patient himself is a poor historian and contradicts himself. Allergies and Home Medications Allergies Coded Allergies: Tetanus Vaccines and Toxoid (Verified Allergy, Severe, Anaphylaxis, 07/15/20) meperidine (Verified Allergy, Severe, Shortness of Breath, 07/15/20) penicillin G (Verified Allergy, Severe, FEVER, 07/15/20) Home Medications Acetaminophen 325 Mg Tablet, 650 MG PO Q6H PRN for PAIN-MILD (1-4) OR TEMPATURE, (Reported) Apixaban 5 Mg Tablet, 5 MG PO BID Prescribed by: MEGHNA PINTO on 05/18/20 1057 Aspirin 81 Mg Tab.chew, 81 MG PO DAILY@0900 Prescribed by: MEGHNA PINTO on 05/18/20 1057 Atorvastatin Calcium 80 Mg Tablet, 80 MG PO HS Prescribed by: MEGHNA PINTO on 05/18/20 1057 Bacitracin Zinc 1 Each Oint..ea., 1 APPLIC TP NEEDED PRN for INFECTION, (Reported) Benzonatate 100 Mg Capsule, 100 MG PO TID PRN for COUGH, (Reported) Bisacodyl 10 Mg Supp.rect, 10 MG RC NEEDED PRN for CONSTIPATION-4TH LINE, (Reported) Cholecalciferol (Vitamin D3) 125 Mcg Tablet, 125 MCG PO DAILY, (Reported) Diphenhydramine HCl/Zinc Acet 28.4 Gm Cream..g., 1 APPLIC TP TID PRN for ITCHING, (Reported) Escitalopram Oxalate 10 Mg Tablet, 10 MG PO DAILY, (Reported) Hydralazine HCl 25 Mg Tablet, 25 MG PO Q8H, (Reported) HOLD FOR SBP <100 Melatonin 3 Mg Tablet, 3 MG PO HS PRN for SLEEP, (Reported) Metoprolol Tartrate 25 Mg Tablet, 25 MG PO BID, (Reported) HOLD FOR SBP <100, PULSE <60 Pantoprazole Sodium 40 Mg Tablet.dr, 40 MG PO DAILY, (Reported) Potassium Chloride 20 Meq Tablet.er, 20 MEQ PO DAILY, (Reported) Sulfamethoxazole/Trimethoprim 1 Each Tablet, 1 EACH PO BID Prescribed by: NANDO PEREZ on 07/15/20 1614 Tamsulosin HCl 0.4 Mg Cap, 0.4 MG PO HS, (Reported) Patient Home Medication List Home Medication List Reviewed: Yes Review of Systems Review of Systems Constitutional: no symptoms reported Eyes: No Symptoms Reported Ears, Nose, Mouth, Throat: no symptoms reported Respiratory: no symptoms reported Cardiovascular: no symptoms reported Gastrointestinal: no symptoms reported Genitourinary: see HPI Musculoskeletal: see HPI Skin: no symptoms reported Psychiatric/Neurological: See HPI Past Ehbzzdv-Qegedy-Mvkuqe Hx Patient Social History Alcohol Use: Denies Use Recreational Drug Use: No Former Smoker, Quit: Dec 20, 1981 2nd Hand Smoke Exposure: No Recent Foreign Travel: No Contact w/Someone Who Travel: No Recent Infectious Disease Expo: No Recent Hopitalizations: No Physical Abuse: No Sexual Abuse: No Mistreated: No Fear: No Immunizations Up To Date Tetanus Booster (TDap): Unknown PED Vaccines UTD: No Seasonal Allergies Seasonal Allergies: No Past Medical History Surgeries: Yes Appendectomy, Orthopedic Respiratory: No (pleural effusion) Currently Using CPAP: No Currently Using BIPAP: No Cardiac: Yes Atrial Fibrillation, Hypertension Neurological: No Sexually Transmitted Disease: No HIV/AIDS: No Genitourinary: Yes (bladder dysfunction) Renal Failure, Dialysis Gastrointestinal: Yes Gastroesophageal Reflux Musculoskeletal: Yes (RIGHT BROKEN ARM, abscess of the spine, muscle weakness) Endocrine: No HEENT: Yes Loss of Vision: Left Hearing Impairment: Hard of Hearing Cancer: No Psychosocial: No Integumentary: No Blood Disorders: No Adverse Reaction/Blood Tranf: No Family Medical History No Pertinent Family Hx Physical Exam Vital Signs Vital Signs - First Documented 07/15/20 12:59 Temp 36.3 Pulse 54 Resp 17 B/P (MAP) 143/68 (93) Pulse Ox 98 O2 Delivery Room Air Capillary Refill : Less Than 3 Seconds Height, Weight, BMI Height: 5'6.00" Weight: 238lbs. 3.0oz. [id number]; 44.00 BMI Method:Stated General Appearance: WD/WN, no apparent distress HEENT: PERRL/EOMI, normal ENT inspection, other (no evidence of injury on my exam) Neck: non-tender, normal inspection Cardiovascular: regular rate, rhythm, no murmur Respiratory: lungs clear, normal breath sounds, no respiratory distress Gastrointestinal: normal bowel sounds, non tender, soft Extremities: non-tender, normal inspection, no pedal edema, other (no tenderness to palpation of the hips. No pain with flexion or rotation of the hips.) Neurologic/Psychiatric: telecom specialist II-XII nml as tested, no motor/sensory deficits, alert, normal mood/affect, other (pleasantly disoriented/demented) Skin: normal color, warm/dry [place] Coma Score Best Eye Response: (4) Open Spontaneously Best Verbal Response: (4) Confused Conversation Best Motor Response: (6) Obeys Commands [place] Total: 14 Progress/Results/Core Measures Results/Orders Lab Results Laboratory Tests Test 07/15/20 13:35 Range/Units Urine Color YELLOW Urine Clarity SL CLOUDY Urine pH 6.0 5-9 Urine Specific [place] 1.010 L 1.016-1.022 Urine Protein TRACE H NEGATIVE Urine Glucose (UA) NEGATIVE NEGATIVE Urine Ketones NEGATIVE NEGATIVE Urine Nitrite POSITIVE H NEGATIVE Urine Bilirubin NEGATIVE NEGATIVE Urine Urobilinogen 0.2 < = 1.0 MG/DL Urine Leukocyte Esterase 3+ H NEGATIVE Urine RBC (Auto) 1+ H NEGATIVE Urine RBC 5-10 H /HPF Urine WBC TNTC H /HPF Urine Crystals NONE /LPF Urine Bacteria LARGE H /HPF Urine Casts NONE /LPF Urine Mucus NEGATIVE /LPF Urine Culture Indicated YES My Orders Orders - NANDO BARAHONA MD Ct Head/Cervical Spine Wo (07/15/20 13:03) Pelvis (07/15/20 13:03) Ua Culture If Indicated (07/15/20 13:03) Albrecht Cath (07/15/20 13:03) Urine Culture (07/15/20 13:35) Medications Given in ED Vital Signs/I&O 07/15/20 07/15/20 12:59 16:51 Temp 36.3 36.6 Pulse 54 70 Resp 17 16 B/P (MAP) 143/68 (93) 120/67 Pulse Ox 98 96 O2 Delivery Room Air Blood Pressure Mean: 93 Progress Progress Note : Progress Note Patient was seen and examined upon arrival. No injuries were found on imaging. Vital signs were unremarkable. UTI was discovered on urinalysis. The Albrecht catheter appeared heavily soiled with sediment. It was replaced. Patient was treated with Rocephin IM. Diagnostic Imaging Diagonstic Imaging: Xray Plain Films/CT/US/NM/MRI: pelvis Comments Pelvis x-ray viewed by me and report reviewed. See report below: NAME: DINESH HIGGINS [facility] REC#: [id number] PT STATUS: DEP ER : [id number] PHYSICIAN: NANDO BARAHONA MD ADMIT DATE: 07/15/20/ER Signed Date of Exam:07/15/20 PELVIS EXAMINATION: AP pelvis at 01:21 p.m. INDICATION: Pelvic pain. A single AP view of the pelvis was obtained. COMPARISON: There are no prior pelvis exams available for comparison. FINDINGS: There is no fracture, dislocation or acute bony abnormality evident. The prior left hip exam of 10/25/2016 noted severe degenerative disease of the hip joint. In the interval since the prior exam, the patient has had a total hip prosthesis inserted. The prosthetic components seem to be in good position. There is severe degenerative disease of the right hip joint and there is a dense area of sclerosis involving the inferior margin of the right sacroiliac joint. This is most likely degenerative in nature. There is also severe degenerative disc and bony disease involving the visualized lower lumbar spine. The soft tissues are unremarkable. IMPRESSION: There is no evidence for an acute bony abnormality. Dictated by: Dictated on workstation # [id number] Dict: 07/15/20 1336 Trans: 07/16/20 0853 [facility] [id number] Interpreted by: BRANDI OROURKE MD Electronically signed by: BRANDI OROURKE MD 07/16/20 0853 Diagonstic Imaging: CT Plain Films/CT/US/NM/MRI: c-spine, head Comments CT head and cervical spine viewed by me and report reviewed. Report is not digitally available. There were senescent changes and evidence of old stroke but no acute intracranial findings or acute injuries. Departure Impression Primary Impression: Fall on same level Qualified Codes: W18.30XA - Fall on same level, unspecified, initial encounter Additional Impressions: Urinary tract infection Qualified Codes: N39.0 - Urinary tract infection, site not specified Encounter for Albrecht catheter replacement Disposition: HOME, SELF-CARE Condition: Improved Departure-Patient Inst. Decision time for Depature: 16:11 Referrals: MARYSOL CAPELLAN DO (PCP/Family) Primary Care Physician Patient Instructions: Albrecht Catheter, Male, Urinary Tract Infection, Adult (DC) Add. Discharge Instructions: Encourage plenty of clear liquids. Complete antibiotics as prescribed. Follow-up on urine culture results with the primary care provider on Sunday. Try to eliminate patient's opportunity for unassisted transfer attempts. Return to care if there are worsening symptoms. All discharge instructions reviewed with patient and/or family. Voiced understanding. Scripts Sulfamethoxazole/Trimethoprim (Bactrim Ds Tablet) 1 Each Tablet 1 EACH PO BID, #14 TAB Prov: NANDO BARAHONA MD 07/15/20 Copy Copies To 1: MARYSOL CAPELLAN JOSHUA T MD Jul 15, 2020 13:29
--- NOTE | 2020-07-15 13:41 | Diagnostic Imaging Report ---
EXAMINATION: AP pelvis at 01:21 p.m. INDICATION: Pelvic pain. A single AP view of the pelvis was obtained. COMPARISON: There are no prior pelvis exams available for comparison. FINDINGS: There is no fracture, dislocation or acute bony abnormality evident. The prior left hip exam of 10/25/2016 noted severe degenerative disease of the hip joint. In the interval since the prior exam, the patient has had a total hip prosthesis inserted. The prosthetic components seem to be in good position. There is severe degenerative disease of the right hip joint and there is a dense area of sclerosis involving the inferior margin of the right sacroiliac joint. This is most likely degenerative in nature. There is also severe degenerative disc and bony disease involving the visualized lower lumbar spine. The soft tissues are unremarkable. IMPRESSION: There is no evidence for an acute bony abnormality. Dictated by: Dictated on workstation # [id number]
[2020-07-15 13:44] LABS: BILIRUBIN,URINE NEGATIVE (NEGATIVE); CLARITY,URINE SL CLOUDY; COLOR,URINE YELLOW; GLUCOSE, URINE (UA) NEGATIVE (NEGATIVE); KETONES,URINE NEGATIVE (NEGATIVE); LEUKOCYTE ESTERASE ,URINE 3+ (NEGATIVE); NITRITE,URINE POSITIVE (NEGATIVE); PROTEIN,URINE TRACE (NEGATIVE)
[2020-07-15 13:57] LABS: BACTERIA,URINE LARGE /HPF; WBC,URINE TNTC /HPF
[2020-07-15] MEDS ORDERED: LIDOCAINE 1% INJ 20 ML 20 ML VIAL INJ ONE (15:15)
[2020-07-15] MEDS ORDERED: cefTRIAXone 1,000 MG/2.86 ml vial (IM ONLY) IM SCH (15:15)
[2020-07-15] MEDS ORDERED: SULF1TAB35 PO (16:14)
[2020-07-15 16:51] VITALS: BP 120/67
== END 2020-07-15 17:10 | disposition home or self-care (01) ==
LOC: EDUNIT# 12:58 → ER 13:00
DX: N39.0 Urinary tract infection, site not specified (principal); I48.91 Unspecified atrial fibrillation; I10 Essential (primary) hypertension; K21.9 Gastro-esophageal reflux disease without esophagitis; R40.2142 Coma scale, eyes open, spontaneous, at arrival to emergency department; R40.2242 Coma scale, best verbal response, confused conversation, at arrival to emergency department; R40.2362 Coma scale, best motor response, obeys commands, at arrival to emergency department; Z46.6 Encounter for fitting and adjustment of urinary device; Z86.73 Personal history of transient ischemic attack (TIA), and cerebral infarction without residual deficits; Z88.7 Allergy status to serum and vaccine; Z88.0 Allergy status to penicillin; Z88.5 Allergy status to narcotic agent; Z79.01 Long term (current) use of anticoagulants; Z79.82 Long term (current) use of aspirin; Z87.891 Personal history of nicotine dependence; W19.XXXA Unspecified fall, initial encounter
CPT/HCPCS: 51702; 70450; 72125; 72170; 81000; 87077; 87088; 87186

== ENCOUNTER 2021-01-14 10:54 | Emergency (ER) | payer MEDICARE, MEDICAID ==
[~2021-01-14] VITALS: Ht 172 cm; Wt 83.0 kg
[~2021-01-14 10:54] MED LIST changes: +SULF1TAB35 PO
--- NOTE | 2021-01-14 11:06 | ED General ---
General Stated Complaint: RECTAL BLEEDING Source of Information: Patient Exam Limitations: No Limitations History of Present Illness Date Seen by Provider: Jan 14, 2021 Time Seen by Provider: 10:55 Initial Comments The patient presents ER by private conveyance from [facility], operated by [facility] and rehab with chief complaint that they had a lab draw today revealing his hemoglobin was 4. A few days ago before he was having some bright red blood per rectum and a positive Hemoccult test. He is known to Dr. Daniel. He denies any chest pain shortness of air exercise intolerance or other worrisome symptoms. He denies a history of coronary disease but he does have a significant history of arterial disease with stroke, carotid disease and is on Eliquis 5 mg for atrial fibrillation. He is on metoprolol 25 mg. He denies getting lightheaded or near syncope. He is not having any abdominal pain nausea vomiting sweats fever chills cough shortness of air. He is had both of his Covid vaccinations. Patient has a history of mild congestive heart failure, atrial fibrillation paroxysmal type on beta-blockers and Eliquis and his most recent echocardiogram from 2017 showed normal left ventricular function. Allergies and Home Medications Allergies Coded Allergies: Tetanus Vaccines and Toxoid (Verified Allergy, Severe, Anaphylaxis, ) meperidine (Verified Allergy, Severe, Shortness of Breath, 07/15/20) penicillin G (Verified Allergy, Severe, FEVER, 07/15/20) Home Medications Acetaminophen 325 Mg Tablet, 650 MG PO Q6H PRN for PAIN-MILD (1-4) OR TEMPATURE, (Reported) Apixaban 5 Mg Tablet, 5 MG PO BID Prescribed by: MEGHNA BOLANOS on 05/18/20 1057 Aspirin 81 Mg Tab.chew, 81 MG PO DAILY@0900 Prescribed by: MEGHNA BOLANOS on 05/18/20 1057 Atorvastatin Calcium 80 Mg Tablet, 80 MG PO HS Prescribed by: MEGHNA BOLANOS on 05/18/20 1057 Bacitracin Zinc 1 Each Oint..ea., 1 APPLIC TP NEEDED PRN for INFECTION, (Reported) Benzonatate 100 Mg Capsule, 100 MG PO TID PRN for COUGH, (Reported) Bisacodyl 10 Mg Supp.rect, 10 MG RC NEEDED PRN for CONSTIPATION-4TH LINE, (Reported) Cholecalciferol (Vitamin D3) 125 Mcg Tablet, 125 MCG PO DAILY, (Reported) Diphenhydramine HCl/Zinc Acet 28.4 Gm Cream..g., 1 APPLIC TP TID PRN for ITCHING, (Reported) Escitalopram Oxalate 10 Mg Tablet, 10 MG PO DAILY, (Reported) Hydralazine HCl 25 Mg Tablet, 25 MG PO Q8H, (Reported) HOLD FOR SBP <100 Melatonin 3 Mg Tablet, 3 MG PO HS PRN for SLEEP, (Reported) Metoprolol Tartrate 25 Mg Tablet, 25 MG PO BID, (Reported) HOLD FOR SBP <100, PULSE <60 Pantoprazole Sodium 40 Mg Tablet.dr, 40 MG PO DAILY, (Reported) Potassium Chloride 20 Meq Tablet.er, 20 MEQ PO DAILY, (Reported) Tamsulosin HCl 0.4 Mg Cap, 0.4 MG PO HS, (Reported) Patient Home Medication List Home Medication List Reviewed: Yes Review of Systems Review of Systems Constitutional: see HPI; No chills, No diaphoresis EENTM: No ear discharge, No hearing loss Respiratory: No cough, No phlegm Cardiovascular: No chest pain, No edema, No Hx of Intervention, No palpitations Gastrointestinal: see HPI; No abdominal pain, No constipation, No diarrhea Genitourinary: No discharge, No dysuria Musculoskeletal: No back pain, No joint pain All Other Systems Reviewed Negative Unless Noted: Yes Past Xxjdfol-Jktzzx-Ixxblb Hx Patient Social History Alcohol Use: Denies Use Smoking Status: Never a Smoker Former Smoker, Quit: Dec 20, 1981 2nd Hand Smoke Exposure: No Recent Hopitalizations: No Immunizations Up To Date Tetanus Booster (TDap): Unknown PED Vaccines UTD: No Seasonal Allergies Seasonal Allergies: No Past Medical History Surgeries: Yes Appendectomy, Orthopedic Respiratory: No (pleural effusion) Currently Using CPAP: No Currently Using BIPAP: No Cardiac: Yes Atrial Fibrillation, Hypertension Neurological: No Sexually Transmitted Disease: No HIV/AIDS: No Genitourinary: Yes (bladder dysfunction) Renal Failure, Dialysis Gastrointestinal: Yes Gastroesophageal Reflux Musculoskeletal: Yes (RIGHT BROKEN ARM, abscess of the spine, muscle weakness) Endocrine: No HEENT: Yes Loss of Vision: Left Hearing Impairment: Hard of Hearing Cancer: No Psychosocial: No Integumentary: No Blood Disorders: No Adverse Reaction/Blood Tranf: No Family Medical History No Pertinent Family Hx Physical Exam Vital Signs Vital Signs - First Documented 01/14/21 11:22 Temp 36.1 Pulse 65 Resp 16 B/P (MAP) 122/58 (79) Pulse Ox 98 O2 Delivery Room Air Capillary Refill : Height, Weight, BMI Height: 5'6.00" Weight: 238lbs. 3.0oz. 108.348688nr; 44.00 BMI Method:Stated General Appearance: No Apparent Distress, Chronically ill Eyes: Bilateral Eye Normal Inspection, Bilateral Eye PERRL, Bilateral Eye EOMI HEENT: PERRL/EOMI, Normal ENT Inspection, Pharynx Normal Neck: Normal Inspection, Non Tender Respiratory: No Accessory Muscle Use, No Respiratory Distress Cardiovascular: Regular Rate, Rhythm (60-80, regular with P waves on the monitor), No Edema, Normal Peripheral Pulses Gastrointestinal: Normal Bowel Sounds, Non Tender, Soft Extremity: Normal Inspection, Normal Range of Motion, No Pedal Edema Neurologic/Psychiatric: Alert, Oriented x3, No Motor/Sensory Deficits Skin: Warm/Dry, Pallor Progress/Results/Core Measures Suspected Sepsis SIRS Temperature: Pulse: Respiratory Rate: Laboratory Tests 01/14/21 11:12: White Blood Count 7.3 Blood Pressure / Mean: Laboratory Tests 01/14/21 11:12: Creatinine 1.52H, Platelet Count 289, Total Bilirubin 0.2 Results/Orders Lab Results Laboratory Tests Test 01/14/21 11:12 Range/Units White Blood Count 7.3 4.3-11.0 10^3/uL Red Blood Count 1.89 L 4.30-5.52 10^6/uL Hemoglobin 5.1 *L 13.3-17.7 g/dL Hematocrit 17 *L 40-54 % Mean Corpuscular Volume 90 80-99 fL Mean Corpuscular Hemoglobin 27 25-34 pg Mean Corpuscular Hemoglobin Concent 30 L 32-36 g/dL Red Cell Distribution Width 15.5 H 10.0-14.5 % Platelet Count 289 130-400 10^3/uL Mean Platelet Volume 9.7 9.0-12.2 fL Immature Granulocyte % (Auto) 1 % Neutrophils (%) (Auto) 70 42-75 % Lymphocytes (%) (Auto) 18 12-44 % Monocytes (%) (Auto) 9 0-12 % Eosinophils (%) (Auto) 2 0-10 % Basophils (%) (Auto) 0 0-10 % Neutrophils # (Auto) 5.1 1.8-7.8 10^3/uL Lymphocytes # (Auto) 1.3 1.0-4.0 10^3/uL Monocytes # (Auto) 0.6 0.0-1.0 10^3/uL Eosinophils # (Auto) 0.2 0.0-0.3 10^3/uL Basophils # (Auto) 0.0 0.0-0.1 10^3/uL Immature Granulocyte # (Auto) 0.1 0.0-0.1 10^3/uL Sodium Level 140 135-145 MMOL/L Potassium Level 3.8 3.6-5.0 MMOL/L Chloride Level 110 H 98-107 MMOL/L Carbon Dioxide Level 24 21-32 MMOL/L Anion Gap 6 5-14 MMOL/L Blood Urea Nitrogen 36 H 7-18 MG/DL Creatinine 1.52 H 0.60-1.30 MG/DL Estimat Glomerular Filtration Rate 44 BUN/Creatinine Ratio 24 Glucose Level 107 H 70-105 MG/DL Calcium Level 8.4 L 8.5-10.1 MG/DL Corrected Calcium 9.0 8.5-10.1 MG/DL Total Bilirubin 0.2 0.1-1.0 MG/DL Aspartate Amino Transf (AST/SGOT) 20 5-34 U/L Alanine Aminotransferase (ALT/SGPT) 26 0-55 U/L Alkaline Phosphatase 54 40-136 U/L B-Type Natriuretic Peptide 383.8 H <100.0 PG/ML Total Protein 6.1 L 6.4-8.2 GM/DL Albumin 3.3 3.2-4.5 GM/DL My Orders Orders - TRAE OLIVA Cbc With Automated Diff (01/14/21 11:02) Comprehensive Metabolic Panel (01/14/21 11:02) Type And Screen (01/14/21 11:02) Vital Signs: Special (Order) (01/14/21 11:02) Consent-Obtain Consent For (01/14/21 11:02) Monitor S/S Transfusion Reacti (01/14/21 11:02) Ns Iv 500 Ml (Sodium Chloride 0.9%) (01/14/21 11:15) Red Cells Leukocytes Reduced (01/14/21 11:02) Iron Tibc %Sat & Ferritin (01/14/21 11:02) BNP (01/14/21 11:02) Vital Signs/I&O 01/14/21 01/14/21 01/14/21 01/14/21 11:22 12:23 13:35 13:50 Temp 36.1 36.6 36.9 Pulse 65 55 59 58 Resp 16 16 20 20 B/P (MAP) 122/58 (79) 111/51 110/69 104/56 Pulse Ox 98 98 99 98 O2 Delivery Room Air Room Air Room Air 01/14/21 01/14/21 01/14/21 15:30 15:32 15:47 Temp 36.4 36.4 36.5 Pulse 58 58 58 Resp 20 20 20 B/P (MAP) 114/54 114/54 114/58 Pulse Ox 97 97 97 O2 Delivery Room Air Room Air Room Air Capillary Refill : Progress Note #1: Time: 11:16 Progress Note Will the patient is largely asymptomatic at this time he will need transfused 4 units packed red blood cells. Suspect he is having acute blood loss anemia on top of anemia of chronic disease. [facility] lab faxed over lab results and his last hemoglobin May 2020 was 9. 12 years before that was 12.1. Today was 4.6 and verified by repeat analysis. Plan to put him on observation for blood. We will go ahead and get some iron studies and as well before we transfusion. Since we're going to be giving so much blood and fluid and taco/TRALI is a concern we will get a baseline BNP. Progress Note #2: Time: 12:03 Progress Note Briefly discussed the case with Dr. Harkins and he is happy to follow the patient up in the clinic and hold the Eliquis. Progress Note #3: Time: 18:27 Progress Note Same-day surgery we decided that they did not have enough time to give all of his blood so we put the patient on observation to finish his blood. Dr. Bolanos agrees to observe. Called her at 1815. Departure Communication (Admissions) Time/Spoke to Admitting Phy: 18:15 Dr. Chauhan agrees to observe the patient and return to the care home tomorrow. Impression Primary Impression: GI bleed Qualified Codes: K92.2 - Gastrointestinal hemorrhage, unspecified Additional Impressions: Acute blood loss anemia (ABLA) Chronic disease anemia Disposition: 09 ADMITTED INPATIENT Condition: Stable Admissions Decision to Admit Reason: Admit from ER (General) Decision to Admit/Date: Jan 14, 2021 Time/Decision to Admit Time: 18:15 Departure-Patient Inst. Referrals: VANITA HARKINS RICHARD A DO (PCP/Family) Primary Care Physician Patient Instructions: Anemia of Inflammation (DC), Gastrointestinal Bleeding Add. Discharge Instructions: From the ER go to outpatient infusion center to get blood transfused and then have the labs drawn after the blood is transfused. If the labs are critical they can call the ER with the results otherwise Dr. Daniel will get the results and follow-up with you outpatient. Return to the ER for chest pain, shortness of air or other worrisome symptoms. Stop taking the Eliquis and do not restart it until you are given the okay by your doctor or Dr. Harkins the general surgeon. Follow-up with Dr. Harkins in the clinic on 01/18/2021 at 0930. He will discuss doing an endoscopy to find and fix the bleed. Continue taking your other medications as prescribed. After your endoscopy you should follow-up with Dr. Daniel to discuss medical management of your anemia. Copy Copies To 1: VANITA HARKINS TITUS J Jan 14, 2021 11:06
[2021-01-14] MEDS ORDERED: NS IV 500 ML 500 ML IV SCH (11:15)
[2021-01-14 11:23] LABS: BASOPHILS % (AUTO) 0 % (0-10); EOSINOPHILS # (AUTO) 0.2 10^3/uL (0.0-0.3); EOSINOPHILS % (AUTO) 2 % (0-10); LYMPHOCYTES # (AUTO) 1.3 10^3/uL (1.0-4.0); LYMPHOCYTES % (AUTO) 18 % (12-44); MEAN CORPUSCULAR HEMOGLOBIN 27 pg (25-34); MEAN CORPUSCULAR HGB CONC 30 g/dL (32-36); MEAN CORPUSCULAR VOLUME 90 fL (80-99); MEAN PLATELET VOLUME 9.7 fL (9.0-12.2); MONOCYTES # (AUTO) 0.6 10^3/uL (0.0-1.0); MONOCYTES % (AUTO) 9 % (0-12); NEUTROPHILS # (AUTO) 5.1 10^3/uL (1.8-7.8); NEUTROPHILS % (AUTO) 70 % (42-75); PLATELET COUNT 289 10^3/uL (130-400); WHITE BLOOD COUNT 7.3 10^3/uL (4.3-11.0)
[2021-01-14 11:27] LABS: HEMATOCRIT 17 % (40-54); HEMOGLOBIN 5.1 g/dL (13.3-17.7)
[2021-01-14 11:31] LABS: ALBUMIN 3.3 GM/DL (3.2-4.5); POTASSIUM 3.8 MMOL/L (3.6-5.0)
[2021-01-14 11:32] LABS: CALCIUM 8.4 MG/DL (8.5-10.1)
[2021-01-14 11:33] LABS: TOTAL PROTEIN 6.1 GM/DL (6.4-8.2)
[2021-01-14 11:35] LABS: BILIRUBIN,TOTAL 0.2 MG/DL (0.1-1.0)
[2021-01-14 11:37] LABS: CREATININE SERUM 1.52 MG/DL (0.60-1.30)
[2021-01-14] MEDS ORDERED: PANT40TA52 (11:44)
[2021-01-14 13:35] VITALS: BP 110/69
[2021-01-14 13:50] VITALS: BP 104/56
[2021-01-14 15:30] VITALS: BP 114/54
[2021-01-14 15:32] VITALS: BP 114/54
[2021-01-14 15:47] VITALS: BP 114/58
== END 2021-01-14 12:23 | disposition home or self-care (01) ==
LOC: EDUNIT# 10:54 → ER 10:55
DX: K92.2 Gastrointestinal hemorrhage, unspecified (principal); D61.82 Myelophthisis; D63.8 Anemia in other chronic diseases classified elsewhere; I10 Essential (primary) hypertension; I48.91 Unspecified atrial fibrillation; K21.9 Gastro-esophageal reflux disease without esophagitis; Z87.891 Personal history of nicotine dependence; Z88.0 Allergy status to penicillin; Z88.5 Allergy status to narcotic agent; Z88.7 Allergy status to serum and vaccine; Z79.01 Long term (current) use of anticoagulants; Z79.82 Long term (current) use of aspirin
CPT/HCPCS: 80053; 82728; 83540; 83550; 83880; 85025; 86850; 86900; 86901; 86920; 99284; P9016; 36415

== ENCOUNTER 2021-01-14 12:04 | Observation (INO) | payer MEDICARE, MEDICAID ==
[~2021-01-14] VITALS: Ht 174.2 cm; Wt 86.3 kg
[~2021-01-14 12:04] MED LIST changes: +PANT40TA52
[2021-01-14] MEDS ORDERED: NS IV 500 ML 500 ML IV SCH (12:45)
[2021-01-14 14:26] VITALS: BP 115/54
[2021-01-14] MEDS ORDERED: CATHETER FLUSH 10 ML SYR IV PRN (18:45)
[2021-01-14] MEDS ORDERED: ACETAMINOPHEN 325 MG TABLET PO PRN (19:00)
[2021-01-14] MEDS ORDERED: ONDANSETRON 4 MG/2 ML (SDV) Z0FRAN IVP PRN (19:00)
[2021-01-14] MEDS: meTOprolol TARTRATE 25 MG (LOPRESSOR) TABLET PO SCH (19:35)
[2021-01-14] MEDS: CATHETER FLUSH 10 ML SYR IV SCH (19:38)
[2021-01-14 19:48] VITALS: BP 133/60
[2021-01-14] MEDS ORDERED: TAMSULOSIN 0.4 MG (FLOMAX) CAP PO SCH (21:00)
[2021-01-14 23:23] VITALS: BP 150/66
[2021-01-15 00:15] LABS: HEMOGLOBIN 7.8 g/dL (13.3-17.7)
[2021-01-15 04:02] VITALS: BP 118/60
[2021-01-15 05:46] LABS: HEMOGLOBIN 7.4 g/dL (13.3-17.7)
[2021-01-15] MEDS: CATHETER FLUSH 10 ML SYR IV SCH (05:50)
[2021-01-15 07:30] VITALS: BP 133/67
--- NOTE | 2021-01-15 08:33 | Short Stay Summary-Hospitalist ---
History of Present Illness HPI/Chief Complaint Pt is an 80yoCM who was admitted overnight for observation due to anemia. He was seen in the Er due to a hemoglobin of 5.1 and was set up for outpatient transfusion and short follow up with Dr Hoskins. Apparently the transfusions took until late in the evening last night and transportation back to his facility was no longer available. He was monitored overnight given multiple transfusions as well. He was doing well and his hemoglobin was stable this morning. He is requesting DC back to the [place] and his facility has already called to arrange pick up driver time. Source: patient Date Seen 01/15/21 Time Seen by a Provider: 08:31 Attending Physician Meghna Bolanos MD PCP Logan Daniel DO Referring Physician Date of Admission Jan 14, 2021 at 18:20 Home Medications & Allergies Home Medications Reviewed patient Home Medication Reconciliation performed by pharmacy medication reconciliations cable television technician and/or nursing. Patients Allergies have been reviewed. Allergies Allergies Coded Allergies Tetanus Vaccines and Toxoid (Verified Allergy, Severe, Anaphylaxis, 07/15/20) meperidine (Verified Allergy, Severe, Shortness of Breath, 07/15/20) penicillin G (Verified Allergy, Severe, FEVER, 07/15/20) Past Gflpcfz-Zrqymp-Fxyfdy Hx Past Med/Social Hx: Reviewed Nursing Past Med/Soc Hx Patient Social History Employed/Student: retired Smoking Status: Former Smoker Former Smoker, Quit: Dec 20, 1981 2nd Hand Smoke Exposure: No Recent Foreign Travel: No Contact w/other who traveled: No Recent Hopitalizations: No Immunizations Up To Date Tetanus Booster (TDap): Unknown Pediatric: No Seasonal Allergies Seasonal Allergies: No Past Medical History Surgeries: Appendectomy, Orthopedic Currently Using CPAP: No Currently Using BIPAP: No Cardiac: Atrial Fibrillation, Hypertension Sexually Transmitted Disease: No HIV/AIDS: No Genitourinary: Renal Failure, Dialysis Gastrointestinal: Gastroesophageal Reflux Loss of Vision: Left Hearing Impairment: Hard of Hearing History of Blood Disorders: No Adverse Reaction to Blood Catalan: No Family History No Pertinent Family Hx Review of Systems Constitutional: No chills, No fever EENTM: no symptoms reported Respiratory: no symptoms reported Cardiovascular: no symptoms reported Gastrointestinal: No abdominal pain, No constipation, No diarrhea, No hematemesis, No nausea, No vomiting; other (rectal bleeding) Genitourinary: no symptoms reported Musculoskeletal: no symptoms reported Skin: no symptoms reported Psychiatric/Neurological: No Symptoms Reported Physical Exam Physical Exam Vital Signs Vital Signs - First Documented 01/14/21 14:26 Temp 36.4 Pulse 58 Resp 18 B/P (MAP) 115/54 Pulse Ox 97 O2 Delivery Room Air Capillary Refill : Less Than 3 Seconds Height, Weight, BMI Height: 5'6.00" Weight: 238lbs. 3.0oz. 108.147598lp; 28.43 BMI Method:Stated General Appearance: No Apparent Distress, Chronically ill HEENT: PERRL/EOMI, Moist Mucous Membranes; No Scleral Icterus (L), No Scleral Icterus (R) Neck: Normal Inspection, Supple Respiratory: Lungs Clear, No Accessory Muscle Use, No Respiratory Distress Cardiovascular: Regular Rate, Rhythm, No Murmur Gastrointestinal: Normal Bowel Sounds, Non Tender, Soft Extremity: No Calf Tenderness, No Pedal Edema Neurologic/Psychiatric: Alert, Oriented x3, Normal Mood/Affect Results Results/Procedures Labs Laboratory Tests 01/15/21 00:10 01/15/21 05:27 Patient resulted labs reviewed. Short Stay Diagnosis Discharge Diagnosis-Short Stay Admission Diagnosis Anemia Final Discharge Diagnosis Anemia Conclusion Plan Anemia Was to be admitted to outpatient surgery for tranfusion Transfusions took too long for DC back to [place] yesterday Observed overnight Hemoglobin stable Informed of need to hold OAC and increased risk of stroke, he expressed understanding and agreed with plan Has follow up with Dr Hoskins early next week DC back to retirement Diagnosis/Problems Diagnosis/Problems (1) GI bleed Status: Acute (2) Acute blood loss anemia (ABLA) Status: Acute (3) Chronic disease anemia Status: Acute MEGHNA BOLANOS MD Jan 15, 2021 08:33
--- NOTE | 2021-01-15 08:35 | Discharge Inst-Simple/Standard ---
Discharge Inst-Standard Discharge Medications New, Converted or Re-Newed RX: Transmitted to Pharmacy Patient Instructions/Follow Up Plan of Care/Instructions/FU: Please continue to take your medications as written. Please follow up with Dr Hoskins as scheduled next week and with Dr Daniel next week as well. Activity as Tolerated: Yes Discharge Diet: Cardiac Diet Return to The Hospital For: Chest pain, shortness of breath, blood in stool, weakness, passing out, palpitations, if you feel you are getting worse. MEGHNA PINTO MD Jan 15, 2021 08:35
[2021-01-15] MEDS: meTOprolol TARTRATE 25 MG (LOPRESSOR) TABLET PO SCH (08:52)
== END 2021-01-15 09:50 ==
LOC: LAB 12:04 → 4TH 17:40 → SDC 18:19 → 4TH 18:20
PROVIDERS: ADMIT Family Medicine; ATTEND Family Medicine
DX: D62 Acute posthemorrhagic anemia (principal); D63.1 Anemia in chronic kidney disease; K92.2 Gastrointestinal hemorrhage, unspecified; I12.9 Hypertensive chronic kidney disease with stage 1 through stage 4 chronic kidney disease, or unspecified chronic kidney disease; N18.9 Chronic kidney disease, unspecified; I48.91 Unspecified atrial fibrillation; K21.9 Gastro-esophageal reflux disease without esophagitis; Z79.899 Other long term (current) drug therapy; Z88.0 Allergy status to penicillin; Z88.7 Allergy status to serum and vaccine; Z88.8 Allergy status to other drugs, medicaments and biological substances; Z87.891 Personal history of nicotine dependence; Z99.2 Dependence on renal dialysis
CPT/HCPCS: 36415; 36430; 85014; 85018; 94760; 99211; G0378

== ENCOUNTER 2021-01-18 12:13 | Outpatient (RCR) | payer MEDICARE, MEDICAID ==
[~2021-01-18] VITALS: Ht 160 cm; Wt 83.1 kg
[2021-01-18] MEDS ORDERED: ESCI5TAB PO (15:31)
== END 2021-01-18 15:52 | disposition home or self-care (01) ==
LOC: PREOP 12:13
PROVIDERS: ATTEND Surgery
DX: Z01.818 Encounter for other preprocedural examination (principal)

== ENCOUNTER 2021-01-21 11:03 | Day surgery (SDC) | payer MEDICARE, MEDICAID ==
[~2021-01-21] VITALS: Ht 172.7 cm; Wt 83.1 kg
[~2021-01-21 11:03] MED LIST changes: +ESCI5TAB PO
[2021-01-21] MEDS ORDERED: LACTATED RINGERS 1,000 ML IV STA (11:05)
[2021-01-21] MEDS ORDERED: HURRICAINE EXT TUBE (BENZOCAINE) XX PRN (11:15)
[2021-01-21] MEDS ORDERED: LACTATED RINGERS 1,000 ML IV ONE (11:18)
[2021-01-21] MEDS ORDERED: PROPOFOL INJECTION 50 ML IV ONE (11:26)
[2021-01-21] MEDS ORDERED: MIDAZOLAM 2 MG/2 ML (VERSED) VIAL ONE (11:27)
--- NOTE | 2021-01-21 11:33 | Progress Note-Pre Operative ---
Pre-Operative Progress Note H&P Reviewed The H&P was reviewed, patient examined and no changes noted. Time Seen by Provider: 11:31 Date H&P Reviewed: Jan 21, 2021 Time H&P Reviewed: 11:32 Pre-Operative Diagnosis: rectal bleed, anemia VANITA HARKINS DO Jan 21, 2021 11:33
[2021-01-21 11:42] VITALS: BP 136/71
[2021-01-21] MEDS ORDERED: HURRICAINE EXT TUBE (BENZOCAINE) ONE (11:59)
[2021-01-21 12:05] VITALS: BP 119/66
[2021-01-21 12:10] VITALS: BP 105/58
--- NOTE | 2021-01-21 12:14 | Progress Note-Post Operative ---
Post-Operative Progess Note Surgeon (s)/Forensic Economist (s) Surgeon VANITA HARKINS DO Forensic Economist: none Pre-Operative Diagnosis rectal bleed, anemia Post-Operative Diagnosis Same plus Duodenal Polyps Gastritis Hiatal hernia Poor prep Procedure & Operative Findings Date of Procedure 01/21/21 Procedure Performed/Findings EGD with bx Flex Sig Anesthesia Type IV sedation by OFFICE MACHINE INSTALLER Estimated Blood Loss Estimated blood loss (mL): scant Specimens/Packing Specimens Removed duodenal polyp bx antral bx body of stomach bx GE jxn bx VANITA HARKINS DO Jan 21, 2021 12:14
--- NOTE | 2021-01-21 12:15 | Endoscopy Discharge Instruct ---
Endo Procedure/Findings Findings 1.: Polyp (Duodenum) 2.: Gastritis 3.: Hiatal Hernia 4.: Other Findings (Poor prep) Discharge Instructions - Activity: You might feel a little sleepy until tomorrow. This is due to the medicine you received to relax you. Until tomorrow, you should: NOT drive a car, operate machinery or power tools. NOT drink any alcoholic beverages. NOT make any important decisions or sign importortant papers. Do not return to work until tomorrow, unless otherwise instructed. Resume previous activities tomorrow. Diet: Start by taking liquids. If you tolerate liquids, advance to solid food. 1.: EGD in 6-8 weeks 2.: Other Recommendation (colonoscopy in 6-8 weeks) Notify Physician - If you experience excessive bleeding, unusual abdominal pain, fever, or chest pain, contact your doctor immediately. VANITA HARKINS DO Jan 21, 2021 12:15
[2021-01-21 12:20] VITALS: BP 115/60
[2021-01-21 12:25] VITALS: BP_SYST 129; BP_SYST 130; BP_DIAS 64; BP_DIAS 65
[2021-01-21 13:25] VITALS: BP 129/64
--- NOTE | 2021-01-21 14:20 | Anesthesia-General Post-Op ---
MAC Patient Condition Mental Status/LOC: Same as Preop Cardiovascular: Satisfactory Nausea/Vomiting: Absent Respiratory: Satisfactory Pain: Controlled Complications: Absent Post Op Complications Complications None Follow Up Care/Instructions Patient Instructions None needed. Anesthesiology Discharge Order Discharge Order Patient is doing well, no complaints, stable vital signs, no apparent adverse anesthesia problems. No complications reported per nursing. FIDE PLUMMER CRNA Jan 21, 2021 14:20
--- NOTE | 2021-01-21 17:01 | OPERATIVE REPORT ---
DATE OF SERVICE: 01/21/2021 PREOPERATIVE DIAGNOSES: Rectal bleed, anemia. POSTOPERATIVE DIAGNOSES: Rectal bleed, anemia, duodenal polyp, gastritis, hiatal hernia, poor prep. PROCEDURE: 1. EGD with biopsy. 2. Flex sig. SURGEON: García Hoskins DO DENT REMOVER: None. ANESTHESIA: IV sedation by the LEASE OUT MAN. SPECIMEN: Biopsy from duodenum polyps, antrum, body of stomach and GE junction. BLOOD LOSS: Scant. FLUIDS: Per anesthesia. POSTOPERATIVE CONDITION: Stable. INDICATION FOR PROCEDURE: The patient is an 80-year-old male who had some bright red rectal bleeding and anemia and needed a workup. FINDINGS: The patient had a lot of polyps, inflammatory in the duodenum. Picture was taken. Biopsy done. He also had some gastritis, hiatal hernia and probably some esophagitis, but did not have any active ulcers or even healed ulcers in in the rectum. In the colon fortunately, very poor prep formed fecal material, unable to complete. PROCEDURE NOTE: After informed consent was obtained, the patient was brought to the endoscopy suite, placed in bed in left lateral decubitus position. He was administered IV sedation by the LEASE OUT MAN who then monitored his vitals the entire time, heart rate, blood pressure and pulse ox. Started the EGD, placing scope down the mouth through the esophagus into the stomach. Stomach looked like there is some gastritis, pushed pass this into duodenum and the duodenum, there were some polyps that looked like they may have been inflammatory polyps, did a couple biopsies of these. Pulled back and did a biopsy of the antrum. Retroflexed the scope, saw a small hiatal hernia, did a biopsy of the body of stomach and then pulled the scope into the GE junction, did a biopsy, pushed the scope back into the stomach, suctioned all the air out and then pulled the scope up the esophagus, did not see anything in the esophagus and then out the mouth. Then, switched gloves and switched cameras, went down below, started the colonoscopy. Unfortunately, he had fully formed fecal material as well as some liquid material, able to push the scope into the rectum and then kind of get up past the sigmoid colon, into the descending colon, but again all throughout here had formed stool could not get past this area and elected to stop, so we pulled the scope out. Tried to look at the vu, but most of the vu were covered with fecal material, so did not really get to see anything. Pulled the scope out. The patient tolerated the procedure. He was recovered in endoscopy suite. Job ID: [id number] DocumentID: [id number] Dictated Date: 01/21/2021 12:13:48 Applications Packager Date: 01/21/2021 17:01:03 Dictated By: DO ALEX DEVI
== END 2021-01-21 13:25 | disposition home or self-care (01) ==
LOC: ENDO 11:03
PROVIDERS: ATTEND Surgery
DX: K29.50 Unspecified chronic gastritis without bleeding (principal); K31.7 Polyp of stomach and duodenum; K62.5 Hemorrhage of anus and rectum; K21.9 Gastro-esophageal reflux disease without esophagitis; K44.9 Diaphragmatic hernia without obstruction or gangrene; K31.89 Other diseases of stomach and duodenum; D64.9 Anemia, unspecified; I10 Essential (primary) hypertension; I48.91 Unspecified atrial fibrillation; Z90.89 Acquired absence of other organs; E66.9 Obesity, unspecified; Z79.899 Other long term (current) drug therapy; Z88.0 Allergy status to penicillin; Z88.7 Allergy status to serum and vaccine; Z88.5 Allergy status to narcotic agent; Z86.73 Personal history of transient ischemic attack (TIA), and cerebral infarction without residual deficits; Z68.32 Body mass index [BMI] 32.0-32.9, adult; Z79.82 Long term (current) use of aspirin; Z79.01 Long term (current) use of anticoagulants; R17 Unspecified jaundice
CPT/HCPCS: 88305

== ENCOUNTER → 2021-02-03 | Outpatient (CLI) | payer MEDICARE, MEDICAID ==
--- NOTE | 2021-02-03 13:04 | Diagnostic Imaging Report ---
INDICATION: Pain and swelling. COMPARISON: None. FINDINGS: 3 views of the left wrist demonstrate no acute fracture or dislocation. There are no focal osseous lesions. No avascular necrosis is seen. The visualized soft tissue structures are unremarkable. The pronator fat pad is not displaced. There are no radio opaque foreign bodies. IMPRESSION: 1. No acute fracture or dislocation in the left wrist. Dictated by: Dictated on workstation # [id number]
== END ==
LOC: RAD 12:29
PROVIDERS: ATTEND Family Medicine
DX: M25.532 Pain in left wrist (principal); M25.432 Effusion, left wrist
CPT/HCPCS: 73110

== ENCOUNTER → 2021-03-14 | Outpatient (CLI) | payer MEDICARE, MEDICAID ==
[~2021-03-14] MED LIST changes: -BACI1OIN6 TP; +BACI1PAC28 TP
== END ==
LOC: SDC 10:50
PROVIDERS: ATTEND Family Medicine
DX: D64.9 Anemia, unspecified (principal)

== ENCOUNTER 2021-04-21 06:36 | Outpatient (CLI) | payer MEDICARE, MEDICAID ==
[~2021-04-21] VITALS: Ht 172.7 cm; Wt 78.0 kg
[2021-04-22] MEDS ORDERED: CEFD300C3 PO (08:15)
[2021-04-22] MEDS ORDERED: ASPI-1238 PO (08:15)
[2021-04-22] MEDS ORDERED: SULF-11 PO (08:15)
[2021-04-22] MEDS ORDERED: APIX5TAB PO (08:15)
[2021-04-22] MEDS ORDERED: PANT40TA52 PO (08:15)
[2021-04-22] MEDS ORDERED: ONDA4TAB11 PO (08:15)
== END 2021-04-22 12:18 | disposition home or self-care (01) ==
LOC: PREOP 06:36
PROVIDERS: ATTEND Surgery
DX: Z01.818 Encounter for other preprocedural examination (principal)

== ENCOUNTER → 2021-05-30 | Day surgery (SDC) | payer MEDICARE, MEDICAID ==
[~2021-05-30] VITALS: Ht 172.7 cm; Wt 78.0 kg
[~2021-05-30] MED LIST changes: +CEFD300C3 PO; +LACTATED RINGERS 1,000 ML IV ONE; +LACTATED RINGERS 1,000 ML IV STA; +ONDA4TAB11 PO; +PANT40TA52 PO; +SULF-11 PO; -SULF1TAB35 PO; +SULF1TAB38 PO
[2021-05-30 09:45] VITALS: BP 140/69
== END ==
LOC: ENDO 09:09
PROVIDERS: ATTEND Surgery
DX: D64.9 Anemia, unspecified (principal); I10 Essential (primary) hypertension; I48.91 Unspecified atrial fibrillation; K21.9 Gastro-esophageal reflux disease without esophagitis; Z53.8 Procedure and treatment not carried out for other reasons; Z99.2 Dependence on renal dialysis; Z86.73 Personal history of transient ischemic attack (TIA), and cerebral infarction without residual deficits; Z87.891 Personal history of nicotine dependence; Z79.01 Long term (current) use of anticoagulants; Z79.82 Long term (current) use of aspirin; Z79.899 Other long term (current) drug therapy

== ENCOUNTER 2021-07-26 16:26 | Inpatient (IN) | payer MEDICARE, MEDICAID ==
[~2021-07-26] VITALS: Ht 175 cm; Wt 89.6 kg
[~2021-07-26 16:26] MED LIST changes: -LACTATED RINGERS 1,000 ML IV ONE; -LACTATED RINGERS 1,000 ML IV STA
[2021-07-26 16:44] LABS: BASOPHILS # (AUTO) 0.1 10^3/uL (0.0-0.1); BASOPHILS % (AUTO) 0 % (0-10); EOSINOPHILS # (AUTO) 0.4 10^3/uL (0.0-0.3); EOSINOPHILS % (AUTO) 3 % (0-10); HEMATOCRIT 31 % (40-54); HEMOGLOBIN 10.2 g/dL (13.3-17.7); LYMPHOCYTES # (AUTO) 1.5 10^3/uL (1.0-4.0); LYMPHOCYTES % (AUTO) 11 % (12-44); MEAN CORPUSCULAR HEMOGLOBIN 30 pg (25-34); MEAN CORPUSCULAR HGB CONC 33 g/dL (32-36); MEAN CORPUSCULAR VOLUME 91 fL (80-99); MEAN PLATELET VOLUME 11.3 fL (9.0-12.2); MONOCYTES # (AUTO) 0.8 10^3/uL (0.0-1.0); MONOCYTES % (AUTO) 6 % (0-12); NEUTROPHILS # (AUTO) 11.1 10^3/uL (1.8-7.8); NEUTROPHILS % (AUTO) 80 % (42-75); PLATELET COUNT 142 10^3/uL (130-400); WHITE BLOOD COUNT 13.8 10^3/uL (4.3-11.0)
[2021-07-26 16:54] LABS: POTASSIUM 3.9 MMOL/L (3.6-5.0)
[2021-07-26 16:55] LABS: CALCIUM 8.7 MG/DL (8.5-10.1)
[2021-07-26 17:00] LABS: CREATININE SERUM 1.36 MG/DL (0.60-1.30)
--- NOTE | 2021-07-26 17:25 | Diagnostic Imaging Report ---
INDICATION: Fall and right hip fracture. TIME OF EXAM: 5:19 PM CORRELATION is made with prior chest from 05/16/2020. FINDINGS: The heart size is stable. Lungs are clear. No infiltrates are seen. There is no effusion or pneumothorax. IMPRESSION: No acute cardiopulmonary process is detected. Dictated by: Dictated on workstation # [id number]
--- NOTE | 2021-07-26 17:27 | Diagnostic Imaging Report ---
INDICATION: Right hip fracture. TIME OF EXAM: 5:17 p.m. FINDINGS: AP view of the pelvis and two views of the right hip were obtained. There is an intertrochanteric fracture of the right hip. Femoroacetabular alignment is maintained. Right-sided rami are intact. There are postoperative changes of left hip arthroplasty. IMPRESSION: Intertrochanteric right hip fracture. Dictated by: Dictated on workstation # [id number]
--- NOTE | 2021-07-26 17:42 | ED Hip Pain/Injury ---
General Chief Complaint: Hip/Pelvic Problems Stated Complaint: FALL Nursing Triage Note: PT ARRIVES TO ER VIA EMS FROM [facility] PT SUSTAINED A FALL YESTERDAY, REPORTS DID HIT THE R SIDE OF HIS HEAD, DENIES LOC. PT C/O R SHOULDER PAIN AND R HIP PAIN. XRAYS PERFORMED AT FACILITY THIS AM, PT HAS A R INTERTROCHANTERIC HIP FX. L LEG APPEARS TO BE SHORTENED AND ROTATED, PT DENIES PAIN TO L HIP. REPORTS R SHOULDER PAIN HAS IMPROVED. Source: patient, RN/MD, senior care records Exam Limitations: no limitations History of Present Illness Date Seen by Provider: Jul 26, 2021 Time Seen by Provider: 16:45 Initial Comments Patient is an 81-year-old female who presents to the emergency department today with a chief complaint of right hip pain. Transferred per Dr. Capellan from [facility] after reportedly having a mechanical fall while moving from bed to wheelchair yesterday. Patient was reported to have an int ertrochanteric hip fracture. He is declining pain medicine at this time. Appears fairly comfortable. He is able to feel his right foot and wiggle his toes. States he may have hit his head but he does have a history of dementia and is reportedly frequently confused. He is not anticoagulated. Has a slight cough. History of prior stroke. Patient is a DNR. It seems that he is in a wheelchair most of the time although the patient's does state that he can get up and ambulate. (highly doubt this) Timing/Duration: yesterday Severity: mild Location: hip (R) Method of Injury: fell Modifying Factors: Improves With Immobilization Associated Symptoms: denies symptoms Allergies and Home Medications Allergies Coded Allergies: Tetanus Vaccines and Toxoid (Verified Allergy, Severe, Anaphylaxis, 07/15/20) meperidine (Verified Allergy, Severe, Shortness of Breath, 07/15/20) penicillin G (Verified Allergy, Severe, FEVER, 07/15/20) Patient Home Medication List Home Medication List Reviewed: Yes Aspirin (Aspirin EC) 81 Mg Tablet., 81 MG PO DAILY, (Reported) Entered as Reported by: JANUARY CORTES on 04/22/21 0815 Atorvastatin Calcium (Atorvastatin Calcium) 80 Mg Tablet, 80 MG PO HS Prescribed by: MEGHNA BOLANOS on 05/18/20 1057 Cefdinir (Cefdinir) 300 Mg Capsule, 300 MG PO BID, (Reported) Entered as Reported by: JANUARY CORTES on 04/22/21 08 Escitalopram Oxalate (Lexapro) 5 Mg Tablet, 5 MG PO BID, (Reported) Entered as Reported by: JANUARY CORTES on 01/18/21 1531 Hydralazine HCl (Hydralazine HCl) 25 Mg Tablet, 25 MG PO Q8H, (Reported) Entered as Reported by: INO HUNTER on 05/17/20 0846 Metoprolol Tartrate (Metoprolol Tartrate) 25 Mg Tablet, 25 MG PO BID, (Reported) Entered as Reported by: NAVIN NGUYEN on 09/18/18 1006 Ondansetron (Ondansetron Odt) 4 Mg Tab.rapdis, 4 MG PO DAILY, (Reported) Entered as Reported by: JANUARY CORTES on 04/22/21814 Pantoprazole Sodium (Pantoprazole Sodium) 40 Mg Tablet.dr, 40 MG PO DAILY, (Reported) Entered as Reported by: JANUARY CORTES on 04/22/21 08 Potassium Chloride (Potassium Chloride) 20 Meq Tablet.er, 20 MEQ PO DAILY, (Reported) Entered as Reported by: INO HUNTER on 05/17/20 0846 Sulfamethoxazole/Trimethoprim (Sulfamethoxazole-Tmp Ss Tablet) 1 Each Tablet, 1 EACH PO DAILY, (Reported) Entered as Reported by: JANUARY CORTES on 04/22/21814 Tamsulosin HCl (Flomax) 0.4 Mg Cap, 0.4 MG PO HS, (Reported) Entered as Reported by: INO HUNTER on 05/17/20 0846 Review of Systems Constitutional: see HPI EENTM: no symptoms reported Respiratory: cough (occasional) Cardiovascular: no symptoms reported Gastrointestinal: no symptoms reported Genitourinary: no symptoms reported Musculoskeletal: joint pain (right hip) Skin: no symptoms reported All Other Systems Reviewed Negative Unless Noted: Yes Past Peszjzl-Fvusxh-Dvyzpd Hx Patient Social History Tobacco Use?: No Smoking Status: Former Smoker Use of E-Cig and/or Vaping dev: No Substance use?: No Alcohol Use?: No Pt feels they are or have been: No Immunizations Up To Date Tetanus Booster (TDap): Unknown PED Vaccines UTD: No First/Initial COVID19 Vaccinat: UNK Second COVID19 Vaccination Theodore: UNK COVID19 Vaccine Clinical Evaluator: UNK Seasonal Allergies Seasonal Allergies: No Past Medical History Surgeries: Yes Appendectomy, Orthopedic Respiratory: No (pleural effusion) Currently Using CPAP: No Currently Using BIPAP: No Cardiac: Yes Atrial Fibrillation, Hypertension Neurological: No Sexually Transmitted Disease: No HIV/AIDS: No Genitourinary: Yes (bladder dysfunction) Renal Failure, Dialysis Gastrointestinal: Yes Gastroesophageal Reflux Musculoskeletal: Yes (RIGHT BROKEN ARM, abscess of the spine, muscle weakness) Endocrine: No HEENT: Yes Loss of Vision: Left Hearing Impairment: Hard of Hearing Cancer: No Psychosocial: No Integumentary: No Blood Disorders: No Adverse Reaction/Blood Tranf: No Family Medical History No Pertinent Family Hx Physical Exam Vital Signs Vital Signs - First Documented 07/26/21 16:27 Temp 37.5 Pulse 71 Resp 20 B/P (MAP) 152/72 (98) Pulse Ox 92 O2 Delivery Room Air Capillary Refill : Height, Weight, BMI Height: 5'6.00" Weight: 238lbs. 3.0oz. 108.826681au; 29.00 BMI Method:Stated General Appearance: No Apparent Distress, WD/WN HEENT: PERRL/EOMI Neck: Normal Inspection Cardiovascular: Regular Rate, Rhythm, Normal Peripheral Pulses Respiratory: Lungs Clear, Normal Breath Sounds, No Accessory Muscle Use, No Respiratory Distress Gastrointestinal: Non Tender, Soft Extremity: Normal Capillary Refill, No Calf Tenderness, Other (decreased ROM RLE; distal NVI; (actually left leg appears to be a little shortened and ext rotated)) Neurologic/Psychiatric: Alert, Oriented x3, No Motor/Sensory Deficits, Normal Mood/Affect Skin: Normal Color, Warm/Dry Progress/Results/Core Measures Results/Orders Lab Results Laboratory Tests Test 07/26/21 16:34 Range/Units White Blood Count 13.8 H 4.3-11.0 10^3/uL Red Blood Count 3.43 L 4.30-5.52 10^6/uL Hemoglobin 10.2 L 13.3-17.7 g/dL Hematocrit 31 L 40-54 % Mean Corpuscular Volume 91 80-99 fL Mean Corpuscular Hemoglobin 30 25-34 pg Mean Corpuscular Hemoglobin Concent 33 32-36 g/dL Red Cell Distribution Width 16.5 H 10.0-14.5 % Platelet Count 142 130-400 10^3/uL Mean Platelet Volume 11.3 9.0-12.2 fL Immature Granulocyte % (Auto) 1 % Neutrophils (%) (Auto) 80 H 42-75 % Lymphocytes (%) (Auto) 11 L 12-44 % Monocytes (%) (Auto) 6 0-12 % Eosinophils (%) (Auto) 3 0-10 % Basophils (%) (Auto) 0 0-10 % Neutrophils # (Auto) 11.1 H 1.8-7.8 10^3/uL Lymphocytes # (Auto) 1.5 1.0-4.0 10^3/uL Monocytes # (Auto) 0.8 0.0-1.0 10^3/uL Eosinophils # (Auto) 0.4 H 0.0-0.3 10^3/uL Basophils # (Auto) 0.1 0.0-0.1 10^3/uL Immature Granulocyte # (Auto) 0.1 0.0-0.1 10^3/uL Percent Immature Platelet Fraction 3.1 0.0-7.6 % Sodium Level 140 135-145 MMOL/L Potassium Level 3.9 3.6-5.0 MMOL/L Chloride Level 109 H 98-107 MMOL/L Carbon Dioxide Level 23 21-32 MMOL/L Anion Gap 8 5-14 MMOL/L Blood Urea Nitrogen 30 H 7-18 MG/DL Creatinine 1.36 H 0.60-1.30 MG/DL Estimat Glomerular Filtration Rate 50 BUN/Creatinine Ratio 22 Glucose Level 144 H 70-105 MG/DL Calcium Level 8.7 8.5-10.1 MG/DL My Orders Orders - SOPHIE KRISHNAMURTHY MD Ed Iv/Invasive Line Start (07/26/21 16:34) Cbc With Automated Diff (07/26/21 16:34) Basic Metabolic Panel (07/26/21 16:34) Chest 1 View, Ap/Pa Only (07/26/21 16:34) Ekg Tracing (07/26/21 16:34) Pelvis With Right Hip 2-3views (07/26/21 16:35) Vital Signs/I&O 07/26/21 07/26/21 16:27 17:35 Temp 37.5 Pulse 71 70 Resp 20 18 B/P (MAP) 152/72 (98) 158/62 Pulse Ox 92 91 O2 Delivery Room Air Room Air Blood Pressure Mean: 94 Progress Progress Note : Time: 17:45 Progress Note Discussed with Dr Gallegos. Initial ECG Impression Date: Jul 26, 2021 Initial ECG Impression Time: 16:45 Initial ECG Rate: 66 Initial ECG Rhythm: Normal Sinus Initial ECG Intervals: Normal Initial ECG Impression: Normal Diagnostic Imaging Diagonstic Imaging: Xray Comments [facility] [place] [place] NAME: DINESH HIGGINS [facility] REC#: [id number] PT STATUS: REG ER : 1940 PHYSICIAN: SOPHIE KRISHNAMURTHY MD ADMIT DATE: 07/26/21/ER Signed Date of Exam:07/26/21 PELVIS WITH RIGHT HIP 2-3VIEWS INDICATION: Right hip fracture. TIME OF EXAM: 5:17 p.m. FINDINGS: AP view of the pelvis and two views of the right hip were obtained. There is an intertrochanteric fracture of the right hip. Femoroacetabular alignment is maintained. Right-sided rami are intact. There are postoperative changes of left hip arthroplasty. IMPRESSION: Intertrochanteric right hip fracture. Dictated by: Dictated on workstation # [id number] Dict: 07/26/214 Trans: 07/26/21 173 [id number] Interpreted by: JEANNIE MAC MD Electronically signed by: JEANNIE MAC MD 07/26/21 173 [facility] [place] [place] NAME: DINESH HIGGINS [facility] REC#: [id number] PT STATUS: REG ER : 1940 PHYSICIAN: SOPHIE KRISHNAMURTHY MD ADMIT DATE: 07/26/21/ER Signed Date of Exam:07/26/21 CHEST 1 VIEW, AP/PA ONLY INDICATION: Fall and right hip fracture. TIME OF EXAM: 5:19 PM CORRELATION is made with prior chest from 05/16/2020. FINDINGS: The heart size is stable. Lungs are clear. No infiltrates are seen. There is no effusion or pneumothorax. IMPRESSION: No acute cardiopulmonary process is detected. Dictated by: Dictated on workstation # [id number] Dict: 07/26/21 1723 Trans: 07/26/211731 [facility] [id number] Interpreted by: JEANNIE MAC MD Electronically signed by: JEANNIE MAC MD 07/26/211731 Departure Communication (Admissions) Time/Spoke to Admitting Phy: 17:[address] Bolanos Time/Spoke to Consulting Phy: 17:40 discussed with Rosy; will admit to hospitalist Impression Primary Impression: Intertrochanteric fracture of right femur Qualified Codes: S72.144A - Nondisplaced intertrochanteric fracture of right femur, initial encounter for closed fracture Disposition: ADMITTED INPATIENT Condition: Stable Admissions Decision to Admit Reason: Admit from ER (General) Decision to Admit/Date: Jul 26, 2021 Time/Decision to Admit Time: 17:41 Departure-Patient Inst. Referrals: MARYSOL CAPELLAN DO (PCP/Family) Primary Care Physician SOPHIE KRISHNAMURTHY MD Jul 26, 2021 17:42
[2021-07-26] MEDS ORDERED: CATHETER FLUSH 10 ML SYR IV PRN (19:15)
[2021-07-26] MEDS ORDERED: ONDANSETRON 4 MG/2 ML (SDV) Z0FRAN IV PRN (19:15)
[2021-07-26 19:56] VITALS: BP 143/74
[2021-07-26] MEDS: NS IV 1000 ML 1,000 ML IV SCH (21:44)
[2021-07-26 23:30] VITALS: BP 181/74
--- NOTE | 2021-07-26 23:34 | CONSULTATION REPORT ---
DATE OF SERVICE: 07/26/2021 INPATIENT CONSULTATION REASON FOR CONSULTATION: Right intertrochanteric femur fracture. HISTORY OF PRESENT ILLNESS: The patient is an 81-year-old gentleman who fell yesterday at the senior care. This occurred when moving from his bed to his wheelchair. Apparently, radiographs were obtained yesterday by his primary care physician and they referred him to the emergency room today. The patient reports right hip pain. He denies paresthesias. He denies antecedent pain. Radiographs reveal a minimally displaced right intertrochanteric femur fracture. PAST MEDICAL HISTORY: Cerebrovascular accident, hypertension. PHYSICAL EXAMINATION: The right lower extremity is slightly shortened and externally rotated. Pulses are symmetric. He has intact dorsiflexion and plantarflexion of the toes. No skin lesions noted. He is tender over the lateral aspect of his right hip. IMPRESSION: Right intertrochanteric femur fracture. PLAN: Right hip intramedullary nail. The risks, benefits, options, ramifications and recovery have been discussed at length with the patient. He understands and wishes to proceed. Job ID: [id number] DocumentID: [id number] Dictated Date: 07/26/2021 18:47:27 Employment Case Manager Date: 07/26/2021 23:33:40 Dictated By: UGO WEST MD
[2021-07-27] VITALS (12 sets, daily range): BP systolic 94–195; BP diastolic 61–99
--- NOTE | 2021-07-27 09:14 | Progress Note-Pre Operative ---
Pre-Operative Progress Note H&P Reviewed The H&P was reviewed, patient examined and no changes noted. Date Seen by Provider: Jul 27, 2021 Time Seen by Provider: 09:14 Date H&P Reviewed: Jul 27, 2021 Time H&P Reviewed: 09:14 Pre-Operative Diagnosis: right intertrochanteric femur fracture UGO WEST MD Jul 27, 2021 09:14
--- NOTE | 2021-07-27 09:15 | Progress Note-Post Operative ---
Post-Operative Progess Note Surgeon (s)/Senior Manager Creative Services (s) Surgeon UGO WEST MD Senior Manager Creative Services: Cj Multani Pre-Operative Diagnosis right intertrochanteric femur fracture Post-Operative Diagnosis right intertrochanteric femur fracture Procedure & Operative Findings Date of Procedure 07/27/21 Procedure Performed/Findings right hip intramedullary nail Anesthesia Type GETA Estimated Blood Loss Estimated blood loss (mL): 100ml Specimens/Packing Specimens Removed none Packing: none UGO WEST MD Jul 27, 2021 09:15
[2021-07-27] MEDS ORDERED: ONDANSETRON 4 MG/2 ML (SDV) Z0FRAN IVP PRN ×2 (10:00→12:00)
[2021-07-27] MEDS ORDERED: morphine INJ 4 MG/ML 1 ML (VIAL/SYRINGE) IVP PRN (10:00)
[2021-07-27] MEDS ORDERED: NALOXONE 0.4 MG/ML 1 ML (NARCAN) VIAL IV PRN (10:00)
--- NOTE | 2021-07-27 10:04 | History & Physical-Hospitalist ---
History of Present Illness HPI/Chief Complaint Patient is an 81-year-old male with past medical history of hypertension, CVA, hyperlipidemia, BPH who presented to the emergency department due to fall and concern for hip fracture. He states he was attempting to transfer yesterday at his NH and fell onto his right hip. Imaging revealed a right intertrochanteric hip fracture. He was admitted for operative repair. He denies any pain at this time. Source: patient Date Seen 07/27/21 Time Seen by a Provider: 10:03 Attending Physician María Bolanos MD PCP Marysol Capellan DO Referring Physician Date of Admission Jul 26, 2021 at 17:59 Home Medications & Allergies Home Medications Reviewed patient Home Medication Reconciliation performed by pharmacy medication reconciliations plating technician and/or nursing. Patients Allergies have been reviewed. Allergies Allergies Coded Allergies Tetanus Vaccines and Toxoid (Verified Allergy, Severe, Anaphylaxis, 07/15/20) meperidine (Verified Allergy, Severe, Shortness of Breath, 07/15/20) penicillin G (Verified Allergy, Severe, FEVER, 07/15/20) Past Qetnoij-Gxwxpu-Rfjyrr Hx Patient Social History Employed/Student: retired Tobacco Use?: No Smoking Status: Former Smoker Use of E-Cig and/or Vaping dev: No Substance use?: No Alcohol Use?: No Pt feels they are or have been: Unable to obtain Immunizations Up To Date Date of Influenza Vaccine: Nov 06, 2019 First/Initial COVID19 Vaccinat: UNK Second COVID19 Vaccination Theodore: UNK Tetanus Booster (TDap): Unknown Hepatitis A: No Hepatitis B: No PED Vaccines UTD: No Seasonal Allergies Seasonal Allergies: No Current Status Advance Directives: No Communicates: Verbally Primary Language: Japanese Preferred Spoken Language: Japanese Is interpretation needed?: No Implanted or Applied Medical D: None Past Medical History Surgeries: Appendectomy, Orthopedic Currently Using CPAP: No Currently Using BIPAP: No Atrial Fibrillation, Hypertension Sexually Transmitted Disease: No HIV/AIDS: No Renal Failure, Dialysis Gastroesophageal Reflux Loss of Vision: Left Hearing Impairment: Hard of Hearing Blood Disorders: No Adverse Reaction/Blood Tranf: No Paroxysmal A-fib on Eliquis Hypertension R humeral head fracture Family Medical History Reviewed Nursing Family Hx No Pertinent Family Hx Review of Systems Constitutional: No chills, No fever EENTM: no symptoms reported Respiratory: no symptoms reported Cardiovascular: no symptoms reported Gastrointestinal: no symptoms reported Genitourinary: no symptoms reported Musculoskeletal: no symptoms reported Skin: no symptoms reported Psychiatric/Neurological: No Symptoms Reported Physical Exam Physical Exam Vital Signs Vital Signs - First Documented 07/26/21 16:27 Temp 37.5 Pulse 71 Resp 20 B/P (MAP) 152/72 (98) Pulse Ox 92 O2 Delivery Room Air Capillary Refill : Height, Weight, BMI Height: 5'6.00" Weight: 238lbs. 3.0oz. 108.534304co; 29.25 BMI Method:Stated General Appearance: No Apparent Distress, WD/WN, Chronically ill HEENT: PERRL/EOMI, Moist Mucous Membranes Respiratory: Lungs Clear, No Accessory Muscle Use, No Respiratory Distress Cardiovascular: Regular Rate, Rhythm, No Murmur Gastrointestinal: Normal Bowel Sounds, Non Tender, Soft Extremity: Normal Capillary Refill, No Calf Tenderness, No Pedal Edema Neurologic/Psychiatric: Alert, Oriented x3 Skin: Normal Color, Warm/Dry Results Results/Procedures Labs Laboratory Tests 07/26/21 16:34 Patient resulted labs reviewed. Imaging: Reviewed Imaging Report Imaging [facility], [place] NAME: DINESH HIGGINS [facility] REC#: [id number] PT STATUS: REG ER : 1940 PHYSICIAN: SOPHIE KRISHNAMURTHY MD ADMIT DATE: 07/26/21/ER Signed Date of Exam:07/26/21 PELVIS WITH RIGHT HIP 2-3VIEWS INDICATION: Right hip fracture. TIME OF EXAM: 5:17 p.m. FINDINGS: AP view of the pelvis and two views of the right hip were obtained. There is an intertrochanteric fracture of the right hip. Femoroacetabular alignment is maintained. Right-sided rami are intact. There are postoperative changes of left hip arthroplasty. IMPRESSION: Intertrochanteric right hip fracture. Dictated by: Dictated on workstation # [id number] Dict: 07/26/214 Trans: 07/26/211731 [id number] Interpreted by: JEANNIE MAC MD Electronically signed by: JEANNIE MAC MD 07/26/21 1732 Assessment/Plan Admission Diagnosis Right hip fracture Admission Status: Inpatient Order (span 2 midnights) Reason for Inpatient Admission: see below Assessment and Plan Right hip fracture Plan for OR today Discussed risks and benefits and given agea qnd cormorbidities he is intermediate risk for surgery and elects to proceed Continue current pain control regimen as well controlled PT/OT postop orthopedic surgery consulted, appreciate assistance HTN HLD h/o CVA Resume home meds BPH Resume flomax DVT ppx: Lovenox post op when ok with Dr Gallegos Diagnosis/Problems Diagnosis/Problems (1) Intertrochanteric fracture of right femur Status: Acute Qualifiers: Encounter type: initial encounter Fracture type: closed Fracture alignment: nondisplaced Qualified Codes: S72.144A - Nondisplaced intertrochanteric fracture of right femur, initial encounter for closed fracture (2) Hypertension Status: Chronic Copy Copies To 1: MARYSOL CAPELLAN KATELYN M MD Jul 27, 2021 10:04
[2021-07-27] MEDS ORDERED: hydrALAZINE (APESOLINE) 20 MG/ML VIAL IV PRN (10:15)
[2021-07-27] MEDS: LACTATED RINGERS 1,000 ML IV PRN ×2 (10:22→11:45)
[2021-07-27] MEDS: ceFAZolin INJECTION 1,000 MG VIAL IV ONE (10:50)
[2021-07-27] MEDS: ceFAZolin INJECTION 1,000 MG in WATER (STERILE) FOR INJECTION 10 ML IV NR ×2 (10:50→13:12)
[2021-07-27] MEDS: CEFAZOLIN IV ONE ×2 (11:55→13:11)
[2021-07-27] MEDS ORDERED: fentaNYL INJ 100 MCG/2 ML AMP IVP ONE (12:00)
--- NOTE | 2021-07-27 13:54 | Diagnostic Imaging Report ---
INDICATION: Fluoroscopy during right hip ORIF. Fluoroscopy was provided in the OR during right hip ORIF. 51 seconds of fluoroscopic time was utilized. Three images were obtained demonstrating intramedullary ramila and compression screw transfixing the right hip fracture. Alignment is anatomic. IMPRESSION: Fluoroscopy during right hip ORIF. Dictated by: Dictated on workstation # [id number]
[2021-07-27] MEDS ORDERED: BENZ100C18 PO (14:10)
[2021-07-27] MEDS ORDERED: DIPH28.33 TP (14:10)
[2021-07-27] MEDS ORDERED: BISA10SU8 RC (14:10)
[2021-07-27] MEDS ORDERED: MELA3TAB39 PO (14:10)
[2021-07-27] MEDS ORDERED: FERR325T18 PO (14:10)
[2021-07-27] MEDS ORDERED: ACET325C7 PO (14:10)
[2021-07-27] MEDS ORDERED: ATOR80TA76 PO (14:10)
[2021-07-27] MEDS ORDERED: METO-333 PO (15:19)
[2021-07-27] MEDS: hydrALAZINE (APRESOLINE) 25 MG TAB PO SCH ×2 (16:13→21:33)
[2021-07-27] MEDS: NS IV 1000 ML 1,000 ML IV SCH (16:13)
--- NOTE | 2021-07-27 18:15 | OPERATIVE REPORT ---
DATE OF SERVICE: 07/26/2021 PREOPERATIVE DIAGNOSIS: Right intertrochanteric femur fracture, closed, displaced. POSTOPERATIVE DIAGNOSIS: Right intertrochanteric femur fracture, closed, displaced. PROCEDURE PERFORMED: Right hip intramedullary nail. SURGEON: Jacob West MD. SITE IDENTIFICATION SPECIALIST: Cj Multani, who assisted throughout the procedure and closed the incisions. ANESTHESIA: General endotracheal by Lee Ramos CRNA. ESTIMATED BLOOD LOSS: 100 mL. DRAINS: None. COMPLICATIONS: None. POSTOPERATIVE PLAN: Weightbearing as tolerated, right lower extremity. MATERIALS: Synthes short hip nail with a 110 mm blade statically locked. STATEMENT OF MEDICAL NECESSITY: The patient is an 81-year-old group home resident, who fell by report and had right hip pain. Radiographs were obtained by report at the group home and ultimately presented to the Emergency Department the following day, where he was found to have a closed displaced intertrochanteric femur fracture. The patient was counseled regarding treatment options and elected to proceed with surgical intervention. DESCRIPTION OF PROCEDURE: After the risks and benefits of the procedure were discussed and questions were answered, informed consent was signed and placed on chart, the operative site was confirmed in the preoperative holding area initialed by the surgeon. The patient was then transferred to the operating room and after adequate levels of general endotracheal anesthetic were obtained, a timeout was called, confirming the operative site. The patient was carefully placed on the fracture table. A gentle longitudinal traction was applied and the fracture was anatomically aligned. The right hip and lower extremity were prepped and draped in the usual sterile fashion. A longitudinal incision was made from the tip of the greater trochanter extending proximally. The iliotibial band was incised in line with the incision. The guidewire was passed under fluoroscopic guidance into the proximal femur. This was then overreamed after ensuring that it was adequately placed in the AP and lateral planes. The 12 mm short nail was then passed and the guidewire was passed through a limited incision into the femoral head. This was slightly superior due to his varus alignment of his proximal femur, but felt to be adequate and was centered on the lateral projection. This was then drilled and a 110 mm blade was placed with excellent purchase obtained. This was then locked proximally. Distal locking screw was then placed through the same incision with excellent purchase obtained. Fluoroscopy in the AP and lateral planes revealed anatomic reduction of the fracture with well-placed hardware. The wounds were copiously irrigated. The iliotibial band was closed with #1 Vicryl in a qrbztg-hg-kpeya interrupted fashion, 2-0 Vicryl was used to reapproximate the subcutaneous tissue and the skin jaime were used on the skin. Incisions were infiltrated with plain Marcaine. A soft dressing was applied and the patient was transferred to the recovery room awake and in a stable condition. Job ID: [id number] DocumentID: [id number] Dictated Date: 07/27/2021 11:58:56 Gallery Director Date: 07/27/2021 18:15:03 Dictated By: JACOB WEST MD
[2021-07-27] MEDS: TAMSULOSIN 0.4 MG (FLOMAX) CAP PO SCH (18:26)
[2021-07-27] MEDS: ceFAZolin INJECTION 1,000 MG in WATER (STERILE) FOR INJECTION 10 ML IV SCH ×2 (18:27→21:34)
[2021-07-27] MEDS: HYDROcodone/APAP 7.5 MG/325 MG (LORTAB, LORCET PLUS) TABLET PO PRN ×2 (18:30→20:07)
[2021-07-27] MEDS ORDERED: BENZONATATE 100 MG (TESSALON) CAPSULE PO PRN (19:00)
[2021-07-27] MEDS ORDERED: BISACODYL 10 MG SUPP (DULCOLAX) RC PRN (19:00)
[2021-07-27] MEDS ORDERED: MELATONIN 3 MG TABLET PO PRN (19:00)
[2021-07-27] MEDS: FERROUS SULF 325 MG (IRON) TAB PO SCH (20:07)
[2021-07-28] VITALS (7 sets, daily range): BP systolic 99–145; BP diastolic 54–72
[2021-07-28] MEDS: hydrALAZINE (APRESOLINE) 25 MG TAB PO SCH (05:47)
[2021-07-28] MEDS: KCL 20 MEQ TAB (K-DUR) PO SCH (05:49)
[2021-07-28] MEDS: NS IV 1000 ML 1,000 ML IV SCH ×2 (05:51→08:48)
[2021-07-28 06:35] LABS: HEMOGLOBIN 8.9 g/dL (13.3-17.7); MEAN PLATELET VOLUME 11.5 fL (9.0-12.2)
[2021-07-28 06:47] LABS: POTASSIUM 3.8 MMOL/L (3.6-5.0)
[2021-07-28 06:49] LABS: CALCIUM 8.1 MG/DL (8.5-10.1)
[2021-07-28 06:53] LABS: CREATININE SERUM 1.14 MG/DL (0.60-1.30)
--- NOTE | 2021-07-28 08:02 | Progress Note ---
Standard Progress Note Progress Notes/Assess & Plan Date Seen by a Provider: Jul 28, 2021 Time Seen by a Provider: 08:00 Progress/Assessment & Plan no complaints Vital Signs Date Time Temp Pulse Resp B/P (MAP) Pulse Ox O2 Delivery O2 Flow Rate FiO2 07/28/21 05:45 95 103/61 (75) 07/28/21 04:23 36.6 87 20 105/58 (74) 96 Nasal Cannula 2.00 07/27/21 23:32 37.0 92 20 94/61 (72) 91 Room Air 07/27/21 21:25 36.9 07/27/21 20:10 Room Air 07/27/21 19:37 38.1 97 20 123/69 (87) 92 Room Air 07/27/21 16:19 36.4 85 20 166/72 (103) 94 Room Air 07/27/21 12:51 Room Air 07/27/21 12:40 Room Air 07/27/21 12:38 36.4 89 16 146/71 (96) 95 Room Air 07/27/21 12:30 36.5 12 140/99 (113) 92 Room Air 07/27/21 12:20 16 146/74 (98) 94 Room Air 07/27/21 12:15 Room Air 10 07/27/21 12:10 18 147/77 (100) 100 OxyMask 10 07/27/21 12:00 12 153/73 (99) 100 OxyMask 10 07/27/21 11:52 36.4 12 145/74 (97) 98 OxyMask 10 07/27/21 11:52 OxyMask 10 I & O 07/28/21 07:00 Intake Total 3030 ml Output Total 1160 ml Balance 1870 ml Laboratory Tests Test 07/28/21 05:55 Range/Units White Blood Count 11.0 4.3-11.0 10^3/uL Red Blood Count 2.92 L 4.30-5.52 10^6/uL Hemoglobin 8.9 L 13.3-17.7 g/dL Hematocrit 27 L 40-54 % Mean Corpuscular Volume 91 80-99 fL Mean Corpuscular Hemoglobin 31 25-34 pg Mean Corpuscular Hemoglobin Concent 34 32-36 g/dL Red Cell Distribution Width 16.4 H 10.0-14.5 % Platelet Count 98 L 130-400 10^3/uL Mean Platelet Volume 11.5 9.0-12.2 fL Percent Immature Platelet Fraction 6.2 0.0-7.6 % Sodium Level 140 135-145 MMOL/L Potassium Level 3.8 3.6-5.0 MMOL/L Chloride Level 109 H 98-107 MMOL/L Carbon Dioxide Level 20 L 21-32 MMOL/L Anion Gap 11 5-14 MMOL/L Blood Urea Nitrogen 27 H 7-18 MG/DL Creatinine 1.14 0.60-1.30 MG/DL Estimat Glomerular Filtration Rate 61 BUN/Creatinine Ratio 24 Glucose Level 127 H 70-105 MG/DL Calcium Level 8.1 L 8.5-10.1 MG/DL R hip dressing intact. No calf tenderness. Intact DF and PF of toes and ankle. equal pulses s/p R hip IM ramila mobilize to [place] when medically able UGO WEST MD Jul 28, 2021 08:02
[2021-07-28] MEDS: FERROUS SULF 325 MG (IRON) TAB PO SCH ×2 (08:41→20:28)
[2021-07-28] MEDS: PANTOPRAZOLE 40 MG (PROTONIX) TAB PO SCH (08:41)
[2021-07-28] MEDS: ENOXAPARIN 40 MG/0.4 ML (LOVENOX) SYR SC SCH (08:42)
[2021-07-28] MEDS ORDERED: NON-FORMULARY MEDICATION 1 EA EA (Potassium Chloride 20 MEQ) PO SCH (09:00)
[2021-07-28] MEDS ORDERED: NON-FORMULARY MEDICATION 1 EA EA (Escitalopram Oxalate (Lexapro) 5 MG) PO SCH (09:00)
--- NOTE | 2021-07-28 12:57 | Progress Note - Hospitalist ---
Subjective HPI/CC On Admission Date Seen by Provider: Jul 28, 2021 Time Seen by Provider: 12:50 Patient is an 81-year-old male with past medical history of hypertension, CVA, hyperlipidemia, BPH who presented to the emergency department due to fall and concern for hip fracture. He states he was attempting to transfer yesterday at his NH and fell onto his right hip. Imaging revealed a right intertrochanteric hip fracture. He was admitted for operative repair. He denies any pain at this time. Subjective/Events-last exam Pt reports doing well. Pain controlled but worse with movement. Discussed plan for therapy to start today to work on rehab. Objective Exam Vital Signs Vital Signs Date Time Temp Pulse Resp B/P (MAP) Pulse Ox O2 Delivery O2 Flow Rate FiO2 07/28/21 12:09 36.6 55 20 104/56 (72) 99 Room Air 07/28/21 04:23 2.00 Capillary Refill : Less Than 3 Seconds General Appearance: No Apparent Distress, Chronically ill, Obese Respiratory: Lungs Clear, No Respiratory Distress Cardiovascular: Regular Rate, Rhythm, No Murmur Gastrointestinal: Normal Bowel Sounds, Non Tender, Soft Neurologic/Psychiatric: Alert, Oriented x3 Results/Procedures Lab Laboratory Tests 07/28/21 05:55 Patient resulted labs reviewed. Imaging: Reviewed Imaging Report Assessment/Plan Assessment and Plan Assess & Plan/Chief Complaint Right hip fracture POD #1 s/p IM ramila Continue current pain control regimen as well controlled PT/OT orthopedic surgery consulted, appreciate assistance HTN HLD h/o CVA Continue home meds DC hydrazline due to low/normal BPs BPH Continue flomax DVT ppx: Lovenox Diagnosis/Problems Diagnosis/Problems (1) Intertrochanteric fracture of right femur Status: Acute Qualifiers: Encounter type: initial encounter Fracture type: closed Fracture alignment: nondisplaced Qualified Codes: S72.144A - Nondisplaced intertrochanteric fracture of right femur, initial encounter for closed fracture (2) Hypertension Status: Chronic MEGHNA PINTO MD Jul 28, 2021 12:57
--- NOTE | 2021-07-28 13:50 | Physical Therapy Evaluation ---
PT Evaluation-General Medical Diagnosis Admission Date Jul 26, 2021 at 17:59 Medical Diagnosis: right intertrochanteric femur fracture Onset Date: Jul 27, 2021 Therapy Diagnosis Therapy Diagnosis: Gait deficit, strength deficit Height/Weight Height (Feet): 5 Height (Inches): 6.00 Weight (Pounds): 238 Weight (Ounces): 3.0 Precautions Precautions/Isolations: Aspiration, Fall Prevention, Standard Precautions Weight Bear Status Right Lower Extremity: Right Weight Bearing/Tolerated Referral Physician: Dr. Gallegos Reason for Referral: Evaluation/Treatment Medical History Pertinent Medical History: Atrial Fib, HTN Social History Home: Single Level Current Living Status: Spouse Entry Into Home: Stairs With Railing PT Steps Into Home: 5 PT Steps Inside Home: 15 Patient poor historian due to decreased cognition. Unreliable subjective information. Prior Prior Level of Function SCALE: Activities may be completed with or without assistive devices. 5-Zrhlvbqrhw-ouwubiz completes the activity by him/herself with no assistance from a helper. 5-Set-up or Clean-up Assistance-helper sets up or cleans up; patient completes activity. [place] assists only prior to or following the activity. 4-Supervision or Touching Assistance-helper provides verbal cues and/or touching/steadying and/or contact guard assistance as patient completes activity. Assistance may be provided throughout the activity or intermittently. 3-Partial/Moderate Assistance-helper does LESS THAN HALF the effort. [place] li fts, holds or supports trunk or limbs, but provides less than half the effort. 2-Substantial/Maximal Assistance-helper does MORE THAN HALF the effort. [place] lifts or holds trunk or limbs and provides more than half the effort. 0-Vehogjugp-ajmdts does ALL the effort. Patient does none of the effort to complete the activity. Or, the assistance of 2 or more helpers is required for the patient to complete the activity. If activity was not attempted, code reason: 7-Patient Refused. 9-Not Applicable-not attempted and the patient did not perform the activity before the current illness, exacerbation or injury. 10-Not Attempted due to Environmental Limitations-(lack of equipment, weather restraints, etc.). 88-Not Attempted due to Medical Conditions or Safety Concerns. Bed Mobility: 6 Transfers (B,C,W/C): 6 Gait: 6 Stairs: 6 Indoor Mobility (Ambulation): Independent Stairs: Independent Prior Devices Use: None PT Evaluation-Current Subjective Patient currently rates pain at 0/10. Oriented to self only. Patient reports "We are at the [facility]" and states that we are currently in [place] Objective Patient Orientation: Person Attachments: Oxygen, Albrecht Catheter, IV ROM/Strength ROM Lower Extremities Right hip limited all planes Sensory Vision: Wears Glasses Hearing: Impaired Sensation Right Lower Extremit: Intact Sensation Left Lower Extremity: Intact Transfers Roll Left to Right (QC): 2 Sit to Lying (QC): 2 Lying to Sitting/Side of Bed(Q: 2 Sit to Stand (QC): 2 Chair/Znj-lc-Moeym Xfer(QC): 2 Gait Does the Patient Walk?: No and Walking Goal IS indicated Mode of Locomotion: Walk Anticipated Mode of Locomotion: Walk Walk 10 feet (QC): 88 Gait Assistive Device: FWW Balance Sitting Static: Fair Sitting Dynamic: Fair Standing Static: Poor Standing Dynamic: Poor Treatment Visit, Eval, FA Assessment/Needs Patient asleep, lying supine in bed upon PT arrival, agreeable to treatment. Patient performs all observed bed mobility and transfers with max a. He is able to perform sit to stand with max A, however unable to come fully erect and is unable to hold standing for more than 1 minute. Patient attempted to ambulate to the chair, however upon stepping with left LE, right LE "gave out" and patient sat on the bed with decreased control. Patient in chair post treatment with all needs met, nursing notified, call light in hand and chair alarm activated. Rehab Potential: Fair PT Fpc Goals Fpc Goals PT Fpc Goals Time Frame: Aug 18, 2021 Roll Left & Right (QC): 4 Sit to Lying (QC): 4 Lying-Sitting on Side/Bed(QC): 4 Sit to Stand (QC): 4 Chair/Hjp-aq-Lwyhl Xfer(QC): 4 Toilet Transfer (QC): 4 Does the Patient Walk: Yes Walk 10 feet (QC): 3 Walk 50ft with 2 Turns (QC): 3 Walk 150 ft (QC): 3 1 Step (curb) (QC): 3 4 Steps (QC): 3 12 Steps (QC): 3 Does the Pt use WC or Scooter?: No PT Plan Problem List Problem List: Activity Tolerance, Functional Strength, Safety, Balance, Gait, Transfer, Bed Mobility Treatment/Plan Treatment Plan: Continue Plan of Care Treatment Plan: Bed Mobility, Education, Functional Activity Alexa, Functional Strength, Group Therapy, Safety Treatment Duration: Sep 20, 2021 Frequency: 11 times per week Estimated Hrs Per Day: .25 hour per day Safety Risks/Education Patient Education: Gait Training, Transfer Techniques, Reviewed Precautions, Safety Issues Teaching Recipient: Health Care Proxy Teaching Methods: Demonstration, Discussion Response to Teaching: Reinforcement Needed Discharge Recommendations Target Placement Post Acute placement recommended upon discharge from hospital Time/GCodes Time In: 1308 Time Out: 1338 Total Billed Treatment Time: 30 Total Billed Treatment Visit, ANGELO Avendano JOHN A PT Jul 28, 2021 13:50
--- NOTE | 2021-07-28 15:14 | Occupational Therapy Eval ---
OT Evaluation-General/PLF Medical Diagnosis Admission Date Jul 26, 2021 at 17:59 Medical Diagnosis: right intertrochanteric femur fracture Onset Date: Jul 27, 2021 Therapy Diagnosis Therapy Diagnosis: decreased ADL status Height/Weight Height (Feet): 5 Height (Inches): 6.00 Weight (Pounds): 238 Weight (Ounces): 3.0 Precautions Precautions/Isolations: Aspiration, Fall Prevention, Standard Precautions Referral Physician: Cici Referral Reason: Evaluation/Treatment Medical History Pertinent Medical History: Atrial Fib, CVA, GERD, HTN, Renal Insufficiency Additional Medical History HLD, BPH, dialysis Current History ED due to fall at OR, imaging revealed R intertrochanteric hip fx, s/p R IM nail 07/27/21 Social History Home: Half-Way ADL-Prior Level of Function SCALE: Activities may be completed with or without assistive devices. 7-Kymdpnpgpi-slcackc completes the activity by him/herself with no assistance from a helper. 5-Set-up or Clean-up Assistance-helper sets up or cleans up; patient completes activity. [place] assists only prior to or following the activity. 4-Supervision or Touching Assistance-helper provides verbal cues and/or touching/steadying and/or contact guard assistance as patient completes activity. Assistance may be provided throughout the activity or intermittently. 3-Partial/Moderate Assistance-helper does LESS THAN HALF the effort. [place] lifts, holds or supports trunk or limbs, but provides less than half the effort. 2-Substantial/Maximal Assistance-helper does MORE THAN HALF the effort. [place] lifts or holds trunk or limbs and provides more than half the effort. 1-Iqhoszrvg-zdolml does ALL the effort. Patient does none of the effort to complete the activity. Or, the assistance of 2 or more helpers is required for the patient to complete the activity. If activity was not attempted, code reason: 7-Patient Refused. 9-Not Applicable-not attempted and the patient did not perform the activity before the current illness, exacerbation or injury. 10-Not Attempted due to Environmental Limitations-(lack of equipment, weather restraints, etc.). 88-Not Attempted due to Medical Conditions or Safety Concerns. ADL PLOF Comments Pt resides at [facility], he primarily uses a w/c for functional mobility as it is easier for him to get around. He indicates he is able to go into the bathroom without AD by himself to toilet. When questioned further he states staff present to assist with wiping. Pt indicates IND with dressing and eating. Accuracy of pt's information unknown at this time. Self Care: Needed Some Help Functional Cognition: Unknown DME/Equipment Comments w/c OT Current Status Subjective Pt up in recliner, agreeable to OT tx. Pt confused during session, unable to st ate where he is at, instead says "over here" or "concrete building". Pt unable to state why he is in the hospital, replying with "I got sick", OT redirected pt to recent hip surgery. Mental Status/Objective Patient Orientation: Person Attachments: Albrecht Catheter, IV, Oxygen (2L) Current Dentures/Partials: Yes Hand Dominance: Right Upper Extremity ROM BUE WFL, shoulder flexion to approx 140 degrees Upper Extremity Coordination WFL Upper Extremity Sensation WFL Upper Extremity Strength grossly 3+/5 ADL-Treatment Eating (QC): 6 (Pt able to grab cup off table and drink independently.) On/Off Footwear (QC): 1 (based on clincial judgment.) Toileting Hygiene (QC): 1 (catheter) Other Treatments Pt seated in recliner, agreeable to OT tx. OT attempted to obtain PLOF, but accuracy of pt's information unknown at this time. In order to increase BUE strength and activity tolerance, pt performed x10 reps each of the following BUE exercises: shoulder flexion and front punch, requiring moderate verbal cues with task. Pt able to take drink from tray table independently. Per PT evaluation, pt requires max A with rolling, sit to lying, lying to sitting, sit to stand and bed to chair transfers. Post tx, pt seated in recliner, call light in reach and all needs met. Education OT Patient Education: Correct positioning, Exercise program, Modified ADL techniques, Progress toward Goal/Update tx plan, Purpose of tx/functional activities, Rehab process Teaching Recipient: Patient Teaching Methods: Discussion Response to Teaching: Verbalize Understanding OT Jail Goals Jail Goals Time Frame: Aug 12, 2021 Eating (QC): 6 Oral Hygiene (QC): 5 Toileting Hygiene (QC): 3 Shower/Bathe Self (QC): 3 Upper Body Dressing (QC): 5 Lower Body Dressing (QC): 3 On/Off Footwear (QC): 3 Additional Goals: 1-Demonstrate ADL Tasks, 2-Verbalize Understanding, 3- ImproveStrength/Alexa 1=Demonstrate adherence to instructed precautions during ADL tasks. 2=Patient will verbalize/demonstrate understanding of assistive devices/modifications for ADL. 3=Patient will improve strength/tolerance for activity to enable patient to perform ADL's. OT Education/Plan Problem List/Assessment Assessment: Decreased Activ Tolerance, Decreased Safety Aware, Decreased UE Strength, Impaired Cognition, Impaired Funct Balance, Impaired I ADL's, Impaired Self-Care Skills Discharge Recommendations Plan/Recommendations: Continue POC Therapy Discharge Recommendati: Other, See Comments (NH) Treatment Plan/Plan of Care Patient would benefit from OT for education, treatment and training to promote independence in ADL's, mobility, safety and/or upper extremity function for ADL's. Plan of Care: ADL Retraining, Functional Mobility, UE Funct Exercise/Act Treatment Duration: Aug 12, 2021 Frequency: 5 times per week Estimated Hrs Per Day: .25 hour per day Rehab Potential: Fair Time/GCodes Start Time: 14:50 Stop Time: 15:03 Total Time Billed (hr/min): 13 Billed Treatment Time 1, MASHA WHITMORE OT Jul 28, 2021 15:14
--- NOTE | 2021-07-28 15:26 | Anesthesia-General Post-Op ---
General Patient Condition Mental Status/LOC: Same as Preop Cardiovascular: Satisfactory Nausea/Vomiting: Absent Respiratory: Satisfactory Pain: Controlled Complications: Absent Post Op Complications Complications None Follow Up Care/Instructions Patient Instructions None needed. Anesthesia/Patient Condition Patient Condition Patient is doing well, no complaints, stable vital signs, no apparent adverse anesthesia problems. No complications reported per nursing. FIDE PLUMMER CRNA Jul 28, 2021 15:26
[2021-07-28] MEDS: TAMSULOSIN 0.4 MG (FLOMAX) CAP PO SCH (17:07)
[2021-07-29 04:49] VITALS: BP 124/58
[2021-07-29 05:29] LABS: HEMOGLOBIN 7.7 g/dL (13.3-17.7)
[2021-07-29] MEDS: KCL 20 MEQ TAB (K-DUR) PO SCH (05:55)
--- NOTE | 2021-07-29 07:00 | Progress Note ---
Standard Progress Note Progress Notes/Assess & Plan Date Seen by a Provider: Jul 29, 2021 Time Seen by a Provider: 06:59 Progress/Assessment & Plan no complaints Vital Signs Date Time Temp Pulse Resp B/P (MAP) Pulse Ox O2 Delivery O2 Flow Rate FiO2 07/28/21 05:45 95 103/61 (75) 07/28/21 04:23 36.6 87 20 105/58 (74) 96 Nasal Cannula 2.00 07/27/21 23:32 37.0 92 20 94/61 (72) 91 Room Air 07/27/21 21:25 36.9 07/27/21 20:10 Room Air 07/27/21 19:37 38.1 97 20 123/69 (87) 92 Room Air 07/27/21 16:19 36.4 85 20 166/72 (103) 94 Room Air 07/27/21 12:51 Room Air 07/27/21 12:40 Room Air 07/27/21 12:38 36.4 89 16 146/71 (96) 95 Room Air 07/27/21 12:30 36.5 12 140/99 (113) 92 Room Air 07/27/21 12:20 16 146/74 (98) 94 Room Air 07/27/21 12:15 Room Air 10 07/27/21 12:10 18 147/77 (100) 100 OxyMask 10 07/27/21 12:00 12 153/73 (99) 100 OxyMask 10 07/27/21 11:52 36.4 12 145/74 (97) 98 OxyMask 10 07/27/21 11:52 OxyMask 10 I & O 07/28/21 07:00 Intake Total 3030 ml Output Total 1160 ml Balance 1870 ml Laboratory Tests Test 07/28/21 05:55 Range/Units White Blood Count 11.0 4.3-11.0 10^3/uL Red Blood Count 2.92 L 4.30-5.52 10^6/uL Hemoglobin 8.9 L 13.3-17.7 g/dL Hematocrit 27 L 40-54 % Mean Corpuscular Volume 91 80-99 fL Mean Corpuscular Hemoglobin 31 25-34 pg Mean Corpuscular Hemoglobin Concent 34 32-36 g/dL Red Cell Distribution Width 16.4 H 10.0-14.5 % Platelet Count 98 L 130-400 10^3/uL Mean Platelet Volume 11.5 9.0-12.2 fL Percent Immature Platelet Fraction 6.2 0.0-7.6 % Sodium Level 140 135-145 MMOL/L Potassium Level 3.8 3.6-5.0 MMOL/L Chloride Level 109 H 98-107 MMOL/L Carbon Dioxide Level 20 L 21-32 MMOL/L Anion Gap 11 5-14 MMOL/L Blood Urea Nitrogen 27 H 7-18 MG/DL Creatinine 1.14 0.60-1.30 MG/DL Estimat Glomerular Filtration Rate 61 BUN/Creatinine Ratio 24 Glucose Level 127 H 70-105 MG/DL Calcium Level 8.1 L 8.5-10.1 MG/DL R hip dressing intact. No calf tenderness. Intact DF and PF of toes and ankle. equal pulses s/p R hip IM ramila mobilize to NH when medically able Final Diagnosis no complaints Vital Signs Date Time Temp Pulse Resp B/P (MAP) Pulse Ox O2 Delivery O2 Flow Rate FiO2 07/29/21 04:49 36.8 69 20 124/58 (80) 96 Nasal Cannula 2.00 07/28/21 23:54 36.6 64 24 145/72 (96) 94 Nasal Cannula 2.00 07/28/21 20:30 Room Air 07/28/21 19:54 36.6 80 20 99/54 (69) 96 Nasal Cannula 2.00 07/28/21 19:35 94 Nasal Cannula 2.00 07/28/21 16:03 37.0 97 18 120/54 (76) 98 Nasal Cannula 2.00 07/28/21 12:09 36.6 55 20 104/56 (72) 99 Room Air 07/28/21 09:00 Room Air 07/28/21 08:00 36.6 97 20 108/71 (83) 96 Room Air I & O 07/29/21 06:59 Intake Total 1140 ml Output Total 625 ml Balance 515 ml Laboratory Tests Test 07/29/21 05:00 Range/Units Hemoglobin 7.7 L 13.3-17.7 g/dL Hematocrit 24 L 40-54 % R hip incisions clean and dry. No calf tenderness s/p R hip IM ramila WBAT DC to NH when ok with UGO Arce MD Jul 29, 2021 07:00
[2021-07-29 08:00] VITALS: BP 114/67
[2021-07-29] MEDS: ENOXAPARIN 40 MG/0.4 ML (LOVENOX) SYR SC SCH (08:00)
[2021-07-29] MEDS: FERROUS SULF 325 MG (IRON) TAB PO SCH ×2 (08:40→20:18)
[2021-07-29] MEDS: PANTOPRAZOLE 40 MG (PROTONIX) TAB PO SCH (08:40)
--- NOTE | 2021-07-29 09:48 | Progress Note - Hospitalist ---
Subjective HPI/CC On Admission Date Seen by Provider: Jul 29, 2021 Time Seen by Provider: 09:47 Patient is an 81-year-old male with past medical history of hypertension, CVA, hyperlipidemia, BPH who presented to the emergency department due to fall and concern for hip fracture. He states he was attempting to transfer yesterday at his NH and fell onto his right hip. Imaging revealed a right intertrochanteric hip fracture. He was admitted for operative repair. He denies any pain at this time. Subjective/Events-last exam pt reports doing well. Still having pain. Hgb down a bit today. Objective Exam Vital Signs Vital Signs Date Time Temp Pulse Resp B/P (MAP) Pulse Ox O2 Delivery O2 Flow Rate FiO2 07/29/21 08:00 36.6 71 20 114/67 (83) 94 Nasal Cannula 2.00 Capillary Refill : Less Than 3 Seconds General Appearance: No Apparent Distress, Chronically ill Respiratory: Lungs Clear, No Respiratory Distress Cardiovascular: Regular Rate, Rhythm, No Murmur Neurologic/Psychiatric: Alert, Oriented x3 (to major details) Results/Procedures Lab Laboratory Tests 07/29/21 05:00 Patient resulted labs reviewed. Imaging: Reviewed Imaging Report Assessment/Plan Assessment and Plan Assess & Plan/Chief Complaint Right hip fracture Postoperative anemia POD #2 s/p IM ramila Continue current pain control regimen as well controlled PT/OT orthopedic surgery consulted, appreciate assistance Hgb down to 7.7 today, check in AM- may need transfusion HTN HLD h/o CVA Continue home meds BP improved from yesterdat BPH Continue flomax DVT ppx: Lovenox Diagnosis/Problems Diagnosis/Problems (1) Intertrochanteric fracture of right femur Status: Acute Qualifiers: Encounter type: initial encounter Fracture type: closed Fracture alignment: nondisplaced Qualified Codes: S72.144A - Nondisplaced intertrochanteric fracture of right femur, initial encounter for closed fracture (2) Hypertension Status: Chronic MEGHNA PINTO MD Jul 29, 2021 09:48
--- NOTE | 2021-07-29 11:28 | Physical Therapy Daily Note ---
PT Daily Note-Current Subjective Patient agrees to PT. Pain Numeric Pain Scale: 5-Moderate Pain Location: Right Location Body Site: Hip Pain Description: Acute Comment: FLACC Mental Status Patient Orientation: Confused Attachments: Oxygen, Albrecht Catheter Transfers SCALE: Activities may be completed with or without assistive devices. 7-Dphyvcxdjg-uzrgxzl completes the activity by him/herself with no assistance from a helper. 5-Set-up or Clean-up Assistance-helper sets up or cleans up; patient completes activity. [place] assists only prior to or following the activity. 4-Supervision or Touching Assistance-helper provides verbal cues and/or touching/steadying and/or contact guard assistance as patient completes activity. Assistance may be provided throughout the activity or intermittently. 3-Partial/Moderate Assistance-helper does LESS THAN HALF the effort. [place] lifts, holds or supports trunk or limbs, but provides less than half the effort. 2-Substantial/Maximal Assistance-helper does MORE THAN HALF the effort. [place] lifts or holds trunk or limbs and provides more than half the effort. 8-Opzjldjza-moffbk does ALL the effort. Patient does none of the effort to complete the activity. Or, the assistance of 2 or more helpers is required for the patient to complete the activity. If activity was not attempted, code reason: 7-Patient Refused. 9-Not Applicable-not attempted and the patient did not perform the activity before the current illness, exacerbation or injury. 10-Not Attempted due to Environmental Limitations-(lack of equipment, weather restraints, etc.). 88-Not Attempted due to Medical Conditions or Safety Concerns. Lying to Sitting/Side of Bed(Q: 1 Sit to Stand (QC): 1 Chair/Ssc-kh-Krqoy Xfer(QC): 1 Weight Bearing Right Lower Extremity: Right Weight Bearing/Tolerated Exercises Supine Ex: Ankle pumps, Heel Slides, Straight leg raise Supine Reps: 15 (AAROM right LE/AROM left LE) Standing: Sit to Stand (attempt x 4 sets to FWW with patient unable to perform) Assessment This PT called facility and patient in non ambulatory PLOF and required assistance with SPT bed to w/c. PT to modify frequency to 6/wk. Patient up recliner with chair alarm activated. PT Fci Goals Fci Goals PT Putty Maker Goals Time Frame: Aug 18, 2021 Roll Left & Right (QC): 4 Sit to Lying (QC): 4 Lying-Sitting on Side/Bed(QC): 4 Sit to Stand (QC): 4 Chair/Ogw-em-Ynbvu Xfer(QC): 4 Toilet Transfer (QC): 4 Does the Patient Walk: Yes Walk 10 feet (QC): 3 Walk 50ft with 2 Turns (QC): 3 Walk 150 ft (QC): 3 1 Step (curb) (QC): 3 4 Steps (QC): 3 12 Steps (QC): 3 Does the Pt use WC or Scooter?: No PT Plan Treatment/Plan Treatment Plan: Modify Plan, see comments (6/wk due to nonambulatory PLOF) Treatment Plan: Bed Mobility, Education, Functional Activity Alexa, Functional Strength, Group Therapy, Safety Treatment Duration: Sep 20, 2021 Frequency: 6 times per week Estimated Hrs Per Day: .25 hour per day Time/GCodes Time In: 1057 Time Out: 1112 Total Billed Treatment Time: 15 Total Billed Treatment 1 visit EX 15 min ADRIANO BARROSO PT Jul 29, 2021 11:28
[2021-07-29 12:00] VITALS: BP 157/76
--- NOTE | 2021-07-29 13:53 | Occupational Ther Daily Note ---
OT Current Status-Daily Note Subjective Pt sleeping, woke to name. Pt agrees to therapy. Pt oriented to name and that place is a hospital. Mental Status/Objective Patient Orientation: Person, Place Attachments: IV ADL-Treatment Therapy Code Descriptions/Definitions Functional [place] Measure: 0=Not Assessed/NA 4=Minimal Assistance 1=Total Assistance 5=Supervision or Setup 2=Maximal Assistance 6=Modified [place] 3=Moderate Assistance 7=Complete IndependenceSCALE: Activities may be completed with or without assistive devices. 2-Farjjzvjas-wjzjcal completes the activity by him/herself with no assistance from a helper. 5-Set-up or Clean-up Assistance-helper sets up or cleans up; patient completes activity. [place] assists only prior to or following the activity. 4-Supervision or Touching Assistance-helper provides verbal cues and/or touching/steadying and/or contact guard assistance as patient completes activity. Assistance may be provided throughout the activity or intermittently. 3-Partial/Moderate Assistance-helper does LESS THAN HALF the effort. [place] lifts, holds or supports trunk or limbs, but provides less than half the effort. 2-Substantial/Maximal Assistance-helper does MORE THAN HALF the effort. [place] lifts or holds trunk or limbs and provides more than half the effort. 1-Drkvyyfmu-xiyzrz does ALL the effort. Patient does none of the effort to complete the activity. Or, the assistance of 2 or more helpers is required for the patient to complete the activity. If activity was not attempted, code reason: 7-Patient Refused. 9-Not Applicable-not attempted and the patient did not perform the activity before the current illness, exacerbation or injury. 10-Not Attempted due to Environmental Limitations-(lack of equipment, weather restraints, etc.). 88-Not Attempted due to Medical Conditions or Safety Concerns. Other Treatment Pt completed B UE exercises against gravity to increase strength for daily functional tasks. Skills instruction for correct technique required. 1 set 15 reps of B shldr flexion (90*), horizontal shldr abd/add, bicep flex/ext, finger flex/ext. Pt tolerated well and required verbal and physical cues to maintain good technique. After session, pt lying in bed with call light/phone in reach. All needs met in room. OT Professor Of Special Education Goals Prison Goals Time Frame: Aug 12, 2021 Eating (QC): 6 Oral Hygiene (QC): 5 Toileting Hygiene (QC): 3 Shower/Bathe Self (QC): 3 Upper Body Dressing (QC): 5 Lower Body Dressing (QC): 3 On/Off Footwear (QC): 3 Additional Goals: 1-Demonstrate ADL Tasks, 2-Verbalize Understanding, 3-ImproveStrength/Alexa 1=Demonstrate adherence to instructed precautions during ADL tasks. 2=Patient will verbalize/demonstrate understanding of assistive devices/modifications for ADL. 3=Patient will improve strength/tolerance for activity to enable patient to perform ADL's. OT Education/Plan Problem List/Assessment Assessment: Decreased Activ Tolerance, Decreased Safety Aware, Decreased UE Strength, Impaired Cognition Discharge Recommendations Plan/Recommendations: Continue POC Treatment Plan/Plan of Care Patient would benefit from OT for education, treatment and training to promote independence in ADL's, mobility, safety and/or upper extremity function for ADL's. Plan of Care: ADL Retraining, Functional Mobility, UE Funct Exercise/Act Treatment Duration: Aug 12, 2021 Frequency: 5 times per week Estimated Hrs Per Day: .25 hour per day Rehab Potential: Fair Time/GCodes Start Time: 13:31 Stop Time: 13:41 Total Time Billed (hr/min): 10 Billed Treatment Time 1 visit-EX 1 (10 min) TRISTIAN ALEXANDER Jul 29, 2021 13:53
--- NOTE | 2021-07-29 14:00 | Physician Query Clarification ---
Physician Query-General Query to Physician: The medical record reflects the following clinical evidence: Clinical Indicators: CR/eGFR on admission 1.35/50 improved to 1.14/61 after fluids Risk Factor(s): Advanced age, Fall, BPH, Treatment: Fluids in first 24hour of admission NS 950, LR 1200, OR fluids 1. Acute kidney failure, unspecified, present on admission 2. Other explanation of clinical findings 3. Unable to determine (no explanation for clinical findings) Please clarify and document your clinical opinion in the progress notes and discharge summary including the definitive and/or presumptive diagnosis, (suspected or probable), related to the above clinical findings. Please include clinical findings supporting your diagnosis. Mariana Plummer MSN, RN Clinical Technology Program Manager [phone] [email or web address] PHYSICIAN RESPONSE: Based on the clinical findings in the record, please respond to the query above on this document as an addendum. Physician Response: Physician Response 2 If you have questions please contact: Battery Mechanic: Ext: Thank you for your time and cooperation. Clinical Technology Program Manager/Battery Mechanic This is a permanent part of the medical record MARIANA PLUMMER Jul 29, 2021 14:00 MEGHNA PINTO MD Jul 29, 2021 22:14
--- NOTE | 2021-07-29 14:10 | Physician Query Clarification ---
Physician Query-General Query to Physician: The medical record reflects the following clinical scenario: The patient, in the setting of History/Risk factors, Fall at NH with Right Hip Fx, with Surgery/R hip IM nail, on ASA MASTERCAM PROGRAMMER Clinical Findings Admission H/H 10.2/31 post op day 2 H/H 7.7/24, Reported EBL per OR record 250 Treatment Monitoring of H/H, Type and Cross, no blood products yet, "May need transfusion" Question: Can you further specify Post operative anemia per the clinical indicators above? Please document your response in the Progress Notes or Discharge Summary. 1. Post operative anemia due to Acute Blood loss 2. Other, with explanation of clinical findings 3. Clinically undetermined, no explanation for clinical findings Please clarify and document your clinical opinion in the Progress Notes and Discharge Summary including the definitive and/or presumptive diagnosis, (suspected or probable), related to the above clinical findings. Please include clinical findings supporting your diagnosis. In responding to this query, please exercise your independent professional judgment. The purpose of this communication is to more accurately reflect the complexity of your patients condition. The fact that a question is asked does not imply that any particular answer is desired or expected. Please remember a lack of response to the above will prompt a phone page by CDI/coding staff. Thank you for timely response to this clarification. Mariana Plummer MSN, RN Clinical Manager Risk Management [phone] [email or web address] PHYSICIAN RESPONSE: Based on the clinical findings in the record, please respond to the query above on this document as an addendum. Physician Response: Physician Response 1 If you have questions please contact: Wheel Roller: Ext: Thank you for your time and cooperation. Clinical Manager Risk Management/Wheel Roller This is a permanent part of the medical record MARIANA PLUMMER Jul 29, 2021 14:10 MEGHNA PINTO MD Jul 29, 2021 22:16
--- NOTE | 2021-07-29 14:37 | Discharge Inst-Skilled Nursing ---
Discharge Inst-Skilled NF Chief Complaint Patient is an 81-year-old male with past medical history of hypertension, CVA, hyperlipidemia, BPH who presented to the emergency department due to fall and concern for hip fracture. He states he was attempting to transfer yesterday at his [place] and fell onto his right hip. Imaging revealed a right intertrochanteric hip fracture. He was admitted for operative repair. He denies any pain at this time. Consult/Follow Up/Orders Skilled NF Admit to: [facility] Certification (SNF) I certify that SNF services are required to be given on an inpatient basis because of the above named patient's need for assisted care on a continuing basis for the conditions(s) for which he/she was receiving inpatient hospital services prior to his/her transfer to the SNF. Halfway Facility Order: Nursing Services, Medical Clinic Manager-Evaluate & Treat, Physical Therapy-Evaluate & Treat, Speech Language-Evaluate & Treat Oxygen Delivery Method: Room Air Discharge Diet: No Restrictions Resuscitation Status: Do Not Resuscitate New & Resume Previous Orders Meghna Bolanos Jul 29, 2021 14:36 MEGHNA BOLANOS MD Jul 29, 2021 14:37
[2021-07-29] MEDS ORDERED: HYDR-34 PO (14:49)
[2021-07-29 15:40] VITALS: BP 144/65
[2021-07-29] MEDS: TAMSULOSIN 0.4 MG (FLOMAX) CAP PO SCH (17:57)
[2021-07-30] VITALS: BP 143/67
[2021-07-30 04:18] VITALS: BP 153/70
[2021-07-30] MEDS: KCL 20 MEQ TAB (K-DUR) PO SCH (05:36)
[2021-07-30 08:12] VITALS: BP 145/67
[2021-07-30] MEDS: FERROUS SULF 325 MG (IRON) TAB PO SCH (08:15)
[2021-07-30] MEDS: PANTOPRAZOLE 40 MG (PROTONIX) TAB PO SCH (08:16)
[2021-07-30] MEDS: ENOXAPARIN 40 MG/0.4 ML (LOVENOX) SYR SC SCH (08:22)
--- NOTE | 2021-07-30 08:41 | Discharge Summary ---
Diagnosis/Chief Complaint Date of Admission Jul 26, 2021 at 17:59 Date of Discharge Discharge Date: Jul 30, 2021 Admission Diagnosis Right hip fracture Primary Care Logan Capellan DO Discharge Diagnosis (1) Intertrochanteric fracture of right femur Status: Acute (2) Hypertension Status: Chronic Discharge Summary Discharge Physical Exam Allergies: Coded Allergies: Tetanus Vaccines and Toxoid (Verified Allergy, Severe, Anaphylaxis, 07/15/20) meperidine (Verified Allergy, Severe, Shortness of Breath, 07/15/20) penicillin G (Verified Allergy, Severe, FEVER, 07/15/20) Vitals & I&Os Vital Signs Date Time Temp Pulse Resp B/P (MAP) Pulse Ox O2 Delivery O2 Flow Rate FiO2 07/30/21 08:12 37.1 73 18 145/67 (93) 92 Nasal Cannula 1.00 General Appearance: No Apparent Distress, Chronically ill, Obese Respiratory: Lungs Clear, No Respiratory Distress Cardiovascular: Regular Rate, Rhythm, No Murmur Neurologic/Psychiatric: Alert, Oriented x3 Hospital Course Patient was admitted to the hospital secondary to right intertrochanteric hip fracture. He underwent operative repair with Dr Gallegos and did very well. He had some postoperative anemia due to acute blood loss which stabilized without intervention. He was continued on his home oral iron. He was discharged back to his shelter for continued skilled therapy. Labs (last 24 hrs) Laboratory Tests 07/30/21 05:40: Hemoglobin 8.0L, Hematocrit 25L Microbiology 07/27/21 MRSA Screen - Final, Complete MRSA not isolated Patient resulted labs reviewed. Pending Labs Laboratory Tests 07/30/21 05:40: Hemoglobin 8.0, Hematocrit 25 Imaging: Reviewed Imaging Report Discussion & Recommendations Discharge Planning: >30 minutes discharge planning Discharge Home Medications: Active Scripts Active HYDROcodone/APAP 7.5/325 TAB (Acetaminophen/Hydrocodone Bitart) 1 Ea Tablet 1 Ea PO Q2HR PRN Reported Metoprolol Tartrate 25 Mg Tablet 25 Mg PO BID HOLD SBP <100 Tylenol (Acetaminophen) 325 Mg Capsule 620 Mg PO Q6H PRN Melatonin 3 Mg Tablet 3 Mg PO HS PRN Benadryl Itch Stopping Crm (Diphenhydramine HCl/Zinc Acet) 28.3 Gm Cream..g. 1 Applic TP TID PRN Bisacodyl 10 Mg Supp.rect 10 Mg RC DAILY PRN Tessalon Perles (Benzonatate) 100 Mg Capsule 100 Mg PO TID PRN Ferrous Sulfate 325 Mg Tablet 325 Mg PO BID Atorvastatin Calcium 80 Mg Tablet 80 Mg PO 1700 Pantoprazole Sodium 40 Mg Tablet.dr 40 Mg PO DAILY Lexapro (Escitalopram Oxalate) 5 Mg Tablet 5 Mg PO DAILY Potassium Chloride 20 Meq Tablet.er 20 Meq PO DAILY Hydralazine HCl 25 Mg Tablet 25 Mg PO BID HOLD FOR SBP <100 Flomax (Tamsulosin HCl) 0.4 Mg Cap 0.4 Mg PO 1700 Instructions to patient/family Please see electronic discharge instructions given to patient. Copy Copies To 1: LOGAN CAPELLAN DO Problem Qualifiers (1) Intertrochanteric fracture of right femur: Encounter type: initial encounter Fracture type: closed Fracture alignment: nondisplaced Qualified Codes: S72.144A - Nondisplaced intertrochanteric fracture of right femur, initial encounter for closed fracture MEGHNA PINTO MD Jul 30, 2021 08:41
--- NOTE | 2021-07-30 08:49 | Progress Note ---
Standard Progress Note Progress Notes/Assess & Plan Date Seen by a Provider: Jul 30, 2021 Time Seen by a Provider: 08:44 Progress/Assessment & Plan Laboratory Tests 07/30/21 05:40: Hemoglobin 8.0L, Hematocrit 25L Patient has no complaints. Post op day 3. VSS, Tmax 37.1 Right hip incision clean and dry with no warmth erythema or drainage. Clean bandage applied today. Intact PF, DF and EHL Calf soft and nontender and negative Avila's. Final Diagnosis Doing Well S/P Right Hip IM nail Plan: Mobilize To [place] when ok medically DVT prophylaxis PAMELA TIRADO Jul 30, 2021 08:49
[2021-07-30 12:30] VITALS: BP 145/67
--- NOTE | 2021-07-30 14:17 | Physical Therapy Daily Note ---
PT Daily Note-Current Subjective Pt confused but agreeable. Mental Status Patient Orientation: Confused Transfers SCALE: Activities may be completed with or without assistive devices. 3-Hoqxtehnfw-oopnsvg completes the activity by him/herself with no assistance from a helper. 5-Set-up or Clean-up Assistance-helper sets up or cleans up; patient completes activity. Paisley assists only prior to or following the activity. 4-Supervision or Touching Assistance-helper provides verbal cues and/or touching/steadying and/or contact guard assistance as patient completes activity. Assistance may be provided throughout the activity or intermittently. 3-Partial/Moderate Assistance-helper does LESS THAN HALF the effort. Paisley lifts, holds or supports trunk or limbs, but provides less than half the effort. 2-Substantial/Maximal Assistance-helper does MORE THAN HALF the effort. Paisley lifts or holds trunk or limbs and provides more than half the effort. 9-Lbflbcecv-ywcjax does ALL the effort. Patient does none of the effort to complete the activity. Or, the assistance of 2 or more helpers is required for the patient to complete the activity. If activity was not attempted, code reason: 7-Patient Refused. 9-Not Applicable-not attempted and the patient did not perform the activity bef ore the current illness, exacerbation or injury. 10-Not Attempted due to Environmental Limitations-(lack of equipment, weather r estraints, etc.). 88-Not Attempted due to Medical Conditions or Safety Concerns. Supine to sit at edge of bed Moderate assist. Sit to stand x 1 Max Assist Weight Bearing Right Lower Extremity: Right Weight Bearing/Tolerated Gait Training Pt unable to take steps. Exercises Supine Ex: LE Protocol Supine Reps: 10 Assessment Current Status: Fair Progress Pt progress is limited by cognition. He was not able to process use of a FWW for standing. PT Mcc Goals Organic Preparation Analyst Goals PT Mcc Goals Time Frame: Aug 18, 2021 Roll Left & Right (QC): 4 Sit to Lying (QC): 4 Lying-Sitting on Side/Bed(QC): 4 Sit to Stand (QC): 4 Chair/Bdp-wa-Xftwj Xfer(QC): 4 Toilet Transfer (QC): 4 Does the Patient Walk: Yes Walk 10 feet (QC): 3 Walk 50ft with 2 Turns (QC): 3 Walk 150 ft (QC): 3 1 Step (curb) (QC): 3 4 Steps (QC): 3 12 Steps (QC): 3 Does the Pt use WC or Scooter?: No PT Plan Treatment/Plan Treatment Plan: Discontinue PT Treatment Plan: Bed Mobility, Education, Functional Activity Alexa, Functional Strength, Group Therapy, Safety Treatment Duration: Sep 20, 2021 Frequency: 6 times per week Estimated Hrs Per Day: .25 hour per day Time/GCodes Time In: 1000 Time Out: 1025 Total Billed Treatment Time: 25 Total Billed Treatment visit, exercise 15, FA 10min JEREMY SIBLEY PT Jul 30, 2021 14:17
== END 2021-07-30 12:30 | DRG 481 ==
LOC: EDUNIT# 16:26 → ER 16:27 → 4TH 17:59
PROVIDERS: ADMIT Family Medicine; ATTEND Family Medicine
PROC: 0QS606Z Reposition Right Upper Femur with Intramedullary Internal Fixation Device, Open Approach (ICD-10-PCS; principal; 2021-07-27 10:44)
DX: S72.141A Displaced intertrochanteric fracture of right femur, initial encounter for closed fracture (principal); D62 Acute posthemorrhagic anemia; I10 Essential (primary) hypertension; Z66 Do not resuscitate; F03.90 Unspecified dementia, unspecified severity, without behavioral disturbance, psychotic disturbance, mood disturbance, and anxiety; K21.9 Gastro-esophageal reflux disease without esophagitis; N40.0 Benign prostatic hyperplasia without lower urinary tract symptoms; E78.5 Hyperlipidemia, unspecified; I48.0 Paroxysmal atrial fibrillation; H54.7 Unspecified visual loss; H91.90 Unspecified hearing loss, unspecified ear; N19 Unspecified kidney failure; W06.XXXA Fall from bed, initial encounter; Z96.642 Presence of left artificial hip joint; Y92.122 Bedroom in nursing home as the place of occurrence of the external cause; Z99.2 Dependence on renal dialysis; Z86.73 Personal history of transient ischemic attack (TIA), and cerebral infarction without residual deficits; Z88.0 Allergy status to penicillin; Z88.8 Allergy status to other drugs, medicaments and biological substances; Z88.7 Allergy status to serum and vaccine; Z79.82 Long term (current) use of aspirin; Z79.899 Other long term (current) drug therapy; Z87.891 Personal history of nicotine dependence; Z79.01 Long term (current) use of anticoagulants
CPT/HCPCS: 36415; 71045; 76000; 80048; 85014; 85018; 85025; 85027; 87081; 93005; 94664; 94760

== ENCOUNTER → 2022-03-06 | Outpatient (CLI) | payer MEDICARE, MEDICAID ==
[~2022-03-06] MED LIST changes: +ACET325C7 PO; +BENZ100C18 PO; +DIPH28.33 TP; +FERR325T18 PO; -POTA10TA36 PO; +POTA10TA37 PO
--- NOTE | 2022-03-06 12:28 | Diagnostic Imaging Report ---
PROCEDURE: CT head without contrast. TECHNIQUE: Multiple contiguous axial images were obtained through the brain without the use of intravenous contrast. Auto Exposure Controls were utilized during the CT exam to meet ALARA standards for radiation dose reduction. INDICATION: Dementia. COMPARISON: 07/15/2020. 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 There are also persistent areas of confluent scattered diminished attenuation within the periventricular and subcortical deep white matter consistent with chronic small vessel ischemic changes. There is no new loss of tobin-white matter junction differentiation to suggest new acute evolving infarct. Ventricles and cortical sulci remain mildly diffusely prominent consistent with underlying age-related parenchymal volume loss. There is no mass effect or midline shift. No intra- or extra-axial intracranial hemorrhage is seen. No other extra-axial masses or fluid collections are identified. Bony calvarium is intact. Visualized portions of the paranasal sinuses and mastoid air cells are clear. IMPRESSION: 1. No new acute intracranial abnormality. No CT evidence of acute infarct, mass, nor hemorrhage. 2. Redemonstration of old infarct in the left frontal lobe and background chronic small vessel ischemic changes in the deep white matter. Dictated by: Dictated on workstation # [id number]
== END ==
LOC: RAD 11:45
PROVIDERS: ATTEND Family Medicine
DX: I67.82 Cerebral ischemia (principal); F03.90 Unspecified dementia, unspecified severity, without behavioral disturbance, psychotic disturbance, mood disturbance, and anxiety
CPT/HCPCS: 70450

== ENCOUNTER → 2022-03-25 | Outpatient (CLI) | payer MEDICARE, MEDICAID ==
[2022-03-25 20:48] LABS: BILIRUBIN,URINE NEGATIVE (NEGATIVE); CLARITY,URINE SL CLOUDY; COLOR,URINE YELLOW; GLUCOSE, URINE (UA) NEGATIVE (NEGATIVE); KETONES,URINE NEGATIVE (NEGATIVE); LEUKOCYTE ESTERASE ,URINE NEGATIVE (NEGATIVE); NITRITE,URINE POSITIVE (NEGATIVE); PROTEIN,URINE NEGATIVE (NEGATIVE)
[2022-03-25 20:55] LABS: BACTERIA,URINE LARGE /HPF; WBC,URINE 0-2 /HPF
== END ==
PROVIDERS: ATTEND Family Medicine
DX: R41.82 Altered mental status, unspecified (principal); R82.998 Other abnormal findings in urine
CPT/HCPCS: 81000; 87077; 87088; 87186

== ENCOUNTER 2023-09-14 11:46 | Emergency (ER) | payer MEDICARE, MEDICAID ==
[~2023-09-14] VITALS: Ht 172.7 cm; Wt 89.6 kg
[~2023-09-14 11:46] MED LIST changes: +POTA-177 PO; +POTA-330 PO; -POTA-51 PO; -POTA10TA37 PO
--- NOTE | 2023-09-14 12:36 | ED GU-Male ---
General Chief Complaint: - Reproductive Stated Complaint: SWELLING IN GENITALS Source: jail records Exam Limitations: other (prior stroke and dementia) History of Present Illness Date Seen by Provider: Sep 14, 2023 Time Seen by Provider: 12:28 Initial Comments Patient is an 83yo male [facility] with enlarged tender left testicle. Apparently it was noted by staff today. Patient has a history of Alzheimer's Dementia and prior stroke and is not able to really provide a timeline, HPI/ROS. He does complain of testicular pain on examination of the testicle. Timing/Duration: other (unsure) Location: scrotal (left testicle) Activities at Onset: other (unknown) Allergies and Home Medications Allergies Coded Allergies: Tetanus Vaccines and Toxoid (Verified Allergy, Severe, Anaphylaxis, 07/15/20) meperidine (Verified Allergy, Severe, Shortness of Breath, 07/15/20) penicillin G (Verified Allergy, Severe, FEVER, 07/15/20) Patient Home Medication List Home Medication List Reviewed: Yes Acetaminophen (Tylenol) 325 Mg Capsule, 620 MG PO Q6H PRN for PAIN-MILD (1-4) OR TEMPATURE, (Reported) Entered as Reported by: ERIC JAMISON on 07/27/21 141 Atorvastatin Calcium (Atorvastatin Calcium) 80 Mg Tablet, 80 MG PO 1700, (Reported) Entered as Reported by: ERIC JAMISON on 07/27/211409 Benzonatate (Tessalon Perles) 100 Mg Capsule, 100 MG PO TID PRN for COUGH, (Reported) Entered as Reported by: ERIC JAMISON on 07/27/21 141 Bisacodyl (Bisacodyl) 10 Mg Supp.rect, 10 MG RC DAILY PRN for CONSTIPATION-4TH LINE, (Reported) Entered as Reported by: ERIC JAMISON on 07/27/21 141 Ciprofloxacin HCl (Cipro) 500 Mg Tablet, 500 MG PO BID Prescribed by: SOPHIE KRISHNAMURTHY on 09/14/23 144 Diphenhydramine HCl/Zinc Acet (Benadryl Itch Stopping Crm) 28.3 Gm Cream..g., 1 APPLIC TP TID PRN for ITCHING, (Reported) Entered as Reported by: ERIC JAMISON on 07/27/21 141 Escitalopram Oxalate (Lexapro) 5 Mg Tablet, 5 MG PO DAILY, (Reported) Entered as Reported by: JANUARY CORTES on 01/18/21 1531 Ferrous Sulfate (Ferrous Sulfate) 325 Mg Tablet, 325 MG PO BID, (Reported) Entered as Reported by: ERIC JAMISON on 07/27/21 1410 Hydralazine HCl (Hydralazine HCl) 25 Mg Tablet, 25 MG PO BID, (Reported) Entered as Reported by: INO HUNTER on 05/17/20 0846 Hydrocodone Bit/Acetaminophen (HYDROcodone/APAP 7.5/325 TAB) 1 Ea Tablet, 1 EA PO Q2HR PRN for PAIN-MODERATE (5-7) Prescribed by: MEGHNA PINTO on 07/29/21 1449 L.acidoph & Paracasei,B.lactis (Probiotic) 10 Billion Cell Capsule, 1 EACH PO DAILY Prescribed by: SOPHIE KRISHNAMURTHY on 09/14/23 1440 Melatonin (Melatonin) 3 Mg Tablet, 3 MG PO HS PRN for SLEEP, (Reported) Entered as Reported by: ERIC JAMISON on 07/27/21 1410 Metoprolol Tartrate (Metoprolol Tartrate) 25 Mg Tablet, 25 MG PO BID, (Reported) Entered as Reported by: ERIC JAMISON on 07/27/21 1519 Pantoprazole Sodium (Pantoprazole Sodium) 40 Mg Tablet.dr, 40 MG PO DAILY, (Reported) Entered as Reported by: JANUARY CORTES on 04/22/21 0815 Potassium Chloride (Potassium Chloride) 20 Meq Tablet.er, 20 MEQ PO DAILY, (Reported) Entered as Reported by: INO HUNTER on 05/17/20 0846 Tamsulosin HCl (Flomax) 0.4 Mg Cap, 0.4 MG PO 1700, (Reported) Entered as Reported by: INO HUNTER on 05/17/20 0846 Review of Systems Review of Systems Constitutional: see HPI unable to obtain due to dementia Past Rdebeoj-Dpepfc-Ahluwf Hx Patient Social History Tobacco Use?: No Use of E-Cig and/or Vaping dev: No Substance use?: No Alcohol Use?: No Pt feels they are or have been: No Immunizations Up To Date Tetanus Booster (TDap): Unknown PED Vaccines UTD: No First/Initial COVID19 Vaccinat: UNK Second COVID19 Vaccination Theodore: UNK Third COVID19 Vaccination Date: UNK Seasonal Allergies Seasonal Allergies: No Past Medical History Surgery/Hospitalization HX: STROKE, APHASIA, DYSPHAGIA, PE, ENCEPHALOPATHY, GERD, MRSA, DIALYSIS Surgeries: Yes Appendectomy, Orthopedic Respiratory: No (pleural effusion) Currently Using CPAP: No Currently Using BIPAP: No Cardiac: Yes Atrial Fibrillation, Hypertension Neurological: No Sexually Transmitted Disease: No HIV/AIDS: No Genitourinary: Yes (bladder dysfunction) Renal Failure, Dialysis Gastrointestinal: Yes Gastroesophageal Reflux Musculoskeletal: Yes (RIGHT BROKEN ARM, abscess of the spine, muscle weakness) Endocrine: No HEENT: Yes Loss of Vision: Left Hearing Impairment: Hard of Hearing Cancer: No Psychosocial: No Integumentary: No Blood Disorders: No Adverse Reaction/Blood Tranf: No Family Medical History No Pertinent Family Hx Physical Exam Vital Signs Vital Signs - First Documented 09/14/23 12:14 Temp 37.2 Pulse 57 Resp 16 B/P (MAP) 149/51 (83) Pulse Ox 95 O2 Delivery Room Air Capillary Refill : Height, Weight, BMI Height: 5'6.00" Weight: 238lbs. 3.0oz. [id number]; 29.25 BMI Method:Stated General Appearance: WD/WN, no apparent distress HEENT: PERRL/EOMI Neck: full range of motion Respiratory: no respiratory distress, no accessory muscle use Gastrointestinal: non tender, soft Male: other (uncircumcised male, no penile lesions; scrotum - left sided is edematous, enlarged left testicle that is tender to the touch; no skin wounds. No perineal erythema; margins feel irregular. no fluctuance.) Neurologic/Psychiatric: alert Skin: warm/dry Progress/Results/Core Measures Suspected Sepsis SIRS Temperature: Pulse: Respiratory Rate: Blood Pressure / Mean: Results/Orders Lab Results Laboratory Tests Test 09/14/23 12:48 Range/Units Urine Color YELLOW Urine Clarity CLOUDY Urine pH 5.0 5-9 Urine Specific [place] 1.015 L 1.016-1.022 Urine Protein 1+ H NEGATIVE Urine Glucose (UA) NEGATIVE NEGATIVE Urine Ketones NEGATIVE NEGATIVE Urine Nitrite POSITIVE H NEGATIVE Urine Bilirubin NEGATIVE NEGATIVE Urine Urobilinogen 2.0 < = 1.0 MG/DL Urine Leukocyte Esterase 2+ H NEGATIVE Urine RBC (Auto) 2+ H NEGATIVE Urine RBC 10-25 H /HPF Urine WBC 50-100 H /HPF Urine Squamous Epithelial Cells 2-5 /HPF Urine Crystals NONE /LPF Urine Bacteria LARGE H /HPF Urine Casts NONE /LPF Urine Mucus NEGATIVE /LPF Urine Culture Indicated YES My Orders Orders - SOPHIE KRISHNAMURTHY MD Ua Culture If Indicated (09/14/23 12:29) Urine Culture (09/14/23 12:48) Ceftriaxone Iv/Im (Ceftriaxone Iv/Im) (09/14/23 14:30) Lidocaine 1% Inj 20 Ml (Xylocaine 1% Inj (09/14/23 14:30) Medications Given in ED Current Medications Medications Dose Ordered Sig/Jenn Route Start Time Stop Time Status Last Admin Dose Admin Ceftriaxone Sodium 1,000 mg ONCE ONCE IM 09/14/23 14:30 09/14/23 14:31 DC 09/14/23 14:34 1,000 MG Lidocaine HCl 2.1 ml ONCE ONCE INJ 09/14/23 14:30 09/14/23 14:31 DC 09/14/23 14:34 2.1 ML Vital Signs/I&O 09/14/23 12:14 Temp 37.2 Pulse 57 Resp 16 B/P (MAP) 149/51 (83) Pulse Ox 95 O2 Delivery Room Air Capillary Refill : Progress Note : Time: 13:25 Progress Note Patient seen and evaluated by me Ronald Avendano today includes history and physical exam with UA and culture. Pertinent physical exam findings - WDWN male in NAD - stable VS. Enlarged, erythematous and tender left testicle. No skin wounds or necrosis. No perineal wounds. ddx includes orchitis, epididymitis, torsion Patient's UA shows 1+ protein, + nitrite, 2+ LE, 10-25 RBC, 50-100 WBC and large bacteria. I have low suspicion for torsion but still need an Ultrasound to further delineate pathology. We do not have U/S services available today nor through the weekend. I was able to use our bedside ultrasound and demonstrate large hydrocele in the scrotum with positive doppler flow of blood in the testicle. This reassures me that no torsion is present - that and the patient states he has had this pain and swelling for a "month". I do not feel there is an urgency / emergency to have the testicle formally ultrasounded. We can start him on antibiotics and bring him back Sunday for formal with precautions to include fever, worsening pain have him return to the ER. Patient seems comfortable with this plan. Departure Impression Primary Impression: Orchitis Additional Impression: Urinary tract infection Qualified Codes: N30.01 - Acute cystitis with hematuria Disposition: HOME, SELF-CARE Condition: Stable Departure-Patient Inst. Decision time for Depature: 14:33 Referrals: MARYSOL CAPELLAN DO (PCP/Family) Primary Care Physician Patient Instructions: Urinary Tract Infection, Adult (DC) Add. Discharge Instructions: Patient will need to be on Ciprofloxacin 500mg twice a day for 10 days. He needs to be on a probiotic with this - daily. Ice packs may help with swelling, as well as elevation of the scrotum. If he develops a fever over 101, worsening pain, abdominal pain with vomiting - he needs to come back to the Emergency Department. He will need to have an ultrasound of the left testicle on [id number]. Scripts L.acidoph & Paracasei,B.lactis (Probiotic) 10 Billion Cell Capsule 1 EACH PO DAILY, #30 CAP Prov: SOPHIE KRISHNAMURTHY MD 09/14/23 Ciprofloxacin HCl (Cipro) 500 Mg Tablet 500 MG PO BID, #20 TAB Prov: SOPHIE KRISHNAMURTHY MD 09/14/23 Copy Copies To 1: MARYSOL CAPELLAN KATHRYN M MD Sep 14, 2023 12:36
[2023-09-14 13:12] LABS: CLARITY,URINE CLOUDY; COLOR,URINE YELLOW; GLUCOSE, URINE (UA) NEGATIVE (NEGATIVE); KETONES,URINE NEGATIVE (NEGATIVE); NITRITE,URINE POSITIVE (NEGATIVE); PROTEIN,URINE 1+ (NEGATIVE)
[2023-09-14 13:13] LABS: BACTERIA,URINE LARGE /HPF; BILIRUBIN,URINE NEGATIVE (NEGATIVE); LEUKOCYTE ESTERASE ,URINE 2+ (NEGATIVE); WBC,URINE 50-100 /HPF
[2023-09-14] MEDS ORDERED: cefTRIAXone 1,000 MG VIAL IV/IM IM ONE (14:30)
[2023-09-14] MEDS ORDERED: LIDOCAINE 1% INJ 20 ML VIAL INJ ONE (14:30)
[2023-09-14] MEDS ORDERED: CIPR-225 PO (14:40)
[2023-09-14] MEDS ORDERED: L.AC1CAP6 PO (14:40)
[2023-09-14 14:46] VITALS: BP 129/81
== END 2023-09-14 14:46 | disposition home or self-care (01) ==
LOC: EDUNIT# 11:46 → ER 11:48
DX: N45.2 Orchitis (principal); N39.0 Urinary tract infection, site not specified; I12.0 Hypertensive chronic kidney disease with stage 5 chronic kidney disease or end stage renal disease; N18.6 End stage renal disease; Z99.2 Dependence on renal dialysis; Z88.0 Allergy status to penicillin
CPT/HCPCS: 81000; 87077; 87088; 87186; 99282

== ENCOUNTER → 2023-09-17 | Outpatient (CLI) | payer MEDICARE, MEDICAID ==
[~2023-09-17] MED LIST changes: +CIPR-225 PO; +L.AC1CAP6 PO
--- NOTE | 2023-09-17 11:51 | Diagnostic Imaging Report ---
PROCEDURE: US Scrotum. TECHNIQUE: Multiple real-time grayscale images were obtained over the scrotum in various projections bilaterally. INDICATION: Left scrotal swelling. The right testicle measures 3.9 x 2.4 x 2.2 cm. The left testicle measures 3.2 x 2.5 x 2.4 cm. Both testes demonstrate homogeneous echotexture. No testicular mass is identified. There is blood flow to both testes. Both epididymal heads contain tiny cysts. Cyst on the right is approximately 5 mm x 3 mm. There are 2 cysts on the left, each approximately 4 mm x 3 mm in size. There also appears to be some hypervascularity to the left epididymis and epididymitis cannot be excluded. There is a moderate right and a large left hydrocele. No varicocele is identified. IMPRESSION: 1. No evidence of testicular mass or vascular compromise. 2. Bilateral hydroceles, greater on the left. 3. Bilateral epididymal head cysts. There is some hypervascularity to the left epididymal body as well, perhaps owing to epididymitis. Dictated by: Dictated on workstation # [id number]
== END ==
LOC: RAD 07:20
PROVIDERS: ATTEND Emergency Medicine
DX: N43.3 Hydrocele, unspecified (principal); N50.3 Cyst of epididymis; N50.89 Other specified disorders of the male genital organs
CPT/HCPCS: 76870

== ENCOUNTER 2023-09-21 10:21 | Emergency (ER) | payer MEDICARE, MEDICAID ==
[~2023-09-21] VITALS: Ht 182 cm; Wt 100.0 kg
--- NOTE | 2023-09-21 11:01 | ED GU-Male ---
General Chief Complaint: - Reproductive Stated Complaint: LT TESTICULAR SWELLING Nursing Triage Note: Patient presented to the ER today via EMS with complaints of left testicular swelling. EMS advised that the patient was evaluated in the ER approximately 1 week ago for the same complaint. US/Xray completed no accute findings at that time. Patient denies pain at this time. Source: patient Exam Limitations: no limitations History of Present Illness Date Seen by Provider: Sep 21, 2023 Time Seen by Provider: 10:43 Initial Comments 83-year-old male from nursing facility for left testicular swelling. He does not really know when symptoms started but record review shows he was seen here o n 09/16 for similar. He had an ultrasound showing a large hydrocele on that side. He was started on ciprofloxacin and discharged back. He states he feels the swelling had gone down but does not really know when it started once again. No dysuria or hematuria. No testicular pain. No fevers or chills. All other systems reviewed and negative except documented per HPI. Voice recognition software was used to help create this chart Allergies and Home Medications Allergies Coded Allergies: Tetanus Vaccines and Toxoid (Verified Allergy, Severe, Anaphylaxis, 07/15/20) meperidine (Verified Allergy, Severe, Shortness of Breath, 07/15/20) penicillin G (Verified Allergy, Severe, FEVER, 07/15/20) Patient Home Medication List Home Medication List Reviewed: Yes Acetaminophen (Tylenol) 325 Mg Capsule, 620 MG PO Q6H PRN for PAIN-MILD (1-4) OR TEMPATURE, (Reported) Entered as Reported by: ERIC JAMISON on 07/27/211409 Atorvastatin Calcium (Atorvastatin Calcium) 80 Mg Tablet, 80 MG PO 1700, (Reported) Entered as Reported by: ERIC JAMISON on 07/27/211409 Benzonatate (Tessalon Perles) 100 Mg Capsule, 100 MG PO TID PRN for COUGH, (Reported) Entered as Reported by: ERIC JAMISON on 07/27/211409 Bisacodyl (Bisacodyl) 10 Mg Supp.rect, 10 MG RC DAILY PRN for CONSTIPATION-4TH LINE, (Reported) Entered as Reported by: ERIC JAMISON on 07/27/211409 Ciprofloxacin HCl (Cipro) 500 Mg Tablet, 500 MG PO BID Prescribed by: SOPHIE KRISHNAMURTHY on 09/14/23 1440 Diphenhydramine HCl/Zinc Acet (Benadryl Itch Stopping Crm) 28.3 Gm Cream..g., 1 APPLIC TP TID PRN for ITCHING, (Reported) Entered as Reported by: ERIC JAMISON on 07/27/21 1410 Escitalopram Oxalate (Lexapro) 5 Mg Tablet, 5 MG PO DAILY, (Reported) Entered as Reported by: JANUARY CORTES on 01/18/21 1531 Ferrous Sulfate (Ferrous Sulfate) 325 Mg Tablet, 325 MG PO BID, (Reported) Entered as Reported by: ERIC JAMISON on 07/27/21 1410 Hydralazine HCl (Hydralazine HCl) 25 Mg Tablet, 25 MG PO BID, (Reported) Entered as Reported by: INO HUNTER on 05/17/20 0846 Hydrocodone Bit/Acetaminophen (HYDROcodone/APAP 7.5/325 TAB) 1 Ea Tablet, 1 EA PO Q2HR PRN for PAIN-MODERATE (5-7) Prescribed by: MEGHNA PINTO on 07/29/21 1449 L.acidoph & Paracasei,B.lactis (Probiotic) 10 Billion Cell Capsule, 1 EACH PO DAILY Prescribed by: SOPHIE KRISHNAMURTHY on 09/14/23 1440 Melatonin (Melatonin) 3 Mg Tablet, 3 MG PO HS PRN for SLEEP, (Reported) Entered as Reported by: ERIC JAMISON on 07/27/21 1410 Metoprolol Tartrate (Metoprolol Tartrate) 25 Mg Tablet, 25 MG PO BID, (Reported) Entered as Reported by: ERIC JAMISON on 07/27/21 1519 Pantoprazole Sodium (Pantoprazole Sodium) 40 Mg Tablet.dr, 40 MG PO DAILY, (Reported) Entered as Reported by: JANUARY CORTES on 04/22/21 0815 Potassium Chloride (Potassium Chloride) 20 Meq Tablet.er, 20 MEQ PO DAILY, (Reported) Entered as Reported by: INO HUNTER on 05/17/20 0846 Tamsulosin HCl (Flomax) 0.4 Mg Cap, 0.4 MG PO 1700, (Reported) Entered as Reported by: INO HUNTER on 05/17/20 0846 Review of Systems Review of Systems Constitutional: see HPI Past Tauyuev-Bgihdj-Wjmcts Hx Patient Social History Tobacco Use?: No Substance use?: No Alcohol Use?: No Pt feels they are or have been: No Immunizations Up To Date Tetanus Booster (TDap): Unknown PED Vaccines UTD: No First/Initial COVID19 Vaccinat: UNK Second COVID19 Vaccination Theodore: UNK Third COVID19 Vaccination Date: UNK Seasonal Allergies Seasonal Allergies: No Past Medical History Surgery/Hospitalization HX: STROKE, APHASIA, DYSPHAGIA, PE, ENCEPHALOPATHY, GERD, MRSA, DIALYSIS Surgeries: Yes Appendectomy, Orthopedic Respiratory: No (pleural effusion) Currently Using CPAP: No Currently Using BIPAP: No Cardiac: Yes Atrial Fibrillation, Hypertension Neurological: No Sexually Transmitted Disease: No HIV/AIDS: No Genitourinary: Yes (bladder dysfunction) Renal Failure, Dialysis Gastrointestinal: Yes Gastroesophageal Reflux Musculoskeletal: Yes (RIGHT BROKEN ARM, abscess of the spine, muscle weakness) Endocrine: No HEENT: Yes Loss of Vision: Left Hearing Impairment: Hard of Hearing Cancer: No Psychosocial: No Integumentary: No Blood Disorders: No Adverse Reaction/Blood Tranf: No Family Medical History No Pertinent Family Hx Physical Exam Vital Signs Vital Signs - First Documented 09/21/23 10:24 Temp 36.4 Pulse 62 Resp 18 B/P (MAP) 128/62 (84) Pulse Ox 98 O2 Delivery Room Air Capillary Refill : Less Than 3 Seconds Height, Weight, BMI Height: 5'6.00" Weight: 238lbs. 3.0oz. [id number]; 30.00 BMI Method:Stated General Appearance: WD/WN, no apparent distress Cardiovascular: regular rate, rhythm, no murmur Respiratory: chest non-tender, lungs clear, normal breath sounds, no respiratory distress, no accessory muscle use Gastrointestinal: normal bowel sounds, non tender, soft Male: other (Left testicular swelling, mild. There is no tenderness. Normal cremasteric reflex. No skin changes.) Progress/Results/Core Measures Suspected Sepsis SIRS Temperature: Pulse: 62 Respiratory Rate: 18 Blood Pressure 128 /62 Mean: 84 Results/Orders Vital Signs/I&O 09/21/23 10:24 Temp 36.4 Pulse 62 Resp 18 B/P (MAP) 128/62 (84) Pulse Ox 98 O2 Delivery Room Air Capillary Refill : Less Than 3 Seconds Blood Pressure Mean: 84 Departure Communication (Admissions) Patient is hemodynamically stable. Exam reveals a slightly enlarged testicle on the left side with firmness to palpation the superior pole in the scrotal sac. The testicle itself as well as the scrotum are nontender and there are no skin changes. He had an ultrasound recently showing large hydrocele. I do not think there is any evidence for torsion at this time and I think this is likely recurrence of the hydrocele. We will go ahead and refer him to urology given the symptomatology. We discharged home in stable condition. Impression Primary Impression: Hydrocele in adult Disposition: 01 HOME, SELF-CARE Condition: Stable Departure-Patient Inst. Referrals: Stacey DOYLE MD, RICHARD A DO (PCP/Family) Primary Care Physician Patient Instructions: Hydrocele Add. Discharge Instructions: You are seen in the emergency department for left testicular swelling. No emergent medical condition is identified based on your symptoms today. I believe this is likely still related to the hydrocele that was previously identified on ultrasound. Follow-up with Dr. Doyle by calling to schedule an appointment. Return to the emergency department if you develop any significant pain fevers or if your symptoms change in any way concerning to you otherwise. All discharge instructions reviewed with patient and/or family. Voiced understanding. FAISAL GUILLERMO DO Sep 21, 2023 11:01
[2023-09-21 11:29] VITALS: BP 135/74
== END 2023-09-21 11:28 | disposition home or self-care (01) ==
LOC: EDUNIT# 10:21 → ER 10:22
DX: N43.3 Hydrocele, unspecified (principal)
CPT/HCPCS: 99283